=== PATIENT | female | born 1935 | race African-American/Black ===

== ENCOUNTER 2018-01-27 21:29 | Inpatient (IN) | payer MEDICARE ==
[2018-01-27 21:58] LABS: #Eosinphils 0.1 thou/uL (0.0-0.7); #Lymphocytes 1.8 thou/uL (1.20-3.40); #Monocytes 0.4 thou/uL (0.11-0.59); #Neutrophils 3.6 thou/uL (1.40-6.50); %Basophils 0.6 % (0.0-1.0); %Eosinophils 2.3 % (0.0-10.0); %Lymphocytes 29.8 % (21.0-51.0); %Monocytes 6.3 % (0.0-10.0); %Neutrophils 61.1 % (42.0-75.0); Hemoglobin 9.2 g/dL (12.0-16.0); Mean Corpuscular Hemoglobin 31.6 pg (27.0-31.0); Mean Corpuscular Volume 95.7 fl (81.0-99.0); Mean Platelet Volume 7.8 fL (7.4-10.4); Platelet Count 176 thou/uL (130-400); RBC Distribution Width 12.6 % (11.5-14.5); Red Blood Cell (RBC) Count 2.92 mill/uL (4.20-5.40); White Blood Cell (WBC) Count 5.9 thou/uL (4.8-10.8)
[2018-01-27 22:20] LABS: ALT (SGPT) 16 U/L (8-55); AST (SGOT) 14 U/L (5-34); Albumin 3.4 g/dL (3.4-4.8); Alkaline Phosphatase 82 U/L (40-150); Anion Gap 12 mmol/L (10-20); BUN (Urea Nitrogen) 65 mg/dL (9.8-20.1); Bilirubin, Total 0.2 mg/dL (0.2-1.2); Calc. Creatinine Clearance 0 mL/min (70-130); Calcium 8.8 mg/dL (7.8-10.44); Carbon Dioxide 24 mmol/L (23-31); Chloride 112 mmol/L (98-107); Estimated GFR-MDRD 40; Globulin 3.1 g/dL (2.4-3.5); Glucose 117 mg/dL (83-110); Protein, Total 6.5 g/dL (6.0-8.3); Sodium 143 mmol/L (136-145)
[2018-01-28 00:36] LABS: Bilirubin Negative (Negative); Blood, Urine Large (Negative); Clarity TURBID (Clear); Glucose, Urine (Dipstick) Negative (Negative); Leukocyte Large (Negative); Nitrite Negative (Negative); Protein, Urine (Dipstick) 100 mg/dL (Neg-Trace); Specific Gravity, Urine 1.013 (1.002-1.036); Urobilinogen 0.2 mg/dL (0.2-1.0)
[2018-01-28 00:39] LABS: Bacteria/HPF 4+ HPF (None Seen); RBC/HPF 21-50 HPF (0-3)
[2018-01-28 00:40] LABS: Pathc Cast-AUWi Flag 19.96 (0-2.49); Yeast-AUWi Flag 58.3 (0-25.0)
[2018-01-28 00:43] LABS: Manual Microscopic Reviewed? No Path Casts Seen
[2018-01-28 00:44] LABS: Hyaline Casts/LPF NONE SEEN LPF (0-3 Hyaline); Yeast-All Forms None Seen HPF (None Seen)
[2018-01-28] MEDS ORDERED: MEROPENEM 1 GM/50 ML 1 GM in Premix Bag 1 BAG IVPB SCH ×2 (01:15→10:00)
--- NOTE | 2018-01-28 01:45 | PDOC.FPRHP ---
- History of Present Illness Chief Complaint: AMS History of Present Illness: 82 yo AA female presents to ED due to altered mental status. Pt daughter was tired and leaving the room and did not stay. Was not able to obtain full history from daughter. Pt A&Ox0. Was very weak and tired. Per brief hx from daughter had not been eating well and was hallucinating all day long. Was not able to obtain baseline from daughter. Daughter takes care of her at home. ED Course: Was given Meropenem and Levaquin - Allergies/Adverse Reactions Allergies Allergy/AdvReac Type Severity Reaction Status Date / Time aspirin Allergy Intermediate Verified 01/28/18 03:24 NSAIDS (Non-Steroidal Allergy Intermediate Verified 01/28/18 03:24 Anti-Inflamma lactose AdvReac Diarrhea Verified 01/28/18 03:24 - Home Medications Medication Instructions Recorded Confirmed Type Carvedilol [Coreg] 25 mg PO BID 12/10/16 05/06/17 History Insulin Detemir 100 UNITS/ML 25 units SC DAILY 12/10/16 01/28/18 History [Levemir] Liothyronine Sodium [Cytomel] 5 mcg PO DAILY 12/10/16 01/28/18 History Amlodipine [Norvasc] 10 mg PO DAILY tab 12/15/16 05/06/17 Rx Atorvastatin Calcium [Lipitor] 40 mg PO HS tab 12/15/16 05/06/17 Rx Folic Acid [Folvite] 1 mg PO DAILY tab 12/15/16 05/06/17 Rx Hydroxychloroquine Sulfate 200 mg PO BID tab 12/15/16 05/06/17 Rx [Plaquenil] Ipratropium/Albuterol Sulfate 3 ml NEB Q4H PRN #0 neb 12/15/16 01/28/18 Rx [DuoNeb] Levothyroxine Sodium [Synthroid] 125 mcg PO 0600 tab 12/15/16 01/28/18 Rx cloNIDine [Catapres] 0.1 mg PO HS tab 12/15/16 01/28/18 Rx hydrALAZINE [Apresoline] 25 mg PO TID tab 12/15/16 05/06/17 Rx Furosemide [Lasix] 40 mg PO BID #60 tab 02/26/17 05/06/17 Rx Budesonide [Pulmicort Flexhaler] 2 puff INH BID PRN 03/28/17 05/06/17 History Ferrous Sulfate 325 mg PO DAILY 03/28/17 05/06/17 History Metolazone 5 mg PO DAILY 03/28/17 05/06/17 History Acetaminophen [Tylenol Regular 325 mg PO Q4H PRN 05/06/17 05/06/17 History Strength] Bisacodyl [Dulcolax] 10 mg PO DAILYPRN PRN #0 tab 05/20/17 Rx Bisacodyl [Dulcolax] 10 mg ID DAILYPRN PRN #0 supp 05/20/17 Rx Calcium Carbonate [Tums] 1,000 mg PO Q4H PRN #0 tab 05/20/17 Rx Ondansetron [Zofran ODT] 4 mg PO Q6H PRN #0 tab 05/20/17 01/28/18 Rx Pantoprazole [Protonix] 40 mg PO BID #60 tab 05/20/17 01/28/18 Rx Comments: Med Rec is from previous admission. Patient is not alert or oriented. Unable to perform accurate Med rec at this time. Daughter not present at bedside. - History PMHx: CKD3, DMII, RA, dCHF (EF 60-65% May 2017), HTN, paroxysmal A.fib, Hypothyroidism, Asthma PSHx: Cardiac Ablation, R. Masectomy, Bilat Rotator Cuff Surgery, Appendectomy, C-sectionx2, Hysterectomy, Thyroidectomy, Left carpal tunnel release PMH and PSHx obtained from previous HPI of last year. FHx: Non contributory Social: Unable to obtain. - Review of Systems ROS unobtainable: due to mental status - Vital signs BP: [203/78] HR: [64] RR: [12] Tmax: [99.8] Pox: [100]% on [ra] Wt: [] - Physical Exam -Constitutional: Weak, Ill appearing. A&Ox0 HEENT: normocephalic and atraumatic, grossly normal hearing -HEENT: mucous membranes dry. Neck: supple, no LAD, no JVD, no thyromegaly Chest: no-tender to palpation, no lesions Heart: RRR, normal S1/S2, pulses present, no edema Lungs: CTAB, no respiratory distress, good air movement, no rales/rhonchi, no wheezing Abdomen: non-tender, bowel sounds present, no masses/distention -Abdomen: Abdomen hard in suprapubic area to palpation Neurological: no focal deficit -Neurological: Hard to assess due to patient mental state Skin: no rash/lesions -Skin: cap refill 3 seconds Heme/Lymphatic: no unusual bruising or bleeding, no purpura, no petechia -Psychiatric: A&Ox0. Pt unable to answer questions FMR H&P: Results - Labs Result Diagrams: 01/28/18 03:14 01/28/18 03:14 Lab results: WBC 5.9 thou/uL (4.8-10.8) 01/27/18 21:51 Hgb 9.2 g/dL (12.0-16.0) L 01/27/18 21:51 Hct 27.9 % (36.0-47.0) L 01/27/18 21:51 MCV 95.7 fl (81.0-99.0) 01/27/18 21:51 Plt Count 176 thou/uL (130-400) 01/27/18 21:51 Neutrophils % 61.1 % (42.0-75.0) 01/27/18 21:51 Sodium 143 mmol/L (136-145) 01/27/18 21:51 Potassium 5.0 mmol/L (3.5-5.1) 01/27/18 21:51 Chloride 112 mmol/L (98-107) H 01/27/18 21:51 Carbon Dioxide 24 mmol/L (23-31) 01/27/18 21:51 BUN 65 mg/dL (9.8-20.1) H 01/27/18 21:51 Creatinine 1.52 mg/dL (0.6-1.1) H 01/27/18 21:51 Glucose 117 mg/dL (83-110) H 01/27/18 21:51 Calcium 8.8 mg/dL (7.8-10.44) 01/27/18 21:51 Total Bilirubin 0.2 mg/dL (0.2-1.2) 01/27/18 21:51 AST 14 U/L (5-34) 01/27/18 21:51 ALT 16 U/L (8-55) 01/27/18 21:51 Alkaline Phosphatase 82 U/L (40-150) 01/27/18 21:51 Serum Total Protein 6.5 g/dL (6.0-8.3) 01/27/18 21:51 Albumin 3.4 g/dL (3.4-4.8) 01/27/18 21:51 Urine Ketones Negative mg/dL (Negative) 01/28/18 00:10 Urine Blood Large (Negative) H 01/28/18 00:10 Urine Nitrite Negative (Negative) 01/28/18 00:10 Ur Leukocyte Esterase Large (Negative) H 01/28/18 00:10 Urine RBC 21-50 HPF (0-3) H 01/28/18 00:10 Urine WBC Greater Than 50-TNTC HPF (0-3) H 01/28/18 00:10 Ur Squamous Epith Cells 4-6 HPF (0-3) H 01/28/18 00:10 Urine Bacteria 4+ HPF (None Seen) H 01/28/18 00:10 - EKG Interpretation EKG: No EKG findings noted FMR H&P: A/P - Problem List (1) Toxic metabolic encephalopathy Current Visit: Yes Status: Acute Code(s): G92 - TOXIC ENCEPHALOPATHY (2) UTI (urinary tract infection) Current Visit: No Status: Acute Qualifiers: Urinary tract infection type: acute cystitis Hematuria presence: with hematuria Qualified Code(s): N30.01 - Acute cystitis with hematuria (3) CKD (chronic kidney disease) stage 3, GFR 30-59 ml/min Current Visit: No Status: Acute Priority: Medium (4) Generalized weakness Current Visit: No Status: Acute Priority: Medium Code(s): R53.1 - WEAKNESS (5) Paroxysmal atrial fibrillation Current Visit: No Status: Acute Priority: Low Code(s): I48.0 - PAROXYSMAL ATRIAL FIBRILLATION (6) Diabetes mellitus Current Visit: No Status: Chronic Code(s): E11.9 - TYPE 2 DIABETES MELLITUS WITHOUT COMPLICATIONS Qualifiers: Diabetes mellitus type: type 2 Proliferative retinopathy type: stable (7) Diastolic CHF Current Visit: No Status: Chronic Code(s): I50.30 - UNSPECIFIED DIASTOLIC ( CONGESTIVE) HEART FAILURE (8) Hypertension Current Visit: No Status: Chronic Code(s): I10 - ESSENTIAL (PRIMARY) HYPERTENSION Qualifiers: (9) Hypothyroidism Current Visit: No Status: Chronic Code(s): E03.9 - HYPOTHYROIDISM, UNSPECIFIED Qualifiers: Hypothyroidism type: acquired Qualified Code(s): E03.9 - Hypothyroidism, unspecified (10) Rheumatoid arteritis Current Visit: No Status: Chronic Code(s): I00 - RHEUMATIC FEVER WITHOUT HEART INVOLVEMENT (11) Delirium Current Visit: No Status: Resolved Code(s): R41.0 - DISORIENTATION, UNSPECIFIED (12) Hypertensive urgency Current Visit: Yes Status: Acute Code(s): I16.0 - HYPERTENSIVE URGENCY (13) Mild dehydration Current Visit: Yes Status: Acute Code(s): E86.0 - DEHYDRATION - Plan Toxic Metabolic Encephalopathy 2/2 UTI -Per ER and brief hx from daughter, was very delirous and hallicinating today. A &x0. Very weak -UA bact, LE, and WBC (+). Urine Cx pending. Blood Cx pending -Tx w/ levaquin at this time. Given one dose meropenem by ER -NS@125 mls/hr -Lactic acid for sepsis pending -Unknown baseline -Will get CT head HTN Urgency -Awaiting Med Rec. will restart home meds when possible -Labetolol PRN for SBP>180 Mild Dehydration -Mucous membranes dry, decreased cap refill. Decreased PO intake today -NS fluids as above CKD3 -Stable, Cr much improved from previous visits. Fluids as above -Monitor with BMP dCHF -Grade 1 on ECHO in May 2017 -Given fluids. Not fluid overloaded at this time continue to monitor Hypothyroidism -Await med rec, continue home med when completed DMII -Mod SSI, Accuchecks ACHS RA -Continue home meds Delirium -Related to problem one. See above Generalize Weakness -PT/OT consulted -Case management for d/c planning FMR H&P: Upper Level - Pertinent history 82 y/o F pmhx RA, dCHF, anemia, severe lower extremity ulcers with osteomyelitis , and hypothryoidism presents with altered mental status. Patient was previously labeled as a diabetic but last A1c in Oct 2017 was 4.6%. Unable to obtain full history as family member left as we were arriving in room but sounds like she has had extremely foul smelling urine, decreased oral intake, and increased confusion at home. Patient lives with daughter who is her sole home care manager rn. Unclear what mental status or functionality is like at baseline. Patient's PMD is Dr. Winston who has previously documented ongoing issues with hallucinations. However, no documented history of dementia on review of prior records. Patient is not oriented during interview and unable to respond to questioning. - Pertinent findings Gen: obese, awake but non-oriented, appears somewhat lethargic Eyes: constricted pupils but equally round and reactive to light Neck: no bruits CV: RRR, no m/g/r Lungs: CTAB Abd: non-tender, +BS Ext: trace edema Skin: no evidence of ulcers; chronic changes and thickening on LE's - Plan Date/Time: 01/28/18 0144 I, Alex Mosher MD have evaluated this patient and agree with findings/plan as outlined by financial analyst intern resident. Pertinent changes/additions are listed here. 82 yo AAF with: 1) Presumed toxic metabolic encephalopathy 2/2 UTI 2) Mild dehydration 3)HTN Urgency 4) Other chronic medical conditions: cont. home medications Admit to medical. Continue IV abx for UTI. Culture pending. Will continue treatment with Levaquin given prior history of urinary pathogen resistant to Rocephin. Gentle IVF for dehydration. Blood cultures and lactic acid pending but no evidence of sepsis at this time. Troponin and TSH pending. EKG NSR. CT head deferred for now as no focal signs of CVA. PT/OT ordered. Case management consult to assist with placement after d/c. PRN Labetolol for SBP>180 Attending Addendum - Attending Addendum Date/Time: 01/28/18 0901 I personally evaluated the patient and discussed the management with I agree with the History, Examination, Assessment and Plan documented above with any addition or exceptions noted below. 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 Patient followed by Dr Winston recent visual hallucinations and started on zoloft recently.Prior surgery laseeye surgery for diabetic retinopathy, thyroidectomy, mastoidectomy, appendectomy and hysterectomy with BSO([facility] no CA) Daughter to bring in Rx for reconciliation today discussed progress with son ( [facility] in [facility]) [phone]
[2018-01-28] MEDS ORDERED: Nitroglycerin 2% Ointment 1 INCH/1 GM Packet ONE (02:21)
[2018-01-28] MEDS ORDERED: Acetaminophen 650 MG Suppository PR PRN (02:55)
[2018-01-28] MEDS ORDERED: Ondansetron ODT 4 MG TAB PO PRN ×2 (02:55→07:00)
[2018-01-28] MEDS ORDERED: Dextrose 5% in Water 1,000 ML IV PRN (02:55)
[2018-01-28] MEDS ORDERED: Bisacodyl 10 MG SUPP PR PRN (02:55)
[2018-01-28] MEDS ORDERED: Dextrose 50% Abboject 50 ML SYRINGE SLOW IVP PRN (02:55)
[2018-01-28] MEDS ORDERED: Bisacodyl 5 MG TAB PO PRN (02:55)
[2018-01-28] MEDS ORDERED: Labetalol HCl 100 MG/20 ML VIAL SLOW IVP PRN (02:55)
[2018-01-28] MEDS ORDERED: Sodium Chloride 0.9% 1,000 ML IV SCH ×2 (02:55)
[2018-01-28] MEDS ORDERED: Ondansetron ODT 4 MG TAB SL PRN (02:55)
[2018-01-28] MEDS ORDERED: Ondansetron HCl/PF 4 MG/2 ML Vial IVP PRN ×2 (02:55)
[2018-01-28 03:27] VITALS: BMI 30.6
[2018-01-28 03:56] LABS: #Eosinphils 0.2 thou/uL (0.0-0.7); #Lymphocytes 2.2 thou/uL (1.20-3.40); #Monocytes 0.5 thou/uL (0.11-0.59); #Neutrophils 2.8 thou/uL (1.40-6.50); %Basophils 0.2 % (0.0-1.0); %Eosinophils 3.4 % (0.0-10.0); %Lymphocytes 38.8 % (21.0-51.0); %Neutrophils 48.6 % (42.0-75.0); Hemoglobin 9.6 g/dL (12.0-16.0); Mean Corpuscular HGB CONC 33.7 g/dL (32.0-36.0); Mean Corpuscular Hemoglobin 32.5 pg (27.0-31.0); Mean Corpuscular Volume 96.4 fl (81.0-99.0); Mean Platelet Volume 8.2 fL (7.4-10.4); Platelet Count 186 thou/uL (130-400); RBC Distribution Width 12.7 % (11.5-14.5); Red Blood Cell (RBC) Count 2.94 mill/uL (4.20-5.40); White Blood Cell (WBC) Count 5.7 thou/uL (4.8-10.8)
[2018-01-28 04:14] LABS: Anion Gap 12 mmol/L (10-20); BUN (Urea Nitrogen) 61 mg/dL (9.8-20.1); Calc. Creatinine Clearance 46 mL/min (70-130); Calcium 8.8 mg/dL (7.8-10.44); Carbon Dioxide 23 mmol/L (23-31); Chloride 113 mmol/L (98-107); Estimated GFR-MDRD 42; Glucose 85 mg/dL (83-110); Potassium 4.6 mmol/L (3.5-5.1); Sodium 143 mmol/L (136-145)
[2018-01-28 04:19] LABS: Troponin I 0.027 ng/mL (< 0.028)
[2018-01-28] MEDS ORDERED: hydrALAZINE 20 MG/ML VIAL SLOW IVP PRN (06:46)
[2018-01-28] MEDS ORDERED: Acetaminophen 325 MG TAB PO PRN (07:00)
[2018-01-28] MEDS ORDERED: Mometasone Furoate 120 PUFF 220 MCG INH PRN (07:15)
--- NOTE | 2018-01-28 08:37 | PDOC.FM ---
- Subjective Subjective: This morning the patient is A&Ox3. She states she has been feeling "slightly off " for the last 2-3 days. She says she has had decreased appetite and some pain with urination. She vomited x1 and has had some nausea. She denies pain at this time. She states she was on hospice for 6 months with home visits but that ended 9 days ago. She says her daughter takes good care of her and she would prefer not to go to a jail for long-term care but she would consider going for a short rehab stay. - Objective Vital Signs & Weight: Vital Signs (12 hours) Temp Pulse Resp BP BP Pulse Ox 01/28/18 06:00 191/73 H 01/28/18 05:05 68 199/68 H 01/28/18 04:33 97.8 F 68 12 95 01/28/18 03:25 98.5 F 67 20 98 01/28/18 02:56 98.3 F 74 20 98 Weight Admit Weight 94.12 kg Weight 94.12 kg Result Diagrams: 01/28/18 03:14 01/28/18 03:14 <Bernabe Flores - Last Filed: 01/28/18 08:39> - Objective Vital Signs & Weight: Vital Signs (12 hours) Temp Pulse Resp BP BP Pulse Ox 01/28/18 08:00 98.2 F 71 18 191/76 H 94 L 01/28/18 06:00 191/73 H 01/28/18 05:05 68 199/68 H 01/28/18 04:33 97.8 F 68 12 95 01/28/18 03:25 98.5 F 67 20 98 01/28/18 02:56 98.3 F 74 20 98 Weight Admit Weight 94.12 kg Weight 94.12 kg I&O: 01/27/18 01/28/18 01/29/18 06:59 06:59 06:59 Intake Total 240 Balance 240 Result Diagrams: 01/28/18 03:14 01/28/18 03:14 <Teja Pugh - Last Filed: 01/28/18 11:11> Phys Exam - Physical Examination Constitutional: NAD HEENT: PERRLA, moist MMs poor dentition Neck: no nodes, full ROM Respiratory: no wheezing, clear to auscultation bilateral Cardiovascular: RRR, no significant murmur, no rub Gastrointestinal: soft, non-tender, no distention, positive bowel sounds Musculoskeletal: no edema diminished pulses at the ankles, no wounds on the feet Neurological: non-focal, moves all 4 limbs Psychiatric: normal affect, A&O x 3 Skin: no rash, cap refill <2 seconds <Bernabe Flores - Last Filed: 01/28/18 08:39> Dx/Plan (1) Hypertensive urgency Code(s): I16.0 - HYPERTENSIVE URGENCY Status: Acute (2) Mild dehydration Code(s): E86.0 - DEHYDRATION Status: Acute (3) Toxic metabolic encephalopathy Code(s): G92 - TOXIC ENCEPHALOPATHY Status: Acute (4) CKD (chronic kidney disease) stage 3, GFR 30-59 ml/min Status: Acute (5) Generalized weakness Code(s): R53.1 - WEAKNESS Status: Acute (6) Nausea & vomiting Code(s): R11.2 - NAUSEA WITH VOMITING, UNSPECIFIED Status: Acute (7) Physical deconditioning Code(s): R53.81 - OTHER MALAISE Status: Acute (8) UTI (urinary tract infection) Status: Acute QualifierTitle: Urinary tract infection type: acute cystitis Hematuria presence: with hematuria Qualified Code(s): N30.01 - Acute cystitis with hematuria (9) Anemia Code(s): D64.9 - ANEMIA, UNSPECIFIED Status: Chronic QualifierTitle: Anemia type: other cause Other causes of anemia: chronic disease, other Qualified Code(s): D63.8 - Anemia in other chronic diseases classified elsewhere (10) Chronic kidney disease, stage IV (severe) Code(s): N18.4 - CHRONIC KIDNEY DISEASE, STAGE 4 (SEVERE) Status: Chronic (11) Rheumatoid arteritis Code(s): I00 - RHEUMATIC FEVER WITHOUT HEART INVOLVEMENT Status: Chronic (12) Type II diabetes mellitus Status: Chronic QualifierTitle: Diabetes mellitus ad terminal makeup operator insulin use: with ad terminal makeup operator use Diabetes mellitus complication status: with circulatory complication Diabetes mellitus complication detail: with peripheral angiopathy with gangrene Qualified Code(s): E11.52 - Type 2 diabetes mellitus with diabetic peripheral angiopathy with gangrene; Z79.4 - skilled nursing (current) use of insulin (13) Delirium Code(s): R41.0 - DISORIENTATION, UNSPECIFIED Status: Resolved - Plan Plan: Toxic Metabolic Encephalopathy 2/2 UTI -patient is A&Ox3, per daughter she was hallucinating before coming in -UA bact, LE, and WBC (+). Urine Cx pending. Blood Cx pending -Tx w/ levaquin at this time. Given one dose meropenem by ER -NS@125 mls/hr -Lactic acid 0.7 - CT head pending read HTN Urgency -Med rec as per external pharmacy results - polypharmacy, pharmacy to assist with med rec - restarted home carvedilol, clonidine patch, lasix -Labetolol PRN for SBP>180 Mild Dehydration - resolved -NS fluids as above CKD3 -Stable, Cr much improved from previous visits. Fluids as above dCHF -Grade 1 on ECHO in May 2017 -Given fluids. Not fluid overloaded at this time continue to monitor Hypothyroidism - home levothyroxine 125mcg DMII -Mod SSI, Accuchecks ACHS - will await med rec for most recent insulin regimen RA - will hold hydroxychloroquine for now Delirium -Related to problem one. See above Generalize Weakness -PT/OT consulted -Case management for d/c planning - just got off hospice 9 days ago - anticipate she will need SNF rehab placement vs home health Dispo:1-2 days <Bernabe Flores - Last Filed: 01/28/18 08:39> (1) Toxic metabolic encephalopathy Code(s): G92 - TOXIC ENCEPHALOPATHY Status: Acute (2) UTI (urinary tract infection) Status: Acute Qualifiers: Urinary tract infection type: acute cystitis Hematuria presence: with hematuria Qualified Code(s): N30.01 - Acute cystitis with hematuria (3) CKD (chronic kidney disease) stage 3, GFR 30-59 ml/min Status: Acute (4) Generalized weakness Code(s): R53.1 - WEAKNESS Status: Acute (5) Paroxysmal atrial fibrillation Code(s): I48.0 - PAROXYSMAL ATRIAL FIBRILLATION Status: Acute (6) Diabetes mellitus Code(s): E11.9 - TYPE 2 DIABETES MELLITUS WITHOUT COMPLICATIONS Status: Chronic Qualifiers: Diabetes mellitus type: type 2 Proliferative retinopathy type: stable (7) Diastolic CHF Code(s): I50.30 - UNSPECIFIED DIASTOLIC (CONGESTIVE) HEART FAILURE Status: Chronic (8) Hypertension Code(s): I10 - ESSENTIAL (PRIMARY) HYPERTENSION Status: Chronic Qualifiers: (9) Hypothyroidism Code(s): E03.9 - HYPOTHYROIDISM, UNSPECIFIED Status: Chronic Qualifiers: Hypothyroidism type: acquired Qualified Code(s): E03.9 - Hypothyroidism, unspecified (10) Rheumatoid arteritis Code(s): I00 - RHEUMATIC FEVER WITHOUT HEART INVOLVEMENT Status: Chronic (11) Delirium Code(s): R41.0 - DISORIENTATION, UNSPECIFIED Status: Resolved (12) Hypertensive urgency Code(s): I16.0 - HYPERTENSIVE URGENCY Status: Acute (13) Mild dehydration Code(s): E86.0 - DEHYDRATION Status: Acute <Teja Pugh - Last Filed: 01/28/18 11:11> Attending Addendum - Attending Addendum Date/Time: 01/28/18 1110 I personally evaluated the patient and discussed the management with Dr. Flores I agree with the History, Examination, Assessment and Plan documented above with any addition or exceptions noted below. Patient improved since admission urine C&S pending will advance activity and rec wound care consult. <Teja Pugh - Last Filed: 01/28/18 11:11>
--- NOTE | 2018-01-28 08:55 | CT ---
PRELIMINARY REPORT/[facility]/EMERGENTY AFTER-HOURS PROCEDURE CT Head Without Intravenous Contrast CLINICAL HISTORY: 82 years old, female; Signs and symptoms; Altered mental status/memory loss; Confusion or disorientat ion; Patient HX: Ams/confusion TECHNIQUE: Axial computed tomography images of the head/brain without intravenous contrast. COMPARISON: No relevant prior studies available. FINDINGS: Brain: Moderate volume loss No hemorrhage. Moderate white matter disease. No edema. Ventricles: Unremarkable. No ventriculomegaly. Bones/joints: No acute fracture. Soft tissues: Unremarkable. Sinuses: Unremarkable as visualized. No acute sinusitis. Mastoid air cells: Prior right mastoidectomy. Moderate left mastoid effusion IMPRESSION: Moderate left mastoid effusion. Correlate for otomastoiditis Thank you for allowing us to participate in the care of your patient. Dictated and Authenticated by: Kory Swann MD 01/28/2018 4:31 AM Central Time ([place] & [place]) FINAL REPORT EMERGENT AFTER HOURS CT OF BRAIN PERFORMED WITHOUT CONTRAST ENHANCEMENT: HISTORY: Altered mental status. COMPARISON: 12/01/16 study. FINDINGS: There is generalized ventricular and sulcal prominence. There is decreased attenuation of the perive ntricular white matter consistent with some chronic ischemic white matter change. There are no signs of intracerebral hemorrhage or extraaxial fluid collections. The left mastoid air cells are almost completely opacified inferiorly. There is right mastoidectomy change. Minimal mucosal change is see n in the ethmoid air cells. IMPRESSION: 1. No acute intracranial abnormalities. 2. Opacification of the left mastoid air cells and right mastoidectomy change. 3. This report is in agreement with the temporary report issued by [facility]. POS: [facility]
[2018-01-28] MEDS: Carvedilol 25 MG TAB PO SCH ×2 (10:24→20:12)
[2018-01-28] MEDS: Furosemide 40 MG TAB PO SCH ×2 (10:24→14:17)
[2018-01-28] MEDS: Enoxaparin Sodium 40 MG/0.4 ML SYRINGE SC SCH (10:25)
[2018-01-28] MEDS: Atorvastatin Calcium 40 MG TAB PO SCH (20:13)
[2018-01-28] MEDS: Hydroxychloroquine Sulfate 200 MG TAB PO SCH (20:13)
[2018-01-28] MEDS ORDERED: cloNIDine 0.1 MG TAB PO SCH (21:00)
[2018-01-28] MEDS: diphenhydrAMINE 25 MG CAP PO PRN (23:10)
[2018-01-29] MEDS: Acetaminophen 325 MG TAB PO PRN ×2 (01:49→20:13)
[2018-01-29] MEDS: Levothyroxine Sodium 125 MCG TAB PO SCH (05:21)
[2018-01-29] MEDS: Folic Acid 1 MG TAB PO SCH (08:17)
[2018-01-29] MEDS: Furosemide 40 MG TAB PO SCH ×2 (08:17→14:44)
[2018-01-29] MEDS: Carvedilol 25 MG TAB PO SCH ×2 (08:17→20:13)
[2018-01-29] MEDS: Enoxaparin Sodium 40 MG/0.4 ML SYRINGE SC SCH (08:19)
[2018-01-29] MEDS: Hydroxychloroquine Sulfate 200 MG TAB PO SCH ×2 (08:20→20:13)
--- NOTE | 2018-01-29 08:32 | PDOC.LDPN ---
Labor & Delivery Progress Note - Assessment (1) Hypertensive urgency Code(s): I16.0 - HYPERTENSIVE URGENCY Current Visit: Yes Status: Acute (2) Mild dehydration Code(s): E86.0 - DEHYDRATION Current Visit: Yes Status: Acute (3) Toxic metabolic encephalopathy Code(s): G92 - TOXIC ENCEPHALOPATHY Current Visit: Yes Status: Acute (4) CKD (chronic kidney disease) stage 3, GFR 30-59 ml/min Current Visit: No Status: Acute (5) Generalized weakness Code(s): R53.1 - WEAKNESS Current Visit: No Status: Acute (6) Nausea & vomiting Code(s): R11.2 - NAUSEA WITH VOMITING, UNSPECIFIED Current Visit: No Status : Acute (7) Physical deconditioning Code(s): R53.81 - OTHER MALAISE Current Visit: No Status: Acute (8) UTI (urinary tract infection) Current Visit: No Status: Acute Qualifiers: Urinary tract infection type: acute cystitis Hematuria presence: with hematuria Qualified Code(s): N30.01 - Acute cystitis with hematuria (9) Anemia Code(s): D64.9 - ANEMIA, UNSPECIFIED Current Visit: No Status: Chronic Qualifiers: Anemia type: other cause Other causes of anemia: chronic disease, other Qualified Code(s): D63.8 - Anemia in other chronic diseases classified elsewhere (10) Chronic kidney disease, stage IV (severe) Code(s): N18.4 - CHRONIC KIDNEY DISEASE, STAGE 4 (SEVERE) Current Visit: No Status: Chronic (11) Rheumatoid arteritis Code(s): I00 - RHEUMATIC FEVER WITHOUT HEART INVOLVEMENT Current Visit: No Status: Chronic (12) Type II diabetes mellitus Current Visit: No Status: Chronic Qualifiers: Diabetes mellitus group home insulin use: with post form remover use Diabetes mellitus complication status: with circulatory complication Diabetes mellitus complication detail: with peripheral angiopathy with gangrene Qualified Code(s ): E11.52 - Type 2 diabetes mellitus with diabetic peripheral angiopathy with gangrene; Z79.4 - global logistics analyst (current) use of insulin (13) Delirium Code(s): R41.0 - DISORIENTATION, UNSPECIFIED Current Visit: No Status: Resolved -: Toxic Metabolic Encephalopathy 2/2 UTI -patient is A&Ox3, per daughter she was hallucinating before coming in -UA bact, LE, and WBC (+). Urine Cx pending. Blood Cx pending -Tx w/ levaquin at this time. Given one dose meropenem by ER -NS@125 mls/hr -Lactic acid 0.7 - CT head pending read HTN Urgency -Med rec as per external pharmacy results - polypharmacy, pharmacy to assist with med rec - restarted home carvedilol, clonidine patch, lasix -Labetolol PRN for SBP>180 Mild Dehydration - resolved -NS fluids as above CKD3 -Stable, Cr much improved from previous visits. Fluids as above dCHF -Grade 1 on ECHO in May 2017 -Given fluids. Not fluid overloaded at this time continue to monitor Hypothyroidism - home levothyroxine 125mcg DMII -Mod SSI, Accuchecks ACHS - will await med rec for most recent insulin regimen RA - will hold hydroxychloroquine for now Delirium -Related to problem one. See above Generalize Weakness -PT/OT consulted -Case management for d/c planning - just got off hospice 9 days ago - anticipate she will need SNF rehab placement vs home health Dispo:1-2 days
--- NOTE | 2018-01-29 08:33 | PDOC.FM ---
Addendum entered and electronically signed by Bernabe Flores MD 01/29/18 09:47: Will start seroquel 25mg nightly to help with hallucinations Consider abortive therapy, reglan, for possible atypical migraine if hallucinations are persistent Original Note: - Subjective Subjective: This morning the patient is AxOx3 but is suffering from hallucinations. She states she sees the furniture moving around the room and feels like she is standing up and walking. She denies any auditory hallucinations. She knows these things are not actually happening. She is able to tell me about her situation and the names of her children. This is similiar to hallucinations she has been having at home for the last few months. - Objective Vital Signs & Weight: Vital Signs (12 hours) Temp Pulse Resp BP Pulse Ox 01/29/18 07:18 97.9 F 71 18 185/79 H 96 01/29/18 04:04 98.0 F 76 16 169/77 H 01/28/18 23:44 97.8 F 75 16 128/70 Weight Admit Weight 94.12 kg Weight 94.12 kg I&O: 01/28/18 01/29/18 01/30/18 06:59 06:59 06:59 Intake Total 2019 Result Diagrams: 01/28/18 03:14 01/28/18 03:14 <Bernabe Flores - Last Filed: 01/29/18 08:39> - Objective Vital Signs & Weight: Vital Signs (12 hours) Temp Pulse Resp BP Pulse Ox 01/29/18 08:00 97.9 F 71 18 96 01/29/18 07:18 97.9 F 71 18 185/79 H 96 01/29/18 04:04 98.0 F 76 16 169/77 H Weight Admit Weight 94.12 kg Weight 94.12 kg I&O: 01/28/18 01/29/18 01/30/18 06:59 06:59 06:59 Intake Total 2019 Result Diagrams: 01/28/18 03:14 01/28/18 03:14 <Teja Pugh - Last Filed: 01/29/18 11:52> Phys Exam - Physical Examination Constitutional: NAD HEENT: PERRLA, moist MMs Neck: no nodes, full ROM Respiratory: no wheezing, clear to auscultation bilateral Cardiovascular: RRR, no rub 1/6 systolic murmur Gastrointestinal: soft, non-tender, no distention, positive bowel sounds Musculoskeletal: no edema, pulses present Neurological: non-focal weakness in lower extremities likely 2/2 deconditioning Psychiatric: normal affect, A&O x 3 Skin: no rash, cap refill <2 seconds <Bernabe Flores - Last Filed: 01/29/18 08:39> Dx/Plan (1) Hypertensive urgency Code(s): I16.0 - HYPERTENSIVE URGENCY Status: Acute (2) Mild dehydration Code(s): E86.0 - DEHYDRATION Status: Acute (3) Toxic metabolic encephalopathy Code(s): G92 - TOXIC ENCEPHALOPATHY Status: Acute (4) CKD (chronic kidney disease) stage 3, GFR 30-59 ml/min Status: Acute (5) Generalized weakness Code(s): R53.1 - WEAKNESS Status: Acute (6) Nausea & vomiting Code(s): R11.2 - NAUSEA WITH VOMITING, UNSPECIFIED Status: Acute (7) Physical deconditioning Code(s): R53.81 - OTHER MALAISE Status: Acute (8) UTI (urinary tract infection) Status: Acute QualifierTitle: Urinary tract infection type: acute cystitis Hematuria presence: with hematuria Qualified Code(s): N30.01 - Acute cystitis with hematuria (9) Anemia Code(s): D64.9 - ANEMIA, UNSPECIFIED Status: Chronic QualifierTitle: Anemia type: other cause Other causes of anemia: chronic disease, other Qualified Code(s): D63.8 - Anemia in other chronic diseases classified elsewhere (10) Chronic kidney disease, stage IV (severe) Code(s): N18.4 - CHRONIC KIDNEY DISEASE, STAGE 4 (SEVERE) Status: Chronic (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0 - DISORIENTATION, UNSPECIFIED Status: Acute - Plan Plan: Toxic Metabolic Encephalopathy 2/2 UTI -patient is A&Ox3, per daughter she was hallucinating before coming in - A&Ox0 on admission -UA bact, LE, and WBC (+). Urine Cx pending. Blood Cx pending -Tx w/ levaquin at this time. Given one dose meropenem by ER -NS@75 mls/hr -Lactic acid 0.7 Hallucinations - has been going on for past few months - visual hallucinations - spoke to patient regarding starting antipsycotic, pt would like to speak to a psychiatrist - will revisit HTN Urgency -Med rec as per external pharmacy results - polypharmacy, pharmacy to assist with med rec - restarted home carvedilol, clonidine patch, lasix - added losartan 50mg daily -Labetolol PRN for SBP>180 Mild Dehydration - resolved -NS fluids as above CKD3 -Stable, Cr much improved from previous visits. Fluids as above dCHF -Grade 1 on ECHO in May 2017 -Given fluids. Not fluid overloaded at this time continue to monitor Hypothyroidism - home levothyroxine 125mcg DMII -Mod SSI, Accuchecks ACHS RA -home meds Delirium -Related to problem one. See above Generalize Weakness -PT/OT consulted -Case management for d/c planning - just got off hospice 9 days ago - anticipate she will need SNF rehab placement vs home health Placement - patient's daughter was staying home taking care of patient - may not be able to do this for senior care - patient will need SNF rehab stay after this, may need long-term placement - spoke to long-term PCP Dr. Winston, she has been in close communication with the family Dispo:1-2 days <Bernabe Flores - Last Filed: 01/29/18 08:39> (1) Toxic metabolic encephalopathy Code(s): G92 - TOXIC ENCEPHALOPATHY Status: Acute (2) UTI (urinary tract infection) Status: Acute Qualifiers: Urinary tract infection type: acute cystitis Hematuria presence: with hematuria Qualified Code(s): N30.01 - Acute cystitis with hematuria (3) CKD (chronic kidney disease) stage 3, GFR 30-59 ml/min Status: Acute (4) Generalized weakness Code(s): R53.1 - WEAKNESS Status: Acute (5) Paroxysmal atrial fibrillation Code(s): I48.0 - PAROXYSMAL ATRIAL FIBRILLATION Status: Acute (6) Diabetes mellitus Code(s): E11.9 - TYPE 2 DIABETES MELLITUS WITHOUT COMPLICATIONS Status: Chronic Qualifiers: Diabetes mellitus type: type 2 Proliferative retinopathy type: stable (7) Diastolic CHF Code(s): I50.30 - UNSPECIFIED DIASTOLIC (CONGESTIVE) HEART FAILURE Status: Chronic (8) Hypertension Code(s): I10 - ESSENTIAL (PRIMARY) HYPERTENSION Status: Chronic Qualifiers: (9) Hypothyroidism Code(s): E03.9 - HYPOTHYROIDISM, UNSPECIFIED Status: Chronic Qualifiers: Hypothyroidism type: acquired Qualified Code(s): E03.9 - Hypothyroidism, unspecified (10) Rheumatoid arteritis Code(s): I00 - RHEUMATIC FEVER WITHOUT HEART INVOLVEMENT Status: Chronic (11) Hypertensive urgency Code(s): I16.0 - HYPERTENSIVE URGENCY Status: Acute (12) Mild dehydration Code(s): E86.0 - DEHYDRATION Status: Acute <Teja Pugh - Last Filed: 01/29/18 11:52> Attending Addendum - Attending Addendum Date/Time: 01/29/18 1149 I personally evaluated the patient and discussed the management with Dr. Flores I agree with the History, Examination, Assessment and Plan documented above with any addition or exceptions noted below. Patient lucid, she is experiencing episodes of transient but prolonged appr 1 hr visual spatial distortion consider migraine variant. <Teja Pugh - Last Filed: 01/29/18 11:52>
[2018-01-29] MEDS: Losartan 25 MG TAB PO SCH (10:40)
[2018-01-29] MEDS: Sodium Chloride 0.9% 1,000 ML IV SCH (10:41)
--- NOTE | 2018-01-29 11:52 | PDOC.EVN ---
Event Note - Event Note Event Note: PHQ-9 is 7 - 3 for feeling down, 3 for trouble with sleep, 1 for feeling like she would be better off - patient is on sertraline 50mg outpatient Starting seroquel to help with hallucinations
--- NOTE | 2018-01-29 17:12 | PDOC.EVN ---
Event Note - Event Note Event Note: Stopped by to check on patient after starting seroquel - she states she still sees furniture on the floor, but she is improving - still feeling off balance but somewhat better - Patient is eating supper on her own and appears in NAD
--- NOTE | 2018-01-29 18:05 | PDOC.FM ---
- Subjective Subjective: Nurse stated that Ms. Munroe was more confused all night. She received her plaquenil last night as well as seroquel was started to assist with confusion and hallucinations. This am she is a&o x3 and is still actively having hallucinations. She sees a table in the room with a person underneath it. - Objective MAR Reviewed: Yes Vital Signs & Weight: Vital Signs (12 hours) Temp Pulse Resp BP Pulse Ox 01/29/18 16:24 97.9 F 65 18 157/82 H 94 L 01/29/18 11:55 98.1 F 70 18 170/77 H 97 01/29/18 08:00 97.9 F 71 18 96 01/29/18 07:18 97.9 F 71 18 185/79 H 96 Weight Admit Weight 94.12 kg Weight 94.12 kg I&O: 01/28/18 01/29/18 01/30/18 06:59 06:59 06:59 Intake Total 2019 Balance 2019 Result Diagrams: 01/28/18 03:14 01/28/18 03:14 Phys Exam - Physical Examination Constitutional: NAD HEENT: PERRLA, moist MMs Respiratory: no wheezing, no rales, clear to auscultation bilateral Cardiovascular: RRR, no significant murmur Gastrointestinal: soft, non-tender, no distention, positive bowel sounds Musculoskeletal: no edema, pulses present Neurological: non-focal Psychiatric: normal affect, A&O x 3 Skin: no rash, cap refill <2 seconds Dx/Plan (1) Hypertensive urgency Code(s): I16.0 - HYPERTENSIVE URGENCY Status: Acute (2) Mild dehydration Code(s): E86.0 - DEHYDRATION Status: Acute (3) Toxic metabolic encephalopathy Code(s): G92 - TOXIC ENCEPHALOPATHY Status: Acute (4) Nvjme-vh-yptwftr kidney injury Code(s): N17.9 - ACUTE KIDNEY FAILURE, UNSPECIFIED; N18.9 - CHRONIC KIDNEY DISEASE, UNSPECIFIED Status: Acute Qualifiers: Chronic kidney disease stage: unspecified stage (5) Atrial fibrillation Code(s): I48.91 - UNSPECIFIED ATRIAL FIBRILLATION Status: Acute Qualifiers: Atrial fibrillation type: chronic Qualified Code(s): I48.2 - Chronic atrial fibrillation (6) Paroxysmal atrial fibrillation Code(s): I48.0 - PAROXYSMAL ATRIAL FIBRILLATION Status: Acute (7) Psychosis Status: Acute (8) Diastolic CHF Code(s): I50.30 - UNSPECIFIED DIASTOLIC (CONGESTIVE) HEART FAILURE Status: Chronic (9) Rheumatoid arteritis Code(s): I00 - RHEUMATIC FEVER WITHOUT HEART INVOLVEMENT Status: Chronic (10) Type II diabetes mellitus Status: Chronic Qualifiers: Diabetes mellitus coater smoking pipe insulin use: with coater smoking pipe use Diabetes mellitus complication status: with circulatory complication Diabetes mellitus complication detail: with peripheral angiopathy with gangrene Qualified Code(s ): E11.52 - Type 2 diabetes mellitus with diabetic peripheral angiopathy with gangrene; Z79.4 - [facility] (current) use of insulin - Plan Plan: Plan: Toxic Metabolic Encephalopathy 2/2 UTI -patient is A&Ox3, per daughter she was hallucinating before coming in - A&Ox0 on admission -UA bact, LE, and WBC (+). Urine culture growing Klebsiella/enterobacter; sensitivites pending -Continue levaquin. Given one dose meropenem by ER -NS@75 mls/hr Hallucinations - has been going on for past few months - visual hallucinations -seroquel 25mg qhs started last night. We will increase to 50mg qhs. HTN Urgency -restarted home carvedilol, clonidine patch, lasix -added losartan 50mg daily -Labetolol PRN for SBP>180 Mild Dehydration -resolved -NS fluids as above CKD3 -Stable, Cr much improved from previous visits. Fluids as above dCHF -Grade 1 on ECHO in May 2017 -Given fluids. Not fluid overloaded at this time continue to monitor Hypothyroidism - home levothyroxine 125mcg DMII -Mod SSI, Accuchecks BID RA - hold plaquenil as she became more altered after taking it last night. Generalize Weakness -PT/OT consulted -Case management for d/c planning - just got off hospice 9 days ago - anticipate she will need SNF rehab placement vs home health Placement - patient's daughter was staying home taking care of patient - may not be able to do this for coater smoking pipe - patient will need SNF rehab stay after this, may need long-term placement - spoke to long-term PCP Dr. Winston, she has been in close communication with the family -Pending approval at [facility]. Dispo:1-2 days
[2018-01-29] MEDS: diphenhydrAMINE 25 MG CAP PO PRN (20:12)
[2018-01-29] MEDS: Atorvastatin Calcium 40 MG TAB PO SCH (20:13)
[2018-01-29] MEDS: HumaLOG 300 UNITS/3 ML VIAL SC PRN (20:14)
[2018-01-30] MEDS: Sodium Chloride 0.9% 1,000 ML IV SCH ×2 (00:10→11:12)
[2018-01-30] MEDS: Levothyroxine Sodium 125 MCG TAB PO SCH (05:11)
[2018-01-30] MEDS: predniSONE 5 MG TAB PO SCH (08:28)
[2018-01-30] MEDS: Enoxaparin Sodium 40 MG/0.4 ML SYRINGE SC SCH (08:29)
[2018-01-30] MEDS: Losartan 25 MG TAB PO SCH (08:29)
[2018-01-30] MEDS: Carvedilol 25 MG TAB PO SCH ×2 (08:29→20:18)
[2018-01-30] MEDS: Folic Acid 1 MG TAB PO SCH (08:29)
[2018-01-30] MEDS: Furosemide 40 MG TAB PO SCH ×2 (08:29→13:46)
--- NOTE | 2018-01-30 15:23 | PDOC.FM ---
- Subjective Subjective: Nurse stated that Ms. Munroe was more confused all night. She received her plaquenil last night as well as seroquel was started to assist with confusion and hallucinations. This am she is a&o x3 and is still actively having hallucinations. She sees a table in the room with a person underneath it. - Objective MAR Reviewed: Yes Vital Signs & Weight: Vital Signs (12 hours) Temp Pulse Resp BP BP Pulse Ox 01/30/18 08:00 97.9 F 69 20 97 01/30/18 07:25 97.9 F 69 20 147/64 H 97 01/30/18 07:13 97.6 F 74 18 131/83 97 Weight Admit Weight 94.12 kg Weight 94.12 kg I&O: 01/29/18 01/30/18 01/31/18 06:59 06:59 06:59 Intake Total 2019 1097 Balance 20198 Result Diagrams: 01/28/18 03:14 01/28/18 03:14 <Emilie Monroe - Last Filed: 01/30/18 15:23> - Objective Vital Signs & Weight: Vital Signs (12 hours) Temp Pulse Resp BP BP Pulse Ox 01/30/18 08:00 97.9 F 69 20 97 01/30/18 07:25 97.9 F 69 20 147/64 H 97 01/30/18 07:13 97.6 F 74 18 131/83 97 Weight Admit Weight 94.12 kg Weight 94.12 kg I&O: 01/29/18 01/30/18 01/31/18 06:59 06:59 06:59 Intake Total 20198 Result Diagrams: 01/28/18 03:14 01/28/18 03:14 <Teja Pugh - Last Filed: 01/30/18 17:14> Phys Exam - Physical Examination Constitutional: NAD HEENT: PERRLA, moist MMs Neck: no JVD Respiratory: no wheezing, no rales, clear to auscultation bilateral Cardiovascular: RRR, no significant murmur Gastrointestinal: soft, non-tender, no distention Musculoskeletal: no edema, pulses present Neurological: non-focal, normal sensation Psychiatric: normal affect, A&O x 3 Skin: no rash, normal turgor, cap refill <2 seconds <Emilie Monroe - Last Filed: 01/30/18 15:23> Dx/Plan (1) Hypertensive urgency Code(s): I16.0 - HYPERTENSIVE URGENCY Status: Acute (2) Mild dehydration Code(s): E86.0 - DEHYDRATION Status: Acute (3) Toxic metabolic encephalopathy Code(s): G92 - TOXIC ENCEPHALOPATHY Status: Acute (4) Oirik-hb-lrubfzg kidney injury Code(s): N17.9 - ACUTE KIDNEY FAILURE, UNSPECIFIED; N18.9 - CHRONIC KIDNEY DISEASE, UNSPECIFIED Status: Acute QualifierTitle: Chronic kidney disease stage: unspecified stage (5) Atrial fibrillation Code(s): I48.91 - UNSPECIFIED ATRIAL FIBRILLATION Status: Acute QualifierTitle: Atrial fibrillation type: chronic Qualified Code(s): I48.2 - Chronic atrial fibrillation (6) Paroxysmal atrial fibrillation Code(s): I48.0 - PAROXYSMAL ATRIAL FIBRILLATION Status: Acute (7) Psychosis Status: Acute (8) Diastolic CHF Code(s): I50.30 - UNSPECIFIED DIASTOLIC (CONGESTIVE) HEART FAILURE Status: Chronic (9) Rheumatoid arteritis Code(s): I00 - RHEUMATIC FEVER WITHOUT HEART INVOLVEMENT Status: Chronic (10) Type II diabetes mellitus Status: Chronic QualifierTitle: Diabetes mellitus buttermaker insulin use: with buttermaker use Diabetes mellitus complication status: with circulatory complication Diabetes mellitus complication detail: with peripheral angiopathy with gangrene Qualified Code(s): E11.52 - Type 2 diabetes mellitus with diabetic peripheral angiopathy with gangrene; Z79.4 - longterm (current) use of insulin - Plan Plan: Plan: Toxic Metabolic Encephalopathy 2/2 UTI -patient is A&Ox3, per daughter she was hallucinating before coming in - A&Ox0 on admission -UA bact, LE, and WBC (+). Urine culture growing Klebsiella/enterobacter; sensitivites pending -Continue levaquin. Given one dose meropenem by ER -NS@75 mls/hr Hallucinations - has been going on for past few months - visual hallucinations -seroquel 25mg qhs started last night. We will increase to 50mg qhs. HTN Urgency -restarted home carvedilol, clonidine patch, lasix -added losartan 50mg daily -Labetolol PRN for SBP>180 Mild Dehydration -resolved -NS fluids as above CKD3 -Stable, Cr much improved from previous visits. Fluids as above dCHF -Grade 1 on ECHO in May 2017 -Given fluids. Not fluid overloaded at this time continue to monitor Hypothyroidism - home levothyroxine 125mcg DMII -Mod SSI, Accuchecks BID RA - hold plaquenil as she became more altered after taking it last night. Generalize Weakness -PT/OT consulted -Case management for d/c planning - just got off hospice 9 days ago - anticipate she will need SNF rehab placement vs home health Placement - patient's daughter was staying home taking care of patient - may not be able to do this for shelter - patient will need SNF rehab stay after this, may need long-term placement - spoke to long-term PCP Dr. Winston, she has been in close communication with the family -Pending approval at [facility]. Dispo:1-2 days <Emilie Monroe - Last Filed: 01/30/18 15:23> (1) Toxic metabolic encephalopathy Code(s): G92 - TOXIC ENCEPHALOPATHY Status: Acute (2) UTI (urinary tract infection) Status: Acute Qualifiers: Urinary tract infection type: acute cystitis Hematuria presence: with hematuria Qualified Code(s): N30.01 - Acute cystitis with hematuria (3) CKD (chronic kidney disease) stage 3, GFR 30-59 ml/min Status: Acute (4) Generalized weakness Code(s): R53.1 - WEAKNESS Status: Acute (5) Paroxysmal atrial fibrillation Code(s): I48.0 - PAROXYSMAL ATRIAL FIBRILLATION Status: Acute (6) Diabetes mellitus Code(s): E11.9 - TYPE 2 DIABETES MELLITUS WITHOUT COMPLICATIONS Status: Chronic Qualifiers: Diabetes mellitus type: type 2 Proliferative retinopathy type: stable (7) Diastolic CHF Code(s): I50.30 - UNSPECIFIED DIASTOLIC (CONGESTIVE) HEART FAILURE Status: Chronic (8) Hypertension Code(s): I10 - ESSENTIAL (PRIMARY) HYPERTENSION Status: Chronic Qualifiers: (9) Hypothyroidism Code(s): E03.9 - HYPOTHYROIDISM, UNSPECIFIED Status: Chronic Qualifiers: Hypothyroidism type: acquired Qualified Code(s): E03.9 - Hypothyroidism, unspecified (10) Rheumatoid arteritis Code(s): I00 - RHEUMATIC FEVER WITHOUT HEART INVOLVEMENT Status: Chronic (11) Hypertensive urgency Code(s): I16.0 - HYPERTENSIVE URGENCY Status: Acute (12) Mild dehydration Code(s): E86.0 - DEHYDRATION Status: Acute <Teja Pugh - Last Filed: 01/30/18 17:14> Attending Addendum - Attending Addendum Date/Time: 01/30/18 7724 I personally evaluated the patient and discussed the management with Dr. Monroe I agree with the History, Examination, Assessment and Plan documented above with any addition or exceptions noted below. Continued Visual hallucinations concerning recommend Brain MRI evaluate for structural lesions. <Teja Pugh - Last Filed: 01/30/18 17:14>
[2018-01-30] MEDS: diphenhydrAMINE 25 MG CAP PO PRN (20:17)
[2018-01-30] MEDS: Acetaminophen 325 MG TAB PO PRN (20:18)
[2018-01-30] MEDS: Atorvastatin Calcium 40 MG TAB PO SCH (20:18)
[2018-01-30] MEDS: HumaLOG 300 UNITS/3 ML VIAL SC PRN (20:21)
[2018-01-31] MEDS: Sodium Chloride 0.9% 1,000 ML IV SCH ×2 (02:05→10:03)
[2018-01-31] MEDS: Levothyroxine Sodium 125 MCG TAB PO SCH (05:59)
--- NOTE | 2018-01-31 06:56 | PDOC.FM ---
- Subjective Subjective: She thinks she's in a basement this am. Otherwise pleasant, alert and oriented x3. MMSE reflects no overt signs of underlying dementia (recent, remote memory, recall intact). - Objective MAR Reviewed: Yes Vital Signs & Weight: Vital Signs (12 hours) Temp Pulse Resp BP Pulse Ox 01/30/18 20:15 98.7 F 67 18 95 01/30/18 19:55 98.7 F 67 18 154/53 H 95 Weight Admit Weight 94.12 kg Weight 94.12 kg I&O: 01/29/18 01/30/18 01/31/18 06:59 06:59 06:59 Intake Total 2020 1098 2800 Balance 2020 1098 2800 Result Diagrams: 01/31/18 07:08 01/31/18 07:08 <Emilie Monroe - Last Filed: 01/31/18 13:32> - Objective Vital Signs & Weight: Vital Signs (12 hours) Temp Pulse Resp BP Pulse Ox 01/31/18 08:00 97.7 F 68 18 152/74 H 96 Weight Admit Weight 94.12 kg Weight 94.12 kg I&O: 01/30/18 01/31/18 02/01/18 06:59 06:59 06:59 Intake Total 1098 2800 Balance 1098 2800 Result Diagrams: 01/31/18 07:08 01/31/18 07:08 <Teja Pugh - Last Filed: 01/31/18 14:58> Phys Exam - Physical Examination Constitutional: NAD HEENT: PERRLA, moist MMs Respiratory: no wheezing, no rales, clear to auscultation bilateral Cardiovascular: RRR, no significant murmur Gastrointestinal: soft, non-tender, no distention Musculoskeletal: no edema, pulses present Psychiatric: normal affect, A&O x 3 Deviation from normal: hallucinations-visual Skin: no rash <Emilie Monroe - Last Filed: 01/31/18 13:32> Dx/Plan (1) Hypertensive urgency Code(s): I16.0 - HYPERTENSIVE URGENCY Status: Acute (2) Mild dehydration Code(s): E86.0 - DEHYDRATION Status: Acute (3) Toxic metabolic encephalopathy Code(s): G92 - TOXIC ENCEPHALOPATHY Status: Acute (4) Uakwk-hi-swkerzv kidney injury Code(s): N17.9 - ACUTE KIDNEY FAILURE, UNSPECIFIED; N18.9 - CHRONIC KIDNEY DISEASE, UNSPECIFIED Status: Acute QualifierTitle: Chronic kidney disease stage: unspecified stage (5) Atrial fibrillation Code(s): I48.91 - UNSPECIFIED ATRIAL FIBRILLATION Status: Acute QualifierTitle: Atrial fibrillation type: chronic Qualified Code(s): I48.2 - Chronic atrial fibrillation (6) Paroxysmal atrial fibrillation Code(s): I48.0 - PAROXYSMAL ATRIAL FIBRILLATION Status: Acute (7) Psychosis Status: Acute (8) Diastolic CHF Code(s): I50.30 - UNSPECIFIED DIASTOLIC (CONGESTIVE) HEART FAILURE Status: Chronic (9) Rheumatoid arteritis Code(s): I00 - RHEUMATIC FEVER WITHOUT HEART INVOLVEMENT Status: Chronic (10) Type II diabetes mellitus Status: Chronic QualifierTitle: Diabetes mellitus usp insulin use: with remote computer terminal operator use Diabetes mellitus complication status: with circulatory complication Diabetes mellitus complication detail: with peripheral angiopathy with gangrene Qualified Code(s): E11.52 - Type 2 diabetes mellitus with diabetic peripheral angiopathy with gangrene; Z79.4 - intermediate project manager (current) use of insulin - Plan Plan: Plan: Toxic Metabolic Encephalopathy 2/2 UTI -patient is A&Ox3, per daughter she was hallucinating before coming in - A&Ox0 on admission -UA bact, LE, and WBC (+). Urine culture growing Klebsiella/enterobacter; sensitive to floroquinolones. -Continue levaquin. Given one dose meropenem by ER -NS@75 mls/hr -MRI to rule out mass Hallucinations - has been going on for past few months - visual hallucinations -seroquel-continue 50mg qhs. -MRI to rule outmass HTN Urgency -resolved -restarted home carvedilol, clonidine patch, lasix -added losartan 50mg daily -Labetolol PRN for SBP>180 Mild Dehydration -resolved -NS fluids as above CKD3 -Stable. Fluids as above dCHF -Grade 1 on ECHO in May 2017 -Given fluids. Not fluid overloaded at this time continue to monitor Hypothyroidism - home levothyroxine 125mcg DMII -Mod SSI, Accuchecks BID RA - hold plaquenil as she became more altered after taking it last night. Generalize Weakness -PT/OT consulted -Case management for d/c planning Placement - patient's daughter was staying home taking care of patient - may not be able to do this for usp - patient will need SNF rehab stay after this, may need long-term placement - spoke to long-term PCP Dr. Winston, she has been in close communication with the family -Pending approval at [facility]. Dispo:1-2 days <Emilie Monroe - Last Filed: 01/31/18 13:32> (1) Toxic metabolic encephalopathy Code(s): G92 - TOXIC ENCEPHALOPATHY Status: Acute (2) UTI (urinary tract infection) Status: Acute Qualifiers: Urinary tract infection type: acute cystitis Hematuria presence: with hematuria Qualified Code(s): N30.01 - Acute cystitis with hematuria (3) CKD (chronic kidney disease) stage 3, GFR 30-59 ml/min Status: Acute (4) Generalized weakness Code(s): R53.1 - WEAKNESS Status: Acute (5) Paroxysmal atrial fibrillation Code(s): I48.0 - PAROXYSMAL ATRIAL FIBRILLATION Status: Acute (6) Diabetes mellitus Code(s): E11.9 - TYPE 2 DIABETES MELLITUS WITHOUT COMPLICATIONS Status: Chronic Qualifiers: Diabetes mellitus type: type 2 Proliferative retinopathy type: stable (7) Diastolic CHF Code(s): I50.30 - UNSPECIFIED DIASTOLIC (CONGESTIVE) HEART FAILURE Status: Chronic (8) Hypertension Code(s): I10 - ESSENTIAL (PRIMARY) HYPERTENSION Status: Chronic Qualifiers: (9) Hypothyroidism Code(s): E03.9 - HYPOTHYROIDISM, UNSPECIFIED Status: Chronic Qualifiers: Hypothyroidism type: acquired Qualified Code(s): E03.9 - Hypothyroidism, unspecified (10) Rheumatoid arteritis Code(s): I00 - RHEUMATIC FEVER WITHOUT HEART INVOLVEMENT Status: Chronic (11) Hypertensive urgency Code(s): I16.0 - HYPERTENSIVE URGENCY Status: Acute (12) Mild dehydration Code(s): E86.0 - DEHYDRATION Status: Acute <Teja Pugh - Last Filed: 01/31/18 14:58> Attending Addendum - Attending Addendum Date/Time: 01/31/18 9495 I personally evaluated the patient and discussed the management with Dr. Monroe I agree with the History, Examination, Assessment and Plan documented above with any addition or exceptions noted below. Visual hallucination continue recommend MRI to rule out structural mass lesion although CT negative. non responsive to lower dose seroquel thus far. Patient will benefit from continued outpatient rehab. <Teja Pugh - Last Filed: 01/31/18 14:58>
[2018-01-31 07:44] LABS: ALT (SGPT) 13 U/L (8-55); AST (SGOT) 12 U/L (5-34); Albumin 2.9 g/dL (3.4-4.8); Alkaline Phosphatase 84 U/L (40-150); Anion Gap 12 mmol/L (10-20); BUN (Urea Nitrogen) 51 mg/dL (9.8-20.1); Bilirubin, Total 0.2 mg/dL (0.2-1.2); Calc. Creatinine Clearance 40 mL/min (70-130); Calcium 8.1 mg/dL (7.8-10.44); Carbon Dioxide 21 mmol/L (23-31); Chloride 111 mmol/L (98-107); Estimated GFR-MDRD 35; Globulin 2.5 g/dL (2.4-3.5); Glucose 158 mg/dL (83-110); Potassium 4.1 mmol/L (3.5-5.1); Protein, Total 5.4 g/dL (6.0-8.3); Sodium 140 mmol/L (136-145)
[2018-01-31 07:49] LABS: #Eosinphils 0.1 thou/uL (0.0-0.7); #Monocytes 0.6 thou/uL (0.11-0.59); #Neutrophils 2.3 thou/uL (1.40-6.50); %Basophils 0.4 % (0.0-1.0); %Eosinophils 2.8 % (0.0-10.0); %Lymphocytes 39.5 % (21.0-51.0); %Monocytes 11.5 % (0.0-10.0); %Neutrophils 45.7 % (42.0-75.0); Mean Corpuscular HGB CONC 33.6 g/dL (32.0-36.0); Mean Corpuscular Hemoglobin 32.2 pg (27.0-31.0); Mean Corpuscular Volume 95.7 fl (81.0-99.0); Mean Platelet Volume 8.4 fL (7.4-10.4); Platelet Count 155 thou/uL (130-400); RBC Distribution Width 12.3 % (11.5-14.5); Red Blood Cell (RBC) Count 2.48 mill/uL (4.20-5.40); White Blood Cell (WBC) Count 5.1 thou/uL (4.8-10.8)
[2018-01-31] MEDS: Carvedilol 25 MG TAB PO SCH ×2 (10:01→21:49)
[2018-01-31] MEDS: Folic Acid 1 MG TAB PO SCH (10:01)
[2018-01-31] MEDS: predniSONE 5 MG TAB PO SCH (10:01)
[2018-01-31] MEDS: Furosemide 40 MG TAB PO SCH ×2 (10:02→13:29)
[2018-01-31] MEDS: Losartan 25 MG TAB PO SCH (10:02)
[2018-01-31] MEDS: Enoxaparin Sodium 40 MG/0.4 ML SYRINGE SC SCH (10:02)
[2018-01-31] MEDS: HumaLOG 300 UNITS/3 ML VIAL SC PRN (10:03)
--- NOTE | 2018-01-31 13:09 | MRI ---
MRI BRAIN WITH AND WITHOUT CONTRAST: DATE: 01/31/18. HISTORY: An 82-year-old female with altered mental status, with confusion and hallucinations. TECHNIQUE: Multiple sequences obtained in axial, sagittal, and coronal planes; pre and post IV injection of gado linium-based contrast agent. FINDINGS: The ventricles are normal in size and configuration. There is no restricted diffusion, abnormal intr aaxial enhancement, mass, midline shift or any other mass effect, recent intraaxial hemorrhage, or ex traaxial fluid collection. There is a moderate degree of T2-hyperintensities in the cerebral white ma tter consistent with chronic ischemic white matter changes due to microvascular atherosclerosis. The re is a tiny, approximately 0.4 x 0.2 cm lesion in the left ambient cistern abutting the left posteri or periphery of the junction between the mid brain and upper hai, which is hyperintense on T1WI, hyp erintense on FLAIR, isointense relative to brain parenchyma on T2WI, and demonstrated to be of very l ow density on the CT of 01/28/18, consistent with fat. There is fluid signal throughout almost all of the left mastoid air cells. There is a fluid signal i nvolving some of the inferior right mastoid air cells. The CT demonstrates a right mastoidectomy def ect, but the osseous wall between the right external auditory canal and the right mastoid cavity, is intact. IMPRESSION: 1. No acute or aggressive intracranial findings. 2. Involutional changes and moderate chronic ischemic white matter changes of the brain. 3. Large left mastoid effusion and small right mastoid effusion. 4. Status post wall-up right mastoidectomy. 5. 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 tarsha[] POS: SAMM
[2018-01-31] MEDS: Atorvastatin Calcium 40 MG TAB PO SCH (21:49)
[2018-02-01] MEDS: Sodium Chloride 0.9% 1,000 ML IV SCH ×2 (00:06→16:59)
[2018-02-01] MEDS: Levothyroxine Sodium 125 MCG TAB PO SCH (06:22)
[2018-02-01 07:17] LABS: #Eosinphils 0.3 thou/uL (0.0-0.7); #Lymphocytes 2.6 thou/uL (1.20-3.40); #Monocytes 0.8 thou/uL (0.11-0.59); #Neutrophils 3.2 thou/uL (1.40-6.50); %Basophils 0.5 % (0.0-1.0); %Eosinophils 3.7 % (0.0-10.0); %Lymphocytes 37.6 % (21.0-51.0); %Monocytes 11.5 % (0.0-10.0); %Neutrophils 46.7 % (42.0-75.0); Hemoglobin 8.2 g/dL (12.0-16.0); Mean Corpuscular HGB CONC 32.8 g/dL (32.0-36.0); Mean Corpuscular Hemoglobin 31.6 pg (27.0-31.0); Mean Corpuscular Volume 96.4 fl (81.0-99.0); Mean Platelet Volume 8.8 fL (7.4-10.4); Platelet Count 145 thou/uL (130-400); RBC Distribution Width 12.1 % (11.5-14.5)
[2018-02-01 07:35] LABS: Anion Gap 12 mmol/L (10-20); Calcium 8.1 mg/dL (7.8-10.44); Carbon Dioxide 19 mmol/L (23-31); Chloride 112 mmol/L (98-107); Potassium 4.1 mmol/L (3.5-5.1); Sodium 139 mmol/L (136-145)
[2018-02-01 07:59] LABS: Glucose 132 mg/dL (83-110)
[2018-02-01 08:03] LABS: Calc. Creatinine Clearance 38 mL/min (70-130); Estimated GFR-MDRD 33
[2018-02-01 08:04] LABS: BUN (Urea Nitrogen) 50 mg/dL (9.8-20.1)
--- NOTE | 2018-02-01 09:16 | PDOC.FM ---
- Subjective Subjective: Complains of persistent hallucinations at night. She saw a table turned over and a clock on the front wall when she knows it's usually on the side wall. She saw trash all over the floor. She falls asleep then wakes up with these hallucinations. She was a&ox3 this am, but also saw a stairwell in the room. - Objective MAR Reviewed: Yes Vital Signs & Weight: Vital Signs (12 hours) Temp Pulse Resp BP Pulse Ox 02/01/18 08:00 98.0 F 66 18 170/78 H 97 Weight Admit Weight 94.12 kg Weight 94.12 kg I&O: 01/31/18 02/01/18 02/02/18 06:59 06:59 06:59 Intake Total 2800 3233 Balance 2800 3233 Result Diagrams: 02/01/18 07:06 02/01/18 07:06 <Emilie Monroe - Last Filed: 02/01/18 12:30> - Objective Vital Signs & Weight: Vital Signs (12 hours) Temp Pulse Resp BP Pulse Ox 02/01/18 08:00 98.0 F 66 18 170/78 H 95 Weight Admit Weight 94.12 kg Weight 94.12 kg I&O: 01/31/18 02/01/18 02/02/18 06:59 06:59 06:59 Intake Total 2800 3233 Balance 2800 3233 Result Diagrams: 02/01/18 07:06 02/01/18 07:06 <Aurora Max - Last Filed: 02/01/18 15:30> Phys Exam - Physical Examination Constitutional: NAD HEENT: PERRLA, moist MMs Respiratory: no wheezing, no rales, clear to auscultation bilateral Cardiovascular: RRR, no significant murmur Gastrointestinal: soft, non-tender Musculoskeletal: no edema cogwheel rigidity Neurological: non-focal Psychiatric: A&O x 3 Skin: no rash <Emilie Monroe - Last Filed: 02/01/18 12:30> Dx/Plan (1) Hypertensive urgency Code(s): I16.0 - HYPERTENSIVE URGENCY Status: Acute (2) Mild dehydration Code(s): E86.0 - DEHYDRATION Status: Acute (3) Toxic metabolic encephalopathy Code(s): G92 - TOXIC ENCEPHALOPATHY Status: Acute (4) Awcok-vf-sojpwvk kidney injury Code(s): N17.9 - ACUTE KIDNEY FAILURE, UNSPECIFIED; N18.9 - CHRONIC KIDNEY DISEASE, UNSPECIFIED Status: Acute QualifierTitle: Chronic kidney disease stage: unspecified stage (5) Atrial fibrillation Code(s): I48.91 - UNSPECIFIED ATRIAL FIBRILLATION Status: Acute QualifierTitle: Atrial fibrillation type: chronic Qualified Code(s): I48.2 - Chronic atrial fibrillation (6) Paroxysmal atrial fibrillation Code(s): I48.0 - PAROXYSMAL ATRIAL FIBRILLATION Status: Acute (7) Psychosis Status: Acute (8) Diastolic CHF Code(s): I50.30 - UNSPECIFIED DIASTOLIC (CONGESTIVE) HEART FAILURE Status: Chronic (9) Rheumatoid arteritis Code(s): I00 - RHEUMATIC FEVER WITHOUT HEART INVOLVEMENT Status: Chronic (10) Type II diabetes mellitus Status: Chronic QualifierTitle: Diabetes mellitus [facility] [facility] [place] use: with [facility] use Diabetes mellitus complication status: with circulatory complication Diabetes mellitus complication detail: with peripheral angiopathy with gangrene Qualified Code(s): E11.52 - Type 2 diabetes mellitus with diabetic peripheral angiopathy with gangrene; Z79.4 - custodial (current) use of insulin - Plan Plan: Plan: Toxic Metabolic Encephalopathy 2/2 UTI -patient is A&Ox3, per daughter she was hallucinating before coming in - A&Ox0 on admission -UA bact, LE, and WBC (+). Urine culture growing Klebsiella/enterobacter; sensitive to floroquinolones. -Continue levaquin. Given one dose meropenem by ER -NS@75 mls/hr -MRI to rule out mass Hallucinations -Suspect Lewy body dementia - has been going on for past few months -she may have lewy body dementia - visual hallucinations -start rivastigmine qhs -MRI to rule outmass Anemia, normocytic B12, folate, iron studies Chronic mastoiditis -Pt is on levaquin for her UTI HTN Urgency -resolved -restarted home carvedilol, clonidine patch, lasix -added losartan 50mg daily -Labetolol PRN for SBP>180 Mild Dehydration -resolved -NS fluids as above CKD3 -Stable. Fluids as above dCHF -Grade 1 on ECHO in May 2017 -Given fluids. Not fluid overloaded at this time continue to monitor Hypothyroidism - home levothyroxine 125mcg DMII -Mod SSI, Accuchecks BID RA - hold plaquenil as she became more altered after taking it last night. Generalize Weakness -PT/OT consulted -Case management for d/c planning Placement - patient's daughter was staying home taking care of patient - may not be able to do this [place] [facility] - patient will need SNF rehab stay after this, may need long-term placement - spoke to long-term PCP Dr. Winston, she has been in close communication with the family -Pt not approved at the [facility]. Pending other placement. Dispo:1-2 days <Emilie Monroe - Last Filed: 02/01/18 12:30> Attending Addendum - Attending Addendum Date/Time: 02/01/18 5291 I personally evaluated the patient and discussed the management with Dr. Monroe. I agree with the History, Examination, Assessment and Plan documented above with any addition or exceptions noted below. The patient is having visual hallucinations. Seroquel hasn't helped. Will try exelon as she may have a component of lewy body dementia. She does have some cogwheel rigidity. Pt is in agreement to try this. Continue antibiotics. <Aurora Max - Last Filed: 02/01/18 15:30>
[2018-02-01] MEDS: Enoxaparin Sodium 40 MG/0.4 ML SYRINGE SC SCH (09:28)
[2018-02-01] MEDS: Folic Acid 1 MG TAB PO SCH (09:29)
[2018-02-01] MEDS: Carvedilol 25 MG TAB PO SCH (09:29)
[2018-02-01] MEDS: Furosemide 40 MG TAB PO SCH ×2 (09:29→14:37)
[2018-02-01] MEDS: predniSONE 5 MG TAB PO SCH (09:29)
[2018-02-01] MEDS: Hydroxychloroquine Sulfate 200 MG TAB PO SCH (09:29)
[2018-02-01] MEDS: Losartan 25 MG TAB PO SCH (09:29)
[2018-02-01 10:03] LABS: Iron 66 ug/dL (50-170); Iron Binding Capacity, Total 144 mcg/dL (265-497)
[2018-02-01 11:04] LABS: Folate (Folic Acid) 15.5 ng/mL (7.0-31.4)
[2018-02-01] MEDS: Rivastigmine 1.5 MG CAP PO SCH (16:59)
[2018-02-02] MEDS: Carvedilol 25 MG TAB PO SCH ×2 (00:49→10:03)
[2018-02-02] MEDS: Atorvastatin Calcium 40 MG TAB PO SCH (00:49)
[2018-02-02] MEDS: Hydroxychloroquine Sulfate 200 MG TAB PO SCH ×2 (00:50→10:03)
[2018-02-02 05:21] LABS: #Eosinphils 0.2 thou/uL (0.0-0.7); #Lymphocytes 2.2 thou/uL (1.20-3.40); #Monocytes 0.6 thou/uL (0.11-0.59); #Neutrophils 2.5 thou/uL (1.40-6.50); %Basophils 0.3 % (0.0-1.0); %Lymphocytes 40.4 % (21.0-51.0); %Monocytes 10.6 % (0.0-10.0); %Neutrophils 45.7 % (42.0-75.0); Hemoglobin 7.9 g/dL (12.0-16.0); Mean Corpuscular HGB CONC 33.8 g/dL (32.0-36.0); Mean Corpuscular Hemoglobin 32.8 pg (27.0-31.0); Mean Platelet Volume 8.8 fL (7.4-10.4); Platelet Count 166 thou/uL (130-400); RBC Distribution Width 12.2 % (11.5-14.5); White Blood Cell (WBC) Count 5.4 thou/uL (4.8-10.8)
[2018-02-02 05:50] LABS: Anion Gap 10 mmol/L (10-20); BUN (Urea Nitrogen) 53 mg/dL (9.8-20.1); Calc. Creatinine Clearance 39 mL/min (70-130); Calcium 8.3 mg/dL (7.8-10.44); Carbon Dioxide 21 mmol/L (23-31); Chloride 113 mmol/L (98-107); Estimated GFR-MDRD 35; Glucose 151 mg/dL (83-110); Potassium 4.1 mmol/L (3.5-5.1); Sodium 140 mmol/L (136-145)
[2018-02-02] MEDS: Levothyroxine Sodium 125 MCG TAB PO SCH (05:53)
[2018-02-02] MEDS ORDERED: Sodium Chloride 0.9% 1,000 ML IV SCH (07:02)
[2018-02-02 07:35] VITALS: BP 164/66; TEMP 98.4
[2018-02-02] MEDS ORDERED: Sodium Chloride 0.9% 500 ML IV SCH (08:00)
[2018-02-02] MEDS: Furosemide 40 MG TAB PO SCH ×2 (10:01→15:00)
[2018-02-02] MEDS: Folic Acid 1 MG TAB PO SCH (10:01)
[2018-02-02] MEDS: predniSONE 5 MG TAB PO SCH (10:01)
[2018-02-02] MEDS: Rivastigmine 1.5 MG CAP PO SCH (10:04)
[2018-02-02] MEDS: Losartan 25 MG TAB PO SCH (10:04)
[2018-02-02] MEDS: Enoxaparin Sodium 40 MG/0.4 ML SYRINGE SC SCH (10:05)
--- NOTE | 2018-02-03 14:09 | DIS-2 ---
DATE OF ADMISSION: 01/28/2018 DATE OF DISCHARGE: 02/01/2018 RESIDENT: Dr. Emilie Monroe Lucille DISCHARGE ATTENDING: Dr. Teja Pugh CONSULTATIONS: None. IMAGIN. Brain CT:Impression: No acute intracranial abnormalities. Opacification of the left mastoid air cells and right mastoidectomy change. 2. Brain MRI. Impression: No acute or aggressive intracranial findings and involutional changes and moderate chronic ischemic white matter changes of the brain, large mastoid effusion and a small right mastoid effusion, status post right mastoidectomy, evidence for a tiny extraaxial lipoma or dermoid in the left ambient cistern abutting the pontomesencephalic junction. . PRIMARY DIAGNOSES: 1. Toxic metabolic encephalopathy secondary to urinary tract infection. 2. Visual hallucinations. SECONDARY DIAGNOSES: 1. Anemia, normocytic. 2. Chronic mastoiditis. 3. Hypertensive urgency. 4. Mild dehydration. 5. Chronic kidney disease stage 3. 6. Diastolic congestive heart failure. 7. Hypothyroidism. 8. Type 2 diabetes. 9. Rheumatoid arthritis. 10. Generalized weakness. DISCHARGE MEDICATIONS: 1. Atorvastatin 40 mg p.o. at bedtime. 2. Folic acid 1 mg p.o. daily. 3. Mometasone 2 puffs inhaled twice daily as needed. 4. Rivastigmine 1.5 mg orally twice daily with meals. 5. Detemir insulin 25 units subcutaneous daily. 6. Carvedilol 25 mg oral twice daily. 7. Levothyroxine 125 mcg daily. 8. Furosemide 40 mg oral twice daily. 9. Ferrous sulfate 325 mg oral daily. 10. Pantoprazole 40 mg oral twice daily. 11. Benadryl 25 mg oral at bedtime. 12. Sertraline 50 mg oral at bedtime. 13. Plaquenil 200 mg oral twice daily. 14. Prednisone 2.5 mg oral daily. 15. Clonidine 1 transdermal patch every week. DISCONTINUED MEDICATIONS: Temazepam 50 mg oral at bedtime. HISTORY OF PRESENT ILLNESS AND HOSPITAL COURSE: This is a pleasant 82-year-old female who presents to the ED with altered mentation. It was difficult to obtain a full history as the patient was initially alert and oriented x0, she was very weak and very tired. The daughter was there initially , but was tired and did not stay to obtain history. Per brief history from the daughter, she had not been eating well and was hallucinating visually all day long. We were not able to obtain a baseline of the patient initially from the daughter, but we did discover that the daughter does take care of the patient at home. In the emergency room, the patient was given meropenem and Levaquin. The patient has a long past medical history including chronic kidney disease, type 2 diabetes, rheumatoid arthritis, diastolic CHF, hypertension, paroxysmal atrial fibrillation, hypothyroidism, and asthma. On admission, her initial blood pressure was 203/78, her heart rate was 64, respiratory rate was 12. She was afebrile at 99.8, satting at 100% on room air. Her initial physical exam did reflect alert and oriented x0. She had a mild normocytic anemia on admission, H&H were 9.6 and 28.3. Her initial BMP showed a chloride of 113 and a BUN of 61 and creatinine 1.44, glucose was 85. Her EKG did not show any specific changes. Her urine showed 4+ bacteria, large leukocyte esterase, large blood and greater than 50 white blood cells. She was admitted for toxic metabolic encephalopathy secondary to a urinary tract infection. She was admitted to inpatient medical. Urine and blood cultures were drawn. The urine culture grew Klebsiella pneumonia and it was sensitive to levofloxacin, meropenem, nitrofurantoin, cefoxitin, gentamicin and amikacin. The blood culture did not have any growth at 5 days. As stated above, she was given meropenem and Levaquin in the ER initially and then she was placed on Levaquin for her UTI. She was also started on normal saline at 125 mL and hour , lactic acid for sepsis was ordered and was 0.7 (normal). A head CT was ordered to rule out hemorrhagic cause of her toxic encephalopathy and the head CT did not show any acute intracranial abnormality. It did show opacification of the left mastoid air cells and right mastoidectomy change. A med rec was initially unable to be done because the patient was not alert and oriented and they were not any family members in the room, but it was suspected that this could be a cause contributing to her encephalopathy. The next morning the patient was alert and oriented x3. She stated that she had been feeling slightly off the last 2-3 days. She did endorse decreased appetite and some pain with urination. She stated that she was initially on hospice for 6 months with home visits, but that ended 9 days ago. She lives with her daughter and she stated that she would [place] to go [place] [facility] care, but would consider going to a short rehab stay. The patient also since admission had been complaining of visual hallucinations which are present every day during her admission. On the second night of her hospital stay, she became more confused that night. She had been started back on Plaquenil that night as well as had been started on Seroquel to assist with her confusion and hallucinations. However, she was restless all night and had active visual hallucinations and was very confused. The following day, the Plaquenil was held. It was noted on physical exam that she appeared to have cogwheel rigidity. A brief mini mental exam was performed which seemed to be within normal limits; however, there was a suspicion for a developing Lewy body dementia that could be causing these persistent hallucinations that have been present for the past few months. We did initially try to increase the Seroquel from 25 mg at bedtime to 50 mg at bedtime, but that seemed to contribute to making her more restless and worsening her hallucinations at night, so the Seroquel was stopped and she was transitioned to rivastigmine. The Plaquenil was also held. We decided to order a brain MRI to rule out a mass effect of her hallucinations. The MRI showed no acute or aggressive intracranial findings , involutional changes and chronic ischemic white matter change of the brain, it did show a large left mastoid effusion and a small right mastoid effusion, it reflected that she is status post wall up right mastoidectomy as well as evidence of a tiny extraaxial lipoma or dermoid in the left ambient cistern abutting the pontomesencephalic junction. So, she was accepted placement at [place]. The patient was discharged to [facility]. At the time of discharge, she is alert and oriented x3. She was discharged with Levaquin to complete a treatment course for her UTI. She was still having the visual hallucinations. It was thought at time of discharge that this may be due to Lewy body dementia and it would be worthwhile to further consider this diagnosis in the outpatient setting and continue the rivastigmine at this time. 2. Hypertensive urgency. The patient initially was admitted with a blood pressure in the 200 range systolic. She was restarted on her home medications of carvedilol, clonidine patch and Lasix. Losartan was added 50 mg daily, and her blood pressure was controlled upon discharge in the 160s/60s range. She might need additional titrating in the outpatient setting. 3. Anemia. The patient was found to have normocytic anemia due to concern for a mixed anemia process. B12, folate and iron studies were ordered. Vitamin B12 was normal. Folate was also normal. Iron was low normal. Ferritin was high, TIBC was low. Did appear to have anemia of chronic disease pattern, likely reflective of her chronic kidney disease. 4. Chronic mastoiditis was found on imaging. If there is concern for an infectious process the patient is on Levaquin, but would recommend further workup with ENT in the outpatient setting. 5. Chronic kidney disease was stable. She initially was started on fluids and was weaned off. 6. Mild dehydration. She initially appeared mildly dehydrated and was started on normal saline. Her dehydration status, resolved. 7. Diastolic congestive heart failure, was found to grade I echo in 05/2017. She was given light fluids due to dehydration status and not fluid overloaded during this hospitalization. Home medications were restarted. 8. Hypothyroidism. Her home medication of levothyroxine 125 mcg was restarted. 9. Diabetes mellitus type 2. She is provided with a moderate sliding scale and Accu-Cheks b.i.d. and her glucoses were controlled during this hospitalization. 10. Rheumatoid arthritis. The Plaquenil was held. There is some concern that it was contributing to her altered mentation, but it was restarted upon discharge. 11. Generalized weakness. PT and OT were consulted. Case management was also consulted and she was found to be approved to [facility] for a short term placement. DISPOSITION: Stable. LOCATION: Discharged to [facility]. DIET: Diabetic diet and heart healthy diet. ACTIVITY: As tolerated. FOLLOWUP: It was recommended that she follow up with her primary care doctor in 1-2 weeks. ADLAID
[2018-02-09] MEDS ORDERED: cloNIDine 0.2mg/24 Hour PATCH TD SCH (09:00)
== END 2018-02-02 16:09 | disposition home or self-care (01) | DRG 689 ==
LOC: ERS 21:29 → T4-A 01-28 01:00
PROVIDERS: ADMIT Family Medicine; ATTEND Family Medicine
DX: N30.01 Acute cystitis with hematuria (principal); G92 Toxic encephalopathy; N17.9 Acute kidney failure, unspecified; I13.0 Hypertensive heart and chronic kidney disease with heart failure and stage 1 through stage 4 chronic kidney disease, or unspecified chronic kidney disease; I50.32 Chronic diastolic (congestive) heart failure; E11.22 Type 2 diabetes mellitus with diabetic chronic kidney disease; I48.0 Paroxysmal atrial fibrillation; E86.0 Dehydration; E03.9 Hypothyroidism, unspecified; I16.0 Hypertensive urgency; N18.3 Chronic kidney disease, stage 3 (moderate); M06.9 Rheumatoid arthritis, unspecified; J45.909 Unspecified asthma, uncomplicated; D64.9 Anemia, unspecified; H70.10 Chronic mastoiditis, unspecified ear; R53.1 Weakness; B96.1 Klebsiella pneumoniae [K. pneumoniae] as the cause of diseases classified elsewhere; B96.89 Other specified bacterial agents as the cause of diseases classified elsewhere; Z79.4 Long term (current) use of insulin; Z79.52 Long term (current) use of systemic steroids; Z79.899 Other long term (current) drug therapy; G31.83 Neurocognitive disorder with Lewy bodies; F02.80 Dementia in other diseases classified elsewhere, unspecified severity, without behavioral disturbance, psychotic disturbance, mood disturbance, and anxiety
CPT/HCPCS: 36415; 36416; 51701; 70450; 70553; 80048; 80053; 81003; 81015; 82607; 82728; 82746; 83540; 83550; 83605; 84443; 84484; 85025; 87040; 87077; 87086; 87186; 93005; 93010; 96361; 96365; 96375; A4353; G8981-GP-CM; G8982-GP-CK; G8987-GO-CM; G8988-GO-CK; J1650; J1956; J2185; Q0162

== ENCOUNTER 2018-02-18 23:21 | Emergency (ER) | payer MEDICARE ==
[2018-02-18] MEDS ORDERED: Promethazine HCl 25 MG/ML VIAL ONE (23:49)
[2018-02-19 00:09] LABS: #Eosinphils 0.2 thou/uL (0.0-0.7); #Lymphocytes 1.8 thou/uL (1.20-3.40); #Monocytes 0.7 thou/uL (0.11-0.59); #Neutrophils 5.1 thou/uL (1.40-6.50); %Basophils 0.2 % (0.0-1.0); %Eosinophils 2.6 % (0.0-10.0); %Lymphocytes 22.8 % (21.0-51.0); %Monocytes 9.1 % (0.0-10.0); %Neutrophils 65.5 % (42.0-75.0); Hemoglobin 8.5 g/dL (12.0-16.0); Mean Corpuscular HGB CONC 33.4 g/dL (32.0-36.0); Mean Corpuscular Hemoglobin 32.4 pg (27.0-31.0); Mean Platelet Volume 8.2 fL (7.4-10.4); Platelet Count 233 thou/uL (130-400); RBC Distribution Width 12.3 % (11.5-14.5); Red Blood Cell (RBC) Count 2.61 mill/uL (4.20-5.40); White Blood Cell (WBC) Count 7.8 thou/uL (4.8-10.8)
[2018-02-19 00:22] LABS: ALT (SGPT) 15 U/L (8-55); AST (SGOT) 13 U/L (5-34); Albumin 3.3 g/dL (3.4-4.8); Alkaline Phosphatase 115 U/L (40-150); Anion Gap 14 mmol/L (10-20); BUN (Urea Nitrogen) 59 mg/dL (9.8-20.1); Bilirubin, Total 0.4 mg/dL (0.2-1.2); Calc. Creatinine Clearance 0 mL/min (70-130); Calcium 8.6 mg/dL (7.8-10.44); Carbon Dioxide 28 mmol/L (23-31); Chloride 100 mmol/L (98-107); Estimated GFR-MDRD 24; Globulin 3.1 g/dL (2.4-3.5); Glucose 251 mg/dL (83-110); Lipase 23 U/L (8-78); Potassium 4.7 mmol/L (3.5-5.1); Protein, Total 6.4 g/dL (6.0-8.3); Sodium 137 mmol/L (136-145)
[2018-02-19 00:38] LABS: Bilirubin Negative (Negative); Blood, Urine Negative (Negative); Clarity CLEAR (Clear); Glucose, Urine (Dipstick) 100 mg/dL (Negative); Leukocyte Negative (Negative); Nitrite Negative (Negative); Protein, Urine (Dipstick) 100 mg/dL (Neg-Trace); Specific Gravity, Urine 1.014 (1.002-1.036); Urobilinogen 0.2 mg/dL (0.2-1.0); pH, Urine 5.5 (5.0-9.0)
[2018-02-19 00:41] LABS: Bacteria/HPF None Seen HPF (None Seen); Hyaline Casts/LPF 0-3 HYALINE CAST LPF (0-3 Hyaline); Pathc Cast-AUWi Flag 0.72 (0-2.49); RBC/HPF 0-3 HPF (0-3); Squamous Epithelial 0-3 HPF (0-3); WBC/HPF 0-3 HPF (0-3)
--- NOTE | 2018-02-19 08:17 | CT ---
PRELIMINARY REPORT/[facility]/EMERGENTY AFTER-HOURS PROCEDURE CT Abdomen and Pelvis Without Intravenous Contrast EXAM DATE/TIME: Exam ordered 02/19/2018 12:34 AM CLINICAL HISTORY: 83 years old, female; Signs and symptoms; Nausea and vomiting; Patient HX: Er 5; 82f C/O diarrhea x3 days, nausea x2 days, began vomiting this evening after dinner. Denies any pain, fever, chills. Surgi anne history of appendectomy, surgical history of section x 2, surgical history of hysterectomy TECHNIQUE: Axial computed tomography images of the abdomen and pelvis without intravenous contrast. Coronal refo rmatted images were created and reviewed. COMPARISON: No relevant prior studies available. FINDINGS: Lung bases: Unremarkable. No mass. No consolidation. ABDOMEN: Liver: Unremarkable. Gallbladder and bile ducts: Unremarkable. No calcified stones. No ductal dilation. Pancreas: Unremarkable. No ductal dilation. Spleen: Unremarkable. No splenomegaly. Adrenals: Unremarkable. No mass. Kidneys and ureters: Nonobstructive nephrolithiasis right kidney. Stomach and bowel: No bowel wall thickening or intestinal obstruction. PELVIS: Appendix: Appendix not visualized. No evidence of appendicitis. Bladder: Gas in the lumen of the urinary bladder. No stones. Reproductive: Prior hysterectomy. ABDOMEN and PELVIS: Intraperitoneal space: Unremarkable. No free air. No significant fluid collection. Bones/joints: No acute fracture. No dislocation. Soft tissues: Unremarkable. Vasculature: Unremarkable. No abdominal aortic aneurysm. Lymph nodes: Unremarkable. No enlarged lymph nodes. IMPRESSION: There is air in the anti-dependent lumen of the urinary bladder with no Eid catheter in place. This is a normal finding if the patient has had a Eid catheter recently removed, if there has been rece nt straight catheterization or a recent unsuccessful attempt at Eid catheter placement, or if there has been recent transurethral intervention. Otherwise, the presence of air in the bladder raises the possibility of the presence of a vesicoenteric/vesicocolic fistula or emphysematous cystitis; miguel r, there are no ancillary findings of either of these entities on this study. RECOMMEND clinical naveen elation. Thank you for allowing us to participate in the care of your patient. Dictated and Authenticated by: Uriah Martinez MD 02/19/2018 1:05 AM Central Time ([place] & [place]) FINAL REPORT EMERGENT AFTER HOURS NONCONTRAST CT ABDOMEN AND PELVIS: DATE: 02/19/18. HISTORY: Diarrhea for 3 days, nausea and vomiting. IMPRESSION: 1. There are mild patchy densities at each lung base, which is most likely attributable to volume lo ss. Clinical correlation for pneumonitis is suggested but less likely. 2. Vascular calcifications in the abdominal aorta and iliac arteries. 3. Nonobstructing approximately 2 mm calculus mid portion right kidney. No additional renal or uret eral calculi are visualized. There is no hydronephrosis. 4. Hysterectomy. 5. Focus of gas within the nondependent portion of the urinary bladder. This may be related to rece nt catheterization; however, correlation for recent catheterization is recommended. 6. Moderate amount of retained fecal material in the rectum with a small amount of retained fecal ma terial seen throughout the remainder of the colon suggesting constipation. Minimal presacral inflamm atory changes are identified. 7. Multilevel degenerative changes in the spine. 8. Findings are in agreement with the preliminary report by [facility]. POS: [facility]
--- NOTE | 2018-02-20 17:22 | EKG ---
Test Reason : Blood Pressure : / mmHG Vent. Rate : 067 BPM Atrial Rate : 067 BPM P-R Int : 164 ms QRS Dur : 086 ms QT Int : 428 ms P-R-T Axes : 096 029 052 degrees QTc Int : 452 ms Normal sinus rhythm with sinus arrhythmia Normal ECG Confirmed by TYLER BOWLES ([id number]), supervising film or videotape editor CARLYN HARDWICK ([id number]) on 02/20/2018 5:22:17 PM Referred By: Confirmed By:TYLER BOWLES
== END 2018-02-19 03:10 ==
LOC: ERS 23:21
DX: E86.0 Dehydration (principal); I48.91 Unspecified atrial fibrillation; M06.9 Rheumatoid arthritis, unspecified; E11.40 Type 2 diabetes mellitus with diabetic neuropathy, unspecified; I11.0 Hypertensive heart disease with heart failure; I50.9 Heart failure, unspecified; J45.909 Unspecified asthma, uncomplicated; Z87.01 Personal history of pneumonia (recurrent); Z87.891 Personal history of nicotine dependence
CPT/HCPCS: 36415; 51701; 74176; 80053; 81003; 81015; 83690; 85025; 93005; 94760; 96361; 96374; A4353; J2550

== ENCOUNTER 2018-04-21 15:27 | Inpatient (IN) | payer MEDICARE ==
[2018-04-21 16:20] LABS: #Eosinphils 0.2 thou/uL (0.0-0.7); #Lymphocytes 1.8 thou/uL (1.20-3.40); #Monocytes 0.6 thou/uL (0.11-0.59); #Neutrophils 3.2 thou/uL (1.40-6.50); %Basophils 0.8 % (0.0-1.0); %Eosinophils 2.7 % (0.0-10.0); %Lymphocytes 31.6 % (21.0-51.0); Hemoglobin 9.1 g/dL (12.0-16.0); Mean Corpuscular HGB CONC 33.7 g/dL (32.0-36.0); Mean Corpuscular Hemoglobin 32.6 pg (27.0-31.0); Mean Corpuscular Volume 96.7 fL (78.0-98.0); Mean Platelet Volume 8.7 fL (7.4-10.4); Platelet Count 218 thou/uL (130-400); RBC Distribution Width 13.8 % (11.5-14.5); White Blood Cell (WBC) Count 5.8 thou/uL (4.8-10.8)
[2018-04-21 16:44] LABS: Troponin I 0.011 ng/mL (< 0.028)
[2018-04-21 17:06] LABS: Bilirubin Negative (Negative); Blood, Urine Moderate (Negative); Clarity TURBID (Clear); Glucose, Urine (Dipstick) Negative (Negative); Leukocyte Large (Negative); Nitrite Positive (Negative); Protein, Urine (Dipstick) 100 mg/dL (Neg-Trace); Specific Gravity, Urine 1.012 (1.002-1.036); Urobilinogen 0.2 mg/dL (0.2-1.0); pH, Urine 5.5 (5.0-9.0)
[2018-04-21 17:07] LABS: Bacteria/HPF 1+ HPF (None Seen); Hyaline Casts/LPF 0-3 HYALINE CAST LPF (0-3 Hyaline); Pathc Cast-AUWi Flag 0.44 (0-2.49); Squamous Epithelial 0-3 HPF (0-3)
[2018-04-21] MEDS ORDERED: cefTRIAXone\\ROCEPHIN 1 GM VIAL ONE (17:58)
--- NOTE | 2018-04-21 18:00 | RAD ---
THREE VIEWS OF THE RIGHT FOOT: 04/21/18 COMPARISON: 05/06/17 HISTORY: Heel ulcer with nausea and dizziness. FINDINGS: Three views of the right foot shows diffuse osteopenia. There is soft tissue swelling of the heel. No underlying osseous erosions are seen. Degenerative changes are seen in the midfoot. There is mottlin g of the proximal phalanx of the great toe which likely is secondary to a remote healed fracture. The re is a fracture of the base of the fifth metatarsal which was not seen on the prior radiograph but a ppears chronic and healed. IMPRESSION: 1. No evidence of acute osseous abnormality. 2. Healed fracture of the great toe and of the fifth metatarsal base. POS: [facility]
--- NOTE | 2018-04-21 18:01 | RAD ---
SINGLE VIEW OF THE CHEST: 04/21/18 COMPARISON: 05/05/17 HISTORY: Feeling ill. Fever. FINDINGS: Single view of the chest shows a normal sized cardiomediastinal silhouette with atherosclerotic calci fications in the aorta. There is no evidence of consolidation, mass, or pleural effusion. Degenerativ e changes are seen in the spine. IMPRESSION: 1. No evidence of acute cardiopulmonary disease. 2. Atherosclerotic disease. POS: [facility]
[2018-04-21] MEDS ORDERED: Dextrose 5% in Water 1,000 ML IV PRN (22:10)
[2018-04-21] MEDS ORDERED: Dextrose 50% Abboject 50 ML SYRINGE IVP PRN (22:10)
[2018-04-21 22:16] VITALS: BMI 31.3
[2018-04-21] MEDS: Acetaminophen 325 MG TAB PO PRN (22:31)
[2018-04-22] MEDS ORDERED: traMADol HCl 50 MG TAB PO PRN (01:47)
[2018-04-22] MEDS ORDERED: Ondansetron ODT 4 MG TAB PO PRN (01:47)
[2018-04-22] MEDS ORDERED: Loperamide HCl 2 MG CAP PO PRN (01:47)
[2018-04-22] MEDS ORDERED: Promethazine 25 MG TAB PO PRN (01:47)
[2018-04-22] MEDS ORDERED: Vancomycin HCl 500 MG in Sodium Chloride 0.9% 100 ML IVPB SCH (04:30)
[2018-04-22] MEDS: Levothyroxine Sodium 125 MCG TAB PO SCH (05:15)
[2018-04-22 05:32] LABS: #Eosinphils 0.2 thou/uL (0.0-0.7); #Lymphocytes 2.6 thou/uL (1.20-3.40); #Monocytes 0.7 thou/uL (0.11-0.59); #Neutrophils 2.2 thou/uL (1.40-6.50); %Basophils 0.2 % (0.0-1.0); %Eosinophils 3.6 % (0.0-10.0); %Lymphocytes 44.9 % (21.0-51.0); %Monocytes 12.3 % (0.0-10.0); %Neutrophils 38.9 % (42.0-75.0); Hemoglobin 7.7 g/dL (12.0-16.0); Mean Corpuscular HGB CONC 33.1 g/dL (32.0-36.0); Mean Corpuscular Hemoglobin 32.1 pg (27.0-31.0); Mean Corpuscular Volume 96.8 fL (78.0-98.0); Mean Platelet Volume 8.5 fL (7.4-10.4); Platelet Count 179 thou/uL (130-400); RBC Distribution Width 13.6 % (11.5-14.5); Red Blood Cell (RBC) Count 2.39 mill/uL (4.20-5.40); White Blood Cell (WBC) Count 5.7 thou/uL (4.8-10.8)
[2018-04-22 05:53] LABS: Anion Gap 13 mmol/L (10-20); BUN (Urea Nitrogen) 70 mg/dL (9.8-20.1); Calc. Creatinine Clearance 34 mL/min (70-130); Calcium 8.4 mg/dL (7.8-10.44); Carbon Dioxide 25 mmol/L (23-31); Chloride 107 mmol/L (98-107); Estimated GFR-MDRD 29; Glucose 159 mg/dL (83-110); Potassium 3.8 mmol/L (3.5-5.1); Sodium 141 mmol/L (136-145)
[2018-04-22] MEDS: Insulin Regular 300 UNITS/3 ML VIAL SC PRN ×2 (06:15→21:55)
[2018-04-22] MEDS ORDERED: cloNIDine 0.2mg/24 Hour PATCH TD SCH (09:00)
[2018-04-22] MEDS ORDERED: Prevnar 13-Val Conj/PF 0.5 ML SYRINGE IM ONE (09:00)
[2018-04-22] MEDS: Folic Acid 1 MG TAB PO SCH (09:08)
[2018-04-22] MEDS: predniSONE 5 MG TAB PO SCH (09:09)
[2018-04-22] MEDS: Amlodipine 5 MG TAB PO SCH (09:10)
[2018-04-22] MEDS: Hydroxychloroquine Sulfate 200 MG TAB PO SCH ×2 (09:12→21:03)
[2018-04-22] MEDS: Ferrous Sulfate 325 MG TAB PO SCH (09:13)
[2018-04-22] MEDS: Furosemide 40 MG TAB PO SCH ×2 (09:13→21:03)
[2018-04-22] MEDS: Lisinopril 10 MG TAB PO SCH (09:14)
[2018-04-22] MEDS: Rivastigmine 1.5 MG CAP PO SCH ×2 (09:15→17:10)
[2018-04-22] MEDS: Apixaban 2.5 MG TAB PO SCH ×2 (09:16→21:53)
[2018-04-22] MEDS: Carvedilol 25 MG TAB PO SCH ×2 (09:17→21:02)
--- NOTE | 2018-04-22 12:02 | HP ---
CODE STATUS: DNR as per patient's statement. PRIMARY CARE PHYSICIAN: Dr. Concetta Winston. CHIEF COMPLAINT: Generalized weakness and low blood sugar. HISTORY OF PRESENT ILLNESS: This is an 83-year-old female patient, long term resident. Patient h as a history of diabetes, polyneuropathy, atrial fibrillation, RA, CHF, hypertension came to the hosp ital after having an episode of generalized weakness and she was found to have a blood sugar on the l ow side in the 50s. She reported that this has been happening for the past 3 days, and she had no cl ear triggers for the symptoms. The patient's symptoms were reported as moderate, no clear triggers, no alleviating factors. Patient also reported having some nausea, dizziness, and cough for the past couple of months. As of now, patient has had a nonhealing wound in the right heel that has been pres ent for the past few months, she has been receiving wound care in long term facility. REVIEW OF SYSTEMS: Constitutional: Generalized weakness, chills, no fever. Respiratory: No cough, sputum production, or shortness of breath. Cardiovascular: No chest pain, palpitation. No shortne ss of breath. Gastrointestinal: No nausea, vomiting, diarrhea, or abdominal pain. ASSURANCE ENGINEER: No dizzine ss, headache. Genitourinary: No burning on urination. Extremities: No leg swelling. Skin: The p atient has nonhealing wound in the right heel, and healing wound on the left heel, patient also has a decubitus ulcer. All other systems were reviewed and negative except for the findings mentioned abo ve. PAST MEDICAL HISTORY: History of diabetes, atrial fibrillation, rheumatoid arthritis, diabetes, abdulaziz estive heart failure, hypertension, asthma. PAST SURGICAL HISTORY: Bilateral rotator cuff surgery, thyroidectomy, left ankle surgery, tibia, katie endectomy, x2, hysterectomy, bilateral tumor removal. PSYCHIATRIC HISTORY: No previous psychiatric history. SOCIAL HISTORY: Patient came from a long term. Long-term smoker, quit smoking more than 30 years ago. FAMILY HISTORY: Includes pulmonary embolism. KNOWN ALLERGIES: ASPIRIN, LACTULOSE, NSAIDS. REPORTED MEDICATIONS: Furosemide, levothyroxine, folic acid, Levemir, and Zofran. PHYSICAL EXAMINATION: VITAL SIGNS: On presentation, blood pressure 135/41 with heart rate 62, respiratory rate was 19, tem perature 98.7, oxygen saturation 95 on room air. GENERAL: Patient is alert, oriented, no acute distress. HEENT: Eyes: Normal conjunctivae, moist oral mucosa, anicteric. NECK: No JVD. RESPIRATORY: Bilateral air entry. No rales, no wheezing. Symmetric expansion. CARDIOVASCULAR: Normal rate, regular rhythm. No murmur, no gallop. No edema. ABDOMEN: Soft, normal bowel sounds. MUSCULOSKELETAL: Baseline range of motion and strength. No tenderness, patient is unable to ambulat e as per report. SKIN: Warm and intact. No pallor or rash except for the right heel. The patient has a nonhealing w ound that is covered with a gauze right now. Also, has a healing wound on the left heel, that seems to be in better condition. Patient also have a sacral pressure ulcer about 2 x 2 cm, stage 2. NEUROLOGIC: Baseline sensory. No evidence of any new focal weakness or slurred speech. Cranial ner ves seem to be intact. PSYCHIATRIC: Good mood. No anxiety, optimal judgment. LABORATORY DATA: Reviewed. The patient had white count of 5.8, hemoglobin 9.1, platelet count 218. POC glucose is 164, repeat one 200. Troponin was negative. UA was positive with white counts showi ng greater than 50 too numerous to count. Chest x-ray was reviewed. No evidence of any acute cardio pulmonary disease, atherosclerotic disease. Foot x-ray was done. No evidence of acute ulcers or ___ __. Healed fracture of the great toe and the fifth metatarsal base. EKG was reviewed. Patient has normal sinus rhythm with a rate of 60, no evidence of any acute ischemic event borderline QT. ASSESSMENT AND PLAN: The patient will be placed in the hospital with following medical problems: 1. Possible open infection in the right heel. Surgery has been consulted. We will follow recommend ations. Patient has been started on broad-spectrum antibiotics. We will adjust treatment as per cul tures and sensitivities. 2. Uncontrolled diabetes. Patient presented with hypoglycemia. Blood sugar in the 50s, likely seco ndary to underlying infection. 3. History of atrial fibrillation, reconcile home medications. 4. History of congestive heart failure, this is chronic, seems to be stable. We will reconcile home medications. 5. Controlled high blood pressure, reconcile home medications. Adjust treatment as needed. 6. Deep venous thrombosis prophylaxis.
--- NOTE | 2018-04-22 15:24 | PDOC.PN ---
- Subjective Encounter Start Date: 04/22/18 Encounter Start Time: 15:22 Subjective: feels better. no new complaints - Objective Vital Signs & Weight: Vital Signs (12 hours) Temp Pulse Resp BP Pulse Ox 04/22/18 10:55 98.0 F 67 16 168/69 H 97 Weight Admit Weight 211 lb 14.4 oz Weight 211 lb 14.4 oz Result Diagrams: 04/22/18 04:45 04/22/18 04:45 Additional Labs: Accuchecks 04/22/18 10:55 POC Glucose 113 H Phys Exam - Physical Examination Constitutional: NAD HEENT: PERRLA, moist MMs, sclera anicteric, oral pharynx no lesions Neck: no nodes, no JVD, supple, full ROM Respiratory: no wheezing, no rales, no rhonchi, clear to auscultation bilateral Cardiovascular: RRR, no significant murmur, no rub Gastrointestinal: soft, non-tender, no distention, positive bowel sounds Musculoskeletal: no edema, pulses present both feet wrapped ,wound pictures reviewed Neurological: non-focal, normal sensation, moves all 4 limbs Psychiatric: normal affect, A&O x 3 Dx/Plan (1) UTI (urinary tract infection) Status: Acute Qualifiers: (2) Chronic heel ulcer Code(s): L97.409 - NON-PRS CHRONIC ULCER OF UNSP HEEL AND MIDFOOT W UNSP SEVERT Status: Chronic (3) Chronic anticoagulation Code(s): Z79.01 - [facility] (CURRENT) USE OF ANTICOAGULANTS Status: Chronic (4) Atrial fibrillation Code(s): I48.91 - UNSPECIFIED ATRIAL FIBRILLATION Status: Chronic Qualifiers: Atrial fibrillation type: paroxysmal Qualified Code(s): I48.0 - Paroxysmal atrial fibrillation (5) CKD (chronic kidney disease) stage 3, GFR 30-59 ml/min Status: Chronic (6) Hyperlipidemia Code(s): E78.5 - HYPERLIPIDEMIA, UNSPECIFIED Status: Chronic (7) Physical deconditioning Code(s): R53.81 - OTHER MALAISE Status: Chronic (8) Diabetes mellitus Code(s): E11.9 - TYPE 2 DIABETES MELLITUS WITHOUT COMPLICATIONS Status: Chronic (9) Diastolic CHF Code(s): I50.30 - UNSPECIFIED DIASTOLIC (CONGESTIVE) HEART FAILURE Status: Chronic Qualifiers: Heart failure chronicity: chronic Qualified Code(s): I50.32 - Chronic diastolic (congestive) heart failure (10) Hypertension Code(s): I10 - ESSENTIAL (PRIMARY) HYPERTENSION Status: Chronic Qualifiers: (11) Hypothyroidism Code(s): E03.9 - HYPOTHYROIDISM, UNSPECIFIED Status: Chronic Qualifiers: - Plan continue antibiotics, PT/OT, out of bed/ambulate, DVT proph w/SCDs cont empiric ABx -: wound acre. Appreciate GS input -: D stable.cont home meds as below. -: follow Cx results -: am labs.OT/PT.pt is from [facility] * . Review of Systems - Review of Systems Constitutional: weakness, malaise. negative: fever, chills, sweats, other Respiratory: negative: Cough, Dry, Shortness of Breath, Hemoptysis, SOB with Excertion, Pleuritic Pain, Sputum, Wheezing Cardiovascular: negative: chest pain, palpitations, orthopnea, paroxysmal nocturnal dyspnea, edema, light headedness, other Gastrointestinal: negative: Nausea, Vomiting, Abdominal Pain, Diarrhea, Constipation, Melena, Hematochezia, Other Genitourinary: negative: Dysuria, Frequency, Incontinence, Hematuria, Retention , Other Musculoskeletal: negative: Neck Pain, Shoulder Pain, Arm Pain, Back Pain, Hand Pain, Leg Pain, Foot Pain, Other Neurological: negative: Weakness, Numbness, Incoordination, Change in Speech, Confusion, Seizures, Other - Medications/Allergies Allergies/Adverse Reactions: Allergies Allergy/AdvReac Type Severity Reaction Status Date / Time aspirin Allergy Intermediate Verified 04/21/18 22:14 NSAIDS (Non-Steroidal Allergy Intermediate Verified 04/21/18 22:14 Anti-Inflamma lactose AdvReac Diarrhea Verified 01/28/18 03:24 Medications: Current Medications Acetaminophen (Tylenol) 650 mg PO Q4H PRN PRN Reason: Fever or Pain 1-3 Last Admin: 04/21/18 22:31 Dose: 650 mg Acetaminophen (Tylenol) 650 mg PO Q6H PRN PRN Reason: Pain 1-3 Amlodipine Besylate (Norvasc) 5 mg PO DAILY [facility] Last Admin: 04/22/18 09:10 Dose: 5 mg Apixaban (Eliquis) 2.5 mg PO BID [facility] Last Admin: 04/22/18 09:16 Dose: 2.5 mg Atorvastatin Calcium (Lipitor) 40 mg PO HS [facility] Carvedilol (Coreg) 25 mg PO BID [facility] Last Admin: 04/22/18 09:17 Dose: 25 mg Clonidine (Titkqnav-Rnf-8) 0.2 mg TD Q7DAYS [facility] Last Admin: 04/22/18 09:18 Dose: Not Given Dextrose/Water (Dextrose 50%) 25 gm IVP PRN PRN PRN Reason: HYPOGLYCEMIA PROTOCOL Ferrous Sulfate (Feosol) 325 mg PO QAM-WM [facility] Last Admin: 04/22/18 09:13 Dose: 325 mg Folic Acid (Folvite) 1 mg PO DAILY [facility] Last Admin: 04/22/18 09:08 Dose: 1 mg Furosemide (Lasix) 40 mg PO BID [facility] Last Admin: 04/22/18 09:13 Dose: 40 mg Glucagon (Glucagon) 1 mg IM PRN PRN PRN Reason: HYPOGLYCEMIA PROTOCOL Hydroxychloroquine Sulfate (Plaquenil) 200 mg PO BID [facility] Last Admin: 04/22/18 09:12 Dose: 200 mg Dextrose/Water (D5w) 1,000 mls @ 0 mls/hr IV INF PRN; As Directed PRN Reason: HYPOGLYCEMIA PROTOCOL Ceftriaxone Sodium 1 gm/ (Sodium Chloride) 100 mls @ 200 mls/hr IVPB Q24HR [facility] Vancomycin HCl 1.5 gm/ Sodium (Chloride) 300 mls @ 200 mls/hr IVPB 1800 [facility] Insulin Human Regular (Humulin R) 0 units SC .MILD SLIDING PRN; Protocol PRN Reason: MILD SLIDING SCALE Last Admin: 04/22/18 06:15 Dose: 2 unit Levothyroxine Sodium (Synthroid) 125 mcg PO 0600 [facility] Last Admin: 04/22/18 05:15 Dose: 125 mcg Lisinopril (Zestril) 10 mg PO DAILY [facility] Last Admin: 04/22/18 09:14 Dose: 10 mg Loperamide HCl (Imodium) 2 mg PO TID PRN PRN Reason: LOOSE STOOL Ondansetron HCl (Zofran Odt) 4 mg PO Q8H PRN PRN Reason: Nausea Pantoprazole Sodium (Protonix) 40 mg PO DAILY [facility] Last Admin: 04/22/18 09:10 Dose: 40 mg Prednisone (Prednisone) 2.5 mg PO DAILY [facility] Last Admin: 04/22/18 09:09 Dose: 2.5 mg Promethazine HCl (Phenergan) 12.5 mg PO Q6H PRN PRN Reason: Nausea Rivastigmine (Exelon) 1.5 mg PO BID[facility] Last Admin: 04/22/18 09:15 Dose: 1.5 mg Sertraline HCl (Zoloft) 50 mg PO HS [facility] Tramadol HCl (Ultram) 50 mg PO Q6H PRN PRN Reason: Pain 4-6
[2018-04-22] MEDS: cefTRIAXone\\ROCEPHIN 1 GM in Sodium Chloride 0.9% 100 ML IVPB SCH (17:09)
[2018-04-22] MEDS: Vancomycin HCl 1.5 GM in Sodium Chloride 0.9% 250 ML 300 ML IVPB SCH (17:18)
[2018-04-22] MEDS: Atorvastatin Calcium 40 MG TAB PO SCH (21:02)
[2018-04-22] MEDS: Acetaminophen 325 MG TAB PO PRN (21:53)
[2018-04-23] MEDS: Levothyroxine Sodium 125 MCG TAB PO SCH (06:00)
[2018-04-23] MEDS ORDERED: hydrALAZINE 20 MG/ML VIAL SLOW IVP PRN (08:21)
[2018-04-23] MEDS ORDERED: cloNIDine 0.1 MG TAB PO PRN (08:21)
[2018-04-23 10:15] LABS: Hemoglobin 8.2 g/dL (12.0-16.0)
[2018-04-23] MEDS: Lisinopril 10 MG TAB PO SCH (10:25)
[2018-04-23] MEDS: Rivastigmine 1.5 MG CAP PO SCH ×2 (10:25→17:47)
[2018-04-23] MEDS: Hydroxychloroquine Sulfate 200 MG TAB PO SCH ×2 (10:25→20:24)
[2018-04-23] MEDS: Apixaban 2.5 MG TAB PO SCH ×2 (10:25→20:23)
[2018-04-23] MEDS: Folic Acid 1 MG TAB PO SCH (10:25)
[2018-04-23] MEDS: Amlodipine 5 MG TAB PO SCH (10:25)
[2018-04-23] MEDS: Furosemide 40 MG TAB PO SCH ×2 (10:25→20:24)
[2018-04-23] MEDS: Carvedilol 25 MG TAB PO SCH ×2 (10:26→20:23)
[2018-04-23] MEDS: Ferrous Sulfate 325 MG TAB PO SCH (10:27)
[2018-04-23] MEDS: predniSONE 5 MG TAB PO SCH (10:27)
--- NOTE | 2018-04-23 13:15 | CON ---
DATE OF CONSULTATION: 04/22/2018 REASON FOR REFERRAL: Diabetic with foot wounds. HISTORY: Ms. Munroe is an 83-year-old woman known to me from previous admission with decubitus woun ds of both feet. I initially saw her last year in May at which point the wounds were severe and s he had MRI evidence of osteomyelitis. After a long discussion with the patient and her family, they decided on conservative wound management rather than amputation which would have been her only surgic al option since the calcaneus was involved. She is nonambulatory and does not use her legs to transf er, but wanted to avoid surgery. She was actually placed on hospice and moved to a different nursing facility and she states that at her new nursing facility the staff is very diligent about keeping he r feet off of bed, and taking care of her wounds. They have been treating her heel wounds with Arabella canchola and they have been slowly improving in appearance. She came into the hospital for this admissio n due to feeling weak and having a low blood sugar. She has also had some nausea and some coughing, but does not have any other focal findings. She denies abdominal pain or dysuria. PAST MEDICAL HISTORY: Diabetes, atrial fibrillation, rheumatoid arthritis, congestive heart failure, hypertension and asthma. PAST SURGICAL HISTORY: She has a past surgical history of appendectomy, , hysterectomy, thy roid surgery, ankle surgery and rotator cuff. In addition, when she was here in May I sharply magaly rided decubitus ulcers of both of her feet down to the muscle and periosteum. SOCIAL HISTORY: She is a former smoker, does not currently smoke, drink or use drugs and lives in a long-term. ALLERGIES: She has allergies to ASPIRIN, LACTULOSE and NSAIDs. MEDICATIONS: She takes Lasix, Synthroid, folate and Levemir in the long-term. FAMILY HISTORY: She has a family history of thromboembolic phenomena. REVIEW OF SYSTEMS: Ten-system review of systems is negative except per HPI. LABORATORY: White count is normal at 5.7, hematocrit is chronically low at 23. BUN and creatinine a re elevated at 70 and 1.99. Blood sugars have ranged in the 1-teens to 180s. RADIOLOGY: Foot x-ray does not show any acute process in the foot or any definite osseous abnormalit ies. PHYSICAL EXAMINATION: GENERAL: Reveals a cheerful, alert woman in no acute distress who remembers me from her last admissi on, she is not flushed or toxic in appearance. She is not jaundiced or icteric. VITAL SIGNS: She has been afebrile throughout her hospital stay. Heart rate in the 60s, respiratory rate 16, 96% saturated on room air. Blood pressure moderately elevated in the 140s to 160s systolic . HEENT: Unremarkable. NECK: Supple, without lymphadenopathy or thyroid nodules. HEART: Regular rate and rhythm without murmurs, rubs or gallops. LUNGS: Clear to auscultation with good air movement bilaterally. ABDOMEN: Soft, nontender, and nondistended with healed surgical incisions. EXTREMITIES: Warm and well perfused. I can palpate dorsalis pedis pulses bilaterally and the swelli ng in her feet has completely resolved. Her wounds also are much improved from May. The left burton l is completely healed. The right heel has some reepithelialization along the edges, although it sti ll has a central eschar and the lateral foot has basically healed as well. She still has a callus an d ulcer on the tip of her left great toe, but no erythema or discharge. She has intact sensation to light touch. ASSESSMENT: Chronic decubitus wounds of both feet, healing with conservative wound management withou t evidence of acute infection. We will continue wound care and elevation of the wounds as has been d one in her long-term. I will likely debride the eschar with the Wound Care Team and may trim back the callus on her great toe as well, but overall conservative management is working, so we will cont inue with this.
[2018-04-23] MEDS: Insulin Regular 300 UNITS/3 ML VIAL SC PRN ×3 (13:30→20:37)
--- NOTE | 2018-04-23 13:57 | PDOC.PN ---
- Subjective Encounter Start Date: 04/23/18 Encounter Start Time: 13:55 Subjective: feels better but tried and weak today - Objective MAR Reviewed: Yes Vital Signs & Weight: Vital Signs (12 hours) Temp Pulse Resp BP BP Pulse Ox 04/23/18 10:25 60 150/73 H 04/23/18 07:03 97.8 F 66 16 161/62 H 96 Weight Admit Weight 211 lb 14.4 oz Weight 211 lb 14.4 oz Result Diagrams: 04/23/18 10:01 04/22/18 04:45 Additional Labs: Accuchecks 04/23/18 04/23/18 04/22/18 09:19 04:31 20:45 POC Glucose 217 H 161 H 279 H 04/22/18 16:43 POC Glucose 184 H Microbiology 04/21/18 16:45 Urine Straight Catheter Urine Culture - Preliminary NO GROWTH AT 24 HOURS labs reviewed Phys Exam - Physical Examination Constitutional: NAD HEENT: PERRLA, moist MMs, sclera anicteric, oral pharynx no lesions Neck: no nodes, no JVD, supple, full ROM Respiratory: no wheezing, no rales, no rhonchi, clear to auscultation bilateral Cardiovascular: RRR, no significant murmur Gastrointestinal: soft, non-tender, no distention, positive bowel sounds Musculoskeletal: no edema, pulses present Neurological: non-focal, normal sensation, moves all 4 limbs Psychiatric: normal affect, A&O x 3 Skin: no rash Dx/Plan (1) UTI (urinary tract infection) Status: Acute Qualifiers: Comment: Urine Cx pending (2) Chronic heel ulcer Code(s): L97.409 - NON-PRS CHRONIC ULCER OF UNSP HEEL AND MIDFOOT W UNSP SEVERT Status: Chronic (3) Chronic anticoagulation Code(s): Z79.01 - RELEASE ENGINEER (CURRENT) USE OF ANTICOAGULANTS Status: Chronic (4) Atrial fibrillation Code(s): I48.91 - UNSPECIFIED ATRIAL FIBRILLATION Status: Chronic Qualifiers: Atrial fibrillation type: paroxysmal Qualified Code(s): I48.0 - Paroxysmal atrial fibrillation (5) CKD (chronic kidney disease) stage 3, GFR 30-59 ml/min Status: Chronic (6) Hyperlipidemia Code(s): E78.5 - HYPERLIPIDEMIA, UNSPECIFIED Status: Chronic (7) Physical deconditioning Code(s): R53.81 - OTHER MALAISE Status: Chronic (8) Diabetes mellitus Code(s): E11.9 - TYPE 2 DIABETES MELLITUS WITHOUT COMPLICATIONS Status: Chronic (9) Diastolic CHF Code(s): I50.30 - UNSPECIFIED DIASTOLIC (CONGESTIVE) HEART FAILURE Status: Chronic Qualifiers: Heart failure chronicity: chronic Qualified Code(s): I50.32 - Chronic diastolic (congestive) heart failure (10) Hypertension Code(s): I10 - ESSENTIAL (PRIMARY) HYPERTENSION Status: Chronic Qualifiers: (11) Hypothyroidism Code(s): E03.9 - HYPOTHYROIDISM, UNSPECIFIED Status: Chronic Qualifiers: - Plan continue antibiotics, PT/OT, respiratory therapy, incentive spirometry, DVT proph w/SCDs hemodynamically stable.awaiting urine Cx results for final ABx choice -: likley back to [facility] rehab tomorrow . -: wound care following. -: home meds as below. -: h/h stable. no melena./hematochezia * . Review of Systems - Review of Systems Constitutional: weakness, malaise. negative: fever, chills, sweats, other ENT: negative: Ear Pain, Ear Discharge, Nose Pain, Nose Discharge, Nose Congestion, Mouth Pain, Mouth Swelling, Throat Pain, Throat Swelling, Other Cardiovascular: negative: chest pain, palpitations, orthopnea, paroxysmal nocturnal dyspnea, edema, light headedness, other Gastrointestinal: negative: Nausea, Vomiting, Abdominal Pain, Diarrhea, Constipation, Melena, Hematochezia, Other Genitourinary: negative: Dysuria, Frequency, Incontinence, Hematuria, Retention , Other Musculoskeletal: negative: Neck Pain, Shoulder Pain, Arm Pain, Back Pain, Hand Pain, Leg Pain, Foot Pain, Other Neurological: negative: Weakness, Numbness, Incoordination, Change in Speech, Confusion, Seizures, Other - Medications/Allergies Allergies/Adverse Reactions: Allergies Allergy/AdvReac Type Severity Reaction Status Date / Time aspirin Allergy Intermediate Verified 04/21/18 22:14 NSAIDS (Non-Steroidal Allergy Intermediate Verified 04/21/18 22:14 Anti-Inflamma lactose AdvReac Diarrhea Verified 01/28/18 03:24 Medications: Current Medications Acetaminophen (Tylenol) 650 mg PO Q6H PRN PRN Reason: Pain 1-3 Amlodipine Besylate (Norvasc) 5 mg PO DAILY [facility] Last Admin: 04/23/18 10:25 Dose: 5 mg Apixaban (Eliquis) 2.5 mg PO BID [facility] Last Admin: 04/23/18 10:25 Dose: 2.5 mg Atorvastatin Calcium (Lipitor) 40 mg PO HS [facility] Last Admin: 04/22/18 21:02 Dose: 40 mg Carvedilol (Coreg) 25 mg PO BID [facility] Last Admin: 04/23/18 10:26 Dose: 25 mg Clonidine (Popkzndg-Tks-8) 0.2 mg TD Q7DAYS [facility] Last Admin: 04/22/18 09:18 Dose: Not Given Clonidine (Catapres) 0.1 mg PO Q4H PRN PRN Reason: SBP>160 Dextrose/Water (Dextrose 50%) 25 gm IVP PRN PRN PRN Reason: HYPOGLYCEMIA PROTOCOL Ferrous Sulfate (Feosol) 325 mg PO QAM-WM [facility] Last Admin: 04/23/18 10:27 Dose: 325 mg Folic Acid (Folvite) 1 mg PO DAILY [facility] Last Admin: 04/23/18 10:25 Dose: 1 mg Furosemide (Lasix) 40 mg PO BID [facility] Last Admin: 04/23/18 10:25 Dose: 40 mg Glucagon (Glucagon) 1 mg IM PRN PRN PRN Reason: HYPOGLYCEMIA PROTOCOL Hydralazine HCl (Apresoline) 10 mg SLOW IVP Q4H PRN PRN Reason: SBP>170 Hydroxychloroquine Sulfate (Plaquenil) 200 mg PO BID [facility] Last Admin: 04/23/18 10:25 Dose: 200 mg Dextrose/Water (D5w) 1,000 mls @ 0 mls/hr IV INF PRN; As Directed PRN Reason: HYPOGLYCEMIA PROTOCOL Ceftriaxone Sodium 1 gm/ (Sodium Chloride) 100 mls @ 200 mls/hr IVPB Q24HR [facility] Last Admin: 04/22/18 17:09 Dose: 100 mls Vancomycin HCl 1.5 gm/ Sodium (Chloride) 300 mls @ 200 mls/hr IVPB 1800 [facility] Last Admin: 04/22/18 17:18 Dose: 300 mls Insulin Human Regular (Humulin R) 0 units SC .MILD SLIDING PRN; Protocol PRN Reason: MILD SLIDING SCALE Last Admin: 04/23/18 13:30 Dose: 2 unit Levothyroxine Sodium (Synthroid) 125 mcg PO 0600 [facility] Last Admin: 04/23/18 06:00 Dose: 125 mcg Lisinopril (Zestril) 10 mg PO DAILY [facility] Last Admin: 04/23/18 10:25 Dose: 10 mg Loperamide HCl (Imodium) 2 mg PO TID PRN PRN Reason: LOOSE STOOL Ondansetron HCl (Zofran Odt) 4 mg PO Q8H PRN PRN Reason: Nausea Last Admin: 04/23/18 05:07 Dose: 4 mg Pantoprazole Sodium (Protonix) 40 mg PO DAILY [facility] Last Admin: 04/23/18 10:27 Dose: 40 mg Prednisone (Prednisone) 2.5 mg PO DAILY [facility] Last Admin: 04/23/18 10:27 Dose: 2.5 mg Promethazine HCl (Phenergan) 12.5 mg PO Q6H PRN PRN Reason: Nausea Rivastigmine (Exelon) 1.5 mg PO BID[facility] Last Admin: 04/23/18 10:25 Dose: 1.5 mg Sertraline HCl (Zoloft) 50 mg PO HS [facility] Last Admin: 04/22/18 21:03 Dose: 50 mg Sodium Chloride (Flush - Normal Saline) 10 ml IVF Q12HR [facility] Last Admin: 04/23/18 10:24 Dose: 10 ml Sodium Chloride (Flush - Normal Saline) 10 ml IVF PRN PRN PRN Reason: Saline Flush Tramadol HCl (Ultram) 50 mg PO Q6H PRN PRN Reason: Pain 4-6
[2018-04-23] MEDS: cefTRIAXone\\ROCEPHIN 1 GM in Sodium Chloride 0.9% 100 ML IVPB SCH (17:47)
[2018-04-23 18:12] LABS: Vancomycin, Trough 20.6 ug/mL
--- NOTE | 2018-04-23 18:56 | PDOC.OP ---
Operative Note - Operative Note Operative Note: Debridement of the right heel and left great toe were recommended to the patient was agreeable to proceed. The callus on the tip of the left great toe was shaved down to soft skin using a scalpel. There was a small central ulcer which did not appear to probe to deeper structures. This was dressed by the wound care team. The right heel was then sharply debrided using a scalpel and scissors, excising a full-thickness eschar down to the subcutaneous tissues. This wound was then dressed by the wound care team as well. There were no specimens sent and no complications. The patient tolerated the procedure well and we will continue with daily wound care with Singh.
[2018-04-23] MEDS: Vancomycin HCl 1.5 GM in Sodium Chloride 0.9% 250 ML 300 ML IVPB SCH (19:36)
[2018-04-23] MEDS ORDERED: Vancomycin HCl 1.25 GM in Sodium Chloride 0.9% 250 ML 250 ML IVPB SCH (20:00)
[2018-04-23] MEDS: Atorvastatin Calcium 40 MG TAB PO SCH (20:23)
[2018-04-23] MEDS: Acetaminophen 325 MG TAB PO PRN (20:28)
[2018-04-24] MEDS: Levothyroxine Sodium 125 MCG TAB PO SCH (05:07)
[2018-04-24] MEDS: Insulin Regular 300 UNITS/3 ML VIAL SC PRN ×4 (05:08→20:45)
[2018-04-24 05:11] LABS: #Eosinphils 0.2 thou/uL (0.0-0.7); #Lymphocytes 2.3 thou/uL (1.20-3.40); #Monocytes 0.6 thou/uL (0.11-0.59); #Neutrophils 2.3 thou/uL (1.40-6.50); %Basophils 0.5 % (0.0-1.0); %Eosinophils 3.2 % (0.0-10.0); %Lymphocytes 42.6 % (21.0-51.0); %Monocytes 11.8 % (0.0-10.0); %Neutrophils 41.9 % (42.0-75.0); Hemoglobin 7.6 g/dL (12.0-16.0); Mean Corpuscular HGB CONC 31.5 g/dL (32.0-36.0); Mean Corpuscular Volume 98.5 fL (78.0-98.0); Mean Platelet Volume 9.1 fL (7.4-10.4); Platelet Count 176 thou/uL (130-400); RBC Distribution Width 13.6 % (11.5-14.5); Red Blood Cell (RBC) Count 2.45 mill/uL (4.20-5.40); White Blood Cell (WBC) Count 5.4 thou/uL (4.8-10.8)
[2018-04-24 05:30] LABS: Anion Gap 10 mmol/L (10-20); BUN (Urea Nitrogen) 61 mg/dL (9.8-20.1); Calc. Creatinine Clearance 36 mL/min (70-130); Calcium 8.4 mg/dL (7.8-10.44); Carbon Dioxide 27 mmol/L (23-31); Chloride 109 mmol/L (98-107); Estimated GFR-MDRD 31; Glucose 174 mg/dL (83-110); Potassium 4.1 mmol/L (3.5-5.1); Sodium 142 mmol/L (136-145)
[2018-04-24] MEDS: predniSONE 5 MG TAB PO SCH (08:28)
[2018-04-24] MEDS: Rivastigmine 1.5 MG CAP PO SCH ×2 (08:29→17:27)
[2018-04-24] MEDS: Furosemide 40 MG TAB PO SCH ×2 (08:29→20:44)
[2018-04-24] MEDS: Lisinopril 10 MG TAB PO SCH (08:29)
[2018-04-24] MEDS: Hydroxychloroquine Sulfate 200 MG TAB PO SCH ×2 (08:29→20:44)
[2018-04-24] MEDS: Apixaban 2.5 MG TAB PO SCH ×2 (08:30→20:43)
[2018-04-24] MEDS: Ferrous Sulfate 325 MG TAB PO SCH (08:30)
[2018-04-24] MEDS: Amlodipine 5 MG TAB PO SCH (08:30)
[2018-04-24] MEDS: Carvedilol 25 MG TAB PO SCH ×2 (08:31→20:43)
[2018-04-24] MEDS: Folic Acid 1 MG TAB PO SCH (08:31)
--- NOTE | 2018-04-24 16:08 | PDOC.PN ---
- Subjective Encounter Start Date: 04/24/18 Encounter Start Time: 09:00 Pt seen for followup re: UTI. Feels well, denies chest pain, shortness of breath, fevers or chills. - Objective Vital Signs & Weight: Vital Signs (12 hours) Temp Pulse Resp BP BP Pulse Ox 04/24/18 08:30 60 145/60 H 04/24/18 08:29 145/60 H 04/24/18 08:00 98.0 F 60 20 93 L 04/24/18 07:34 98.0 F 60 20 145/60 H 93 L Weight Admit Weight 211 lb 14.4 oz Weight 211 lb 14.4 oz I&O: 04/23/18 04/24/18 04/25/18 06:59 06:59 06:59 Intake Total 600 Balance 600 Result Diagrams: 04/24/18 03:59 04/24/18 03:59 Additional Labs: Accuchecks 04/24/18 04/24/18 04/23/18 11:43 04:16 20:37 POC Glucose 246 H 187 H 287 H 04/23/18 04/23/18 16:23 11:53 POC Glucose 228 H 185 H Phys Exam - Physical Examination Obese HEENT: moist MMs Neck: supple Respiratory: clear to auscultation bilateral Cardiovascular: RRR Gastrointestinal: soft Neurological: moves all 4 limbs Psychiatric: normal affect Deviation from normal: R heel wound, L great toe wound Dx/Plan (1) UTI (urinary tract infection) Status: Acute Comment: start omnicef, await sensitivities for alpha hemolytic streptococcus (2) Chronic renal failure, stage 3 (moderate) Code(s): N18.3 - CHRONIC KIDNEY DISEASE, STAGE 3 (MODERATE) Status: Chronic Comment: stable (3) Diastolic CHF Code(s): I50.30 - UNSPECIFIED DIASTOLIC (CONGESTIVE) HEART FAILURE Status: Chronic Qualifiers: Heart failure chronicity: chronic Qualified Code(s): I50.32 - Chronic diastolic (congestive) heart failure Comment: stable (4) Hypertension Code(s): I10 - ESSENTIAL (PRIMARY) HYPERTENSION Status: Chronic Qualifiers: Comment: Monitor vital signs, titrate antihypertensives as needed (5) Hypothyroidism Code(s): E03.9 - HYPOTHYROIDISM, UNSPECIFIED Status: Chronic Qualifiers: Comment: continue synthroid (6) Type II diabetes mellitus Status: Chronic Qualifiers: Diabetes mellitus halfway insulin use: with watcher automat long goods use Diabetes mellitus complication status: with circulatory complication Diabetes mellitus complication detail: with peripheral angiopathy with gangrene Qualified Code(s ): E11.52 - Type 2 diabetes mellitus with diabetic peripheral angiopathy with gangrene; Z79.4 - retirement (current) use of insulin Comment: continue accuchecks, insulin sliding scale (7) Chronic wound of extremity Code(s): [id number] - Status: Chronic Comment: s/p debridement - Plan * . Review of Systems - Review of Systems Constitutional: negative: fever, chills, sweats, weakness, malaise Respiratory: negative: Cough, Shortness of Breath, SOB with Excertion, Sputum, Wheezing Cardiovascular: negative: chest pain, palpitations, orthopnea, paroxysmal nocturnal dyspnea, edema, light headedness - Medications/Allergies Allergies/Adverse Reactions: Allergies Allergy/AdvReac Type Severity Reaction Status Date / Time aspirin Allergy Intermediate Verified 04/21/18 22:14 NSAIDS (Non-Steroidal Allergy Intermediate Verified 04/21/18 22:14 Anti-Inflamma lactose AdvReac Diarrhea Verified 01/28/18 03:24 Medications: Current Medications Acetaminophen (Tylenol) 650 mg PO Q6H PRN PRN Reason: Pain 1-3 Last Admin: 04/23/18 20:28 Dose: 325 mg Amlodipine Besylate (Norvasc) 5 mg PO DAILY [facility] Last Admin: 04/24/18 08:30 Dose: 5 mg Apixaban (Eliquis) 2.5 mg PO BID [facility] Last Admin: 04/24/18 08:30 Dose: 2.5 mg Atorvastatin Calcium (Lipitor) 40 mg PO HS [facility] Last Admin: 04/23/18 20:23 Dose: 40 mg Carvedilol (Coreg) 25 mg PO BID [facility] Last Admin: 04/24/18 08:31 Dose: 25 mg Clonidine (Kinlawkq-Mot-6) 0.2 mg TD Q7DAYS [facility] Last Admin: 04/22/18 09:18 Dose: Not Given Clonidine (Catapres) 0.1 mg PO Q4H PRN PRN Reason: SBP>160 Dextrose/Water (Dextrose 50%) 25 gm IVP PRN PRN PRN Reason: HYPOGLYCEMIA PROTOCOL Ferrous Sulfate (Feosol) 325 mg PO QAM-[facility] Last Admin: 04/24/18 08:30 Dose: 325 mg Folic Acid (Folvite) 1 mg PO DAILY [facility] Last Admin: 04/24/18 08:31 Dose: 1 mg Furosemide (Lasix) 40 mg PO BID [facility] Last Admin: 04/24/18 08:29 Dose: 40 mg Glucagon (Glucagon) 1 mg IM PRN PRN PRN Reason: HYPOGLYCEMIA PROTOCOL Hydralazine HCl (Apresoline) 10 mg SLOW IVP Q4H PRN PRN Reason: SBP>170 Hydroxychloroquine Sulfate (Plaquenil) 200 mg PO BID [facility] Last Admin: 04/24/18 08:29 Dose: 200 mg Dextrose/Water (D5w) 1,000 mls @ 0 mls/hr IV INF PRN; As Directed PRN Reason: HYPOGLYCEMIA PROTOCOL Ceftriaxone Sodium 1 gm/ (Sodium Chloride) 100 mls @ 200 mls/hr IVPB Q24HR [facility] Last Admin: 04/23/18 17:47 Dose: 100 mls Vancomycin HCl 1.25 gm/ Sodium (Chloride) 250 mls @ 166.667 mls/hr IVPB 2000 [facility] Last Admin: 04/23/18 20:23 Dose: 250 mls Insulin Human Regular (Humulin R) 0 units SC .MILD SLIDING PRN; Protocol PRN Reason: MILD SLIDING SCALE Last Admin: 04/24/18 13:46 Dose: 3 unit Levothyroxine Sodium (Synthroid) 125 mcg PO 0600 [facility] Last Admin: 04/24/18 05:07 Dose: 125 mcg Lisinopril (Zestril) 10 mg PO DAILY [facility] Last Admin: 04/24/18 08:29 Dose: 10 mg Loperamide HCl (Imodium) 2 mg PO TID PRN PRN Reason: LOOSE STOOL Ondansetron HCl (Zofran Odt) 4 mg PO Q8H PRN PRN Reason: Nausea Last Admin: 04/23/18 05:07 Dose: 4 mg Pantoprazole Sodium (Protonix) 40 mg PO DAILY [facility] Last Admin: 04/24/18 08:31 Dose: 40 mg Prednisone (Prednisone) 2.5 mg PO DAILY [facility] Last Admin: 04/24/18 08:28 Dose: 2.5 mg Promethazine HCl (Phenergan) 12.5 mg PO Q6H PRN PRN Reason: Nausea Rivastigmine (Exelon) 1.5 mg PO BID-WM [facility] Last Admin: 04/24/18 08:29 Dose: 1.5 mg Sertraline HCl (Zoloft) 50 mg PO HS [facility] Last Admin: 04/23/18 20:24 Dose: 50 mg Sodium Chloride (Flush - Normal Saline) 10 ml IVF Q12HR [facility] Last Admin: 04/24/18 08:32 Dose: 10 ml Sodium Chloride (Flush - Normal Saline) 10 ml IVF PRN PRN PRN Reason: Saline Flush Tramadol HCl (Ultram) 50 mg PO Q6H PRN PRN Reason: Pain 4-6
[2018-04-24] MEDS: Atorvastatin Calcium 40 MG TAB PO SCH (20:43)
[2018-04-24] MEDS: Cefdinir 300 MG CAP PO SCH (20:44)
[2018-04-24] MEDS: Acetaminophen 325 MG TAB PO PRN (20:46)
[2018-04-25] MEDS: Levothyroxine Sodium 125 MCG TAB PO SCH (05:35)
[2018-04-25] MEDS: Insulin Regular 300 UNITS/3 ML VIAL SC PRN ×2 (05:37→11:26)
[2018-04-25] MEDS ORDERED: Sodium Chloride 0.9% 0 ML ONE (07:37)
[2018-04-25] MEDS: Hydroxychloroquine Sulfate 200 MG TAB PO SCH (07:49)
[2018-04-25] MEDS: Rivastigmine 1.5 MG CAP PO SCH (07:49)
[2018-04-25] MEDS: Cefdinir 300 MG CAP PO SCH (07:50)
[2018-04-25] MEDS: predniSONE 5 MG TAB PO SCH (07:50)
[2018-04-25] MEDS: Folic Acid 1 MG TAB PO SCH (07:51)
[2018-04-25] MEDS: Apixaban 2.5 MG TAB PO SCH (07:51)
[2018-04-25] MEDS: Furosemide 40 MG TAB PO SCH (07:51)
[2018-04-25] MEDS: Ferrous Sulfate 325 MG TAB PO SCH (07:51)
[2018-04-25] MEDS: Carvedilol 25 MG TAB PO SCH (07:51)
[2018-04-25] MEDS: Amlodipine 5 MG TAB PO SCH (07:51)
[2018-04-25] MEDS: Lisinopril 10 MG TAB PO SCH (07:52)
[2018-04-25 08:08] VITALS: BP 152/74
[2018-04-25 09:12] VITALS: TEMP 98.5
--- NOTE | 2018-04-25 11:27 | DIS ---
DATE OF ADMISSION: 04/12/2018 DATE OF DISCHARGE: 04/25/2018 PRIMARY CARE PROVIDER: Concetta Winston M.D. DISCHARGE DIAGNOSES: 1. Urinary tract infection with Streptococcus gordonii. 2. Hypoglycemia. 3. Right heel and left great toe wounds. CONDITION OF PATIENT ON THE DAY OF DISCHARGE: Stable. I assessed Ms. Munroe on the day of discharg e. She denies any chest pain or shortness of breath. Vital signs are stable. S1 and S2 are heard, regular. Lungs are clear to auscultation bilaterally. CONSULTATIONS DURING THIS HOSPITALIZATION: General surgery, Dr. Casas. DISCHARGE MEDICATIONS: Amlodipine 5 mg daily, apixaban 5 mg 2 times daily, Lipitor 40 mg at bedtime, Coreg 25 mg 2 times a day, cefdinir 300 mg 2 times a day for 7 more days, clonidine 0.2 mg patch sánchez ry week, ferrous sulfate 325 mg daily, folic acid 1 mg daily, Lasix 40 mg 2 times a day, Plaquenil 20 0 mg 2 times a day, Levemir 20 units at bedtime, dose decreased, Synthroid 125 mcg daily, lisinopril 10 mg daily, Protonix 40 mg daily, prednisone 2.5 mg daily, Exelon 1.5 mg 2 times a day, sertraline 5 0 mg at bedtime, Tylenol 650 mg every 6 hours as needed, loperamide 2 mg 3 times a day as needed, Asm anex Twisthaler 2 puffs 2 times a day as needed, Zofran 4 mg every 8 hours as needed, Phenergan 12.5 mg every 6 hours as needed, tramadol 50 mg every 6 hours as needed. HOSPITAL COURSE: Ms. Munroe is a pleasant 83-year-old lady who was admitted to [facility] for generalized weakness and hypoglycemia. Her insulin was stopped and she was started on insulin sliding scale. Hypoglycemia, resolved, and insulin dose has been decreased to 20 units L evemir daily. She has also had a urinary tract infection. Final urine cultures grew Streptococcus gordonii. She h as been stepped down to Omnicef for 1 more week. She was seen by General Surgery Service for chronic right heel and left great toe wounds. She underw ent debridement. At the time of the discharge, final blood cultures are pending. She is advised to follow up with her primary care provider for final blood cultures. On 04/24/2018, she had sodium 142, potassium 4.1, blood urea nitrogen 61, creatinine 1.88, white coun t 5,400, hemoglobin 7.6, and platelet count 276,000. Many thanks for allowing me to participate in your patient's care. Please feel free to contact me wi th any questions or concerns. DISCHARGE DESTINATION: [facility] to the hospital. TOTAL AMOUNT OF TIME SPENT COORDINATING THIS DISCHARGE: 32 minutes.
== END 2018-04-25 15:18 | DRG 674 ==
LOC: ERS 15:27 → T4-B 18:20 → OBSVTOIN 04-22 09:19
PROVIDERS: ADMIT Internal Medicine; ATTEND Internal Medicine
PROC: 0JBQ0ZZ Excision of Right Foot Subcutaneous Tissue and Fascia, Open Approach (ICD-10-PCS; principal; 2018-04-23)
PROC: 0HBNXZZ Excision of Left Foot Skin, External Approach (ICD-10-PCS; 2018-04-23)
DX: N39.0 Urinary tract infection, site not specified (principal); L97.419 Non-pressure chronic ulcer of right heel and midfoot with unspecified severity; I50.32 Chronic diastolic (congestive) heart failure; I13.0 Hypertensive heart and chronic kidney disease with heart failure and stage 1 through stage 4 chronic kidney disease, or unspecified chronic kidney disease; E11.621 Type 2 diabetes mellitus with foot ulcer; B95.4 Other streptococcus as the cause of diseases classified elsewhere; E11.649 Type 2 diabetes mellitus with hypoglycemia without coma; L97.529 Non-pressure chronic ulcer of other part of left foot with unspecified severity; E11.42 Type 2 diabetes mellitus with diabetic polyneuropathy; I11.0 Hypertensive heart disease with heart failure; I48.0 Paroxysmal atrial fibrillation; Z66 Do not resuscitate; E11.22 Type 2 diabetes mellitus with diabetic chronic kidney disease; N18.3 Chronic kidney disease, stage 3 (moderate); M06.9 Rheumatoid arthritis, unspecified; J45.909 Unspecified asthma, uncomplicated; E03.9 Hypothyroidism, unspecified; Z87.891 Personal history of nicotine dependence; Z79.01 Long term (current) use of anticoagulants; Z79.4 Long term (current) use of insulin; Z88.8 Allergy status to other drugs, medicaments and biological substances
CPT/HCPCS: 36415; 36416; 51701; 71045; 80048; 80202; 81003; 81015; 82550; 82553; 84484; 85014; 85018; 85025; 87040; 87077; 87086; 90471; 90670; 93005; 96365; 96368; A4216; A4353; G0009; G8981-GP-CM; G8982-GP-CK; G8987-GO-CM; G8988-GO-CL; J0696; J1815; J3370; J7050; Q0162

== ENCOUNTER 2018-05-16 15:55 | Emergency (ER) | payer MEDICARE ==
[2018-05-16 16:42] LABS: Bilirubin Negative (Negative); Blood, Urine Negative (Negative); Clarity CLOUDY (Clear); Glucose, Urine (Dipstick) Negative (Negative); Leukocyte Negative (Negative); Nitrite Negative (Negative); Protein, Urine (Dipstick) 100 mg/dL (Neg-Trace); Specific Gravity, Urine 1.011 (1.002-1.036); Urobilinogen 0.2 mg/dL (0.2-1.0)
[2018-05-16 16:44] LABS: Bacteria/HPF None Seen HPF (None Seen); Hyaline Casts/LPF 0-3 HYALINE CAST LPF (0-3 Hyaline); Pathc Cast-AUWi Flag 0.72 (0-2.49); RBC/HPF 0-3 HPF (0-3); WBC/HPF 0-3 HPF (0-3)
[2018-05-16] MEDS ORDERED: Promethazine HCl 25 MG/ML VIAL ONE (16:59)
[2018-05-16 17:14] LABS: #Eosinphils 0.2 thou/uL (0.0-0.7); #Lymphocytes 1.8 thou/uL (1.20-3.40); #Monocytes 0.5 thou/uL (0.11-0.59); #Neutrophils 5.9 thou/uL (1.40-6.50); %Basophils 0.2 % (0.0-1.0); %Eosinophils 2.6 % (0.0-10.0); %Lymphocytes 21.6 % (21.0-51.0); %Monocytes 5.6 % (0.0-10.0); %Neutrophils 70.1 % (42.0-75.0); Hemoglobin 9.2 g/dL (12.0-16.0); Mean Corpuscular HGB CONC 33.8 g/dL (32.0-36.0); Mean Corpuscular Hemoglobin 32.3 pg (27.0-31.0); Mean Corpuscular Volume 95.5 fL (78.0-98.0); Platelet Count 261 thou/uL (130-400); RBC Distribution Width 13.2 % (11.5-14.5); Red Blood Cell (RBC) Count 2.84 mill/uL (4.20-5.40); White Blood Cell (WBC) Count 8.5 thou/uL (4.8-10.8)
[2018-05-16 17:19] LABS: INR-International Normal Ratio 1.5; Prothrombin Time 18.1 SEC (12.0-14.7)
[2018-05-16 17:20] LABS: PTT 35.3 SEC (22.9-36.1)
[2018-05-16 17:36] LABS: ALT (SGPT) 13 U/L (8-55); AST (SGOT) 15 U/L (5-34); Albumin 3.5 g/dL (3.4-4.8); Alkaline Phosphatase 89 U/L (40-150); Anion Gap 15 mmol/L (10-20); BUN (Urea Nitrogen) 55 mg/dL (9.8-20.1); Bilirubin, Total 0.3 mg/dL (0.2-1.2); Calc. Creatinine Clearance 0 mL/min (70-130); Carbon Dioxide 24 mmol/L (23-31); Chloride 105 mmol/L (98-107); Estimated GFR-MDRD 30; Globulin 3.6 g/dL (2.4-3.5); Glucose 152 mg/dL (83-110); Lipase 29 U/L (8-78); Protein, Total 7.1 g/dL (6.0-8.3); Sodium 140 mmol/L (136-145)
[2018-05-16 17:40] LABS: CKMB 1.2 ng/mL (0-6.6); Troponin I Less than 0.010 ng/mL (< 0.028)
--- NOTE | 2018-05-16 17:45 | CT ---
HEAD CT WITHOUT CONTRAST: Date: 05-16-18 Comparison: 01-28-18 History: Nausea, weakness, vomiting. Technique: Serial axial CT imaging at 5 mm intervals from vertex through skull base without contrast. FINDINGS: There is partial opacification of the mastoid air cells on the left, especially inferiorly, unchanged . There is evidence of prior right sided mastoidectomy, stable as well. There is atherosclerotic calc ification of the cavernous carotid arteries. There is periventricular and deep white matter hypodensity suggesting stable small vessel disease. Th ere is no intracranial hemorrhage, midline shift, mass effect or ventricular enlargement. IMPRESSION: Stable head CT as detailed above. No acute findings. POS: [facility]
--- NOTE | 2018-05-16 17:47 | RAD ---
PORTABLE CHEST: Date: 05-16-18 Comparison: 04-21-18 History: Weakness, vomiting. FINDINGS: Bilateral shoulder post-operative changes are noted. No pneumothorax, pleural fluid, lobar consolidat ion or alveolar edema. Heart and mediastinal contours are stable. There is stable atherosclerotic anne cification in the aortic arch. IMPRESSION: No acute findings - stable appearance of the chest. POS: [facility]
== END 2018-05-16 21:50 ==
LOC: ERS 15:55
DX: R11.2 Nausea with vomiting, unspecified (principal); D50.0 Iron deficiency anemia secondary to blood loss (chronic); I13.0 Hypertensive heart and chronic kidney disease with heart failure and stage 1 through stage 4 chronic kidney disease, or unspecified chronic kidney disease; N18.9 Chronic kidney disease, unspecified; I50.9 Heart failure, unspecified; I48.91 Unspecified atrial fibrillation; E11.40 Type 2 diabetes mellitus with diabetic neuropathy, unspecified; J45.909 Unspecified asthma, uncomplicated; E03.9 Hypothyroidism, unspecified; Z87.891 Personal history of nicotine dependence; Z79.899 Other long term (current) drug therapy; Z79.4 Long term (current) use of insulin
CPT/HCPCS: 36415; 51701; 70450; 71045; 80053; 81003; 81015; 82140; 82553; 83605; 83690; 84443; 84484; 85025; 85610; 85730; 86850; 86900; 86901; 87040; 87086; 93005; 94760; 96374; A4353; J2550

== ENCOUNTER 2018-05-28 14:14 | Inpatient (IN) | payer MEDICARE, MEDICAID ==
[~2018-05-28 14:14] MED LIST: ISOVUE-370 76%-LOCM 1 ML ONE; Iopamidol 370 76% 50 ML VIAL FS ONE
[2018-05-28 15:09] LABS: Bilirubin Negative (Negative); Blood, Urine Moderate (Negative); Clarity TURBID (Clear); Glucose, Urine (Dipstick) Negative (Negative); Leukocyte Large (Negative); Nitrite Negative (Negative); Protein, Urine (Dipstick) 300 mg/dL (Neg-Trace); Urobilinogen 0.2 mg/dL (0.2-1.0)
[2018-05-28 15:25] LABS: Bacteria/HPF 3+ HPF (None Seen); Hyaline Casts/LPF NONE SEEN LPF (0-3 Hyaline); Renal Epithelial 0-3 HPF (0-3); Squamous Epithelial None Seen HPF (0-3); Transitional Epithelial NONE SEEN HPF (0-3)
[2018-05-28] MEDS ORDERED: Ondansetron HCl/PF 4 MG/2 ML Vial ONE (15:28)
--- NOTE | 2018-05-28 15:45 | RAD ---
CHEST ONE VIEW: 05/28/18 HISTORY: Nausea, vomiting, diarrhea. COMPARISON: 05/16/18 FINDINGS: Atherosclerosis of the aorta. Normal cardiac silhouette. The pulmonary vessels and hilum are normal. Costophrenic angles are clear. No mass. No consolidation. No pneumothorax or osseous abnormalities. IMPRESSION: 1. Atherosclerosis. 2. No acute cardiopulmonary process. POS: [facility]
[2018-05-28 15:56] LABS: Hemoglobin 9.9 g/dL (12.0-16.0); Mean Corpuscular HGB CONC 34.3 g/dL (32.0-36.0); Mean Corpuscular Hemoglobin 32.2 pg (27.0-31.0); Mean Platelet Volume 8.9 fL (7.4-10.4); Platelet Count 218 thou/uL (130-400); RBC Distribution Width 13.2 % (11.5-14.5); Red Blood Cell (RBC) Count 3.07 mill/uL (4.20-5.40)
[2018-05-28 16:12] LABS: ALT (SGPT) 16 U/L (8-55); AST (SGOT) 22 U/L (5-34); Alkaline Phosphatase 70 U/L (40-150); Anion Gap 10 mmol/L (10-20); BUN (Urea Nitrogen) 33 mg/dL (9.8-20.1); Bilirubin, Total 0.4 mg/dL (0.2-1.2); Calc. Creatinine Clearance 0 mL/min (70-130); Calcium 8.2 mg/dL (7.8-10.44); Carbon Dioxide 25 mmol/L (23-31); Chloride 107 mmol/L (98-107); Estimated GFR-MDRD 32; Potassium 3.2 mmol/L (3.5-5.1); Sodium 139 mmol/L (136-145)
[2018-05-28 16:17] LABS: CKMB 1.4 ng/mL (0-6.6)
[2018-05-28 16:18] LABS: #Eosinphils 0.2 thou/uL (0.0-0.7); #Lymphocytes 2.3 thou/uL (1.20-3.40); #Monocytes 0.7 thou/uL (0.11-0.59); #Neutrophils 3.8 thou/uL (1.40-6.50); %Basophils 0.1 % (0.0-1.0); %Lymphocytes 33.1 % (21.0-51.0); %Monocytes 9.7 % (0.0-10.0); %Neutrophils 54.2 % (42.0-75.0); MDiff Complete? YES; PLT Morphology Comment Appears Adequate; Polychromasia SLIGHT = 2-3 cells (100X) (0-2/hpf); Schistocytes SLIGHT = 2-5 cells (100X) (0-1/hpf)
[2018-05-28 16:21] LABS: Glucose 29 mg/dL (83-110)
[2018-05-28] MEDS ORDERED: Dextrose 50% Abboject 50 ML SYRINGE ONE (16:22)
[2018-05-28] MEDS ORDERED: cefTRIAXone\\ROCEPHIN 2 GM VIAL ONE (16:27)
[2018-05-28] MEDS ORDERED: Sodium Chloride 0.9% 100 ML ONE (16:27)
[2018-05-28] MEDS ORDERED: Potassium Chloride 20 MEQ TAB ONE (16:27)
[2018-05-28] MEDS ORDERED: Promethazine HCl 25 MG/ML VIAL ONE (16:43)
--- NOTE | 2018-05-28 19:05 | CT ---
CT ABDOMEN AND PELVIS WITH IV CONTRAST: 05/28/18 HISTORY: Nausea, vomiting and diarrhea that has persisted for the past three weeks. COMPARISON: None available. FINDINGS: Linear bibasilar densities are present, which were present on CT thorax on 05/07/17, likely related to mild scarring. There is calcification of the mitral valve annulus. Vascular calcifications are seen in the abdominal aorta and involving the iliac arteries. Subcentimeter too small to characterize hypodense lesions are seen in the superior pole left kidney. There is a lobulated appearance of each kidney which may be related to mild scarring and/or associate d lobulation. The liver, spleen, pancreas, bilateral adrenal glands, urinary bladder, and opacified bowel demonstra te a normal CT appearance. No dilated loops of small bowel are seen to suggest a small bowel obstruct ion. No bowel wall thickening is seen. The appendix is not visualized, but there are no secondary signs to suggest appendicitis. There is questionable trace amount of pericholecystic fluid. Degenerative changes are noted in the spine. There is no free fluid, fluid collection, or lymphadenopathy seen in the abdomen or pelvis. IMPRESSION: 1. Questionable trace amount of pericholecystic fluid. If there is concern for gallbladder patho logy, a right upper quadrant ultrasound may be helpful for further evaluation. Common duct is normal in caliber. 2. Subcentimeter too small to characterize left renal lesions with scarring and probable associa hailee lobulation involving the bilateral kidneys. 3. Bibasilar areas of scarring. 4. No evidence of a bowel obstruction. 5. Hysterectomy. POS: [facility]
[2018-05-28] MEDS ORDERED: traMADol HCl 50 MG TAB PO PRN (20:10)
[2018-05-28] MEDS ORDERED: Dextrose 50% Abboject 50 ML SYRINGE SLOW IVP PRN (20:10)
[2018-05-28] MEDS ORDERED: Mometasone Furoate 120 PUFF 220 MCG INH PRN (20:10)
[2018-05-28] MEDS ORDERED: Dextrose 5% in Water 1,000 ML IV PRN (20:10)
[2018-05-28] MEDS ORDERED: HYDROcodone/Acetaminophen 5/325 mg Tablet PO PRN (20:10)
[2018-05-28] MEDS ORDERED: Guaifenesin DM 100-10/5 ML UDCUP PO PRN (20:10)
[2018-05-28] MEDS ORDERED: Acetaminophen 325 MG TAB PO PRN (20:10)
[2018-05-28] MEDS ORDERED: Promethazine 25 MG TAB PO PRN (20:10)
[2018-05-28] MEDS ORDERED: Furosemide 40 MG TAB PO SCH (21:00)
[2018-05-28] MEDS: Ondansetron HCl/PF 4 MG/2 ML Vial IVP PRN (21:15)
[2018-05-28] MEDS: Dextrose 5 % And 0.9 % NaCl 1,000 ML IV SCH (21:36)
[2018-05-28] MEDS: Carvedilol 25 MG TAB PO SCH (21:44)
[2018-05-28] MEDS: Famotidine 20 MG TAB PO SCH (21:44)
[2018-05-28] MEDS: Hydroxychloroquine Sulfate 200 MG TAB PO SCH (21:44)
[2018-05-28] MEDS: Atorvastatin Calcium 40 MG TAB PO SCH (21:44)
--- NOTE | 2018-05-29 01:59 | HP ---
PRIMARY CARE PHYSICIAN: Dr. Gutierrez. PRIMARY FINANCIAL ANALYSIS MANAGER: Dr. Chaves. REASON FOR ADMISSION: Intractable nausea and vomiting with diarrhea, hypoglycemia, hypokalemia, urinary tract infection. HISTORY OF PRESENTING ILLNESS: The patient gives history of having severe nausea and vomiting from last 3 weeks or so. She has had nausea, vomiting, usually for a day or two spells which would go away, but she has never had this bad for the last 3 weeks now. She has not been able to keep anything down. She also is feeling very weak and lethargic. She describes that she goes into cold sweats, feeling bad. She has had 1 or 2 episodes of loose watery stools on a daily basis now. She also describes her stools are black at times, but she takes iron pills. Patient has in fact come 3 times to the emergency room with above complaints. She went to see Dr. Chaves's PA yesterday and the plans are to do esophageal testing to see for motility, I believe. There is no complaints of chest pain, palpitations, or PND at present. The patient is essentially bed bound and does not ambulate. She is currently a resident at [facility]. 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 CURRENT MEDICATIONS: Norvasc 5 mg daily, Eliquis 5 mg twice daily, Coreg 25 mg twice daily, clonidine transdermal patch once weekly, ferrous sulfate 325 mg daily, Plaquenil 200 mg twice daily, Zestril 10 mg daily, Protonix 40 mg p.o. daily, prednisone 2.5 mg daily, Phenergan 12.5 mg p.o. q.6 hourly p.r.n., Zoloft 50 mg p.o. at bedtime, Ultram p.r.n. for pain, Lipitor 40 mg p.o. at bedtime, folic acid 1 mg p.o. daily, Lasix 40 mg p.o. twice daily, Levemir 20 units subcutaneous at bedtime, Synthroid 125 mcg p.o. daily, Exelon patch 1.5 mg p.o. twice daily. ALLERGIES: ASPIRIN, NSAIDS, AND LACTOSE. PERSONAL HISTORY: Does not abuse alcohol or drugs. No history of smoking. FAMILY HISTORY: History of pulmonary embolism. There is also history of diabetes and coronary artery disease in the family. Father had history of coronary artery disease as well. CODE STATUS: Code status is FULL. Power of attorney recruiter is her daughter, Ms. Hollis. REVIEW OF SYSTEMS: The following complete review of systems was negative, unless otherwise mentioned in the HPI or below: Constitutional: Weight loss or gain, ability to conduct usual activities. Skin: Rash, itching. Eyes: Double vision, pain. ENT/Mouth: Nose bleeding, neck stiffness, pain, tenderness. Cardiovascular: Palpitations, dyspnea on exertion, orthopnea. Respiratory: Shortness of breath, wheezing, cough, hemoptysis, fever, or night sweats. Gastrointestinal: Poor appetite, abdominal pain, heartburn, nausea, vomiting, constipation, or diarrhea. Genitourinary: Urgency, frequency, dysuria, nocturia. Musculoskeletal: Pain, swelling. Neurologic/Psychiatric: Anxiety, depression. Allergy/Immunologic: Skin rash, bleeding tendency. PHYSICAL EXAMINATION: GENERAL: Patient is an 83-year-old female who is currently not in any acute distress. VITAL SIGNS: Blood pressure 116/46, pulse 54 per minute, respiratory rate 16 per minute, temperature 97.6 degrees Fahrenheit, saturating 95% on room air. NECK: Supple, no elevated JVD. HEENT: Extraocular muscles intact. Pupils reacting to light. Oral cavity mucous membranes are dry. No exudates or congestion. CARDIOVASCULAR SYSTEM: S1, S2 heard. Regular rhythm. RESPIRATORY SYSTEM: Air entry 1+ bilateral. No rhonchi or rales. ABDOMEN: Soft, bowel sounds heard. No tenderness, rigidity, or guarding. EXTREMITIES: There is peripheral edema. No calf tenderness. Patient has chronic ulcers, which have dressings on them and both heel and the foot area. Peripheral pulses in the upper extremities are 1+ bilateral. There is no ulcers on the upper extremities. PSYCHIATRIC SYSTEM: Patient's mood is euthymic. No hallucinations or delusions. CENTRAL NERVOUS SYSTEM: No gross focal deficits noted. Patient has severe right rotator cuff issue and cannot lift her right upper extremity. LABORATORY AND X-RAY FINDINGS: White count of 7, H&H 10 and 28, platelet count 218 with 54% neutrophils, MCV is 94. Sodium 139, potassium 3.2, serum bicarbonate 25, BUN 33, creatinine 1.82. Serum glucose was 29 on arrival with subsequent fingersticks going up to 126. Liver enzymes within normal limits. Albumin 3.0. Troponin I 0.04. BNP is 89. UA shows large leukoesterase with greater than 50 wbc's and 3+ bacteria. Stool for C. diff done in the ER was negative. CT of the abdomen and pelvis done shows trace pericholecystic fluid. Common duct was normal in caliber. Bibasilar areas of scarring, no evidence of bowel obstruction. Chest x-ray done showed no acute infiltrate. She has atherosclerosis seen. EKG: Normal sinus rhythm with nonspecific ST-T wave changes at the rate of 57 beats per minute. CLINICAL IMPRESSION AND PLAN: Patient will be admitted to telemetry for intractable nausea, vomiting, and diarrhea from last 3 weeks with electrolyte abnormalities and hypoglycemia. She also has indeterminate troponin with likely demand ischemia. Patient has chronic kidney disease stage 3 and is currently dehydrated as well. We will place her on D5 normal saline at 60 mL per hour until tomorrow morning. We will continue her Lipitor, Coreg, Norvasc, clonidine patch, folic acid, also order ultrasound of right upper quadrant to rule out cholecystitis. Her antidiabetic medications will be held for now until her fingerstick glucose is consistently above 200. Patient has multiple medical issues. I have discussed code status with her. She would like to be a FULL CODE for now and her daughter is her power of attorney recruiter, Ms. Lewis. Hughes cultures have been obtained in the ER. We will not place her on any antibiotics for now. [facility]
[2018-05-29] MEDS: Levothyroxine Sodium 125 MCG TAB PO SCH (05:46)
[2018-05-29 06:08] LABS: Anion Gap 9 mmol/L (10-20); BUN (Urea Nitrogen) 30 mg/dL (9.8-20.1); Calc. Creatinine Clearance 33 mL/min (70-130); Calcium 7.5 mg/dL (7.8-10.44); Carbon Dioxide 23 mmol/L (23-31); Chloride 108 mmol/L (98-107); Estimated GFR-MDRD 31; Glucose 83 mg/dL (83-110); Potassium 3.5 mmol/L (3.5-5.1); Sodium 136 mmol/L (136-145)
[2018-05-29 06:16] LABS: #Eosinphils 0.2 thou/uL (0.0-0.7); #Lymphocytes 2.9 thou/uL (1.20-3.40); #Monocytes 0.8 thou/uL (0.11-0.59); %Basophils 0.5 % (0.0-1.0); %Eosinophils 3.8 % (0.0-10.0); %Lymphocytes 48.7 % (21.0-51.0); %Monocytes 13.2 % (0.0-10.0); %Neutrophils 33.9 % (42.0-75.0); Hemoglobin 8.1 g/dL (12.0-16.0); Mean Corpuscular HGB CONC 34.4 g/dL (32.0-36.0); Mean Corpuscular Hemoglobin 32.6 pg (27.0-31.0); Mean Corpuscular Volume 94.8 fL (78.0-98.0); Mean Platelet Volume 9.2 fL (7.4-10.4); Platelet Count 167 thou/uL (130-400); RBC Distribution Width 13.2 % (11.5-14.5)
[2018-05-29] MEDS: Ondansetron HCl/PF 4 MG/2 ML Vial IVP PRN (06:54)
--- NOTE | 2018-05-29 08:05 | ULT ---
GALLBLADDER ULTRASOUND: INDICATION: Abdominal pain. Followup to CT scan of 05/28/18 which questioned pericholecystic edema. FINDINGS: Echogenic sludge is seen within the gallbladder. No definite stones. There is mild wall thickening and pericholecystic edema along the anterior wall of the gallbladder. The technologist does describe a negative Dorantes's sign. Common bile duct within normal range at 4 mm. Pancreas is obscured. The visualized liver and right kidney appear unremarkable. No hydronephrosis. There is a questionable echogenic focus in the colle cting structures of the right kidney which could potentially represent a small calculus. IMPRESSION: 1. Gallbladder shows echogenic sludge and mild gallbladder wall thickening and pericholecystic edema . Negative Dorantes's sign. 2. Question calculus right kidney. POS: [facility]
[2018-05-29] MEDS: Carvedilol 25 MG TAB PO SCH ×2 (08:19→21:19)
[2018-05-29] MEDS: predniSONE 5 MG TAB PO SCH (08:19)
[2018-05-29] MEDS: Hydroxychloroquine Sulfate 200 MG TAB PO SCH ×2 (08:20→21:19)
[2018-05-29] MEDS: Amlodipine 5 MG TAB PO SCH (08:20)
[2018-05-29] MEDS: Folic Acid 1 MG TAB PO SCH (08:21)
[2018-05-29] MEDS ORDERED: cloNIDine 0.2mg/24 Hour PATCH TD SCH (09:00)
[2018-05-29] MEDS: Dextrose 5 % And 0.9 % NaCl 1,000 ML IV SCH ×2 (09:50→17:53)
--- NOTE | 2018-05-29 12:40 | PDOC.PN ---
- Subjective Encounter Start Date: 05/29/18 Encounter Start Time: 08:10 Subjective: has nausea, no vomiting this am, does not feel like eating breakfast -: no diarrhea this am -: no sob, is oriented well - Objective Resuscitation Status: Resuscitation Status FULL:Full Resuscitation MAR Reviewed: Yes Vital Signs & Weight: Vital Signs (12 hours) Temp Pulse Resp BP BP Pulse Ox 05/29/18 11:52 98.3 F 64 18 117/59 L 05/29/18 08:20 64 129/61 05/29/18 07:29 96.9 F L 64 16 129/61 98 05/29/18 03:26 97.9 F 65 15 138/65 97 Weight Weight 196 lb Result Diagrams: 05/29/18 05:28 05/29/18 05:28 Additional Labs: Accuchecks 05/29/18 05/29/18 05/29/18 10:48 05:18 01:15 POC Glucose 134 H 88 93 05/28/18 05/28/18 05/28/18 20:03 18:05 16:52 POC Glucose 106 97 126 H Phys Exam - Physical Examination HEENT: PERRLA, moist MMs Neck: no JVD, supple Respiratory: no wheezing, no rales Cardiovascular: RRR, no significant murmur Gastrointestinal: soft, no distention, positive bowel sounds Musculoskeletal: no edema, pulses present chronic non healing ulcer over right heel and gr toe ?>1 yr Neurological: non-focal, moves all 4 limbs Psychiatric: A&O x 3 Dx/Plan (1) [id number] kidney injury Code(s): N17.9 - ACUTE KIDNEY FAILURE, UNSPECIFIED; N18.9 - CHRONIC KIDNEY DISEASE, UNSPECIFIED Status: Acute Qualifiers: Chronic kidney disease stage: stage 3 (moderate) (2) Asthma Code(s): J45.909 - UNSPECIFIED ASTHMA, UNCOMPLICATED Status: Chronic Qualifiers: Asthma severity: mild Asthma persistence: intermittent Asthma complication type: uncomplicated Qualified Code(s): J45.20 - Mild intermittent asthma, uncomplicated (3) Generalized weakness Code(s): R53.1 - WEAKNESS Status: Chronic (4) Nausea & vomiting Code(s): R11.2 - NAUSEA WITH VOMITING, UNSPECIFIED Status: Acute Qualifiers: Vomiting type: unspecified Vomiting Intractability: intractable Qualified Code(s): R11.2 - Nausea with vomiting, unspecified (5) Paroxysmal atrial fibrillation Code(s): I48.0 - PAROXYSMAL ATRIAL FIBRILLATION Status: Chronic (6) Anemia Code(s): D64.9 - ANEMIA, UNSPECIFIED Status: Chronic Qualifiers: Anemia type: due to chronic kidney disease Chronic kidney disease stage: stage 3 (moderate) Qualified Code(s): N18.3 - Chronic kidney disease, stage 3 (moderate); D63.1 - Anemia in chronic kidney disease (7) CKD (chronic kidney disease) stage 3, GFR 30-59 ml/min Status: Chronic (8) Chronic heel ulcer Code(s): L97.409 - NON-PRS CHRONIC ULCER OF UNSP HEEL AND MIDFOOT W UNSP SEVERT Status: Chronic Qualifiers: Laterality: right (9) Diabetes mellitus Code(s): E11.9 - TYPE 2 DIABETES MELLITUS WITHOUT COMPLICATIONS Status: Chronic Qualifiers: Diabetes mellitus type: type 2 Diabetes mellitus jail insulin use: with intermediate card tender use Diabetes mellitus complication status: with kidney complications Diabetes mellitus complication detail: with chronic kidney disease Chronic kidney disease stage: stage 3 (moderate) Qualified Code(s): E11.22 - Type 2 diabetes mellitus with diabetic chronic kidney disease; N18.3 - Chronic kidney disease, stage 3 (moderate); Z79.4 - [employer] (current) use of insulin (10) Diastolic CHF Code(s): I50.30 - UNSPECIFIED DIASTOLIC (CONGESTIVE) HEART FAILURE Status: Chronic Qualifiers: Heart failure chronicity: chronic Qualified Code(s): I50.32 - Chronic diastolic (congestive) heart failure Comment: stable (11) Hyperlipidemia Code(s): E78.5 - HYPERLIPIDEMIA, UNSPECIFIED Status: Chronic Qualifiers: Hyperlipidemia type: unspecified Qualified Code(s): E78.5 - Hyperlipidemia , unspecified (12) Hypertension Code(s): I10 - ESSENTIAL (PRIMARY) HYPERTENSION Status: Chronic Qualifiers: Hypertension type: essential hypertension (13) Hypothyroidism Code(s): E03.9 - HYPOTHYROIDISM, UNSPECIFIED Status: Chronic Qualifiers: Hypothyroidism type: unspecified Comment: continue synthroid (14) Rheumatoid arthritis Code(s): M06.9 - RHEUMATOID ARTHRITIS, UNSPECIFIED Status: Chronic Qualifiers: Rheumatoid arthritis location: multiple sites Rheumatoid factor presence: unspecified presence Qualified Code(s): M06.9 - Rheumatoid arthritis, unspecified Comment: on prednisone and plaquenil (15) Hypoglycemia Code(s): E16.2 - HYPOGLYCEMIA, UNSPECIFIED Status: Resolved - Plan CT abd and usg ruq results noted, has vague abd colic with N/V x 4 weeks -: will get surgical opinion -: xray foot to r/o osteo with chronic non healing ulcers -: poor functional status with pt bed bound at [facility] -: is on D5NS with fingerstick holding up * . Not on any antibiotics so far, await cultures/xray results. Review of Systems - Medications/Allergies Allergies/Adverse Reactions: Allergies Allergy/AdvReac Type Severity Reaction Status Date / Time aspirin Allergy Intermediate Verified 04/21/18 22:14 NSAIDS (Non-Steroidal Allergy Intermediate Verified 04/21/18 22:14 Anti-Inflamma lactose AdvReac Diarrhea Verified 01/28/18 03:24 Medications: Current Medications Acetaminophen (Tylenol) 650 mg PO Q4H PRN PRN Reason: Headache/Fever or Pain Hydrocodone Bitart/Acetaminophen ([place] 5/325) 1 tab PO Q4H PRN PRN Reason: Moderate Pain (4-6) Amlodipine Besylate (Norvasc) 5 mg PO DAILY [facility] Last Admin: 05/29/18 08:20 Dose: 5 mg Atorvastatin Calcium (Lipitor) 40 mg PO HS [facility] Last Admin: 05/28/18 21:44 Dose: Not Given Carvedilol (Coreg) 25 mg PO BID [facility] Last Admin: 05/29/18 08:19 Dose: 25 mg Clonidine (Tsaaxirh-Ngh-7) 0.2 mg TD Q7DAYS [facility] Last Admin: 05/29/18 08:22 Dose: Not Given Dextrose/Water (Dextrose 50%) 25 gm SLOW IVP PRN PRN PRN Reason: Hypoglycemia Famotidine (Pepcid) 20 mg PO QPM [facility] Last Admin: 05/28/18 21:44 Dose: Not Given Folic Acid (Folvite) 1 mg PO DAILY [facility] Last Admin: 05/29/18 08:21 Dose: 1 mg Glucagon (Glucagon) 1 mg IM PRN PRN PRN Reason: Hypoglycemia Guaifenesin/Dextromethorphan (Robitussin Dm) 15 ml PO Q4H PRN PRN Reason: Cough Hydroxychloroquine Sulfate (Plaquenil) 200 mg PO BID [facility] Last Admin: 05/29/18 08:20 Dose: 200 mg Dextrose/Water (D5w) 1,000 mls @ 0 mls/hr IV .Q0M PRN PRN Reason: Hypoglycemia Dextrose/Sodium Chloride (D5 0.9% Ns) 1,000 mls @ 75 mls/hr IV .[id number] [facility] Last Admin: 05/28/18 21:36 Dose: 1,000 mls Insulin Human Lispro (Humalog) 0 units SC .MILD SLIDING SCALE PRN PRN Reason: Mild Correctional Scale Levothyroxine Sodium (Synthroid) 125 mcg PO 0600 [facility] Last Admin: 05/29/18 05:46 Dose: 125 mcg Mometasone Furoate (Asmanex Twisthaler) 2 puff INH BIDPRN PRN PRN Reason: SOB &/or Wheezing Ondansetron HCl (Zofran) 4 mg IVP Q6H PRN PRN Reason: Nausea/Vomiting Last Admin: 05/29/18 06:54 Dose: 4 mg Prednisone (Prednisone) 2.5 mg PO DAILY [facility] Last Admin: 05/29/18 08:19 Dose: 2.5 mg Promethazine HCl (Phenergan) 12.5 mg PO Q6H PRN PRN Reason: Nausea Sertraline HCl (Zoloft) 50 mg PO HS [facility] Last Admin: 05/28/18 21:44 Dose: Not Given Sodium Chloride (Flush - Normal Saline) 10 ml IVF Q12HR [facility] Last Admin: 05/29/18 08:21 Dose: Not Given Sodium Chloride (Flush - Normal Saline) 10 ml IVF PRN PRN PRN Reason: Saline Flush Tramadol HCl (Ultram) 50 mg PO Q6H PRN PRN Reason: Moderate Pain (4-6)
--- NOTE | 2018-05-29 14:04 | RAD ---
RIGHT FOOT 3 VIEWS: INDICATION: Chronic toe and heel ulcer. Assess for osteomyelitis. COMPARISON: 04/21/18 films. FINDINGS: Osteopenia. Enthesophytes from the plantar and posterior calcaneus appear stable. Degenerative campos ges in the tarsometatarsal joints and at the MTP joints appear stable. No evidence of new lytic or d estructive process when compared to the prior study. However, there is evidence of an increasing mottled appearance to the metatarsals, especially the 1st and 2nd metatarsals when compared to the prior study. This could represent a more diffuse infiltrat ing process or edema. Consider evaluation with MRI if possible. IMPRESSION: Osteopenia and degenerative changes appear stable. No evidence of new lytic or destructive process; however, the bones show an increasing mottled appearance when compared to the prior study as describe d above. POS: [facility]
[2018-05-29] MEDS ORDERED: Sodium Chloride 0.9% 1,000 ML IV SCH (14:45)
[2018-05-29] MEDS: Famotidine 20 MG TAB PO SCH (21:18)
[2018-05-29] MEDS: Atorvastatin Calcium 40 MG TAB PO SCH (21:18)
[2018-05-30 06:08] LABS: #Basophils 0.1 thou/uL (0.0-0.2); #Eosinphils 0.2 thou/uL (0.0-0.7); #Lymphocytes 2.6 thou/uL (1.20-3.40); #Monocytes 0.9 thou/uL (0.11-0.59); #Neutrophils 2.3 thou/uL (1.40-6.50); %Basophils 1.3 % (0.0-1.0); %Lymphocytes 42.5 % (21.0-51.0); %Monocytes 14.5 % (0.0-10.0); %Neutrophils 37.8 % (42.0-75.0); Hemoglobin 7.8 g/dL (12.0-16.0); Mean Corpuscular HGB CONC 33.5 g/dL (32.0-36.0); Mean Corpuscular Hemoglobin 32.1 pg (27.0-31.0); Mean Corpuscular Volume 95.9 fL (78.0-98.0); Platelet Count 177 thou/uL (130-400); RBC Distribution Width 13.2 % (11.5-14.5); Red Blood Cell (RBC) Count 2.43 mill/uL (4.20-5.40); White Blood Cell (WBC) Count 6.1 thou/uL (4.8-10.8)
[2018-05-30] MEDS: Levothyroxine Sodium 125 MCG TAB PO SCH (06:12)
[2018-05-30 06:28] LABS: Anion Gap 13 mmol/L (10-20); BUN (Urea Nitrogen) 33 mg/dL (9.8-20.1); Calc. Creatinine Clearance 26 mL/min (70-130); Calcium 7.1 mg/dL (7.8-10.44); Carbon Dioxide 20 mmol/L (23-31); Chloride 108 mmol/L (98-107); Estimated GFR-MDRD 24; Glucose 217 mg/dL (83-110); Potassium 3.8 mmol/L (3.5-5.1); Sodium 137 mmol/L (136-145)
[2018-05-30] MEDS: Dextrose 5 % And 0.9 % NaCl 1,000 ML IV SCH (06:52)
[2018-05-30] MEDS: Ondansetron HCl/PF 4 MG/2 ML Vial IVP PRN (07:37)
[2018-05-30] MEDS: Amlodipine 5 MG TAB PO SCH (09:18)
[2018-05-30] MEDS: Carvedilol 25 MG TAB PO SCH ×2 (09:18→22:18)
[2018-05-30] MEDS: Folic Acid 1 MG TAB PO SCH (09:18)
[2018-05-30] MEDS: Hydroxychloroquine Sulfate 200 MG TAB PO SCH ×2 (09:18→22:18)
[2018-05-30] MEDS: predniSONE 5 MG TAB PO SCH (09:18)
[2018-05-30] MEDS: Lactated Ringer's 1,000 ML IV SCH (11:47)
--- NOTE | 2018-05-30 13:19 | PDOC.PN ---
- Subjective Encounter Start Date: 05/30/18 Encounter Start Time: 10:45 Subjective: still has some nauseating feeling after eating, mild epigastric dyscomfort -: after eating. No diarrhea now per patient - Objective Resuscitation Status: Resuscitation Status FULL:Full Resuscitation MAR Reviewed: Yes Vital Signs & Weight: Vital Signs (12 hours) Temp Pulse Resp BP BP Pulse Ox 05/30/18 11:25 98.6 F 71 18 137/65 05/30/18 09:18 69 153/70 H 05/30/18 07:28 97 F L 69 18 153/70 H 96 05/30/18 04:00 98.4 F 71 16 103/54 L 96 Weight Admit Weight 196 lb Weight 207 lb 14.4 oz I&O: 05/29/18 05/30/18 05/31/18 06:59 06:59 06:59 Intake Total 1350 2193 Balance 1350 2193 Result Diagrams: 05/30/18 05:20 05/30/18 05:20 Additional Labs: Accuchecks 05/30/18 05/30/18 05/29/18 10:52 05:48 20:35 POC Glucose 267 H 209 H 244 H 05/29/18 05/28/18 16:46 21:45 POC Glucose 209 H 98 Phys Exam - Physical Examination HEENT: PERRLA, sclera anicteric Neck: no JVD, supple Respiratory: no wheezing, no rales Cardiovascular: RRR, no significant murmur Gastrointestinal: soft, no distention, positive bowel sounds Musculoskeletal: no edema, pulses present Neurological: non-focal, moves all 4 limbs Psychiatric: A&O x 3 Dx/Plan (1) Nausea & vomiting Code(s): R11.2 - NAUSEA WITH VOMITING, UNSPECIFIED Status: Acute Qualifiers: Vomiting type: unspecified Vomiting Intractability: intractable Qualified Code(s): R11.2 - Nausea with vomiting, unspecified (2) [id number] kidney injury Code(s): N17.9 - ACUTE KIDNEY FAILURE, UNSPECIFIED; N18.9 - CHRONIC KIDNEY DISEASE, UNSPECIFIED Status: Acute Qualifiers: Chronic kidney disease stage: stage 3 (moderate) (3) Asthma Code(s): J45.909 - UNSPECIFIED ASTHMA, UNCOMPLICATED Status: Chronic Qualifiers: Asthma severity: mild Asthma persistence: intermittent Asthma complication type: uncomplicated Qualified Code(s): J45.20 - Mild intermittent asthma, uncomplicated (4) Generalized weakness Code(s): R53.1 - WEAKNESS Status: Chronic (5) Paroxysmal atrial fibrillation Code(s): I48.0 - PAROXYSMAL ATRIAL FIBRILLATION Status: Chronic (6) Anemia Code(s): D64.9 - ANEMIA, UNSPECIFIED Status: Chronic Qualifiers: Anemia type: due to chronic kidney disease Chronic kidney disease stage: stage 3 (moderate) Qualified Code(s): N18.3 - Chronic kidney disease, stage 3 (moderate); D63.1 - Anemia in chronic kidney disease (7) CKD (chronic kidney disease) stage 3, GFR 30-59 ml/min Status: Chronic (8) Chronic heel ulcer Code(s): L97.409 - NON-PRS CHRONIC ULCER OF UNSP HEEL AND MIDFOOT W UNSP SEVERT Status: Chronic Qualifiers: Laterality: right (9) Diabetes mellitus Code(s): E11.9 - TYPE 2 DIABETES MELLITUS WITHOUT COMPLICATIONS Status: Chronic Qualifiers: Diabetes mellitus type: type 2 Diabetes mellitus senior living insulin use: with roasterman use Diabetes mellitus complication status: with kidney complications Diabetes mellitus complication detail: with chronic kidney disease Chronic kidney disease stage: stage 3 (moderate) Qualified Code(s): E11.22 - Type 2 diabetes mellitus with diabetic chronic kidney disease; N18.3 - Chronic kidney disease, stage 3 (moderate); Z79.4 - [facility] (current) use of insulin (10) Diastolic CHF Code(s): I50.30 - UNSPECIFIED DIASTOLIC (CONGESTIVE) HEART FAILURE Status: Chronic Qualifiers: Heart failure chronicity: chronic Qualified Code(s): I50.32 - Chronic diastolic (congestive) heart failure Comment: stable (11) Hyperlipidemia Code(s): E78.5 - HYPERLIPIDEMIA, UNSPECIFIED Status: Chronic Qualifiers: Hyperlipidemia type: unspecified Qualified Code(s): E78.5 - Hyperlipidemia , unspecified (12) Hypertension Code(s): I10 - ESSENTIAL (PRIMARY) HYPERTENSION Status: Chronic Qualifiers: Hypertension type: essential hypertension (13) Hypothyroidism Code(s): E03.9 - HYPOTHYROIDISM, UNSPECIFIED Status: Chronic Qualifiers: Hypothyroidism type: unspecified Comment: continue synthroid (14) Rheumatoid arthritis Code(s): M06.9 - RHEUMATOID ARTHRITIS, UNSPECIFIED Status: Chronic Qualifiers: Rheumatoid arthritis location: multiple sites Rheumatoid factor presence: unspecified presence Qualified Code(s): M06.9 - Rheumatoid arthritis, unspecified Comment: on prednisone and plaquenil (15) Hypoglycemia Code(s): E16.2 - HYPOGLYCEMIA, UNSPECIFIED Status: Resolved - Plan add reglan q8h to see if it helps -: GI consult in am if she continues to have dyscomfort with eating -: is on lactated ringers, creatinine 2.3 -: Hb is 7.8g, might need EGD -: Has multiple medical problems, poor functional status as well * . Electrolytes and glucose levels have stabilized so far. stool c.diff is -ve, uti start levaquin. Foot ulcer appears to be clean. Review of Systems - Medications/Allergies Allergies/Adverse Reactions: Allergies Allergy/AdvReac Type Severity Reaction Status Date / Time aspirin Allergy Intermediate Verified 04/21/18 22:14 NSAIDS (Non-Steroidal Allergy Intermediate Verified 04/21/18 22:14 Anti-Inflamma lactose AdvReac Diarrhea Verified 01/28/18 03:24 Medications: Current Medications Acetaminophen (Tylenol) 650 mg PO Q4H PRN PRN Reason: Headache/Fever or Pain Hydrocodone Bitart/Acetaminophen ([place] 5/325) 1 tab PO Q4H PRN PRN Reason: Moderate Pain (4-6) Amlodipine Besylate (Norvasc) 5 mg PO DAILY [facility] Last Admin: 05/30/18 09:18 Dose: 5 mg Atorvastatin Calcium (Lipitor) 40 mg PO HS [facility] Last Admin: 05/29/18 21:18 Dose: 40 mg Carvedilol (Coreg) 25 mg PO BID [facility] Last Admin: 05/30/18 09:18 Dose: 25 mg Clonidine (Phskksve-Bnp-8) 0.2 mg TD Q7DAYS [facility] Dextrose/Water (Dextrose 50%) 25 gm SLOW IVP PRN PRN PRN Reason: Hypoglycemia Famotidine (Pepcid) 20 mg PO QPM [facility] Last Admin: 05/29/18 21:18 Dose: 20 mg Folic Acid (Folvite) 1 mg PO DAILY [facility] Last Admin: 05/30/18 09:18 Dose: 1 mg Glucagon (Glucagon) 1 mg IM PRN PRN PRN Reason: Hypoglycemia Guaifenesin/Dextromethorphan (Robitussin Dm) 15 ml PO Q4H PRN PRN Reason: Cough Hydroxychloroquine Sulfate (Plaquenil) 200 mg PO BID [facility] Last Admin: 05/30/18 09:18 Dose: 200 mg Dextrose/Water (D5w) 1,000 mls @ 0 mls/hr IV .Q0M PRN PRN Reason: Hypoglycemia Lactated Ringer's (Lactated Ringer's) 1,000 mls @ 70 mls/hr IV .[id number] [facility] Last Admin: 05/30/18 11:47 Dose: 1,000 mls Insulin Human Lispro (Humalog) 0 units SC .MILD SLIDING SCALE PRN PRN Reason: Mild Correctional Scale Levofloxacin (Levaquin) 250 mg PO 0600 [facility] Levothyroxine Sodium (Synthroid) 125 mcg PO 0600 [facility] Last Admin: 05/30/18 06:12 Dose: 125 mcg Metoclopramide HCl (Reglan) 10 mg IVP Q8HR [facility] Mometasone Furoate (Asmanex Twisthaler) 2 puff INH BIDPRN PRN PRN Reason: SOB &/or Wheezing Ondansetron HCl (Zofran) 4 mg IVP Q6H PRN PRN Reason: Nausea/Vomiting Last Admin: 05/30/18 07:37 Dose: 4 mg Prednisone (Prednisone) 2.5 mg PO DAILY [facility] Last Admin: 05/30/18 09:18 Dose: 2.5 mg Promethazine HCl (Phenergan) 12.5 mg PO Q6H PRN PRN Reason: Nausea Sertraline HCl (Zoloft) 50 mg PO HS [facility] Last Admin: 05/29/18 21:19 Dose: 50 mg Sodium Chloride (Flush - Normal Saline) 10 ml IVF Q12HR [facility] Last Admin: 05/30/18 09:19 Dose: Not Given Sodium Chloride (Flush - Normal Saline) 10 ml IVF PRN PRN PRN Reason: Saline Flush Tramadol HCl (Ultram) 50 mg PO Q6H PRN PRN Reason: Moderate Pain (4-6)
[2018-05-30] MEDS: Metoclopramide HCl 10 MG/2 ML VIAL IVP SCH ×2 (13:45→22:19)
[2018-05-30] MEDS: HumaLOG 300 UNITS/3 ML VIAL SC PRN (18:03)
[2018-05-30] MEDS: Famotidine 20 MG TAB PO SCH (22:19)
[2018-05-30] MEDS: Atorvastatin Calcium 40 MG TAB PO SCH (22:19)
[2018-05-31] MEDS: Lactated Ringer's 1,000 ML IV SCH (02:44)
[2018-05-31 05:09] LABS: #Eosinphils 0.3 thou/uL (0.0-0.7); #Lymphocytes 2.6 thou/uL (1.20-3.40); #Monocytes 0.8 thou/uL (0.11-0.59); #Neutrophils 2.4 thou/uL (1.40-6.50); %Basophils 0.6 % (0.0-1.0); %Eosinophils 5.2 % (0.0-10.0); %Lymphocytes 42.1 % (21.0-51.0); %Monocytes 13.1 % (0.0-10.0); %Neutrophils 39.1 % (42.0-75.0); Mean Corpuscular HGB CONC 33.2 g/dL (32.0-36.0); Mean Corpuscular Hemoglobin 31.8 pg (27.0-31.0); Mean Platelet Volume 8.8 fL (7.4-10.4); Platelet Count 176 thou/uL (130-400); Red Blood Cell (RBC) Count 2.19 mill/uL (4.20-5.40); White Blood Cell (WBC) Count 6.1 thou/uL (4.8-10.8)
[2018-05-31 05:17] LABS: Calcium 7.2 mg/dL (7.8-10.44); Chloride 108 mmol/L (98-107); Potassium 5.6 mmol/L (3.5-5.1); Sodium 133 mmol/L (136-145)
[2018-05-31 05:26] LABS: Anion Gap 14 mmol/L (10-20); BUN (Urea Nitrogen) 45 mg/dL (9.8-20.1); Calc. Creatinine Clearance 25 mL/min (70-130); Carbon Dioxide 16 mmol/L (23-31); Estimated GFR-MDRD 21; Glucose 232 mg/dL (83-110)
[2018-05-31] MEDS: Levothyroxine Sodium 125 MCG TAB PO SCH (06:08)
[2018-05-31] MEDS: Metoclopramide HCl 10 MG/2 ML VIAL IVP SCH ×3 (06:09→21:29)
[2018-05-31] MEDS: Folic Acid 1 MG TAB PO SCH (09:49)
[2018-05-31] MEDS: predniSONE 5 MG TAB PO SCH (09:49)
[2018-05-31] MEDS: Hydroxychloroquine Sulfate 200 MG TAB PO SCH ×2 (09:50→21:29)
[2018-05-31] MEDS: Carvedilol 25 MG TAB PO SCH ×2 (09:50→21:29)
[2018-05-31 10:02] LABS: Anion Gap 14 mmol/L (10-20); BUN (Urea Nitrogen) 45 mg/dL (9.8-20.1); Calc. Creatinine Clearance 25 mL/min (70-130); Calcium 7.4 mg/dL (7.8-10.44); Carbon Dioxide 18 mmol/L (23-31); Chloride 107 mmol/L (98-107); Estimated GFR-MDRD 21; Glucose 231 mg/dL (83-110); Potassium 4.3 mmol/L (3.5-5.1); Sodium 135 mmol/L (136-145)
--- NOTE | 2018-05-31 12:58 | PDOC.PN ---
- Subjective Encounter Start Date: 05/31/18 Encounter Start Time: 09:00 Subjective: is tolerating oral diet with no nausea now -: no abd pain -: has mild sob - Objective Resuscitation Status: Resuscitation Status FULL:Full Resuscitation MAR Reviewed: Yes Vital Signs & Weight: Vital Signs (12 hours) Temp Pulse Pulse Resp BP BP Pulse Ox 05/31/18 12:15 98.6 F 72 18 148/66 H 05/31/18 10:05 97.9 F 71 18 117/63 05/31/18 09:33 98.2 F 68 18 120/61 05/31/18 08:00 98.6 F 67 18 96 05/31/18 07:24 98.4 F 67 18 128/66 96 Weight Admit Weight 196 lb Weight 205 lb 4.006 oz I&O: 05/30/18 05/31/18 06/01/18 06:59 06:59 06:59 Intake Total 2193 1154 350 Balance 2193 1154 350 Result Diagrams: 05/31/18 04:09 05/31/18 09:24 Additional Labs: Accuchecks 05/31/18 05/31/18 05/30/18 11:30 04:17 19:34 POC Glucose 255 H 256 H 251 H 05/30/18 16:36 POC Glucose 272 H Phys Exam - Physical Examination HEENT: PERRLA, moist MMs Neck: no JVD, supple Respiratory: no wheezing, no rales Cardiovascular: RRR, no significant murmur Gastrointestinal: soft, non-tender, positive bowel sounds Musculoskeletal: pulses present, edema present Neurological: non-focal, moves all 4 limbs Psychiatric: A&O x 3 Dx/Plan (1) Nausea & vomiting Code(s): R11.2 - NAUSEA WITH VOMITING, UNSPECIFIED Status: Resolved Qualifiers: Vomiting type: unspecified Vomiting Intractability: intractable Qualified Code(s): R11.2 - Nausea with vomiting, unspecified Comment: sec to gastroparesis, responding to reglan (2) Lfkke-wk-snbfswn kidney injury Code(s): N17.9 - ACUTE KIDNEY FAILURE, UNSPECIFIED; N18.9 - CHRONIC KIDNEY DISEASE, UNSPECIFIED Status: Acute Qualifiers: Chronic kidney disease stage: stage 3 (moderate) (3) Asthma Code(s): J45.909 - UNSPECIFIED ASTHMA, UNCOMPLICATED Status: Chronic Qualifiers: Asthma severity: mild Asthma persistence: intermittent Asthma complication type: uncomplicated Qualified Code(s): J45.20 - Mild intermittent asthma, uncomplicated (4) Generalized weakness Code(s): R53.1 - WEAKNESS Status: Chronic (5) Paroxysmal atrial fibrillation Code(s): I48.0 - PAROXYSMAL ATRIAL FIBRILLATION Status: Chronic (6) Anemia Code(s): D64.9 - ANEMIA, UNSPECIFIED Status: Chronic Qualifiers: Anemia type: due to chronic kidney disease Chronic kidney disease stage: stage 3 (moderate) Qualified Code(s): N18.3 - Chronic kidney disease, stage 3 (moderate); D63.1 - Anemia in chronic kidney disease (7) CKD (chronic kidney disease) stage 3, GFR 30-59 ml/min Status: Chronic (8) Chronic heel ulcer Code(s): L97.409 - NON-PRS CHRONIC ULCER OF UNSP HEEL AND MIDFOOT W UNSP SEVERT Status: Chronic Qualifiers: Laterality: right (9) Diabetes mellitus Code(s): E11.9 - TYPE 2 DIABETES MELLITUS WITHOUT COMPLICATIONS Status: Chronic Qualifiers: Diabetes mellitus type: type 2 Diabetes mellitus manager intermediate insulin use: with manager intermediate use Diabetes mellitus complication status: with kidney complications Diabetes mellitus complication detail: with chronic kidney disease Chronic kidney disease stage: stage 3 (moderate) Qualified Code(s): E11.22 - Type 2 diabetes mellitus with diabetic chronic kidney disease; N18.3 - Chronic kidney disease, stage 3 (moderate); Z79.4 - snf (current) use of insulin (10) Diastolic CHF Code(s): I50.30 - UNSPECIFIED DIASTOLIC (CONGESTIVE) HEART FAILURE Status: Chronic Qualifiers: Heart failure chronicity: chronic Qualified Code(s): I50.32 - Chronic diastolic (congestive) heart failure Comment: stable (11) Hyperlipidemia Code(s): E78.5 - HYPERLIPIDEMIA, UNSPECIFIED Status: Chronic Qualifiers: Hyperlipidemia type: unspecified Qualified Code(s): E78.5 - Hyperlipidemia , unspecified (12) Hypertension Code(s): I10 - ESSENTIAL (PRIMARY) HYPERTENSION Status: Chronic Qualifiers: Hypertension type: essential hypertension (13) Hypothyroidism Code(s): E03.9 - HYPOTHYROIDISM, UNSPECIFIED Status: Chronic Qualifiers: Hypothyroidism type: unspecified Comment: continue synthroid (14) Rheumatoid arthritis Code(s): M06.9 - RHEUMATOID ARTHRITIS, UNSPECIFIED Status: Chronic Qualifiers: Rheumatoid arthritis location: multiple sites Rheumatoid factor presence: unspecified presence Qualified Code(s): M06.9 - Rheumatoid arthritis, unspecified Comment: on prednisone and plaquenil (15) Hypoglycemia Code(s): E16.2 - HYPOGLYCEMIA, UNSPECIFIED Status: Resolved - Plan 1 u prbc now, Hb of 7g -: gi consult, likely has d.gastroparesis, responding to reglan -: is on lactated ringers, william is worse, nephr consult -: dc norvasc -: htn is stable * . Review of Systems - Medications/Allergies Allergies/Adverse Reactions: Allergies Allergy/AdvReac Type Severity Reaction Status Date / Time aspirin Allergy Intermediate Verified 04/21/18 22:14 NSAIDS (Non-Steroidal Allergy Intermediate Verified 04/21/18 22:14 Anti-Inflamma lactose AdvReac Diarrhea Verified 01/28/18 03:24 Medications: Current Medications Acetaminophen (Tylenol) 650 mg PO Q4H PRN PRN Reason: Headache/Fever or Pain Hydrocodone Bitart/Acetaminophen ([place] 5/325) 1 tab PO Q4H PRN PRN Reason: Moderate Pain (4-6) Atorvastatin Calcium (Lipitor) 40 mg PO HS [facility] Last Admin: 05/30/18 22:19 Dose: 40 mg Carvedilol (Coreg) 25 mg PO BID [facility] Last Admin: 05/31/18 09:50 Dose: 25 mg Clonidine (Vgguabff-Lvc-1) 0.2 mg TD Q7DAYS [facility] Dextrose/Water (Dextrose 50%) 25 gm SLOW IVP PRN PRN PRN Reason: Hypoglycemia Famotidine (Pepcid) 20 mg PO QPM [facility] Last Admin: 05/30/18 22:19 Dose: Not Given Folic Acid (Folvite) 1 mg PO DAILY [facility] Last Admin: 05/31/18 09:49 Dose: 1 mg Glucagon (Glucagon) 1 mg IM PRN PRN PRN Reason: Hypoglycemia Guaifenesin/Dextromethorphan (Robitussin Dm) 15 ml PO Q4H PRN PRN Reason: Cough Hydroxychloroquine Sulfate (Plaquenil) 200 mg PO BID [facility] Last Admin: 05/31/18 09:50 Dose: 200 mg Dextrose/Water (D5w) 1,000 mls @ 0 mls/hr IV .Q0M PRN PRN Reason: Hypoglycemia Sodium Bicarbonate 150 meq/ (Dextrose/Water) 1,150 mls @ 75 mls/hr IV .[id number] [facility] Insulin Human Lispro (Humalog) 0 units SC .MILD SLIDING SCALE PRN PRN Reason: Mild Correctional Scale Last Admin: 05/30/18 18:03 Dose: 4 unit Levofloxacin (Levaquin) 250 mg PO 0600 [facility] Last Admin: 05/31/18 06:08 Dose: 250 mg Levothyroxine Sodium (Synthroid) 125 mcg PO 0600 [facility] Last Admin: 05/31/18 06:08 Dose: 125 mcg Metoclopramide HCl (Reglan) 10 mg IVP Q8HR [facility] Last Admin: 05/31/18 06:09 Dose: 10 mg Mometasone Furoate (Asmanex Twisthaler) 2 puff INH BIDPRN PRN PRN Reason: SOB &/or Wheezing Ondansetron HCl (Zofran) 4 mg IVP Q6H PRN PRN Reason: Nausea/Vomiting Last Admin: 05/30/18 07:37 Dose: 4 mg Prednisone (Prednisone) 2.5 mg PO DAILY [facility] Last Admin: 05/31/18 09:49 Dose: 2.5 mg Promethazine HCl (Phenergan) 12.5 mg PO Q6H PRN PRN Reason: Nausea Sertraline HCl (Zoloft) 50 mg PO HS [facility] Last Admin: 05/30/18 22:18 Dose: 50 mg Sodium Chloride (Flush - Normal Saline) 10 ml IVF Q12HR [facility] Last Admin: 05/31/18 09:50 Dose: 10 ml Sodium Chloride (Flush - Normal Saline) 10 ml IVF PRN PRN PRN Reason: Saline Flush Sodium Chloride (Flush - Normal Saline) 10 ml IVF PRN PRN PRN Reason: Saline Flush Tramadol HCl (Ultram) 50 mg PO Q6H PRN PRN Reason: Moderate Pain (4-6)
[2018-05-31] MEDS: Sodium Bicarbonate 150 MEQ in Dextrose 5% in Water 1,000 ML IV SCH (13:29)
[2018-05-31] MEDS: HumaLOG 300 UNITS/3 ML VIAL SC PRN ×2 (13:38→18:11)
--- NOTE | 2018-05-31 20:31 | CON ---
DATE OF CONSULTATION: 05/31/2018 HISTORY OF PRESENT ILLNESS: The patient is an 83-year-old -[place] female, who saw Dr. Chaves recently in the hospital on 05/27/2018. At that time, she was complaining of intermittent nausea an d vomiting that seemed to be worsened by movement typically of undigested food. She denies any abdom inal pain or chest pain. She denies any diarrhea OR constipation. She does seem to have some vertig o. She was hospitalized on 05/28/2018 with intractable nausea, vomiting, and diarrhea with electroly te abnormalities and hypoglycemia. PAST MEDICAL HISTORY: Includes a DVT, gastroesophageal reflux disease, atrial fibrillation, anemia, diabetes mellitus. PAST SURGICAL HISTORY: Hysterectomy, thyroidectomy, colonoscopy, cataract surgery. ALLERGIES: Include NSAIDs and ASPIRIN and LACTOSE. HOME MEDICATIONS: Includes tramadol 50 mg p.o. q.6 hours p.r.n., clonidine patch apply to skin every 7 days, Norvasc 5 mg p.o. q. day, Zoloft 50 mg p.o. at bedtime, rivastigmine 6 mg p.o. b.i.d., ranit idine 150 mg p.o. b.i.d., Protonix 40 mg p.o. q. day, levothyroxine 125 mcg p.o. q.a.m., insulin 20 u nits subcu q.a.m., Plaquenil 200 mg p.o. b.i.d., Lasix 40 mg p.o. b.i.d., folic acid 1 mg p.o. q. day , ferrous sulfate 325 mg p.o. q. day, Coreg 25 mg p.o. b.i.d., and Eliquis 5 mg p.o. b.i.d. SOCIAL HISTORY: She does not smoke or drink. She lives in a [place]. FAMILY HISTORY: Negative for GI or liver disease. REVIEW OF SYSTEMS: CONSTITUTIONAL: No fever or chills, no weight loss. EYES: No blurred vision or double vision. ENT: No sore throat or earaches. CARDIOVASCULAR: Positive for some shortness of breath. GI: See above. : No hematuria or dysuria. MUSCULOSKELETAL: Positive for lower extremity lesions on the feet. NEUROLOGIC: No numbness or seizure activity. SKIN: No rashes. PHYSICAL EXAMINATION: VITAL SIGNS: Temperature 98.6, pulse 67, respiratory rate 18, and blood pressure 148/66. HEENT: Unremarkable. NECK: Supple. CHEST: Clear. CARDIOVASCULAR: Regular rate and rhythm. ABDOMEN: Soft, nontender, without organomegaly or masses. Bowel sounds are present and normoactive. RECTAL: Deferred. EXTREMITIES: Show bandaged feet bilaterally. LABORATORY DATA: Shows a white blood cell count 6.1, hemoglobin 7.0, hematocrit 21.0 with MCV of 96. Chemistries show normal LFTs, BUN 33, creatinine 1.82. Patient underwent abdominal and pelvic CT, which showed questionable trace area pericholecystic fluid, bibasilar areas of scarring and a hystere ctomy. The CT showed some questionable area of a trace pericholecystic fluid. Abdominal ultrasound was performed and showed a gallbladder showing some echogenic sludge, some mild gallbladder wall thic kening and pericholecystic edema and maybe a calculus in the right kidney. ASSESSMENT: 1. Intermittent nausea and vomiting. 2. Progressive anemia. 3. Diabetes mellitus. 4. Gallbladder sludge with some mild pericholecystic fluid, without tenderness or pain. RECOMMENDATIONS: EGD in a.m.
[2018-05-31] MEDS: Atorvastatin Calcium 40 MG TAB PO SCH (21:28)
[2018-05-31] MEDS: Famotidine 20 MG TAB PO SCH ×2 (21:29→22:40)
--- NOTE | 2018-05-31 22:49 | CON ---
DATE OF CONSULTATION: 05/31/2018 REASON FOR CONSULTATION: UTI. HISTORY OF PRESENT ILLNESS: An 83-year-old patient with longstanding rheumatoid arthritis, previousl y on immunosuppressive medication, still on chronic low-dose corticosteroids as well as type 2 diabet es mellitus and stage 3 renal insufficiency with cardiomyopathy and atrial fibrillation, I had seen i n the past for chronic ulcers in the feet. At that time, we felt that this was associated with macro and/or microvascular disease in the lower extremities. She did have some limited debridement and wa s treated with protracted antimicrobial therapy after that. On 04/22/2018, she was admitted with wea kness and hypoglycemia. On admission at that time, she had normal temperature. She was not tachycar dic and blood pressure was normal. She had those chronic wounds in the lower extremities. Initial w amira cell count was 5.8. Repeat blood sugar was 164 and platelets 218,000. Urinalysis was abnormal. Chest x-ray with no infiltrates. The patient had plain films of the right foot, which showed no ev idence of acute osseous abnormality. Urinalysis demonstrated greater than 50 to too numerous to coun t wbc's. Urine culture at that time revealed Streptococcus Gordonii greater than 100,000 CFUs per mL . The patient had a chest x-ray, which showed no evidence of acute cardiopulmonary disease. A previ ous CT of abdomen done in February the same year demonstrated urinary bladder without any catheter in plac e. She had mild patchy densities in each lung base, there was a 2-mm calculus in the mid portion of the right kidney. She had a limited debridement of the right heel and left great toe, full thickness eschar debrided. Finally, patient was discharged with a diagnosis of UTI secondary to Streptococcus species and lower extremity wounds. She was discharged on her previous medications plus oral Omnice f for 1 more week. She developed a recurrence of nausea and vomiting, which she had presented during the last admission at [facility] as well as diarrhea. This was noticed in the nursing ho me for the past few weeks before admission. She had associated hypoglycemia again this time. Initia l vital signs with BP 117/46, pulse 54, respirations 16, temperature 97.6. LABORATORY DATA: White cell count was 7.0, hemoglobin 9.9, platelets 218,000 with a normal different ial. The initial chemistry with a sodium of 139, potassium 3.2, and creatinine 1.82 with a baseline creatinine sotero of 1.44 in 01/2018. Liver profile was normal. Albumin 3.0. Globulin was 3.0 as we ll. Urinalysis was abnormal with greater than 50 wbc's. This time, urine culture showed two differe nt gram negatives, one was Citrobacter and second was Klebsiella pneumonia greater than 100,000 CFUs per mL. Two sets of blood cultures, no growth at 48 hours. She also had C. difficile antigen and to odalys assay, which was negative and stool provided. IMAGING: Initial lab findings included abdomen and pelvis CT, which showed questionable trace amount of pericholecystic fluid, subcentimeter to the left renal lesions and abdomen ultrasound demonstrate d echogenic sludge and mild gallbladder wall thickening and pericholecystic edema. Negative Dorantes s ign. REVIEW OF SYSTEMS: Currently, the patient is awake, pleasant. She is oriented. She denies any head aches, no shortness of breath. A little bit of cough. No abdominal pain. She denies any urinary sy mptoms. She has chronic mobility impairment in lower extremities associated with her rheumatoid arth ritis and joint deformities, ankylosis, and no neurological changes. PAST MEDICAL HISTORY: Type 2 diabetes; rheumatoid arthritis; episodes of hypoglycemia; recurrent epi sodes of nausea and vomiting, not well explained; atrial fibrillation; CHF; DVT in lower extremity, m anaged with apixaban; COPD/asthma; hypothyroidism; chronic ulcers in lower extremity with limited magaly ridement; peripheral vascular disease. PAST SURGICAL HISTORY: Includes mastectomy, cardiac ablation, breast cancer, hysterectomy. ALLERGIES: None. CURRENT MEDICATIONS: Tylenol, [place], Lipitor, Coreg, Catapres, Pepcid, Folvite, glucagon, Robitussin , insulin, Levaquin, Synthroid, Asmanex, Zofran, prednisone, Zoloft, tramadol. 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 She lives in a jail at this time. FAMILY HISTORY: Noncontributory. PHYSICAL EXAMINATION: GENERAL: A pleasant, elderly female, in no acute distress, oriented noted. She has been afebrile th rough the hospital stay. VITAL SIGNS: Blood 117/63, pulse 67, respiratory rate 18, O2 sat 96%. SKIN: Shows the wounds on the right heel with a nice and fresh granulation surface, the tip of the l eft first toe with necrotic eschar at the tip of the toe and patient has peripheral IV access. Does not have a Eid catheter. HEENT: Ocular movements conjugate. Oral cavity with no [place] teeth. Oral mucosa normal. NECK: Supple. LUNGS: Symmetric air entry with faint basilar crackles. HEART: S1, S2, irregular rate with a soft aortic murmur. ABDOMEN: Soft, mildly distended, not tender. No bladder distention noted. EXTREMITIES: Chronic deformities in multiple joints associated with ankylosis secondary to rheumatoi d arthritis. PSYCHIATRIC: Cognitive function is perfect at this time. The latest labs with white cell count at 6.1, hemoglobin 7.0 with MCV 96, platelets 176,000 with 39% neutrophils and 42% lymphocytes. Creatinine is at 2.62 with sodium of 135, glucose 231. Liver profi le has been discussed above and the imaging studies also have been discussed. She had a repeat foot x-ray, which showed osteopenia and degenerative changes. No new lytic or destructive process, but th ere are increasing mottled appearance and the metatarsals, particularly first and second metatarsals. ASSESSMENT: Type 2 diabetes, peripheral vascular disease, ischemic cardiomyopathy with atrial fibril lation, recurrent episodes of nausea and vomiting associated with hypoglycemia, which have precipitat ed admission, concerns regarding abnormal urinalysis and positive urine culture. DISCUSSION: The differential diagnosis includes nausea, vomiting associated with gastroparesis, may be a gallbladder disease leading to the changes, changes in ultrasound are quite mild and this probab ly less likely. It is unlikely that the urinary tract findings are responsible for the patient's adm ission. The two admissions have had very similar symptoms, she even had nausea and vomiting during t he hospital stay, which led the admitting physician to order a CT scan of the abdomen, which did not show any obvious findings. So, I believe we will need to find a different etiology for recurrent [place] and vomiting, which have been associated with episodes of hypoglycemia. The possibilities would include gastroparesis, some endocrinological disorders, may be adrenal insufficiency needs to be cons idered. I would not recommend treating the urinary findings at this point in time. She had no leuko cytosis or left shift on arrival and had been having nausea and vomiting for 3 weeks before admission .
[2018-06-01] MEDS: Sodium Bicarbonate 150 MEQ in Dextrose 5% in Water 1,000 ML IV SCH ×2 (05:00→22:57)
[2018-06-01] MEDS: Levothyroxine Sodium 125 MCG TAB PO SCH (05:01)
[2018-06-01] MEDS: Metoclopramide HCl 10 MG/2 ML VIAL IVP SCH (05:02)
[2018-06-01 05:09] LABS: Hemoglobin 8.5 g/dL (12.0-16.0)
[2018-06-01] MEDS: Carvedilol 25 MG TAB PO SCH ×2 (05:15→20:50)
[2018-06-01 05:23] LABS: Anion Gap 11 mmol/L (10-20); BUN (Urea Nitrogen) 45 mg/dL (9.8-20.1); Calc. Creatinine Clearance 26 mL/min (70-130); Calcium 7.3 mg/dL (7.8-10.44); Carbon Dioxide 26 mmol/L (23-31); Chloride 105 mmol/L (98-107); Estimated GFR-MDRD 23; Glucose 167 mg/dL (83-110); Potassium 4.2 mmol/L (3.5-5.1); Sodium 138 mmol/L (136-145)
[2018-06-01] MEDS: Hydroxychloroquine Sulfate 200 MG TAB PO SCH ×2 (09:34→20:50)
[2018-06-01] MEDS: predniSONE 5 MG TAB PO SCH (09:34)
[2018-06-01] MEDS: Folic Acid 1 MG TAB PO SCH (09:34)
--- NOTE | 2018-06-01 11:05 | PDOC.PN ---
- Subjective Encounter Start Date: 06/01/18 Encounter Start Time: 08:45 Subjective: no abd pain or nausea - Objective Resuscitation Status: Resuscitation Status FULL:Full Resuscitation MAR Reviewed: Yes Vital Signs & Weight: Vital Signs (12 hours) Temp Pulse Resp BP Pulse Ox 06/01/18 08:00 98.5 F 74 18 156/70 H 94 L 06/01/18 04:00 98.8 F 71 18 147/66 H 94 L Weight Admit Weight 196 lb Weight 206 lb 9.17 oz I&O: 05/31/18 06/01/18 06/02/18 06:59 06:59 06:59 Intake Total 1154 350 Balance 1154 350 Result Diagrams: 06/01/18 04:28 06/01/18 04:28 Additional Labs: Accuchecks 06/01/18 05/31/18 05/31/18 04:30 19:37 16:26 POC Glucose 171 H 249 H 288 H 05/31/18 11:30 POC Glucose 255 H Phys Exam - Physical Examination HEENT: PERRLA, moist MMs Neck: no JVD, supple Respiratory: no wheezing, no rales Cardiovascular: RRR, no significant murmur Gastrointestinal: soft, non-tender, no distention, positive bowel sounds Musculoskeletal: pulses present, edema present Neurological: non-focal, normal sensation, moves all 4 limbs Psychiatric: normal affect, A&O x 3 Dx/Plan (1) Nausea & vomiting Code(s): R11.2 - NAUSEA WITH VOMITING, UNSPECIFIED Status: Resolved Qualifiers: Vomiting type: unspecified Vomiting Intractability: intractable Qualified Code(s): R11.2 - Nausea with vomiting, unspecified Comment: sec to gastroparesis, responding to reglan (2) Nudho-vg-fdfjieg kidney injury Code(s): N17.9 - ACUTE KIDNEY FAILURE, UNSPECIFIED; N18.9 - CHRONIC KIDNEY DISEASE, UNSPECIFIED Status: Acute Qualifiers: Chronic kidney disease stage: stage 3 (moderate) (3) Asthma Code(s): J45.909 - UNSPECIFIED ASTHMA, UNCOMPLICATED Status: Chronic Qualifiers: Asthma severity: mild Asthma persistence: intermittent Asthma complication type: uncomplicated Qualified Code(s): J45.20 - Mild intermittent asthma, uncomplicated (4) Generalized weakness Code(s): R53.1 - WEAKNESS Status: Chronic (5) Paroxysmal atrial fibrillation Code(s): I48.0 - PAROXYSMAL ATRIAL FIBRILLATION Status: Chronic (6) Anemia Code(s): D64.9 - ANEMIA, UNSPECIFIED Status: Chronic Qualifiers: Anemia type: due to chronic kidney disease Chronic kidney disease stage: stage 3 (moderate) Qualified Code(s): N18.3 - Chronic kidney disease, stage 3 (moderate); D63.1 - Anemia in chronic kidney disease (7) CKD (chronic kidney disease) stage 3, GFR 30-59 ml/min Status: Chronic (8) Chronic heel ulcer Code(s): L97.409 - NON-PRS CHRONIC ULCER OF UNSP HEEL AND MIDFOOT W UNSP SEVERT Status: Chronic Qualifiers: Laterality: right (9) Diabetes mellitus Code(s): E11.9 - TYPE 2 DIABETES MELLITUS WITHOUT COMPLICATIONS Status: Chronic Qualifiers: Diabetes mellitus type: type 2 Diabetes mellitus [facility] insulin use: with intermediate teacher use Diabetes mellitus complication status: with kidney complications Diabetes mellitus complication detail: with chronic kidney disease Chronic kidney disease stage: stage 3 (moderate) Qualified Code(s): E11.22 - Type 2 diabetes mellitus with diabetic chronic kidney disease; N18.3 - Chronic kidney disease, stage 3 (moderate); Z79.4 - exterminator (current) use of insulin (10) Diastolic CHF Code(s): I50.30 - UNSPECIFIED DIASTOLIC (CONGESTIVE) HEART FAILURE Status: Chronic Qualifiers: Heart failure chronicity: chronic Qualified Code(s): I50.32 - Chronic diastolic (congestive) heart failure Comment: stable (11) Hyperlipidemia Code(s): E78.5 - HYPERLIPIDEMIA, UNSPECIFIED Status: Chronic Qualifiers: Hyperlipidemia type: unspecified Qualified Code(s): E78.5 - Hyperlipidemia , unspecified (12) Hypertension Code(s): I10 - ESSENTIAL (PRIMARY) HYPERTENSION Status: Chronic Qualifiers: Hypertension type: essential hypertension (13) Hypothyroidism Code(s): E03.9 - HYPOTHYROIDISM, UNSPECIFIED Status: Chronic Qualifiers: Hypothyroidism type: unspecified Comment: continue synthroid (14) Rheumatoid arthritis Code(s): M06.9 - RHEUMATOID ARTHRITIS, UNSPECIFIED Status: Chronic Qualifiers: Rheumatoid arthritis location: multiple sites Rheumatoid factor presence: unspecified presence Qualified Code(s): M06.9 - Rheumatoid arthritis, unspecified Comment: on prednisone and plaquenil (15) Hypoglycemia Code(s): E16.2 - HYPOGLYCEMIA, UNSPECIFIED Status: Resolved - Plan may dc levaquin -: for egd today -: add protonix and change reglan to po -: on D5w with bicarb drip for william -: continue coreg, clonidine tts, prednisone and lipitor * . Has poor functional status and multiple medical conditions. Likely dc plan in am. Reviewed consult. Review of Systems - Medications/Allergies Allergies/Adverse Reactions: Allergies Allergy/AdvReac Type Severity Reaction Status Date / Time aspirin Allergy Intermediate Verified 04/21/18 22:14 NSAIDS (Non-Steroidal Allergy Intermediate Verified 04/21/18 22:14 Anti-Inflamma lactose AdvReac Diarrhea Verified 01/28/18 03:24 Medications: Current Medications Acetaminophen (Tylenol) 650 mg PO Q4H PRN PRN Reason: Headache/Fever or Pain Hydrocodone Bitart/Acetaminophen ([place] 5/325) 1 tab PO Q4H PRN PRN Reason: Moderate Pain (4-6) Atorvastatin Calcium (Lipitor) 40 mg PO HS [facility] Last Admin: 05/31/18 21:28 Dose: 40 mg Carvedilol (Coreg) 25 mg PO BID [facility] Last Admin: 06/01/18 05:15 Dose: 25 mg Clonidine (Xglmxqiv-Chb-6) 0.2 mg TD Q7DAYS [facility] Dextrose/Water (Dextrose 50%) 25 gm SLOW IVP PRN PRN PRN Reason: Hypoglycemia Folic Acid (Folvite) 1 mg PO DAILY [facility] Last Admin: 06/01/18 09:34 Dose: Not Given Glucagon (Glucagon) 1 mg IM PRN PRN PRN Reason: Hypoglycemia Guaifenesin/Dextromethorphan (Robitussin Dm) 15 ml PO Q4H PRN PRN Reason: Cough Hydroxychloroquine Sulfate (Plaquenil) 200 mg PO BID [facility] Last Admin: 06/01/18 09:34 Dose: Not Given Dextrose/Water (D5w) 1,000 mls @ 0 mls/hr IV .Q0M PRN PRN Reason: Hypoglycemia Sodium Bicarbonate 150 meq/ (Dextrose/Water) 1,150 mls @ 75 mls/hr IV .[id number] [facility] Last Admin: 06/01/18 05:00 Dose: 1,150 mls Insulin Human Lispro (Humalog) 0 units SC .MILD SLIDING SCALE PRN PRN Reason: Mild Correctional Scale Last Admin: 05/31/18 18:11 Dose: 4 unit Levofloxacin (Levaquin) 250 mg PO 0600 [facility] Last Admin: 06/01/18 05:01 Dose: 250 mg Levothyroxine Sodium (Synthroid) 125 mcg PO 0600 [facility] Last Admin: 06/01/18 05:01 Dose: 125 mcg Metoclopramide HCl (Reglan) 10 mg PO ACHS [facility] Mometasone Furoate (Asmanex Twisthaler) 2 puff INH BIDPRN PRN PRN Reason: SOB &/or Wheezing Pantoprazole Sodium (Protonix) 40 mg PO BID [facility] Prednisone (Prednisone) 2.5 mg PO DAILY [facility] Last Admin: 06/01/18 09:34 Dose: Not Given Sertraline HCl (Zoloft) 50 mg PO HS [facility] Last Admin: 05/31/18 21:29 Dose: 50 mg Sodium Chloride (Flush - Normal Saline) 10 ml IVF Q12HR [facility] Last Admin: 06/01/18 09:34 Dose: Not Given Sodium Chloride (Flush - Normal Saline) 10 ml IVF PRN PRN PRN Reason: Saline Flush Sodium Chloride (Flush - Normal Saline) 10 ml IVF PRN PRN PRN Reason: Saline Flush Tramadol HCl (Ultram) 50 mg PO Q6H PRN PRN Reason: Moderate Pain (4-6)
[2018-06-01] MEDS ORDERED: PROPOFOL 200 MG/20 ML VIAL ONE (11:13)
[2018-06-01] MEDS: cloNIDine 0.2mg/24 Hour PATCH TD SCH (11:41)
[2018-06-01] MEDS: Metoclopramide HCl 10 MG TAB PO SCH ×3 (13:04→20:50)
--- NOTE | 2018-06-01 18:08 | OP ---
DATE OF PROCEDURE: 06/01/2018 GI ENDOSCOPY NOTE SURGEON: Keyur Jade M.D. OUTSIDE PRODUCTION INSPECTOR SURGEON: None. PROCEDURE: Esophagogastroduodenoscopy with biopsies. INDICATIONS: 1. Nausea and vomiting. 2. Anemia. MEDICATIONS: See anesthesia record. FINDINGS: After discussion of the risks, benefits and alternatives of the procedure, informed consen t was obtained and witnessed. Pre-endoscopic cardiopulmonary examination was satisfactory. Timeout was performed before sedation was achieved. Sedation was achieved with anesthesia assistance in the endoscopy unit. Note that the patient specifically requested that no photodocumentation be obtained of the procedure, and so therefore we are not obtaining or saving any pictures. DESCRIPTION OF PROCEDURE: A Pentax adult upper endoscope was placed into the oropharynx and passed t hrough the cricopharyngeus under direct visualization. The esophageal mucosa appeared normal through out with a normal-appearing Z-line. The endoscope was advanced into the stomach. Forward and retrof lexed views of the entire gastric mucosa were obtained. The gastric mucosa appeared normal. There w as no evidence of any erosions or ulcerations or other mucosal abnormalities, no evidence of any vari jony on forward or retroflexed views in the stomach. The endoscope was passed through a normal appear ing pylorus and into the first, second, and third portions of the duodenum to the extent able with up per endoscope. A normal ampulla was visualized. In the third portion of the duodenum, there is a ma ss lesion. This measures 2.5-3 cm in diameter, is multilobulated, and nonobstructing, though it does take up a significant amount of the small intestinal lumen. This may just represent an advanced solis noma. I obtained multiple biopsies of this duodenal mass for pathology. At this point, the upper en doscope was completely withdrawn and the patient allowed to recover. The patient tolerated the proce dure well. There were no immediate post-procedure complications. IMPRESSION: 1. 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 2. Otherwise, normal esophagogastroduodenoscopy. RECOMMENDATIONS: 1. Follow up pathology on the duodenal mass biopsies. 2. Symptomatic treatment. Note that the duodenal mass is nonobstructing, though it is taking up albert e room within the small intestinal lumen. It is unclear whether this is contributing to her nausea s ymptoms, but it could certainly be contributing to her anemia.
[2018-06-01] MEDS: Atorvastatin Calcium 40 MG TAB PO SCH (20:50)
[2018-06-02 05:57] LABS: Anion Gap 9 mmol/L (10-20); BUN (Urea Nitrogen) 38 mg/dL (9.8-20.1); Calc. Creatinine Clearance 29 mL/min (70-130); Calcium 7.7 mg/dL (7.8-10.44); Carbon Dioxide 29 mmol/L (23-31); Chloride 104 mmol/L (98-107); Estimated GFR-MDRD 26; Glucose 163 mg/dL (83-110); Potassium 3.9 mmol/L (3.5-5.1); Sodium 138 mmol/L (136-145)
[2018-06-02] MEDS: Levothyroxine Sodium 125 MCG TAB PO SCH (06:35)
[2018-06-02] MEDS: Metoclopramide HCl 10 MG TAB PO SCH ×4 (08:51→22:20)
[2018-06-02] MEDS: Hydroxychloroquine Sulfate 200 MG TAB PO SCH ×2 (08:52→22:21)
[2018-06-02] MEDS: Carvedilol 25 MG TAB PO SCH ×2 (08:52→22:20)
[2018-06-02] MEDS: predniSONE 5 MG TAB PO SCH (08:52)
[2018-06-02] MEDS: Folic Acid 1 MG TAB PO SCH (08:52)
[2018-06-02] MEDS: Sodium Bicarbonate 150 MEQ in Dextrose 5% in Water 1,000 ML IV SCH (10:36)
[2018-06-02] MEDS: Sodium Chloride 0.9% 1,000 ML IV SCH (10:42)
[2018-06-02] MEDS: HumaLOG 300 UNITS/3 ML VIAL SC PRN ×2 (12:37→17:27)
--- NOTE | 2018-06-02 14:28 | PDOC.PN ---
- Subjective Encounter Start Date: 06/02/18 Encounter Start Time: 11:00 Subjective: had her breakfast, feels her epigastric area to be uneasy -: no obvious vomiting - Objective Resuscitation Status: Resuscitation Status FULL:Full Resuscitation MAR Reviewed: Yes Vital Signs & Weight: Vital Signs (12 hours) Temp Pulse Resp BP Pulse Ox 06/02/18 08:00 98.9 F 75 16 96 06/02/18 07:37 98.9 F 75 16 152/72 H 96 Weight Admit Weight 196 lb Weight 201 lb 13.204 oz I&O: 06/01/18 06/02/18 06/03/18 06:59 06:59 06:59 Intake Total 350 Balance 350 Result Diagrams: 06/01/18 04:28 06/02/18 04:16 Additional Labs: Accuchecks 06/02/18 06/02/18 06/01/18 10:50 04:31 21:07 POC Glucose 252 H 163 H 230 H 06/01/18 16:30 POC Glucose 129 H Phys Exam - Physical Examination HEENT: PERRLA, moist MMs Neck: no JVD, supple Respiratory: no wheezing, no rales Cardiovascular: RRR, no significant murmur Gastrointestinal: soft, non-tender, positive bowel sounds Musculoskeletal: no edema, pulses present Neurological: non-focal, moves all 4 limbs Psychiatric: A&O x 3 Dx/Plan (1) Duodenal mass Code(s): K31.89 - OTHER DISEASES OF STOMACH AND DUODENUM Status: Acute (2) Nausea & vomiting Code(s): R11.2 - NAUSEA WITH VOMITING, UNSPECIFIED Status: Resolved Qualifiers: Vomiting type: unspecified Vomiting Intractability: intractable Qualified Code(s): R11.2 - Nausea with vomiting, unspecified (3) Lxaea-qq-hlsznvp kidney injury Code(s): N17.9 - ACUTE KIDNEY FAILURE, UNSPECIFIED; N18.9 - CHRONIC KIDNEY DISEASE, UNSPECIFIED Status: Acute Qualifiers: Chronic kidney disease stage: stage 3 (moderate) (4) Asthma Code(s): J45.909 - UNSPECIFIED ASTHMA, UNCOMPLICATED Status: Chronic Qualifiers: Asthma severity: mild Asthma persistence: intermittent Asthma complication type: uncomplicated Qualified Code(s): J45.20 - Mild intermittent asthma, uncomplicated (5) Generalized weakness Code(s): R53.1 - WEAKNESS Status: Chronic (6) Paroxysmal atrial fibrillation Code(s): I48.0 - PAROXYSMAL ATRIAL FIBRILLATION Status: Chronic (7) Anemia Code(s): D64.9 - ANEMIA, UNSPECIFIED Status: Chronic Qualifiers: Anemia type: due to chronic kidney disease Chronic kidney disease stage: stage 3 (moderate) Qualified Code(s): N18.3 - Chronic kidney disease, stage 3 (moderate); D63.1 - Anemia in chronic kidney disease (8) CKD (chronic kidney disease) stage 3, GFR 30-59 ml/min Status: Chronic (9) Chronic heel ulcer Code(s): L97.409 - NON-PRS CHRONIC ULCER OF UNSP HEEL AND MIDFOOT W UNSP SEVERT Status: Chronic Qualifiers: Laterality: right (10) Diabetes mellitus Code(s): E11.9 - TYPE 2 DIABETES MELLITUS WITHOUT COMPLICATIONS Status: Chronic Qualifiers: Diabetes mellitus type: type 2 Diabetes mellitus [facility] insulin use: with long term care administrator use Diabetes mellitus complication status: with kidney complications Diabetes mellitus complication detail: with chronic kidney disease Chronic kidney disease stage: stage 3 (moderate) Qualified Code(s): E11.22 - Type 2 diabetes mellitus with diabetic chronic kidney disease; N18.3 - Chronic kidney disease, stage 3 (moderate); 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9 - HYPOTHYROIDISM, UNSPECIFIED Status: Chronic Qualifiers: Hypothyroidism type: unspecified Comment: continue synthroid (15) Rheumatoid arthritis Code(s): M06.9 - RHEUMATOID ARTHRITIS, UNSPECIFIED Status: Chronic Qualifiers: Rheumatoid arthritis location: multiple sites Rheumatoid factor presence: unspecified presence Qualified Code(s): M06.9 - Rheumatoid arthritis, unspecified Comment: on prednisone and plaquenil (16) Hypoglycemia Code(s): E16.2 - HYPOGLYCEMIA, UNSPECIFIED Status: Resolved - Plan biopsies have been obtained from 3 cm mass at 3rd portion duodenum yesterda -: will get surgical opinion from , pt wants everything done. -: Is essentially bed bound with multiple med conditions, pt is aware of pote -: -ntial complications including poor wound healing, perioperative risks and -: prolonged resp failure if she goes to OR, is ready to take/accept all risks * . Not sure if she can get laparoscopic option if the biopsy turns out malignancy. Review of Systems - Medications/Allergies Allergies/Adverse Reactions: Allergies Allergy/AdvReac Type Severity Reaction Status Date / Time aspirin Allergy Intermediate Verified 04/21/18 22:14 NSAIDS (Non-Steroidal Allergy Intermediate Verified 04/21/18 22:14 Anti-Inflamma lactose AdvReac Diarrhea Verified 01/28/18 03:24 Medications: Current Medications Acetaminophen (Tylenol) 650 mg PO Q4H PRN PRN Reason: Headache/Fever or Pain Last Admin: 06/01/18 22:55 Dose: 650 mg Hydrocodone Bitart/Acetaminophen ([place] 5/325) 1 tab PO Q4H PRN PRN Reason: Moderate Pain (4-6) Atorvastatin Calcium (Lipitor) 40 mg PO HS [facility] Last Admin: 06/01/18 20:50 Dose: 40 mg Carvedilol (Coreg) 25 mg PO BID [facility] Last Admin: 06/02/18 08:52 Dose: 25 mg Clonidine (Bkjncofl-Wvj-6) 0.2 mg TD Q7DAYS [facility] Last Admin: 06/01/18 11:41 Dose: 0.2 mg Dextrose/Water (Dextrose 50%) 25 gm SLOW IVP PRN PRN PRN Reason: Hypoglycemia Folic Acid (Folvite) 1 mg PO DAILY [facility] Last Admin: 06/02/18 08:52 Dose: 1 mg Glucagon (Glucagon) 1 mg IM PRN PRN PRN Reason: Hypoglycemia Guaifenesin/Dextromethorphan (Robitussin Dm) 15 ml PO Q4H PRN PRN Reason: Cough Hydroxychloroquine Sulfate (Plaquenil) 200 mg PO BID [facility] Last Admin: 06/02/18 08:52 Dose: 200 mg Dextrose/Water (D5w) 1,000 mls @ 0 mls/hr IV .Q0M PRN PRN Reason: Hypoglycemia Sodium Chloride (Normal Saline 0.9%) 1,000 mls @ 50 mls/hr IV .Q20H [facility] Last Admin: 06/02/18 10:42 Dose: 1,000 mls Insulin Human Lispro (Humalog) 0 units SC .MILD SLIDING SCALE PRN PRN Reason: Mild Correctional Scale Last Admin: 06/02/18 12:37 Dose: 4 unit Levothyroxine Sodium (Synthroid) 125 mcg PO 0600 [facility] Last Admin: 06/02/18 06:35 Dose: 125 mcg Metoclopramide HCl (Reglan) 10 mg PO ACHS [facility] Last Admin: 06/02/18 12:36 Dose: 10 mg Mometasone Furoate (Asmanex Twisthaler) 2 puff INH BIDPRN PRN PRN Reason: SOB &/or Wheezing Pantoprazole Sodium (Protonix) 40 mg PO BID [facility] Last Admin: 06/02/18 08:51 Dose: 40 mg Prednisone (Prednisone) 2.5 mg PO DAILY [facility] Last Admin: 06/02/18 08:52 Dose: 2.5 mg Sertraline HCl (Zoloft) 50 mg PO HS [facility] Last Admin: 06/01/18 20:50 Dose: 50 mg Sodium Chloride (Flush - Normal Saline) 10 ml IVF Q12HR [facility] Last Admin: 06/02/18 10:37 Dose: Not Given Sodium Chloride (Flush - Normal Saline) 10 ml IVF PRN PRN PRN Reason: Saline Flush Sodium Chloride (Flush - Normal Saline) 10 ml IVF PRN PRN PRN Reason: Saline Flush Tramadol HCl (Ultram) 50 mg PO Q6H PRN PRN Reason: Moderate Pain (4-6)
--- NOTE | 2018-06-02 15:17 | EKG ---
Test Reason : WEAKNESS Blood Pressure : / mmHG Vent. Rate : 057 BPM Atrial Rate : 059 BPM P-R Int : 000 ms QRS Dur : 068 ms QT Int : 490 ms P-R-T Axes : 000 022 016 degrees QTc Int : 476 ms Sinus rhythm Nonspecific ST and T wave abnormality Prolonged QT Abnormal ECG Baseline Artifact Present Confirmed by JESIKA NIELSEN DO ([id number]), staff editor TYRON GARZA ([id number]) on 06/02/2018 3:16:49 PM Referred By: Confirmed By:JESIKA NIELSEN DO
--- NOTE | 2018-06-02 17:44 | PRG ---
DATE OF SERVICE: 06/02/2018 SUBJECTIVE: The patient is feeling well. She has had no nausea, vomiting. She just finished her di nner and is doing well. Pathology is still pending. I discussed the situation with Dr. Casas. OBJECTIVE: VITAL SIGNS: Temperature is 98.9, pulse 75, respiratory rate 16, blood pressure 152/72. CHEST: Clear. CARDIOVASCULAR: Regular rate and rhythm. ABDOMEN: Soft, nontender, without organomegaly or masses. Bowel sounds are present and normoactive. RECTAL: Deferred. EXTREMITIES: Unchanged. LABORATORY DATA: Shows hemoglobin of 8.5, hematocrit 24.9. Chemistries show a creatinine 2.17, BUN 38, glucose 163. ASSESSMENT: Mass in the third portion of the duodenum. RECOMMENDATIONS: Await histopathology if benign possible attempt at removal of an endoscopy; if mague gnant, then for surgical treatment.
[2018-06-02] MEDS: Atorvastatin Calcium 40 MG TAB PO SCH (22:20)
[2018-06-03 05:16] LABS: Anion Gap 9 mmol/L (10-20); BUN (Urea Nitrogen) 41 mg/dL (9.8-20.1); Calc. Creatinine Clearance 30 mL/min (70-130); Calcium 7.7 mg/dL (7.8-10.44); Carbon Dioxide 31 mmol/L (23-31); Chloride 103 mmol/L (98-107); Estimated GFR-MDRD 26; Glucose 187 mg/dL (83-110); Potassium 3.8 mmol/L (3.5-5.1); Sodium 139 mmol/L (136-145)
[2018-06-03] MEDS: Levothyroxine Sodium 125 MCG TAB PO SCH (06:40)
[2018-06-03] MEDS: Sodium Chloride 0.9% 1,000 ML IV SCH (06:41)
--- NOTE | 2018-06-03 08:23 | CON ---
DATE OF CONSULTATION: 06/02/2018 REASON FOR CONSULT: Duodenal mass. HISTORY OF PRESENT ILLNESS: Ms. Munroe is an 83-year-old bedbound long-term patient, who is well known to me from previous admissions for decubitus ulcers. She came into the hospital this time because of several-day history of nausea and vomiting. She has had issues for a long time with feeling queasy, but is usually able to keep things down. Her nausea has gotten much worse over the past 3 weeks and recently she had not been able to keep anything down. She was feeling very weak and lethargic and had a report of cold sweats as well. She was found on admission to be quite dehydrated with electrolyte abnormalities , hypoglycemia, and indeterminate troponin. She was admitted and managed medically with improvement in her overall status. She is still feeling slightly queasy, but her nausea is not as bad as it was since they have started her on Reglan. She underwent an EGD by Dr. Jade, which found a 3-cm mass in the third part of the duodenum. This was nonobstructing and did not appear malignant. Multiple biopsies were taken, but the pathology has not yet returned. PAST MEDICAL HISTORY: Diabetes; rheumatoid arthritis, on chronic steroids; chronic kidney disease, stage 3; chronic atrial fibrillation, on anticoagulation ; hypothyroidism; hypertension; history of DVT; history of cardiac ablation; history of breast cancer; diastolic congestive heart failure; history of asthma ; and multiple decubitus ulcers. PAST SURGICAL HISTORY: Appendectomy, rotator cuff surgery, mastectomy, C- section, hysterectomy, thyroid surgery, carpal tunnel, and debridement of multiple decubitus ulcers. OUTPATIENT MEDICATIONS: Include Eliquis, Norvasc, Coreg, clonidine, iron, Plaquenil, Zestril, Protonix 2.5 mg daily, Phenergan, Zoloft, Ultram, Lipitor, folate, Lasix, Levemir, Synthroid, and Exelon patch. ALLERGIES: She reports allergies or adverse drug reactions to ASPIRIN, NSAIDs and is LACTOSE intolerant. SOCIAL HISTORY: She does not smoke, drink, or use illicit drugs. Her son and daughter are involved in her care and supportive. FAMILY HISTORY: Diabetes, heart disease, and pulmonary embolism. REVIEW OF SYSTEMS: Ten-system review of systems is negative except per HPI. PHYSICAL EXAMINATION: VITAL SIGNS: The patient is afebrile, T-max during this admission is 99.7, heart rate 75, respirations 16, 96% saturated on room air, blood pressure 154/ 72. GENERAL: Reveals a pleasant female in no acute distress. She is not flushed or toxic in appearance. She is not jaundiced. HEENT: Unremarkable. NECK: Supple without lymphadenopathy or thyroid nodules. HEART: Regular in its rate and rhythm with a systolic murmur. LUNGS: Clear to auscultation bilaterally. ABDOMEN: Soft and nondistended. She has mild tenderness to palpation in the epigastric area. Bowel sounds are present and normal. No palpable masses or hernias. EXTREMITIES: Warm and well perfused. She has an area of discoloration on her great toe on the left. Right toe is dressed and she is due for a wound change tomorrow so I did not take the dressing down, but when I last saw it, her heel wounds were much improved in appearance from her previous admission. I have been asked to be paged for the next dressing change. NEUROLOGIC: Diffuse weakness of the lower extremities. PSYCHIATRIC: Alert, oriented, and appropriate. LABORATORY DATA: White count is normal at 6.1, hemoglobin 8.5, hematocrit 24.9 , platelets 176. BUN and creatinine are 38 and 2.17. Blood sugars today ranged from 163 to 256. LFTs were normal on admission. BNP was normal as well. Her ultrasound showed some sludge and mild gallbladder wall thickening and pericholecystic edema, but a negative Dorantes sign. Foot x-ray did not show any evidence of a lytic or destructive process. ASSESSMENT/PLAN: Large duodenal mass which may or may not be contributing to the patient's nausea. She is an extremely poor surgical candidate. Only curative option would be a Whipple procedure if this is malignant. Palliative options include gastrojejunostomy, although it is not entirely clear that this is causing her symptoms. She has improved on Reglan so it is possible that diabetic gastroparesis is the main cause of her issues. It is also possible that her gallbladder is contributing. She may be a reasonable candidate for a laparoscopic cholecystectomy if the gallbladder is contributing significantly to her symptoms. We're still awaiting pathology on the duodenal mass. If this is benign, then an endoscopic resection can be considered, although this might be technically quite difficult. I will defer to Gastroenterology to see if this can be done here or needs to be deferred to another facility. If she does decide she wants surgical treatment for her duodenal mass, then I would recommend referral to a surgical oncologist. I will order a HIDA scan for her to further evaluate her gallbladder, but she is not tender over her gallbladder and she had a negative sonographic Dorantes sign and her LFTs were all normal. ADALID
[2018-06-03] MEDS: predniSONE 5 MG TAB PO SCH (08:41)
[2018-06-03] MEDS: Folic Acid 1 MG TAB PO SCH (08:41)
[2018-06-03] MEDS: Carvedilol 25 MG TAB PO SCH ×2 (08:42→21:26)
[2018-06-03] MEDS: Hydroxychloroquine Sulfate 200 MG TAB PO SCH ×2 (08:42→21:26)
[2018-06-03] MEDS: Metoclopramide HCl 10 MG TAB PO SCH ×4 (08:43→21:26)
--- NOTE | 2018-06-03 11:12 | PDOC.PN ---
- Subjective Encounter Start Date: 06/03/18 Encounter Start Time: 08:50 Subjective: no nausea or abd pain now -: had her breakfast this am - Objective Resuscitation Status: Resuscitation Status FULL:Full Resuscitation MAR Reviewed: Yes Vital Signs & Weight: Vital Signs (12 hours) Temp Pulse Resp BP Pulse Ox 06/03/18 08:00 98.2 F 69 22 H 94 L 06/03/18 07:59 98.2 F 69 22 H 150/74 H 94 L Weight Admit Weight 196 lb Weight 201 lb 11.567 oz I&O: 06/02/18 06/03/18 06/04/18 06:59 06:59 06:59 Intake Total 240 Balance 240 Result Diagrams: 06/01/18 04:28 06/03/18 04:00 Additional Labs: Accuchecks 06/03/18 06/02/18 06/02/18 03:40 19:45 17:04 POC Glucose 195 H 224 H 256 H 06/02/18 10:50 POC Glucose 252 H Phys Exam - Physical Examination HEENT: PERRLA, moist MMs Neck: no JVD, supple Respiratory: no wheezing, no rales Cardiovascular: RRR, no significant murmur Gastrointestinal: soft, non-tender, positive bowel sounds Musculoskeletal: no edema, pulses present Neurological: non-focal, moves all 4 limbs Psychiatric: normal affect, A&O x 3 Dx/Plan (1) Duodenal mass Code(s): K31.89 - OTHER DISEASES OF STOMACH AND DUODENUM Status: Acute (2) Nausea & vomiting Code(s): R11.2 - NAUSEA WITH VOMITING, UNSPECIFIED Status: Resolved Qualifiers: Vomiting type: unspecified Vomiting Intractability: intractable Qualified Code(s): R11.2 - Nausea with vomiting, unspecified (3) Ecprg-xr-knttmyw kidney injury Code(s): N17.9 - ACUTE KIDNEY FAILURE, UNSPECIFIED; N18.9 - CHRONIC KIDNEY DISEASE, UNSPECIFIED Status: Acute Qualifiers: Chronic kidney disease stage: stage 3 (moderate) (4) Asthma Code(s): J45.909 - UNSPECIFIED ASTHMA, UNCOMPLICATED Status: Chronic Qualifiers: Asthma severity: mild Asthma persistence: intermittent Asthma complication type: uncomplicated Qualified Code(s): J45.20 - Mild intermittent asthma, uncomplicated (5) Generalized weakness Code(s): R53.1 - WEAKNESS Status: Chronic (6) Paroxysmal atrial fibrillation Code(s): I48.0 - PAROXYSMAL ATRIAL FIBRILLATION Status: Chronic (7) Anemia Code(s): D64.9 - ANEMIA, UNSPECIFIED Status: Chronic Qualifiers: Anemia type: due to chronic kidney disease Chronic kidney disease stage: stage 3 (moderate) Qualified Code(s): N18.3 - Chronic kidney disease, stage 3 (moderate); D63.1 - Anemia in chronic kidney disease (8) CKD (chronic kidney disease) stage 3, GFR 30-59 ml/min Status: Chronic (9) Chronic heel ulcer Code(s): L97.409 - NON-PRS CHRONIC ULCER OF UNSP HEEL AND MIDFOOT W UNSP SEVERT Status: Chronic Qualifiers: Laterality: right (10) Diabetes mellitus Code(s): E11.9 - TYPE 2 DIABETES MELLITUS WITHOUT COMPLICATIONS Status: Chronic Qualifiers: Diabetes mellitus type: type 2 Diabetes mellitus sql manager insulin use: with sql manager use Diabetes mellitus complication status: with kidney complications Diabetes mellitus complication detail: with chronic kidney disease Chronic kidney disease stage: stage 3 (moderate) Qualified Code(s): E11.22 - Type 2 diabetes mellitus with diabetic chronic kidney disease; N18.3 - Chronic kidney disease, stage 3 (moderate); Z79.4 - senior care (current) use of insulin (11) Diastolic CHF Code(s): I50.30 - UNSPECIFIED DIASTOLIC (CONGESTIVE) HEART FAILURE Status: Chronic Qualifiers: Heart failure chronicity: chronic Qualified Code(s): I50.32 - Chronic diastolic (congestive) heart failure Comment: stable (12) Hyperlipidemia Code(s): E78.5 - HYPERLIPIDEMIA, UNSPECIFIED Status: Chronic Qualifiers: Hyperlipidemia type: unspecified Qualified Code(s): E78.5 - Hyperlipidemia , unspecified (13) Hypertension Code(s): I10 - ESSENTIAL (PRIMARY) HYPERTENSION Status: Chronic Qualifiers: Hypertension type: essential hypertension (14) Hypothyroidism Code(s): E03.9 - HYPOTHYROIDISM, UNSPECIFIED Status: Chronic Qualifiers: Hypothyroidism type: unspecified Comment: continue synthroid (15) Rheumatoid arthritis Code(s): M06.9 - RHEUMATOID ARTHRITIS, UNSPECIFIED Status: Chronic Qualifiers: Rheumatoid arthritis location: multiple sites Rheumatoid factor presence: unspecified presence Qualified Code(s): M06.9 - Rheumatoid arthritis, unspecified Comment: on prednisone and plaquenil (16) Hypoglycemia Code(s): E16.2 - HYPOGLYCEMIA, UNSPECIFIED Status: Resolved - Plan await histopath on duodenal mass -: d/w last evening -: hida scan to r/o cholecystitis -: is on coreg, lipitor, plaquenil and prednisone -: renal function is getting better * . Review of Systems - Medications/Allergies Allergies/Adverse Reactions: Allergies Allergy/AdvReac Type Severity Reaction Status Date / Time aspirin Allergy Intermediate Verified 04/21/18 22:14 NSAIDS (Non-Steroidal Allergy Intermediate Verified 04/21/18 22:14 Anti-Inflamma lactose AdvReac Diarrhea Verified 01/28/18 03:24 Medications: Current Medications Acetaminophen (Tylenol) 650 mg PO Q4H PRN PRN Reason: Headache/Fever or Pain Last Admin: 06/01/18 22:55 Dose: 650 mg Hydrocodone Bitart/Acetaminophen ([place] 5/325) 1 tab PO Q4H PRN PRN Reason: Moderate Pain (4-6) Atorvastatin Calcium (Lipitor) 40 mg PO HS [facility] Last Admin: 06/02/18 22:20 Dose: 40 mg Carvedilol (Coreg) 25 mg PO BID [facility] Last Admin: 06/03/18 08:42 Dose: 25 mg Clonidine (Crcqmlmk-Scn-2) 0.2 mg TD Q7DAYS [facility] Last Admin: 06/01/18 11:41 Dose: 0.2 mg Dextrose/Water (Dextrose 50%) 25 gm SLOW IVP PRN PRN PRN Reason: Hypoglycemia Folic Acid (Folvite) 1 mg PO DAILY [facility] Last Admin: 06/03/18 08:41 Dose: 1 mg Glucagon (Glucagon) 1 mg IM PRN PRN PRN Reason: Hypoglycemia Guaifenesin/Dextromethorphan (Robitussin Dm) 15 ml PO Q4H PRN PRN Reason: Cough Hydroxychloroquine Sulfate (Plaquenil) 200 mg PO BID [facility] Last Admin: 06/03/18 08:42 Dose: 200 mg Dextrose/Water (D5w) 1,000 mls @ 0 mls/hr IV .Q0M PRN PRN Reason: Hypoglycemia Insulin Human Lispro (Humalog) 0 units SC .MILD SLIDING SCALE PRN PRN Reason: Mild Correctional Scale Last Admin: 06/02/18 17:27 Dose: 4 unit Levothyroxine Sodium (Synthroid) 125 mcg PO 0600 [facility] Last Admin: 06/03/18 06:40 Dose: 125 mcg Metoclopramide HCl (Reglan) 10 mg PO ACHS [facility] Last Admin: 06/03/18 08:43 Dose: 10 mg Mometasone Furoate (Asmanex Twisthaler) 2 puff INH BIDPRN PRN PRN Reason: SOB &/or Wheezing Pantoprazole Sodium (Protonix) 40 mg PO BID [facility] Last Admin: 06/03/18 08:42 Dose: 40 mg Prednisone (Prednisone) 2.5 mg PO DAILY [facility] Last Admin: 06/03/18 08:41 Dose: 2.5 mg Sertraline HCl (Zoloft) 50 mg PO HS [facility] Last Admin: 06/02/18 22:20 Dose: 50 mg Sodium Chloride (Flush - Normal Saline) 10 ml IVF Q12HR [facility] Last Admin: 06/03/18 08:43 Dose: Not Given Sodium Chloride (Flush - Normal Saline) 10 ml IVF PRN PRN PRN Reason: Saline Flush Sodium Chloride (Flush - Normal Saline) 10 ml IVF PRN PRN PRN Reason: Saline Flush Tramadol HCl (Ultram) 50 mg PO Q6H PRN PRN Reason: Moderate Pain (4-6)
--- NOTE | 2018-06-03 16:32 | NM ---
HIDA SCAN: 06/03/18 INDICATION: Nausea and vomiting. RADIOPHARMACEUTICAL: 4.7 millicuries technetium 99m Mebrofenin IV. PHARMACEUTICAL: 8 micrograms of IV CCK over a 30 minute infusion. FINDINGS: The gallbladder is demonstrated by the 14 minute time chel. Bowel activity is demonstrated by the 18 minute time chel. The gallbladder ejection fraction is 79%. IMPRESSION: Normal HIDA scan. POS: [facility]
[2018-06-03] MEDS: HumaLOG 300 UNITS/3 ML VIAL SC PRN (16:43)
--- NOTE | 2018-06-03 17:20 | PRG ---
DATE OF SERVICE: 06/03/2018 SUBJECTIVE: The patient is feeling good. She complains of being hungry after a long HIDA scan. She has had good bowel movements. No nausea or vomiting, not much abdominal pain. OBJECTIVE: VITAL SIGNS: Temperature is 98.7, pulse 69, respiratory rate 16, blood pressure 163/61. CHEST: Clear. CARDIOVASCULAR: Regular rate and rhythm. ABDOMEN: Soft, nontender, without organomegaly or masses. LABORATORY DATA: Shows a glucose of 195, creatinine of 2.16, BUN 41, hemoglobin was not checked toda y. HIDA scan showed a normal HIDA scan. 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 ASSESSMENT: 1. Duodenal adenoma. 2. Renal insufficiency. 3. Anemia. 4. Nausea and vomiting. RECOMMENDATIONS: Upper endoscopy to assess adenoma as far as endoscopic resectability and location.
[2018-06-03] MEDS: Atorvastatin Calcium 40 MG TAB PO SCH (21:26)
[2018-06-04] MEDS: Levothyroxine Sodium 125 MCG TAB PO SCH (05:15)
[2018-06-04] MEDS: Carvedilol 25 MG TAB PO SCH ×2 (05:15→20:56)
[2018-06-04 05:36] LABS: Anion Gap 9 mmol/L (10-20); BUN (Urea Nitrogen) 36 mg/dL (9.8-20.1); Calc. Creatinine Clearance 31 mL/min (70-130); Calcium 7.7 mg/dL (7.8-10.44); Carbon Dioxide 29 mmol/L (23-31); Chloride 103 mmol/L (98-107); Estimated GFR-MDRD 28; Glucose 204 mg/dL (83-110); Potassium 3.6 mmol/L (3.5-5.1); Sodium 137 mmol/L (136-145)
[2018-06-04] MEDS: predniSONE 5 MG TAB PO SCH (08:09)
[2018-06-04] MEDS: Hydroxychloroquine Sulfate 200 MG TAB PO SCH ×2 (08:10→20:57)
[2018-06-04] MEDS: Folic Acid 1 MG TAB PO SCH (08:10)
[2018-06-04] MEDS: Metoclopramide HCl 10 MG TAB PO SCH ×4 (08:10→20:57)
--- NOTE | 2018-06-04 10:58 | PDOC.PN ---
- Subjective Encounter Start Date: 06/04/18 Encounter Start Time: 08:00 Subjective: awake, no abd pain or nausea -: is npo for egd today - Objective Resuscitation Status: Resuscitation Status FULL:Full Resuscitation MAR Reviewed: Yes Vital Signs & Weight: Vital Signs (12 hours) Temp Pulse Resp BP Pulse Ox 06/04/18 07:45 98.1 F 66 16 166/79 H 94 L Weight Admit Weight 196 lb Weight 200 lb 13.458 oz I&O: 06/03/18 06/04/18 06/05/18 06:59 06:59 06:59 Intake Total 240 Balance 240 Result Diagrams: 06/01/18 04:28 06/04/18 03:37 Additional Labs: Accuchecks 06/04/18 06/04/18 06/03/18 06:03 01:51 20:08 POC Glucose 177 H 234 H 201 H 06/03/18 06/03/18 16:41 11:37 POC Glucose 187 H 195 H Phys Exam - Physical Examination HEENT: PERRLA, moist MMs Neck: no JVD, supple Respiratory: no wheezing, no rales Cardiovascular: RRR, no significant murmur Gastrointestinal: soft, non-tender, positive bowel sounds Musculoskeletal: no edema, pulses present Neurological: non-focal, moves all 4 limbs Psychiatric: normal affect, A&O x 3 Dx/Plan (1) Duodenal mass Code(s): K31.89 - OTHER DISEASES OF STOMACH AND DUODENUM Status: Acute (2) Nausea & vomiting Code(s): R11.2 - NAUSEA WITH VOMITING, UNSPECIFIED Status: Resolved Qualifiers: Vomiting type: unspecified Vomiting Intractability: intractable Qualified Code(s): R11.2 - Nausea with vomiting, unspecified (3) Sywrp-iy-jbqvhgv kidney injury Code(s): N17.9 - ACUTE KIDNEY FAILURE, UNSPECIFIED; N18.9 - CHRONIC KIDNEY DISEASE, UNSPECIFIED Status: Resolved Qualifiers: Chronic kidney disease stage: stage 3 (moderate) (4) Asthma Code(s): J45.909 - UNSPECIFIED ASTHMA, UNCOMPLICATED Status: Chronic Qualifiers: Asthma severity: mild Asthma persistence: intermittent Asthma complication type: uncomplicated Qualified Code(s): J45.20 - Mild intermittent asthma, uncomplicated (5) Generalized weakness Code(s): R53.1 - WEAKNESS Status: Chronic (6) Paroxysmal atrial fibrillation Code(s): I48.0 - PAROXYSMAL ATRIAL FIBRILLATION Status: Chronic (7) Anemia Code(s): D64.9 - ANEMIA, UNSPECIFIED Status: Chronic Qualifiers: Anemia type: due to chronic kidney disease Chronic kidney disease stage: stage 3 (moderate) Qualified Code(s): N18.3 - Chronic kidney disease, stage 3 (moderate); D63.1 - Anemia in chronic kidney disease (8) CKD (chronic kidney disease) stage 3, GFR 30-59 ml/min Status: Chronic (9) Chronic heel ulcer Code(s): L97.409 - NON-PRS CHRONIC ULCER OF UNSP HEEL AND MIDFOOT W UNSP SEVERT Status: Chronic Qualifiers: Laterality: right (10) Diabetes mellitus Code(s): E11.9 - TYPE 2 DIABETES MELLITUS WITHOUT COMPLICATIONS Status: Chronic Qualifiers: Diabetes mellitus type: type 2 Diabetes mellitus long-term insulin use: with long term care phlebotomist use Diabetes mellitus complication status: with kidney complications Diabetes mellitus complication detail: with chronic kidney disease Chronic kidney disease stage: stage 3 (moderate) Qualified Code(s): E11.22 - Type 2 diabetes mellitus with diabetic chronic kidney disease; N18.3 - Chronic kidney disease, stage 3 (moderate); Z79.4 - oysterman (current) use of insulin (11) Diastolic CHF Code(s): I50.30 - UNSPECIFIED DIASTOLIC (CONGESTIVE) HEART FAILURE Status: Chronic Qualifiers: Heart failure chronicity: chronic Qualified Code(s): I50.32 - Chronic diastolic (congestive) heart failure Comment: stable (12) Hyperlipidemia Code(s): E78.5 - HYPERLIPIDEMIA, UNSPECIFIED Status: Chronic Qualifiers: Hyperlipidemia type: unspecified Qualified Code(s): E78.5 - Hyperlipidemia , unspecified (13) Hypertension Code(s): I10 - ESSENTIAL (PRIMARY) HYPERTENSION Status: Chronic Qualifiers: Hypertension type: essential hypertension (14) Hypothyroidism Code(s): E03.9 - HYPOTHYROIDISM, UNSPECIFIED Status: Chronic Qualifiers: Hypothyroidism type: unspecified Comment: continue synthroid (15) Rheumatoid arthritis Code(s): M06.9 - RHEUMATOID ARTHRITIS, UNSPECIFIED Status: Chronic Qualifiers: Rheumatoid arthritis location: multiple sites Rheumatoid factor presence: unspecified presence Qualified Code(s): M06.9 - Rheumatoid arthritis, unspecified Comment: on prednisone and plaquenil (16) Hypoglycemia Code(s): E16.2 - HYPOGLYCEMIA, UNSPECIFIED Status: Resolved - Plan for repeat egd today to see if her duodenal adenomatous polyp can be snared -: HIDA scan was normal -: dc plan per GI advice -: is on reglan, coreg, clonidine, plaquenil and prednisone -: hemostable * . Review of Systems - Medications/Allergies Allergies/Adverse Reactions: Allergies Allergy/AdvReac Type Severity Reaction Status Date / Time aspirin Allergy Intermediate Verified 04/21/18 22:14 NSAIDS (Non-Steroidal Allergy Intermediate Verified 04/21/18 22:14 Anti-Inflamma lactose AdvReac Diarrhea Verified 01/28/18 03:24 Medications: Current Medications Acetaminophen (Tylenol) 650 mg PO Q4H PRN PRN Reason: Headache/Fever or Pain Last Admin: 06/01/18 22:55 Dose: 650 mg Hydrocodone Bitart/Acetaminophen ([place] 5/325) 1 tab PO Q4H PRN PRN Reason: Moderate Pain (4-6) Atorvastatin Calcium (Lipitor) 40 mg PO HS [facility] Last Admin: 06/03/18 21:26 Dose: 40 mg Carvedilol (Coreg) 25 mg PO BID [facility] Last Admin: 06/04/18 05:15 Dose: 25 mg Clonidine (Gxjniujm-Jyf-4) 0.2 mg TD Q7DAYS [facility] Last Admin: 06/01/18 11:41 Dose: 0.2 mg Dextrose/Water (Dextrose 50%) 25 gm SLOW IVP PRN PRN PRN Reason: Hypoglycemia Folic Acid (Folvite) 1 mg PO DAILY [facility] Last Admin: 06/04/18 08:10 Dose: 1 mg Glucagon (Glucagon) 1 mg IM PRN PRN PRN Reason: Hypoglycemia Guaifenesin/Dextromethorphan (Robitussin Dm) 15 ml PO Q4H PRN PRN Reason: Cough Hydroxychloroquine Sulfate (Plaquenil) 200 mg PO BID [facility] Last Admin: 06/04/18 08:10 Dose: 200 mg Dextrose/Water (D5w) 1,000 mls @ 0 mls/hr IV .Q0M PRN PRN Reason: Hypoglycemia Insulin Human Lispro (Humalog) 0 units SC .MILD SLIDING SCALE PRN PRN Reason: Mild Correctional Scale Last Admin: 06/03/18 16:43 Dose: 2 unit Levothyroxine Sodium (Synthroid) 125 mcg PO 0600 [facility] Last Admin: 06/04/18 05:15 Dose: 125 mcg Metoclopramide HCl (Reglan) 10 mg PO ACHS [facility] Last Admin: 06/04/18 08:10 Dose: 10 mg Mometasone Furoate (Asmanex Twisthaler) 2 puff INH BIDPRN PRN PRN Reason: SOB &/or Wheezing Pantoprazole Sodium (Protonix) 40 mg PO BID [facility] Last Admin: 06/04/18 08:10 Dose: 40 mg Prednisone (Prednisone) 2.5 mg PO DAILY [facility] Last Admin: 06/04/18 08:09 Dose: 2.5 mg Sertraline HCl (Zoloft) 50 mg PO HS [facility] Last Admin: 06/03/18 21:25 Dose: 50 mg Sodium Chloride (Flush - Normal Saline) 10 ml IVF Q12HR [facility] Last Admin: 06/04/18 08:10 Dose: 10 ml Sodium Chloride (Flush - Normal Saline) 10 ml IVF PRN PRN PRN Reason: Saline Flush Sodium Chloride (Flush - Normal Saline) 10 ml IVF PRN PRN PRN Reason: Saline Flush Tramadol HCl (Ultram) 50 mg PO Q6H PRN PRN Reason: Moderate Pain (4-6)
[2018-06-04] MEDS ORDERED: Lidocaine 1% PF 5 ML VIAL ONE (11:59)
[2018-06-04] MEDS ORDERED: PROPOFOL 200 MG/20 ML VIAL ONE (11:59)
[2018-06-04] MEDS ORDERED: Promethazine HCl 25 MG/ML VIAL SLOW IVP PRN (15:57)
[2018-06-04] MEDS ORDERED: Morphine Sulfate 2 MG/ML SYRINGE SLOW IVP PRN (15:57)
[2018-06-04] MEDS ORDERED: Ondansetron HCl/PF 4 MG/2 ML Vial IVP PRN (15:57)
[2018-06-04] MEDS ORDERED: Meperidine HCl/PF 25 MG/ML VIAL SLOW IVP PRN (15:57)
[2018-06-04] MEDS ORDERED: Promethazine HCl 25 MG/ML VIAL IM PRN (15:57)
--- NOTE | 2018-06-04 19:18 | OP ---
PREOPERATIVE DIAGNOSIS: Large duodenal adenoma. DESCRIPTION OF PROCEDURE: After informed consent was obtained, the patient was placed in left latera l decubitus position. Anesthesia was administered per the Anesthesia Department. Forward-viewing en doscope was inserted into the esophagus under direct visualization with ease and passed to the third portion of the duodenum, where a large semi-pedunculated polyp was noted. This polyp was very large. Reaching it with a gastroscope was not easy and therefore, the gastroscope was changed out to colon oscope, and this could be reached much easier. The polyp was injected with saline of approximately 1 5 mL underneath the base. The polyp was removed in piecemeal fashion. Many of the larger pieces wer e not snared or retrieved. They had gone further down the small bowel. Some small pieces were retri eved. There was some post-polypectomy bleeding and this was treated with 1:10,000 epinephrine inject ion. Also, two clips were placed with good hemostasis. ASSESSMENT: 1. 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 2. Post-polypectomy hemorrhage - treated with 1:10,000 epinephrine injection and a clip placement. RECOMMENDATIONS: 1. Await histopathology. 2. Observe for 48 hours further for recurrent bleeding.
[2018-06-04] MEDS: Atorvastatin Calcium 40 MG TAB PO SCH (20:56)
[2018-06-05 04:19] LABS: #Basophils 0.1 thou/uL (0.0-0.2); #Eosinphils 0.2 thou/uL (0.0-0.7); #Lymphocytes 2.2 thou/uL (1.20-3.40); #Monocytes 0.7 thou/uL (0.11-0.59); #Neutrophils 3.3 thou/uL (1.40-6.50); %Basophils 0.8 % (0.0-1.0); %Eosinophils 3.4 % (0.0-10.0); %Lymphocytes 33.5 % (21.0-51.0); %Monocytes 11.4 % (0.0-10.0); %Neutrophils 50.9 % (42.0-75.0); Hemoglobin 8.1 g/dL (12.0-16.0); Mean Corpuscular HGB CONC 34.4 g/dL (32.0-36.0); Mean Corpuscular Hemoglobin 31.8 pg (27.0-31.0); Mean Corpuscular Volume 92.7 fL (78.0-98.0); Mean Platelet Volume 7.8 fL (7.4-10.4); Platelet Count 185 thou/uL (130-400); RBC Distribution Width 14.2 % (11.5-14.5); Red Blood Cell (RBC) Count 2.53 mill/uL (4.20-5.40); White Blood Cell (WBC) Count 6.5 thou/uL (4.8-10.8)
[2018-06-05 04:39] LABS: Anion Gap 13 mmol/L (10-20); BUN (Urea Nitrogen) 32 mg/dL (9.8-20.1); Calc. Creatinine Clearance 36 mL/min (70-130); Calcium 8.2 mg/dL (7.8-10.44); Carbon Dioxide 25 mmol/L (23-31); Chloride 105 mmol/L (98-107); Estimated GFR-MDRD 34; Glucose 171 mg/dL (83-110); Potassium 3.6 mmol/L (3.5-5.1); Sodium 139 mmol/L (136-145)
[2018-06-05] MEDS: Levothyroxine Sodium 125 MCG TAB PO SCH (05:56)
[2018-06-05] MEDS: Carvedilol 25 MG TAB PO SCH ×2 (08:59→21:32)
[2018-06-05] MEDS: Folic Acid 1 MG TAB PO SCH (08:59)
[2018-06-05] MEDS: Metoclopramide HCl 10 MG TAB PO SCH ×4 (08:59→21:32)
[2018-06-05] MEDS: Hydroxychloroquine Sulfate 200 MG TAB PO SCH ×2 (08:59→21:32)
[2018-06-05] MEDS: predniSONE 5 MG TAB PO SCH (08:59)
--- NOTE | 2018-06-05 09:11 | PRG ---
DATE OF SERVICE: 06/05/2018 SUBJECTIVE: The patient is feeling well. She is not having any abdominal pain. No nausea or vomiti ng. She is ready to eat solid food. OBJECTIVE: VITAL SIGNS: Temperature is 98.3, pulse 69, respiratory rate 18, blood pressure 135/67. CHEST: Clear. CARDIOVASCULAR: Regular rate and rhythm. ABDOMEN: Soft, nontender, without organomegaly or masses. LABORATORY DATA: Shows hemoglobin 8.1 and hematocrit 23.5. ASSESSMENT: 1. Nausea, vomiting, and epigastric pain - it may be a while before this clears up, if it was caused by the duodenal polyp. 2. Large duodenal polyp in the third portion of the duodenum - endoscopically removed yesterday. 3. Diabetes mellitus. 4. Atrial fibrillation. 5. Congestive heart failure. RECOMMENDATIONS: 1. Continue to observe the patient today. 2. Advance diet. 3. Home tomorrow morning if doing well and having no complications from the polypectomy.
--- NOTE | 2018-06-05 10:53 | PDOC.PN ---
- Subjective Encounter Start Date: 06/05/18 Encounter Start Time: 10:49 Subjective: nsg notes rev, fadia ovn, pt no new c/o states her n/v/abd pain are all gone -: and she was able to sleep overnight. - Objective Resuscitation Status: Resuscitation Status FULL:Full Resuscitation Vital Signs & Weight: Vital Signs (12 hours) Temp Pulse Resp BP Pulse Ox 06/05/18 08:00 98.3 F 69 18 135/67 95 06/05/18 04:00 98.3 F 67 18 151/70 H 93 L 06/05/18 00:00 98.3 F 66 18 167/75 H 97 Weight Admit Weight 196 lb Weight 247 lb 2.211 oz Result Diagrams: 06/05/18 03:49 06/05/18 03:49 Additional Labs: Accuchecks 06/05/18 06/04/18 06/04/18 05:51 20:02 17:55 POC Glucose 163 H 215 H 209 H 06/04/18 11:17 POC Glucose 189 H Phys Exam - Physical Examination Constitutional: NAD lying in hospital bed HEENT: PERRLA slightly dry mm Neck: no nodes, no JVD Respiratory: no wheezing, no rales, no rhonchi, clear to auscultation bilateral no conversational dyspnea, limited anterior exam Cardiovascular: RRR, no rub GUERO murmur 3/5 LSB Gastrointestinal: soft, no distention, positive bowel sounds Psychiatric: normal affect Dx/Plan - Plan (1) Duodenal mass s/p polypectomy, pending histology (2) Nausea & vomiting sig improved continue on reglan, d/c phenergan from home list (3) Rbszd-yl-[id number] kidney injury resolved continue to monitor renal fxn (4) Asthma chronic, w/o acute exacerbation (5) Generalized weakness continue with PT/ OT as tolerated (6) Paroxysmal atrial fibrillation stable (7) Anemia chronic anemia likely 2/2 chronic renal disease stable h/h hemodynamically stable (8) CKD (chronic kidney disease) stage 3, GFR 30-59 ml/min stable (9) Chronic heel ulcer continue o/p wound care will be needed (10) Diabetes mellitus variable PO intake so currently on SSI while home levemir is held will likely resume home levemir at D/C (11) Diastolic CHF w/o exacerbation during this hospitalization, continue to monitor (12) Hyperlipidemia stable (13) Hypertension stable (14) Hypothyroidism stable, continue home synthroid (15) Rheumatoid arthritis stable, on prednisone and plaquenil (16) Hypoglycemia Code(s): E16.2 - HYPOGLYCEMIA, UNSPECIFIED Status: Resolved - Plan monitor today, if continued stability, possible d/c in AM d/w patient at bedside who is able to complete teachback greater than 30 min spent coordinating care today. Review of Systems - Medications/Allergies Allergies/Adverse Reactions: Allergies Allergy/AdvReac Type Severity Reaction Status Date / Time aspirin Allergy Intermediate Verified 04/21/18 22:14 NSAIDS (Non-Steroidal Allergy Intermediate Verified 04/21/18 22:14 Anti-Inflamma lactose AdvReac Diarrhea Verified 01/28/18 03:24 Medications: Current Medications Acetaminophen (Tylenol) 650 mg PO Q4H PRN PRN Reason: Headache/Fever or Pain Last Admin: 06/01/18 22:55 Dose: 650 mg Hydrocodone Bitart/Acetaminophen ([place] 5/325) 1 tab PO Q4H PRN PRN Reason: Moderate Pain (4-6) Atorvastatin Calcium (Lipitor) 40 mg PO HS [facility] Last Admin: 06/04/18 20:56 Dose: 40 mg Carvedilol (Coreg) 25 mg PO BID [facility] Last Admin: 06/05/18 08:59 Dose: 25 mg Clonidine (Hekqnttu-Bin-0) 0.2 mg TD Q7DAYS [facility] Last Admin: 06/01/18 11:41 Dose: 0.2 mg Dextrose/Water (Dextrose 50%) 25 gm SLOW IVP PRN PRN PRN Reason: Hypoglycemia Folic Acid (Folvite) 1 mg PO DAILY [facility] Last Admin: 06/05/18 08:59 Dose: 1 mg Glucagon (Glucagon) 1 mg IM PRN PRN PRN Reason: Hypoglycemia Guaifenesin/Dextromethorphan (Robitussin Dm) 15 ml PO Q4H PRN PRN Reason: Cough Hydroxychloroquine Sulfate (Plaquenil) 200 mg PO BID [facility] Last Admin: 06/05/18 08:59 Dose: 200 mg Dextrose/Water (D5w) 1,000 mls @ 0 mls/hr IV .Q0M PRN PRN Reason: Hypoglycemia Insulin Human Lispro (Humalog) 0 units SC .MILD SLIDING SCALE PRN PRN Reason: Mild Correctional Scale Last Admin: 06/03/18 16:43 Dose: 2 unit Levothyroxine Sodium (Synthroid) 125 mcg PO 0600 [facility] Last Admin: 06/05/18 05:56 Dose: 125 mcg Metoclopramide HCl (Reglan) 10 mg PO ACHS [facility] Last Admin: 06/05/18 08:59 Dose: 10 mg Mometasone Furoate (Asmanex Twisthaler) 2 puff INH BIDPRN PRN PRN Reason: SOB &/or Wheezing Non-Formulary Medication (Ranitidine Hcl [Ranitidine Hcl]) 150 mg PO BID [facility] Non-Formulary Medication (Rivastigmine Tartrate [Rivastigmine]) 6 mg PO BID [facility] Non-Formulary Medication (Saw/Vit E/Sod Katie/Lyc/Beta/Pyg [Prostate Health Caplet ]) 1 tablet PO BID [facility] Ondansetron HCl (Zofran Odt) 4 mg PO Q8H PRN PRN Reason: Nausea Pantoprazole Sodium (Protonix) 40 mg PO BID [facility] Last Admin: 06/05/18 08:59 Dose: 40 mg Pantoprazole Sodium (Protonix) 40 mg PO DAILY [facility] Prednisone (Prednisone) 2.5 mg PO DAILY [facility] Last Admin: 06/05/18 08:59 Dose: 2.5 mg Sertraline HCl (Zoloft) 50 mg PO HS [facility] Last Admin: 06/04/18 20:58 Dose: 50 mg Sodium Chloride (Flush - Normal Saline) 10 ml IVF Q12HR [facility] Last Admin: 06/05/18 09:03 Dose: 10 ml Sodium Chloride (Flush - Normal Saline) 10 ml IVF PRN PRN PRN Reason: Saline Flush Sodium Chloride (Flush - Normal Saline) 10 ml IVF PRN PRN PRN Reason: Saline Flush Tramadol HCl (Ultram) 50 mg PO Q6H PRN PRN Reason: Moderate Pain (4-6)
--- NOTE | 2018-06-05 14:05 | PDOC.GSPN ---
Surgery Progress Note: Subj - Subjective Narrative: Patient is feeling good since excision of her duodenal adenoma yesterday. She is on clear liquid diet and tolerating this without any nausea. Her HIDA scan was normal and did not duplicate her symptoms. There is no indication for acute surgical intervention so I will sign off. Surgery Progress Note: Obj - Vital signs Vital signs: Vital Signs - Most Recent Temp Pulse Resp BP Pulse Ox 98.7 F 68 18 169/73 H 94 L 06/05/18 11:00 06/05/18 11:00 06/05/18 11:00 06/05/18 11:00 06/05/18 11:00 Surgery Progress Note: Results - Labs Result Diagrams: 06/05/18 03:49 06/05/18 03:49 Lab results: Laboratory Results - last 24 hr 06/05/18 06/05/18 06/05/18 03:49 03:49 05:51 WBC 6.5 RBC 2.53 L Hgb 8.1 L Hct 23.5 L MCV 92.7 MCH 31.8 H MCHC 34.4 RDW 14.2 Plt Count 185 MPV 7.8 Neutrophils % 50.9 Lymphocytes % 33.5 Monocytes % 11.4 H Eosinophils % 3.4 Basophils % 0.8 Neutrophils # 3.3 Lymphocytes # 2.2 Monocytes # 0.7 H Eosinophils # 0.2 Basophils # 0.1 Sodium 139 Potassium 3.6 Chloride 105 Carbon Dioxide 25 Anion Gap 13 BUN 32 H Creatinine 1.75 H Estimated GFR (MDRD) 34 Glucose 171 H POC Glucose 163 H Calcium 8.2 06/05/18 11:05 WBC RBC Hgb Hct MCV MCH MCHC RDW Plt Count MPV Neutrophils % Lymphocytes % Monocytes % Eosinophils % Basophils % Neutrophils # Lymphocytes # Monocytes # Eosinophils # Basophils # Sodium Potassium Chloride Carbon Dioxide Anion Gap BUN Creatinine Estimated GFR (MDRD) Glucose POC Glucose 220 H Calcium
[2018-06-05] MEDS: HumaLOG 300 UNITS/3 ML VIAL SC PRN (17:36)
[2018-06-05] MEDS: Atorvastatin Calcium 40 MG TAB PO SCH (21:32)
[2018-06-05] MEDS: Rivastigmine 1.5 MG CAP PO SCH (21:32)
[2018-06-05] MEDS: Famotidine 20 MG TAB PO SCH (21:32)
[2018-06-06 05:33] LABS: Anion Gap 10 mmol/L (10-20); BUN (Urea Nitrogen) 29 mg/dL (9.8-20.1); Calc. Creatinine Clearance 44 mL/min (70-130); Calcium 8.1 mg/dL (7.8-10.44); Carbon Dioxide 29 mmol/L (23-31); Chloride 102 mmol/L (98-107); Estimated GFR-MDRD 33; Glucose 244 mg/dL (83-110); Potassium 3.7 mmol/L (3.5-5.1); Sodium 137 mmol/L (136-145)
[2018-06-06] MEDS: Levothyroxine Sodium 125 MCG TAB PO SCH (05:53)
[2018-06-06] MEDS: Ondansetron ODT 4 MG TAB PO PRN ×2 (05:54→15:45)
[2018-06-06] MEDS: HumaLOG 300 UNITS/3 ML VIAL SC PRN ×2 (05:54→16:34)
[2018-06-06] MEDS: Carvedilol 25 MG TAB PO SCH ×2 (08:49→20:33)
[2018-06-06] MEDS: Metoclopramide HCl 10 MG TAB PO SCH (08:50)
[2018-06-06] MEDS: Folic Acid 1 MG TAB PO SCH (08:50)
[2018-06-06] MEDS: Hydroxychloroquine Sulfate 200 MG TAB PO SCH ×2 (08:50→20:33)
[2018-06-06] MEDS: Rivastigmine 1.5 MG CAP PO SCH ×2 (08:51→20:32)
[2018-06-06] MEDS: predniSONE 5 MG TAB PO SCH (08:51)
--- NOTE | 2018-06-06 09:51 | PRG ---
DATE OF SERVICE: 06/06/2018 SUBJECTIVE: The patient reports she is vomiting this morning. She is not able to hold anything down . She denies any abdominal pain. She had 1 bowel movement last night. OBJECTIVE: VITAL SIGNS: Temperature is 97.8, pulse 66, respiratory rate 18, blood pressure 198/70. CHEST: Clear. CARDIOVASCULAR: Regular rate and rhythm. ABDOMEN: Soft, nontender, without organomegaly or masses. LABORATORY DATA: Shows a creatinine of 1.77, glucose 244. CBC shows a hemoglobin 8.1 and hematocrit 23.5. ASSESSMENT: 1. Vomiting - workup thus far has not shown any reason for her to have vomiting. She did have a lar ge duodenal polyp, but it has subsequently been removed and she is still having vomiting. This could be a complication of the removal of the duodenal polyp. However, she is having no pain or bleeding. I doubt it is related to that. 2. Diabetes mellitus. 3. Atrial fibrillation. 4. Congestive heart failure. RECOMMENDATIONS: 1. Gastric emptying scan. 2. Continue Zofran. 3. Continue proton-pump inhibitor.
--- NOTE | 2018-06-06 10:44 | PDOC.PN ---
- Subjective Encounter Start Date: 06/06/18 Encounter Start Time: 10:41 Subjective: nsg notes rev, fadia ovn, no new c/o but still has persistent vomiting with -: solid food intake - no nausea beforehand, no abd pain - Objective Resuscitation Status: Resuscitation Status FULL:Full Resuscitation Vital Signs & Weight: Vital Signs (12 hours) Temp Pulse Resp BP Pulse Ox 06/06/18 08:00 97.8 F 66 18 06/06/18 07:40 97.8 F 66 18 198/70 H 99 Weight Admit Weight 196 lb Weight 247 lb 2.211 oz I&O: 06/05/18 06/06/18 06/07/18 06:59 06:59 06:59 Intake Total 970 Output Total 400 Balance 570 Result Diagrams: 06/05/18 03:49 06/06/18 03:36 Additional Labs: Accuchecks 06/06/18 06/05/18 06/05/18 04:37 19:41 16:55 POC Glucose 253 H 258 H 259 H 06/05/18 11:05 POC Glucose 220 H Phys Exam - Physical Examination Constitutional: NAD lying in hospital bed HEENT: PERRLA, moist MMs Respiratory: no wheezing, no rales, no rhonchi, clear to auscultation bilateral limited anterior exam Cardiovascular: RRR, no significant murmur, no rub Gastrointestinal: soft, non-tender, no distention, positive bowel sounds Musculoskeletal: pulses present Psychiatric: normal affect, A&O x 3 Dx/Plan - Plan (1) Duodenal mass s/p polypectomy, pending histology apprec GI c/s (2) Nausea & vomiting somewhat improved - no nausea, just vomiting with solid food intake continue on reglan, d/c phenergan from home list plan for gastric emptying scan today (3) Rcktt-[id number] kidney injury resolved continue to monitor renal fxn (4) Asthma chronic, w/o acute exacerbation (5) Generalized weakness continue with PT/ OT as tolerated (6) Paroxysmal atrial fibrillation stable (7) Anemia chronic anemia likely 2/2 chronic renal disease stable h/h hemodynamically stable (8) CKD (chronic kidney disease) stage 3, GFR 30-59 ml/min stable (9) Chronic heel ulcer continue o/p wound care will be needed (10) Diabetes mellitus variable PO intake so currently on SSI while home levemir is held will likely resume home levemir at D/C (11) Diastolic CHF w/o exacerbation during this hospitalization, continue to monitor (12) Hyperlipidemia stable (13) Hypertension poorly controlled - suspect patient had relative hypotension 2/2 volume depletion on admission which led to home amlodipine, lasix being held resume amlodipine continue to hold furosemide 2/2 VAUGHN as noted above hydralazine prn (14) Hypothyroidism stable, continue home synthroid (15) Rheumatoid arthritis stable, on prednisone and plaquenil (16) Hypoglycemia Code(s): E16.2 - HYPOGLYCEMIA, UNSPECIFIED Status: Resolved diet: as per above activity: as sandeep dvt ppx Review of Systems - Medications/Allergies Allergies/Adverse Reactions: Allergies Allergy/AdvReac Type Severity Reaction Status Date / Time aspirin Allergy Intermediate Verified 04/21/18 22:14 NSAIDS (Non-Steroidal Allergy Intermediate Verified 04/21/18 22:14 Anti-Inflamma lactose AdvReac Diarrhea Verified 01/28/18 03:24 Medications: Current Medications Acetaminophen (Tylenol) 650 mg PO Q4H PRN PRN Reason: Headache/Fever or Pain Last Admin: 06/01/18 22:55 Dose: 650 mg Amlodipine Besylate (Norvasc) 5 mg PO DAILY [facility] Amlodipine Besylate (Norvasc) 5 mg PO NOW [facility] Stop: 06/06/18 12:45 Atorvastatin Calcium (Lipitor) 40 mg PO HS [facility] Last Admin: 06/05/18 21:32 Dose: 40 mg Carvedilol (Coreg) 25 mg PO BID [facility] Last Admin: 06/06/18 08:49 Dose: 25 mg Clonidine (Uuhtmube-Lyj-5) 0.2 mg TD Q7DAYS [facility] Last Admin: 06/01/18 11:41 Dose: 0.2 mg Dextrose/Water (Dextrose 50%) 25 gm SLOW IVP PRN PRN PRN Reason: Hypoglycemia Famotidine (Pepcid) 20 mg PO HS [facility] Last Admin: 06/05/18 21:32 Dose: 20 mg Folic Acid (Folvite) 1 mg PO DAILY [facility] Last Admin: 06/06/18 08:50 Dose: Not Given Glucagon (Glucagon) 1 mg IM PRN PRN PRN Reason: Hypoglycemia Guaifenesin/Dextromethorphan (Robitussin Dm) 15 ml PO Q4H PRN PRN Reason: Cough Hydralazine HCl (Apresoline) 10 mg SLOW IVP Q4H PRN PRN Reason: Hypertension Hydroxychloroquine Sulfate (Plaquenil) 200 mg PO BID [facility] Last Admin: 06/06/18 08:50 Dose: Not Given Dextrose/Water (D5w) 1,000 mls @ 0 mls/hr IV .Q0M PRN PRN Reason: Hypoglycemia Insulin Human Lispro (Humalog) 0 units SC .MILD SLIDING SCALE PRN PRN Reason: Mild Correctional Scale Last Admin: 06/06/18 05:54 Dose: 4 unit Levothyroxine Sodium (Synthroid) 125 mcg PO 0600 [facility] Last Admin: 06/06/18 05:53 Dose: 125 mcg Mometasone Furoate (Asmanex Twisthaler) 2 puff INH BIDPRN PRN PRN Reason: SOB &/or Wheezing Ondansetron HCl (Zofran Odt) 4 mg PO Q8H PRN PRN Reason: Nausea Last Admin: 06/06/18 05:54 Dose: 4 mg Pantoprazole Sodium (Protonix) 40 mg PO DAILY [facility] Last Admin: 06/06/18 08:50 Dose: Not Given (Saw/Vit E/Sod Katie/Lyc/Beta/Pyg [ Prostate Health Caplet] 1 Tabl Hm Med 0 each PO BID [facility] Prednisone (Prednisone) 2.5 mg PO DAILY [facility] Last Admin: 06/06/18 08:51 Dose: Not Given Rivastigmine (Exelon) 6 mg PO BID [facility] Last Admin: 06/06/18 08:51 Dose: Not Given Sertraline HCl (Zoloft) 50 mg PO HS [facility] Last Admin: 06/05/18 21:32 Dose: 50 mg Sodium Chloride (Flush - Normal Saline) 10 ml IVF Q12HR [facility] Last Admin: 06/06/18 08:49 Dose: 10 ml Sodium Chloride (Flush - Normal Saline) 10 ml IVF PRN PRN PRN Reason: Saline Flush Tramadol HCl (Ultram) 50 mg PO Q6H PRN PRN Reason: Moderate Pain (4-6)
[2018-06-06] MEDS ORDERED: Amlodipine 5 MG TAB PO SCH (10:45)
[2018-06-06] MEDS: hydrALAZINE 20 MG/ML VIAL SLOW IVP PRN (16:33)
[2018-06-06] MEDS: Famotidine 20 MG TAB PO SCH (20:33)
[2018-06-06] MEDS: Atorvastatin Calcium 40 MG TAB PO SCH (20:33)
[2018-06-07] MEDS: Ondansetron ODT 4 MG TAB PO PRN ×2 (01:02→09:56)
[2018-06-07 05:23] LABS: Anion Gap 12 mmol/L (10-20); BUN (Urea Nitrogen) 23 mg/dL (9.8-20.1); Calc. Creatinine Clearance 49 mL/min (70-130); Calcium 8.3 mg/dL (7.8-10.44); Carbon Dioxide 27 mmol/L (23-31); Chloride 105 mmol/L (98-107); Estimated GFR-MDRD 38; Glucose 249 mg/dL (83-110); Potassium 3.6 mmol/L (3.5-5.1); Sodium 140 mmol/L (136-145)
[2018-06-07] MEDS: Levothyroxine Sodium 125 MCG TAB PO SCH (05:32)
[2018-06-07] MEDS: HumaLOG 300 UNITS/3 ML VIAL SC PRN ×2 (05:45→12:30)
[2018-06-07] MEDS ORDERED: Metoclopramide HCl 10 MG/2 ML VIAL IVP SCH (12:00)
--- NOTE | 2018-06-07 12:14 | PRG ---
DATE OF SERVICE: 06/07/2018 SUBJECTIVE: The patient is continuing to have nausea and vomiting. She denies any abdominal pain. She is having bowel movements. OBJECTIVE: VITAL SIGNS: Temperature 97.8, pulse 67, respiratory rate 16, blood pressure 155/63. HEENT: Unremarkable. NECK: Supple. CHEST: Clear. CARDIOVASCULAR: Regular rate and rhythm. ABDOMEN: Soft, nontender, without organomegaly or masses. EXTREMITIES: Normal. NEUROLOGIC: Nonfocal. LABORATORY DATA: Shows a white blood cell count on 8.1, hematocrit 23.5. Chemistry showed BUN 23, c reatinine 1.59, glucose 249. ASSESSMENT: 1. Persistent nausea and vomiting - for a gastric emptying scan in the morning. 2. Large duodenal polyp. 3. Diabetes mellitus. RECOMMENDATIONS: 1. Gastric emptying scan. 2. Hold metoclopramide until after tomorrow and then resume. 3. Change PPI to IV. 4. Continue Zofran.
[2018-06-07] MEDS: predniSONE 5 MG TAB PO SCH (12:26)
[2018-06-07] MEDS: Carvedilol 25 MG TAB PO SCH ×2 (12:26→20:22)
[2018-06-07] MEDS: Hydroxychloroquine Sulfate 200 MG TAB PO SCH ×2 (12:27→20:23)
[2018-06-07] MEDS: Folic Acid 1 MG TAB PO SCH (12:27)
[2018-06-07] MEDS: Amlodipine 5 MG TAB PO SCH (12:28)
[2018-06-07] MEDS: Rivastigmine 1.5 MG CAP PO SCH ×2 (14:24→20:22)
[2018-06-07] MEDS: Promethazine HCl 25 MG/ML VIAL SLOW IVP SCH (15:51)
--- NOTE | 2018-06-07 15:52 | PDOC.PN ---
- Subjective Encounter Start Date: 06/07/18 Encounter Start Time: 13:20 -: old records requested/rev PT seen and examined, chart reviewed inits entirety, this si my frist visit with this patient N/V better, no acute events overnight, no F/C, no D/C, no CP or sOB GI planning gastric emptying study today or tomorrow All systems reviewed and neg x as above - Objective Resuscitation Status: Resuscitation Status FULL:Full Resuscitation MAR Reviewed: Yes Vital Signs & Weight: Vital Signs (12 hours) Temp Pulse Resp BP BP Pulse Ox 06/07/18 12:28 67 155/63 H 06/07/18 08:00 97.8 F 67 16 96 06/07/18 07:27 97.8 F 67 16 155/63 H 96 Weight Admit Weight 196 lb Weight 247 lb 2.211 oz I&O: 06/06/18 06/07/18 06/08/18 06:59 06:59 06:59 Intake Total 970 550 Output Total 400 Balance 570 550 Result Diagrams: 06/05/18 03:49 06/07/18 04:35 Additional Labs: Accuchecks 06/07/18 06/07/18 06/06/18 11:18 04:18 19:26 POC Glucose 245 H 244 H 197 H 06/06/18 16:04 POC Glucose 206 H Radiology Reviewed by me: Yes EKG Reviewed by me: Yes Phys Exam - Physical Examination Constitutional: NAD HEENT: PERRLA, moist MMs, sclera anicteric, oral pharynx no lesions Neck: no nodes, no JVD, supple, full ROM Respiratory: no wheezing, no rales, no rhonchi, clear to auscultation bilateral Cardiovascular: RRR, no significant murmur, no rub Gastrointestinal: soft, non-tender, no distention, positive bowel sounds Musculoskeletal: edema present Neurological: non-focal, normal sensation, moves all 4 limbs Lymphatic: no nodes Skin: no rash, normal turgor, cap refill <2 seconds Dx/Plan (1) Duodenal mass Code(s): K31.89 - OTHER DISEASES OF STOMACH AND DUODENUM Status: Acute (2) Atrial fibrillation Code(s): I48.91 - UNSPECIFIED ATRIAL FIBRILLATION Status: Chronic Qualifiers: Atrial fibrillation type: paroxysmal Qualified Code(s): I48.0 - Paroxysmal atrial fibrillation (3) CKD (chronic kidney disease) stage 3, GFR 30-59 ml/min Status: Chronic (4) Hypertension Code(s): I10 - ESSENTIAL (PRIMARY) HYPERTENSION Status: Chronic Qualifiers: Hypertension type: essential hypertension (5) Hypothyroidism Code(s): E03.9 - HYPOTHYROIDISM, UNSPECIFIED Status: Chronic Qualifiers: Hypothyroidism type: unspecified Comment: continue synthroid (6) Rheumatoid arthritis Code(s): M06.9 - RHEUMATOID ARTHRITIS, UNSPECIFIED Status: Chronic Qualifiers: Rheumatoid arthritis location: multiple sites Rheumatoid factor presence: unspecified presence Qualified Code(s): M06.9 - Rheumatoid arthritis, unspecified Comment: on prednisone and plaquenil (7) Type II diabetes mellitus Status: Chronic Qualifiers: Diabetes mellitus remote computer terminal operator insulin use: with remote computer terminal operator use Diabetes mellitus complication status: with circulatory complication Diabetes mellitus complication detail: with peripheral angiopathy with gangrene Qualified Code(s ): E11.52 - Type 2 diabetes mellitus with diabetic peripheral angiopathy with gangrene; Z79.4 - manager terminal (current) use of insulin Comment: continue accuchecks, insulin sliding scale (8) Nausea & vomiting Code(s): R11.2 - NAUSEA WITH VOMITING, UNSPECIFIED Status: Acute Qualifiers: Vomiting type: unspecified Vomiting Intractability: intractable Qualified Code(s): R11.2 - Nausea with vomiting, unspecified Comment: better. polyp removed, gastric emptying study pending - Plan cont current plan of care * .
[2018-06-07] MEDS: LYC PO SCH (17:24)
[2018-06-07] MEDS: VIT E PO SCH (17:24)
[2018-06-07] MEDS: BETA PO SCH (17:24)
[2018-06-07] MEDS: PYG PO SCH (17:24)
[2018-06-07] MEDS: SOD SEL PO SCH (17:24)
[2018-06-07] MEDS: SAW PO SCH (17:24)
[2018-06-07] MEDS: Famotidine 20 MG TAB PO SCH (20:22)
[2018-06-07] MEDS: Atorvastatin Calcium 40 MG TAB PO SCH (20:22)
[2018-06-08] MEDS: SOD SEL PO SCH (01:33)
[2018-06-08] MEDS: VIT E PO SCH (01:33)
[2018-06-08] MEDS: PYG PO SCH (01:33)
[2018-06-08] MEDS: SAW PO SCH (01:33)
[2018-06-08] MEDS: LYC PO SCH (01:33)
[2018-06-08] MEDS: BETA PO SCH (01:33)
[2018-06-08] MEDS: Levothyroxine Sodium 125 MCG TAB PO SCH (05:30)
[2018-06-08 05:32] LABS: Anion Gap 11 mmol/L (10-20); BUN (Urea Nitrogen) 22 mg/dL (9.8-20.1); Calc. Creatinine Clearance 50 mL/min (70-130); Calcium 8.4 mg/dL (7.8-10.44); Carbon Dioxide 27 mmol/L (23-31); Chloride 105 mmol/L (98-107); Estimated GFR-MDRD 39; Glucose 164 mg/dL (83-110); Potassium 3.5 mmol/L (3.5-5.1); Sodium 139 mmol/L (136-145)
[2018-06-08 11:28] VITALS: BMI 36.5
--- NOTE | 2018-06-08 12:06 | PRG ---
DATE OF SERVICE: 06/08/2018 SUBJECTIVE: The patient is doing well. She denies any nausea or vomiting. She is presently undergo ing a gastric emptying scan. OBJECTIVE: VITAL SIGNS: Temperature is 97.9, pulse 69, respiratory rate 20, blood pressure 165/79. CHEST: Clear. CARDIOVASCULAR: Regular rate and rhythm. ABDOMEN: Soft, nontender, without organomegaly or masses. LABORATORY DATA: Shows a BUN 22, creatinine 1.55, glucose 164. ASSESSMENT: 1. Persistent nausea and vomiting - patient is undergoing a gastric emptying scan. 2. Large duodenal polyp - status post endoscopic resection. 3. Diabetes mellitus. 4. Anemia. RECOMMENDATIONS: 1. Gastric emptying scan. 2. Resume metoclopramide once the gastric emptying scan is finished. 3. Continue Zofran. 4. Recheck H and H.
[2018-06-08] MEDS: predniSONE 5 MG TAB PO SCH (12:56)
[2018-06-08] MEDS: Folic Acid 1 MG TAB PO SCH (12:58)
[2018-06-08] MEDS: Amlodipine 5 MG TAB PO SCH (12:58)
[2018-06-08] MEDS: Carvedilol 25 MG TAB PO SCH ×2 (12:59→20:56)
[2018-06-08] MEDS: Promethazine HCl 25 MG/ML VIAL SLOW IVP SCH ×3 (13:00→19:08)
[2018-06-08] MEDS: Rivastigmine 1.5 MG CAP PO SCH ×2 (13:00→20:56)
[2018-06-08] MEDS: cloNIDine 0.2mg/24 Hour PATCH TD SCH (13:05)
--- NOTE | 2018-06-08 15:03 | NM ---
GASTRIC EMPTYING EXAM: COMPARISON: None. HISTORY: Persistent vomiting. TECHNIQUE: A nuclear medicine gastric emptying exam was performed after the administration of 2.1 mCi of [employer] ium 99m sulfur colloid mixed with eggs. FINDINGS: There is 16% emptying at 33 minutes. There is 31% emptying at 57 minutes. There is 58% emptying at 190 minutes. There is 62% emptying at 238 minutes. T-1/2 of gastric emptying is 110 minutes. IMPRESSION: Delayed gastric emptying. POS: SAMM
[2018-06-08] MEDS: Metoclopramide HCl 10 MG/2 ML VIAL IVP SCH ×2 (16:10→21:00)
[2018-06-08] MEDS: HumaLOG 300 UNITS/3 ML VIAL SC PRN ×2 (18:00→21:06)
[2018-06-08] MEDS: Famotidine 20 MG TAB PO SCH (20:55)
[2018-06-08] MEDS: Atorvastatin Calcium 40 MG TAB PO SCH (20:56)
[2018-06-09] MEDS: Ondansetron ODT 4 MG TAB PO PRN ×2 (01:53→20:50)
[2018-06-09] MEDS: Metoclopramide HCl 10 MG/2 ML VIAL IVP SCH ×2 (03:53→11:44)
[2018-06-09 05:01] LABS: #Eosinphils 0.2 thou/uL (0.0-0.7); #Lymphocytes 1.5 thou/uL (1.20-3.40); #Monocytes 0.7 thou/uL (0.11-0.59); #Neutrophils 4.2 thou/uL (1.40-6.50); %Basophils 0.5 % (0.0-1.0); %Eosinophils 2.8 % (0.0-10.0); %Lymphocytes 22.8 % (21.0-51.0); %Monocytes 10.1 % (0.0-10.0); %Neutrophils 63.8 % (42.0-75.0); Hemoglobin 8.8 g/dL (12.0-16.0); Mean Corpuscular HGB CONC 33.4 g/dL (32.0-36.0); Mean Corpuscular Hemoglobin 31.5 pg (27.0-31.0); Mean Corpuscular Volume 94.5 fL (78.0-98.0); Mean Platelet Volume 8.6 fL (7.4-10.4); Platelet Count 213 thou/uL (130-400); RBC Distribution Width 14.1 % (11.5-14.5); Red Blood Cell (RBC) Count 2.78 mill/uL (4.20-5.40); White Blood Cell (WBC) Count 6.6 thou/uL (4.8-10.8)
[2018-06-09 05:09] LABS: Anion Gap 11 mmol/L (10-20); BUN (Urea Nitrogen) 21 mg/dL (9.8-20.1); Calc. Creatinine Clearance 49 mL/min (70-130); Calcium 8.4 mg/dL (7.8-10.44); Carbon Dioxide 28 mmol/L (23-31); Chloride 104 mmol/L (98-107); Estimated GFR-MDRD 38; Glucose 166 mg/dL (83-110); Potassium 3.4 mmol/L (3.5-5.1); Sodium 140 mmol/L (136-145)
[2018-06-09] MEDS: Levothyroxine Sodium 125 MCG TAB PO SCH (05:20)
[2018-06-09] MEDS: Promethazine HCl 25 MG/ML VIAL SLOW IVP SCH (07:38)
--- NOTE | 2018-06-09 11:21 | PRG ---
DATE OF SERVICE: 06/09/2018 SUBJECTIVE: The patient was able to eat her meal today without any vomiting. She is having bowel mo vements. She is having no blood. OBJECTIVE: VITAL SIGNS: Temperature is 97.5, pulse 58, respiratory rate 16, blood pressure 159/71. HEENT: Unremarkable. CHEST: Clear. CARDIOVASCULAR: Regular rate and rhythm. ABDOMEN: Soft, nontender, without organomegaly or masses. Bowel sounds are present and normoactive. LABORATORY DATA: Shows hemoglobin 8.8, hematocrit 26.3. Chemistry shows potassium 3.4, BUN 21, crea tinine 1.59, glucose 166. Gastric emptying scan showed delayed gastric emptying. Pathology on the polyp is still pending. ASSESSMENT: 1. Gastroparesis. 2. Large duodenal polyp. 3. Diabetes mellitus. RECOMMENDATIONS: 1. Metoclopramide elixir. 2. Continue proton-pump inhibitor. 3. Stable for discharge tomorrow if the patient continues to eat well.
[2018-06-09] MEDS: predniSONE 5 MG TAB PO SCH (11:38)
[2018-06-09] MEDS: Rivastigmine 1.5 MG CAP PO SCH ×2 (11:38→20:30)
[2018-06-09] MEDS: Carvedilol 25 MG TAB PO SCH ×2 (11:39→20:29)
[2018-06-09] MEDS: Amlodipine 5 MG TAB PO SCH (11:39)
[2018-06-09] MEDS: Folic Acid 1 MG TAB PO SCH (11:39)
[2018-06-09] MEDS: Metoclopramide HCl 10 MG TAB PO SCH ×3 (11:41→20:29)
--- NOTE | 2018-06-09 15:31 | PDOC.PN ---
- Subjective Encounter Start Date: 06/08/18 Encounter Start Time: 15:00 pt feeling better, sandeep liquids, on reglan, gastric empyting study resulted and shows delayed gastric emptying No f/C, no nV/D/C, no CP or sOB. all systems reviewed and neg x as above - Objective Resuscitation Status: Resuscitation Status FULL:Full Resuscitation MAR Reviewed: Yes Vital Signs & Weight: Vital Signs (12 hours) Temp Pulse Resp BP BP Pulse Ox 06/09/18 11:39 58 L 159/71 H 06/09/18 08:00 97.5 F L 58 L 16 159/71 H 100 Weight Admit Weight 196 lb Weight 247 lb 2.211 oz I&O: 06/08/18 06/09/18 06/10/18 06:59 06:59 06:59 Intake Total 250 1050 Balance 250 1050 Result Diagrams: 06/09/18 04:17 06/09/18 04:17 Additional Labs: Accuchecks 06/09/18 06/09/18 06/08/18 11:51 04:30 19:23 POC Glucose 178 H 180 H 216 H 06/08/18 16:45 POC Glucose 223 H Radiology Reviewed by me: Yes EKG Reviewed by me: Yes Phys Exam - Physical Examination Constitutional: NAD HEENT: PERRLA, moist MMs, sclera anicteric, oral pharynx no lesions Neck: no nodes, no JVD, supple, full ROM Respiratory: no wheezing, no rales, no rhonchi, clear to auscultation bilateral Cardiovascular: RRR, no significant murmur, no rub Gastrointestinal: soft, positive bowel sounds Musculoskeletal: edema present Neurological: non-focal, normal sensation, moves all 4 limbs Lymphatic: no nodes Psychiatric: normal affect, A&O x 3 Skin: no rash, normal turgor, cap refill <2 seconds Dx/Plan (1) Duodenal mass Code(s): K31.89 - OTHER DISEASES OF STOMACH AND DUODENUM Status: Acute (2) Atrial fibrillation Code(s): I48.91 - UNSPECIFIED ATRIAL FIBRILLATION Status: Chronic Qualifiers: Atrial fibrillation type: paroxysmal Qualified Code(s): I48.0 - Paroxysmal atrial fibrillation (3) CKD (chronic kidney disease) stage 3, GFR 30-59 ml/min Status: Chronic (4) Hypertension Code(s): I10 - ESSENTIAL (PRIMARY) HYPERTENSION Status: Chronic Qualifiers: Hypertension type: essential hypertension (5) Hypothyroidism Code(s): E03.9 - HYPOTHYROIDISM, UNSPECIFIED Status: Chronic Qualifiers: Hypothyroidism type: unspecified Comment: continue synthroid (6) Rheumatoid arthritis Code(s): M06.9 - RHEUMATOID ARTHRITIS, UNSPECIFIED Status: Chronic Qualifiers: Rheumatoid arthritis location: multiple sites Rheumatoid factor presence: unspecified presence Qualified Code(s): M06.9 - Rheumatoid arthritis, unspecified Comment: on prednisone and plaquenil (7) Type II diabetes mellitus Status: Chronic Qualifiers: Diabetes mellitus line director insulin use: with line director use Diabetes mellitus complication status: with circulatory complication Diabetes mellitus complication detail: with peripheral angiopathy with gangrene Qualified Code(s ): E11.52 - Type 2 diabetes mellitus with diabetic peripheral angiopathy with gangrene; Z79.4 - [facility] (current) use of insulin Comment: continue accuchecks, insulin sliding scale (8) Nausea & vomiting Code(s): R11.2 - NAUSEA WITH VOMITING, UNSPECIFIED Status: Acute Qualifiers: Vomiting type: unspecified Vomiting Intractability: intractable Qualified Code(s): R11.2 - Nausea with vomiting, unspecified Comment: better. polyp removed, gastric emptying study confirmed delayed emptying, felt to be diabetic gastroparesis, continue reglan. follow up on GI rcommendaitons - Plan cont current plan of care * .
--- NOTE | 2018-06-09 15:34 | PDOC.PN ---
- Subjective Encounter Start Date: 06/09/18 Encounter Start Time: 11:15 not eating much, still full from yesterday No f/C, no n/V/d/C, no complaints, awaiting GI followup All systems reviewed and neg x as above - Objective Resuscitation Status: Resuscitation Status FULL:Full Resuscitation MAR Reviewed: Yes Vital Signs & Weight: Vital Signs (12 hours) Temp Pulse Resp BP BP Pulse Ox 06/09/18 11:39 58 L 159/71 H 06/09/18 08:00 97.5 F L 58 L 16 159/71 H 100 Weight Admit Weight 196 lb Weight 247 lb 2.211 oz I&O: 06/08/18 06/09/18 06/10/18 06:59 06:59 06:59 Intake Total 250 1050 Balance 250 1050 Result Diagrams: 06/09/18 04:17 06/09/18 04:17 Additional Labs: Accuchecks 06/09/18 06/09/18 06/08/18 11:51 04:30 19:23 POC Glucose 178 H 180 H 216 H 06/08/18 16:45 POC Glucose 223 H Phys Exam - Physical Examination Constitutional: NAD HEENT: PERRLA, moist MMs, sclera anicteric, oral pharynx no lesions Neck: no nodes, no JVD, supple, full ROM Respiratory: no wheezing, no rales, no rhonchi, clear to auscultation bilateral Cardiovascular: RRR, no significant murmur Gastrointestinal: soft, non-tender, no distention, positive bowel sounds Musculoskeletal: edema present Neurological: non-focal, normal sensation, moves all 4 limbs Lymphatic: no nodes Psychiatric: normal affect, A&O x 3 Skin: no rash, normal turgor, cap refill <2 seconds Dx/Plan (1) Duodenal mass Code(s): K31.89 - OTHER DISEASES OF STOMACH AND DUODENUM Status: Acute (2) Atrial fibrillation Code(s): I48.91 - UNSPECIFIED ATRIAL FIBRILLATION Status: Chronic Qualifiers: Atrial fibrillation type: paroxysmal Qualified Code(s): I48.0 - Paroxysmal atrial fibrillation (3) CKD (chronic kidney disease) stage 3, GFR 30-59 ml/min Status: Chronic (4) Hypertension Code(s): I10 - ESSENTIAL (PRIMARY) HYPERTENSION Status: Chronic Qualifiers: Hypertension type: essential hypertension (5) Hypothyroidism Code(s): E03.9 - HYPOTHYROIDISM, UNSPECIFIED Status: Chronic Qualifiers: Hypothyroidism type: unspecified Comment: continue synthroid (6) Rheumatoid arthritis Code(s): M06.9 - RHEUMATOID ARTHRITIS, UNSPECIFIED Status: Chronic Qualifiers: Rheumatoid arthritis location: multiple sites Rheumatoid factor presence: unspecified presence Qualified Code(s): M06.9 - Rheumatoid arthritis, unspecified Comment: on prednisone and plaquenil (7) Type II diabetes mellitus Status: Chronic Qualifiers: Diabetes mellitus marine oil terminal superintendent insulin use: with marine oil terminal superintendent use Diabetes mellitus complication status: with circulatory complication Diabetes mellitus complication detail: with peripheral angiopathy with gangrene Qualified Code(s ): E11.52 - Type 2 diabetes mellitus with diabetic peripheral angiopathy with gangrene; Z79.4 - alf (current) use of insulin Comment: continue accuchecks, insulin sliding scale (8) Nausea & vomiting Code(s): R11.2 - NAUSEA WITH VOMITING, UNSPECIFIED Status: Acute Qualifiers: Vomiting type: unspecified Vomiting Intractability: intractable Qualified Code(s): R11.2 - Nausea with vomiting, unspecified Comment: better. polyp removed, gastric emptying study confirmed delayed emptying, felt to be diabetic gastroparesis, continue reglan. fhome tomorrow if doing well with diet - Plan cont current plan of care * .
[2018-06-09] MEDS: HumaLOG 300 UNITS/3 ML VIAL SC PRN (18:00)
[2018-06-09] MEDS: Famotidine 20 MG TAB PO SCH (20:28)
[2018-06-09] MEDS: Atorvastatin Calcium 40 MG TAB PO SCH (20:28)
[2018-06-10] MEDS: hydrALAZINE 20 MG/ML VIAL SLOW IVP PRN (01:45)
[2018-06-10 04:41] LABS: Anion Gap 13 mmol/L (10-20); BUN (Urea Nitrogen) 19 mg/dL (9.8-20.1); Calc. Creatinine Clearance 48 mL/min (70-130); Calcium 8.4 mg/dL (7.8-10.44); Carbon Dioxide 26 mmol/L (23-31); Chloride 104 mmol/L (98-107); Estimated GFR-MDRD 37; Glucose 230 mg/dL (83-110); Potassium 3.8 mmol/L (3.5-5.1); Sodium 139 mmol/L (136-145)
[2018-06-10] MEDS: Levothyroxine Sodium 125 MCG TAB PO SCH ×2 (05:43→05:58)
[2018-06-10] MEDS: HumaLOG 300 UNITS/3 ML VIAL SC PRN (05:52)
[2018-06-10] MEDS: Folic Acid 1 MG TAB PO SCH (07:40)
[2018-06-10] MEDS: Rivastigmine 1.5 MG CAP PO SCH ×2 (07:40→20:00)
[2018-06-10] MEDS: predniSONE 5 MG TAB PO SCH (07:41)
[2018-06-10] MEDS: Amlodipine 5 MG TAB PO SCH (07:41)
[2018-06-10] MEDS: Metoclopramide HCl 10 MG TAB PO SCH ×2 (07:41→11:42)
[2018-06-10] MEDS: Carvedilol 25 MG TAB PO SCH ×2 (07:41→20:00)
[2018-06-10] MEDS ORDERED: Metoclopramide HCl 10 MG/2 ML VIAL IVP PRN (11:50)
--- NOTE | 2018-06-10 12:09 | PRG ---
DATE OF SERVICE: 06/10/2018 SUBJECTIVE: The patient reports she has been nauseated. She also had an asthma attack yesterday and wants to see Dr. Smalls. She is unsure if she is getting her Reglan. OBJECTIVE: VITAL SIGNS: Temperature is 98.1, pulse 70, respiratory rate 16, blood pressure 197/66. CHEST: Clear. CARDIOVASCULAR: Regular rate and rhythm. ABDOMEN: Soft, nontender, without organomegaly or masses. LABORATORY DATA: Shows a creatinine of 1.61, glucose 230. Pathology shows the polyp in the duodenum was a tubulovillous adenoma. ASSESSMENT: 1. Gastroparesis. 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 3. Diabetes mellitus. RECOMMENDATIONS: 1. Go back to metoclopramide IV. 2. Continue PPI.
[2018-06-10] MEDS: Metoclopramide HCl 10 MG/2 ML VIAL IVP SCH ×2 (14:40→20:01)
[2018-06-10] MEDS: Famotidine 20 MG TAB PO SCH (20:00)
[2018-06-10] MEDS: Atorvastatin Calcium 40 MG TAB PO SCH (20:00)
[2018-06-11] MEDS: Metoclopramide HCl 10 MG/2 ML VIAL IVP SCH ×3 (03:00→14:19)
[2018-06-11 04:36] LABS: Anion Gap 12 mmol/L (10-20); BUN (Urea Nitrogen) 19 mg/dL (9.8-20.1); Calc. Creatinine Clearance 49 mL/min (70-130); Calcium 8.4 mg/dL (7.8-10.44); Carbon Dioxide 26 mmol/L (23-31); Chloride 104 mmol/L (98-107); Estimated GFR-MDRD 38; Glucose 161 mg/dL (83-110); Potassium 3.8 mmol/L (3.5-5.1); Sodium 138 mmol/L (136-145)
[2018-06-11] MEDS: Levothyroxine Sodium 125 MCG TAB PO SCH (05:29)
[2018-06-11] MEDS: hydrALAZINE 20 MG/ML VIAL SLOW IVP PRN (05:56)
[2018-06-11] MEDS: Carvedilol 25 MG TAB PO SCH ×2 (07:37→22:10)
[2018-06-11] MEDS: Amlodipine 5 MG TAB PO SCH (07:37)
[2018-06-11] MEDS: Rivastigmine 1.5 MG CAP PO SCH ×2 (07:38→22:10)
[2018-06-11] MEDS: Folic Acid 1 MG TAB PO SCH (07:38)
[2018-06-11] MEDS: predniSONE 5 MG TAB PO SCH (07:38)
[2018-06-11] MEDS ORDERED: Ipratropium Bromide 0.03% Nasal Inhaler 30 ml Bottle EA NARE SCH (13:00)
--- NOTE | 2018-06-11 14:17 | PDOC.PN ---
- Subjective Encounter Start Date: 06/10/18 Encounter Start Time: 12:30 Pt had a badnight, nausated, vomited. No F/C,no N/V/d/C. Seen byGI, changed back to IV Reglan. All systems reviewed and neg x as above - Objective Resuscitation Status: Resuscitation Status FULL:Full Resuscitation MAR Reviewed: Yes Vital Signs & Weight: Vital Signs (12 hours) Temp Pulse Resp BP BP Pulse Ox 06/11/18 10:16 65 98 06/11/18 08:00 97.3 F L 65 18 94 L 06/11/18 07:37 65 06/11/18 07:25 98.5 F 65 18 184/68 H 98 06/11/18 06:46 159/72 H 06/11/18 06:23 70 16 99 06/11/18 05:56 70 06/11/18 05:55 179/73 H 06/11/18 04:00 70 18 194/71 H 98 06/11/18 02:35 69 16 99 Weight Admit Weight 196 lb Weight 247 lb 2.211 oz I&O: 06/10/18 06/11/18 06/12/18 06:59 06:59 06:59 Intake Total 200 480 600 Balance 200 480 600 Result Diagrams: 06/09/18 04:17 06/11/18 04:08 Additional Labs: Accuchecks 06/11/18 06/11/18 06/10/18 11:09 04:32 19:15 POC Glucose 217 H 176 H 260 H 06/10/18 16:26 POC Glucose 191 H Phys Exam - Physical Examination Constitutional: NAD HEENT: PERRLA, moist MMs, sclera anicteric, oral pharynx no lesions Neck: no nodes, no JVD, supple, full ROM Respiratory: no wheezing, no rales, no rhonchi, clear to auscultation bilateral Cardiovascular: RRR, no significant murmur, no rub Gastrointestinal: soft, non-tender, no distention, positive bowel sounds Musculoskeletal: edema present Neurological: non-focal, normal sensation, moves all 4 limbs Lymphatic: no nodes Psychiatric: normal affect, A&O x 3 Skin: no rash, normal turgor, cap refill <2 seconds Dx/Plan (1) Duodenal mass Code(s): K31.89 - OTHER DISEASES OF STOMACH AND DUODENUM Status: Acute (2) Atrial fibrillation Code(s): I48.91 - UNSPECIFIED ATRIAL FIBRILLATION Status: Chronic Qualifiers: Atrial fibrillation type: paroxysmal Qualified Code(s): I48.0 - Paroxysmal atrial fibrillation (3) CKD (chronic kidney disease) stage 3, GFR 30-59 ml/min Status: Chronic (4) Hypertension Code(s): I10 - ESSENTIAL (PRIMARY) HYPERTENSION Status: Chronic Qualifiers: Hypertension type: essential hypertension Qualified Code(s): I10 - Essential (primary) hypertension (5) Hypothyroidism Code(s): E03.9 - HYPOTHYROIDISM, UNSPECIFIED Status: Chronic Qualifiers: Hypothyroidism type: unspecified Qualified Code(s): E03.9 - Hypothyroidism , unspecified Comment: continue synthroid (6) Rheumatoid arthritis Code(s): M06.9 - RHEUMATOID ARTHRITIS, UNSPECIFIED Status: Chronic Qualifiers: Rheumatoid arthritis location: multiple sites Rheumatoid factor presence: unspecified presence Qualified Code(s): M06.9 - Rheumatoid arthritis, unspecified Comment: on prednisone and plaquenil (7) Type II diabetes mellitus Status: Chronic Qualifiers: Diabetes mellitus manager intermediate insulin use: with manager intermediate use Diabetes mellitus complication status: with circulatory complication Diabetes mellitus complication detail: with peripheral angiopathy with gangrene Qualified Code(s ): E11.52 - Type 2 diabetes mellitus with diabetic peripheral angiopathy with gangrene; Z79.4 - prison (current) use of insulin Comment: continue accuchecks, insulin sliding scale (8) Nausea & vomiting Code(s): R11.2 - NAUSEA WITH VOMITING, UNSPECIFIED Status: Acute Qualifiers: Vomiting type: unspecified Vomiting Intractability: intractable Qualified Code(s): R11.2 - Nausea with vomiting, unspecified Comment: better. polyp removed, gastric emptying study confirmed delayed emptying, felt to be diabetic gastroparesis, continue reglan but change back to IV - Plan cont current plan of care, PT/OT, drug abuse social worker * .
--- NOTE | 2018-06-11 14:20 | PDOC.PN ---
- Subjective Encounter Start Date: 06/11/18 Encounter Start Time: 09:30 pt feeling better, sandeep full liquids fine,no N/V, no d/C, bno CP or sOB. All systems reviewed and neg x as above - Objective Resuscitation Status: Resuscitation Status FULL:Full Resuscitation MAR Reviewed: Yes Vital Signs & Weight: Vital Signs (12 hours) Temp Pulse Resp BP BP Pulse Ox 06/11/18 10:16 65 98 06/11/18 08:00 97.3 F L 65 18 94 L 06/11/18 07:37 65 06/11/18 07:25 98.5 F 65 18 184/68 H 98 06/11/18 06:46 159/72 H 06/11/18 06:23 70 16 99 06/11/18 05:56 70 06/11/18 05:55 179/73 H 06/11/18 04:00 70 18 194/71 H 98 06/11/18 02:35 69 16 99 Weight Admit Weight 196 lb Weight 247 lb 2.211 oz I&O: 06/10/18 06/11/18 06/12/18 06:59 06:59 06:59 Intake Total 200 480 600 Balance 200 480 600 Result Diagrams: 06/09/18 04:17 06/11/18 04:08 Additional Labs: Accuchecks 06/11/18 06/11/18 06/10/18 11:09 04:32 19:15 POC Glucose 217 H 176 H 260 H 06/10/18 16:26 POC Glucose 191 H Phys Exam - Physical Examination Constitutional: NAD HEENT: PERRLA, moist MMs, sclera anicteric, oral pharynx no lesions Neck: no nodes, no JVD, supple, full ROM Respiratory: no wheezing, no rales, no rhonchi, clear to auscultation bilateral Cardiovascular: RRR, no significant murmur, no rub Gastrointestinal: soft, positive bowel sounds Musculoskeletal: edema present Neurological: non-focal, normal sensation, moves all 4 limbs Lymphatic: no nodes Psychiatric: normal affect, A&O x 3 Skin: no rash, normal turgor, cap refill <2 seconds Dx/Plan (1) Duodenal mass Code(s): K31.89 - OTHER DISEASES OF STOMACH AND DUODENUM Status: Acute (2) Atrial fibrillation Code(s): I48.91 - UNSPECIFIED ATRIAL FIBRILLATION Status: Chronic Qualifiers: Atrial fibrillation type: paroxysmal Qualified Code(s): I48.0 - Paroxysmal atrial fibrillation (3) CKD (chronic kidney disease) stage 3, GFR 30-59 ml/min Status: Chronic (4) Hypertension Code(s): I10 - ESSENTIAL (PRIMARY) HYPERTENSION Status: Chronic Qualifiers: Hypertension type: essential hypertension Qualified Code(s): I10 - Essential (primary) hypertension (5) Hypothyroidism Code(s): E03.9 - HYPOTHYROIDISM, UNSPECIFIED Status: Chronic Qualifiers: Hypothyroidism type: unspecified Qualified Code(s): E03.9 - Hypothyroidism , unspecified Comment: continue synthroid (6) Rheumatoid arthritis Code(s): M06.9 - RHEUMATOID ARTHRITIS, UNSPECIFIED Status: Chronic Qualifiers: Rheumatoid arthritis location: multiple sites Rheumatoid factor presence: unspecified presence Qualified Code(s): M06.9 - Rheumatoid arthritis, unspecified Comment: on prednisone and plaquenil (7) Type II diabetes mellitus Status: Chronic Qualifiers: Diabetes mellitus terminal operations manager insulin use: with terminal operations manager use Diabetes mellitus complication status: with circulatory complication Diabetes mellitus complication detail: with peripheral angiopathy with gangrene Qualified Code(s ): E11.52 - Type 2 diabetes mellitus with diabetic peripheral angiopathy with gangrene; Z79.4 - intermediate (current) use of insulin Comment: continue accuchecks, insulin sliding scale (8) Nausea & vomiting Code(s): R11.2 - NAUSEA WITH VOMITING, UNSPECIFIED Status: Acute Qualifiers: Vomiting type: unspecified Vomiting Intractability: intractable Qualified Code(s): R11.2 - Nausea with vomiting, unspecified Comment: better. polyp removed, gastric emptying study confirmed delayed emptying, felt to be diabetic gastroparesis, continue reglan but change back to po scheduled and watch overnight - Plan cont current plan of care, PT/OT * .
--- NOTE | 2018-06-11 14:39 | PRG ---
DATE OF SERVICE: 06/11/2018 SUBJECTIVE: The patient is tolerating full liquid diet at this time. She has had no nausea, vomitin g. OBJECTIVE: VITAL SIGNS: Temperature 97.3, pulse 65, respiratory rate 18, and blood pressure 184/68. CHEST: Clear. CARDIOVASCULAR: Regular rate and rhythm. ABDOMEN: Soft, nontender, without organomegaly or masses. EXTREMITIES: Normal. LABORATORY DATA: Shows a glucose of 270. ASSESSMENT: 1. Gastroparesis. 2. Duodenal polyp. 3. Persistent nausea and vomiting. RECOMMENDATIONS: 1. Continue to advance diet to a very soft or even pureed diet. 2. Continue metoclopramide. Hopefully, can make the transition to oral Elixir. 3. Dr. Vasquez is covering.
[2018-06-11] MEDS: Metoclopramide HCl 10 MG TAB PO SCH ×2 (17:04→22:10)
--- NOTE | 2018-06-11 17:35 | CON ---
DATE OF CONSULTATION: 06/11/2018 HISTORY OF PRESENT ILLNESS: Ms. Munroe is a wonderful pleasant 83-year-old female, who has been diagnosed this admission with diabetic gastroparesis. Three days ago, she said she started wheezing, she was started on nebulized treatments, felt she is better. She was asked to see me. PAST MEDICAL HISTORY: Remarkable for; 1. Resection of a duodenal tubulovillous adenoma, removed endoscopically this admission. 2. Diabetes. 3. Deconditioning. I believe she has been living in a retirement. 4. Rheumatoid arthritis. 5. History of asthma which since I have been caring for has been reasonably well controlled. 6. History of atrial fibrillation. 7. History of DVT. 8. History of hypothyroidism. 9. Stasis ulcers on her legs. 10. History of mastectomy. 11. History of atrial fibrillation ablation. 12. History of breast cancer. 13. Status post hysterectomy. FAMILY HISTORY: Negative for lung disease in early age. ALLERGIES: She reports no drug allergies. SOCIAL HISTORY: Nonsmoker, nondrinker. She is a retired nurse. She worked up in [facility], moved here to [place]. She is currently living in a fulltime care environment. REVIEW OF SYSTEMS: Ten point systems review completed, otherwise negative except for nasal congestion and postnasal drip. PHYSICAL EXAMINATION: GENERAL: Ms. Munroe is a wonderful pleasant 83-year-old female, who has been diagnosed this admission with diabetic gastroparesis. VITAL SIGNS: She is afebrile, heart rate is 65, respiratory rate is 18, oximetry is 94 on 2 liters, up to 98 later this morning on 2 liters. HEENT: Pupils are equal. Sclerae is anicteric. She has several missing teeth. NECK: Supple. LUNGS: Clear today. HEART: Regular rhythm. ABDOMEN: Soft and nontender. EXTREMITIES: Without asymmetry. LABORATORY DATA: White count 6.6, hemoglobin 8.8, platelets 213. Sodium 138, potassium 3.8, chloride 104, bicarbonate 26, BUN 19, creatinine 1.58. IMPRESSION AND PLAN: Asthma, clinically improved with nebulizer treatments. It would not be unreasonable to switch her to Brovana, budesonide, could be administered at the retirement twice a day with minimal inconvenience for her. This may also decrease frequency of asthma flares. She will get nasal Atrovent for her sinus drainage. This is a 50-minute consult, with greater than 50% of the time was spent in the unit coordinating care. ADALID
[2018-06-11] MEDS: Budesonide 0.5 MG/2 ML NEB INH SCH (18:39)
[2018-06-11] MEDS: Arformoterol 15 MCG/2 ML NEB NEB SCH (18:43)
[2018-06-11] MEDS: Atorvastatin Calcium 40 MG TAB PO SCH (22:09)
[2018-06-11] MEDS: Famotidine 20 MG TAB PO SCH (22:10)
[2018-06-11] MEDS: Ipratropium Bromide 0.03% Nasal Inhaler 30 ml Bottle EA NARE SCH (22:12)
[2018-06-12 04:25] LABS: #Eosinphils 0.3 thou/uL (0.0-0.7); #Lymphocytes 2.3 thou/uL (1.20-3.40); #Monocytes 0.9 thou/uL (0.11-0.59); #Neutrophils 4.9 thou/uL (1.40-6.50); %Basophils 0.4 % (0.0-1.0); %Eosinophils 4.1 % (0.0-10.0); %Lymphocytes 26.9 % (21.0-51.0); %Monocytes 10.1 % (0.0-10.0); %Neutrophils 58.5 % (42.0-75.0); Hemoglobin 8.5 g/dL (12.0-16.0); Mean Corpuscular HGB CONC 33.5 g/dL (32.0-36.0); Mean Corpuscular Hemoglobin 31.3 pg (27.0-31.0); Mean Corpuscular Volume 93.2 fL (78.0-98.0); Mean Platelet Volume 8.7 fL (7.4-10.4); Platelet Count 234 thou/uL (130-400); RBC Distribution Width 14.2 % (11.5-14.5); Red Blood Cell (RBC) Count 2.71 mill/uL (4.20-5.40); White Blood Cell (WBC) Count 8.4 thou/uL (4.8-10.8)
[2018-06-12 04:36] LABS: Anion Gap 11 mmol/L (10-20); BUN (Urea Nitrogen) 21 mg/dL (9.8-20.1); Calc. Creatinine Clearance 49 mL/min (70-130); Calcium 8.3 mg/dL (7.8-10.44); Carbon Dioxide 28 mmol/L (23-31); Chloride 103 mmol/L (98-107); Estimated GFR-MDRD 37; Glucose 187 mg/dL (83-110); Magnesium 1.4 mg/dL (1.6-2.6); Potassium 3.6 mmol/L (3.5-5.1); Sodium 138 mmol/L (136-145)
[2018-06-12] MEDS: Levothyroxine Sodium 125 MCG TAB PO SCH (05:48)
[2018-06-12] MEDS: Budesonide 0.5 MG/2 ML NEB INH SCH ×2 (06:52→18:38)
[2018-06-12] MEDS: Arformoterol 15 MCG/2 ML NEB NEB SCH ×2 (06:56→18:40)
[2018-06-12] MEDS: Rivastigmine 1.5 MG CAP PO SCH ×2 (10:08→21:19)
[2018-06-12] MEDS: Metoclopramide HCl 10 MG TAB PO SCH ×4 (10:09→21:19)
[2018-06-12] MEDS: Amlodipine 5 MG TAB PO SCH (10:09)
[2018-06-12] MEDS: Carvedilol 25 MG TAB PO SCH ×2 (10:10→21:18)
[2018-06-12] MEDS: predniSONE 5 MG TAB PO SCH (10:10)
[2018-06-12] MEDS: Folic Acid 1 MG TAB PO SCH (10:10)
[2018-06-12] MEDS: Ipratropium Bromide 0.03% Nasal Inhaler 30 ml Bottle EA NARE SCH ×2 (10:11→21:21)
--- NOTE | 2018-06-12 11:34 | PRG ---
DATE OF SERVICE: 06/12/2018 SUBJECTIVE: The patient is doing well except for spells of shortness of breath while she is asleep. PHYSICAL EXAMINATION: VITAL SIGNS: Temperature is 98.5, pulse 66, respirations 16, O2 sat 93% on room air. HEENT: Unremarkable. NECK: No JVD. LUNGS: Fairly clear without wheezing or rhonchi. CARDIAC: S1 and S2 regular. ABDOMEN: Soft. EXTREMITIES: No edema. LABORATORY DATA: White blood cell count 8.4, hematocrit 25.2, platelet count 234. Sodium 130, potas sium 3.6, BUN 21, creatinine 1.6, glucose 187. ASSESSMENT: 1. Asthma, which seems clinically stable. 2. Multitude of other medical problems. RECOMMENDATIONS: 1. Continue the Brovana and DuoNeb. 2. She is on low dose prednisone. 3. She is also on Pulmicort nebs.
[2018-06-12] MEDS ORDERED: Magnesium Sulfate 3 GM, Admixture Fee 1 EACH in Sodium Chloride 0.9% 100 ML IVPB SCH (12:45)
[2018-06-12] MEDS ORDERED: Magnesium 2 GM/NS 0.9% 100 ML 3 GM in Premix Bag 1 BAG IVPB SCH (12:45)
[2018-06-12 15:08] LABS: Actual Bicarbonate (HCO3a) 25.6 mEq/L (22-28); Base Excess (BEa) 0.8 mEq/L (-2.0 to +3.0); CO2 Tension 41.7 mmHg (35.0-45.0); O2 Tension (PaO2) 48.5 mmHg (> 60.0); pH, Arterial 7.41 (7.35-7.45)
[2018-06-12 15:10] LABS: Calcium, Ionized 1.14 mmol/L (1.12-1.30); Carboxyhemoglobin (COHb) 1.3 gm% (0.0-3.0); Hemoglobin (Hb) 9.8 g/dL (12.0-16.0); Potassium - ABG Lab 3.3 mmol/L (3.70-5.30)
[2018-06-12 15:11] LABS: Puncture Site LR
[2018-06-12] MEDS ORDERED: Labetalol HCl 100 MG/20 ML VIAL SLOW IVP PRN (16:24)
[2018-06-12] MEDS: hydrALAZINE 25 MG TAB PO SCH ×2 (16:33→21:18)
[2018-06-12] MEDS: Atorvastatin Calcium 40 MG TAB PO SCH (21:18)
[2018-06-12] MEDS: Famotidine 20 MG TAB PO SCH (21:18)
--- NOTE | 2018-06-13 01:09 | PRG ---
DATE OF SERVICE: 06/12/2018 REASON FOR CONSULTATION: Nausea and vomiting. SUBJECTIVE: Today, the patient states that she had no further episodes of nausea and vomiting. She had been on the regimen of Reglan 3 times daily with meals and was doing well on this regimen. How er, throughout the day, she was noted to be drowsy per nursing staff as well as speech pathologist. She also exhibited increased difficulty swallowing with a sensation of liquids getting stuck in the b ack of her throat, but only with liquids, not with solid foods (she is not currently on any solid cory ds). Currently denies any nausea, vomiting, fevers, chills, abdominal pain, odynophagia, diarrhea or constipation. OBJECTIVE: VITAL SIGNS: Temperature 98.4, pulse 69, blood pressure 157/57, respiratory rate 12, satting 99% on 2 liters nasal cannula. GENERAL: The patient was lying in bed, in no acute distress. Alert and oriented x4. Drowsy with so me difficulty with verbal stimuli. CARDIOVASCULAR: Regular rate and rhythm. PULMONARY: Clear to auscultation bilaterally. ABDOMEN: Normoactive bowel sounds, soft, nontender, nondistended. EXTREMITIES: No cyanosis, clubbing or edema. LABORATORY DATA: CBC with a white blood cell count of 8.4, hemoglobin 8.5, hematocrit 25.2, platelet s 234. Chemistry with a sodium of 138, potassium 3.6, chloride 103, CO2 of 28, BUN 21, creatinine 1. 6, glucose 187. IMAGING DATA: Speech pathology evaluation earlier today showed the patient was significantly drowsy during the evaluation, but did exhibit signs and symptoms of possible aspiration with recommendations for n.p.o. status for now. ASSESSMENT AND PLAN: The patient is an 83-year-old -[place] Citizen female with past medical history of diabetes; rheumatoid arthritis, on chronic steroids; chronic kidney disease, stage 3; atrial fibr illation, on anticoagulation; hypothyroidism; hypertension; history of deep venous thromboses; histor y of breast cancer; diastolic congestive heart failure; asthma and multiple decubitus ulcers; present ing with chronic nausea and vomiting. Chronic nausea and vomiting: The patient is presenting with a history of intractable nausea and vomi ting, having multiple episodes of discrete vomitus per day prior to this admission. She has undergon e an extensive workup for this particular condition including negative studies for EGD, colonoscopy, and HIDA scan. However, she underwent a gastric emptying study on 06/07/2018, which showed significa ntly reduced emptying at 4 hours consistent with gastroparesis. She was subsequently placed on Tracy n 3 times daily with meals and has had significant improvement in her nausea and vomiting with no fur ther episodes of nausea and vomiting today. However, the patient was extremely somnolent during exam ination today, which is one of the primary side effects of the use of metoclopramide, which raises co ncern that the medication maybe affecting the patient adversely and further contributing to altered m ental status. However, this could also be due to increased length of hospitalization and significant other medical comorbidities contributing to fatigue. RECOMMENDATIONS: 1. We continue metoclopramide 10 mg t.i.d. with meals for gastroparesis. However, if she does lucian nue to display significant fatigue and somnolence, we would consider transferring the patient back to scheduled Zofran with metoclopramide as needed. 2. We would hold the patient n.p.o. at least for now given dysphagia symptoms. When the patient is placed back on a diet, we would strongly consider smaller more frequent meals throughout the day with a low residue diet. 3. We would avoid constipation as it could further exacerbate gastroparesis. 4. We would also recommend tighter glucose control as hyperglycemia can worsen gastroparesis. Dysphagia: The patient is presenting today with increased somnolence and fatigue along with symptoms of dysphagia characterized as the sensation that food is getting stuck in the back of her mouth at t he level of the cricoid cartilage that occurs primarily only with liquids, not with solids. However, the patient had only been consuming solids today due to being only on a clear liquid diet. Speech p athology evaluation earlier today showed that the patient was increasingly somnolent during the exami nation, making it difficult for her to follow instructions and exhibited signs and symptoms consisten t with aspiration. Per their evaluation, it is recommended that she remain n.p.o. at this time. RECOMMENDATIONS: 1. We would repeat a speech pathology evaluation tomorrow for further evaluation of possible aspirat ion. 2. We would attempt to reorient the patient with normal day and night cycles that could further cont ributed to increased fatigue and tiredness. 3. We would reevaluate the patient's medications, administered while here in the hospital for side e ffects of increased somnolence and/or altered mental status including metoclopramide. We will continue to follow.
[2018-06-13] MEDS: Levothyroxine Sodium 125 MCG TAB PO SCH (05:15)
[2018-06-13 05:41] LABS: Anion Gap 12 mmol/L (10-20); BUN (Urea Nitrogen) 19 mg/dL (9.8-20.1); Calc. Creatinine Clearance 54 mL/min (70-130); Calcium 8.1 mg/dL (7.8-10.44); Carbon Dioxide 26 mmol/L (23-31); Chloride 105 mmol/L (98-107); Estimated GFR-MDRD 42; Glucose 155 mg/dL (83-110); Potassium 3.7 mmol/L (3.5-5.1); Sodium 139 mmol/L (136-145)
[2018-06-13] MEDS: Arformoterol 15 MCG/2 ML NEB NEB SCH ×2 (06:50→18:53)
[2018-06-13] MEDS: Budesonide 0.5 MG/2 ML NEB INH SCH ×2 (06:52→18:50)
[2018-06-13] MEDS: Amlodipine 5 MG TAB PO SCH (08:12)
[2018-06-13] MEDS: Metoclopramide HCl 10 MG TAB PO SCH ×4 (08:12→20:27)
[2018-06-13] MEDS: Carvedilol 25 MG TAB PO SCH ×2 (08:12→20:25)
[2018-06-13] MEDS: Folic Acid 1 MG TAB PO SCH (08:13)
[2018-06-13] MEDS: hydrALAZINE 25 MG TAB PO SCH ×3 (08:13→20:25)
[2018-06-13] MEDS: Rivastigmine 1.5 MG CAP PO SCH ×2 (08:14→20:26)
[2018-06-13] MEDS: predniSONE 5 MG TAB PO SCH (08:14)
[2018-06-13] MEDS: Ipratropium Bromide 0.03% Nasal Inhaler 30 ml Bottle EA NARE SCH ×2 (09:59→20:27)
--- NOTE | 2018-06-13 11:52 | PRG ---
DATE OF SERVICE: 06/13/2018 SUBJECTIVE: The patient is doing well and has no complaints. OBJECTIVE: VITAL SIGNS: Temperature 99, pulse 65, respiration 16, O2 sat 100% on 2 liters, blood pressure 169/7 1. HEENT: Unremarkable. NECK: No JVD. CHEST: Clear. CARDIAC: S1 and S2 regular. ABDOMEN: Soft. EXTREMITIES: Generalized edema throughout. LABORATORY DATA: Sodium 139, potassium 3.7, chloride 105, CO2 26, BUN 19, creatinine 1.4, glucose 15 5. ASSESSMENT: 1. Stable pulmonary status. 2. Asthma. PLAN: Continue Brovana, DuoNeb and low dose prednisone.
[2018-06-13] MEDS: Atorvastatin Calcium 40 MG TAB PO SCH (20:25)
[2018-06-13] MEDS: Famotidine 20 MG TAB PO SCH (20:25)
--- NOTE | 2018-06-13 22:25 | PRG ---
DATE OF SERVICE: 06/13/2018 REASON FOR CONSULTATION: Nausea and vomiting. SUBJECTIVE: The patient was more alert today and more conversational when compared to the fatigue an d drowsiness upon yesterday's examination. She was evaluated by Speech Pathology earlier today and w as noted to have a very intact swallow with recommendations toward pureed/thin liquid diet. Currentl y, denies any nausea, vomiting, fevers, chills, abdominal pain, odynophagia, dysphagia, diarrhea, or constipation. OBJECTIVE: VITAL SIGNS: Temperature 98.3, pulse 66, blood pressure 140/72, respiratory rate 16, satting 98% on 1.5 liters nasal cannula. GENERAL: The patient was actually sitting up in bed in no acute distress. Alert and oriented x4. CARDIOVASCULAR: Regular rate and rhythm. PULMONARY: Clear to auscultation bilaterally. ABDOMEN: Normoactive bowel sounds, soft, nontender, nondistended. EXTREMITIES: Mild to moderate edema to mid wright bilaterally. LABORATORY DATA: Chemistry with a sodium of 139, potassium 3.7, chloride 105, CO2 of 26, BUN 19, cre atinine 1.44, glucose 155. IMAGING DATA: Speech pathology evaluation earlier today showed that the patient was capable of consu vonda a thin liquid/pureed diet with no evidence of signs or symptoms consistent with aspiration. ASSESSMENT AND PLAN: The patient is an 83-year-old -[place] female with past medical history of diabetes, rheumatoid arthritis on chronic steroids, chronic kidney disease stage 3, atrial fibril lation on anticoagulation, hypothyroidism, hypertension, history of deep vein thromboses, history of breast cancer, diastolic congestive heart failure, asthma and multiple decubitus ulcers, presenting w ith chronic nausea and vomiting. Nausea and vomiting. The patient is presenting with a history of intractable nausea and vomiting, duran ving multiple episodes of discrete emesis the day prior to this admission. During this hospitalizati on, she underwent extensive workup for this particular condition including negative studies for EGD, colonoscopy, HIDA scan, and right upper quadrant ultrasound; however, she did undergo a gastric empty ing study on 06/07/2018, which showed significantly reduced emptying at 4 hours consistent with gastr oparesis. Since being placed on Reglan t.i.d. with meals, she has had significant improvement of her nausea and vomiting with no further episodes of nausea and vomiting over the last 48 hours. Current ly, she is more alert and able to adequately tolerate a diet with no further episodes of this nausea and vomiting that she experienced on admission. RECOMMENDATIONS: 1. Would continue metoclopramide 10 mg t.i.d. with meals for gastroparesis. 2. Would continue thin liquid/pureed diet per speech pathology recommendations in light of the dysph agia experience yesterday. 3. Would avoid constipation in this patient as it could further exacerbate gastroparesis. Would rec ommend regular bowel regimen. 4. Would recommend tight glucose control as hyperglycemia could potentially worsen gastroparesis. We will continue to follow. Please call with any additional questions.
[2018-06-14] MEDS: Levothyroxine Sodium 125 MCG TAB PO SCH (05:08)
[2018-06-14 05:31] LABS: Anion Gap 11 mmol/L (10-20); BUN (Urea Nitrogen) 19 mg/dL (9.8-20.1); Calc. Creatinine Clearance 51 mL/min (70-130); Carbon Dioxide 24 mmol/L (23-31); Chloride 107 mmol/L (98-107); Estimated GFR-MDRD 39; Potassium 3.8 mmol/L (3.5-5.1); Sodium 138 mmol/L (136-145)
[2018-06-14 05:32] LABS: Calcium 7.8 mg/dL (7.8-10.44); Glucose 173 mg/dL (83-110)
[2018-06-14] MEDS: Budesonide 0.5 MG/2 ML NEB INH SCH ×2 (06:14→19:14)
[2018-06-14] MEDS: Arformoterol 15 MCG/2 ML NEB NEB SCH ×2 (06:16→19:14)
[2018-06-14] MEDS: hydrALAZINE 25 MG TAB PO SCH ×3 (09:09→21:14)
[2018-06-14] MEDS: Amlodipine 5 MG TAB PO SCH (09:10)
[2018-06-14] MEDS: predniSONE 5 MG TAB PO SCH (09:10)
[2018-06-14] MEDS: Metoclopramide HCl 10 MG TAB PO SCH ×4 (09:11→21:12)
[2018-06-14] MEDS: Folic Acid 1 MG TAB PO SCH (09:11)
[2018-06-14] MEDS: Carvedilol 25 MG TAB PO SCH ×2 (09:11→21:14)
[2018-06-14] MEDS: Ipratropium Bromide 0.03% Nasal Inhaler 30 ml Bottle EA NARE SCH ×2 (09:12→21:19)
[2018-06-14] MEDS: Rivastigmine 1.5 MG CAP PO SCH ×2 (09:12→21:16)
--- NOTE | 2018-06-14 12:12 | PRG ---
DATE OF SERVICE: 06/14/2018 REASON FOR CONSULTATION: Nausea and vomiting. SUBJECTIVE: The patient states that she is feeling much better today with no repeated episodes of na usea or vomiting within the last 24-48 hours. She has been able to tolerate the thin liquid/pureed d iet and was in very good spirits at the time of this interview. Currently, she denies any nausea, vo miting, fevers, chills, abdominal pain, odynophagia, dysphagia, diarrhea or constipation. OBJECTIVE: VITAL SIGNS: Temperature 98.5, pulse 59, blood pressure 145/72, respiratory rate 16, satting 99% on room air. GENERAL: The patient was sitting up in bed, in no acute distress. He is alert and oriented x4. CARDIOVASCULAR: Regular rate and rhythm. PULMONARY: Clear to auscultation bilaterally. ABDOMEN: Normoactive bowel sounds, soft, nontender, nondistended. EXTREMITIES: Mild to moderate edema to mid wright bilaterally. LABORATORY DATA: Chemistry with a sodium of 138, potassium 3.8, chloride 107, carbon dioxide 24, BUN 19, creatinine 1.53, glucose 173. IMAGING DATA: No current GI imaging is available for review. ASSESSMENT AND PLAN: The patient is an 83-year-old female with past medical history of diabetes; rheumatoid arthritis, on chronic steroids; chronic kidney disease stage 3; atrial fibri llation, on anticoagulation; hypothyroidism; hypertension; history of DVT; history of breast cancer; diastolic congestive heart failure; asthma and multiple decubitus ulcers, presenting with chronic [place] and vomiting. Nausea and vomiting: The patient is presenting with a history of intractable nausea and vomiting, duran ving multiple episodes of discrete emesis the day prior to admission. However, upon conferring with her today, she states this has been happening for the last few years. During this hospitalization, s he underwent extensive workup for this particular conditions including negative studies for EGD and c olonoscopy, HIDA scan and right upper quadrant ultrasound. However, she did undergo an old gastric e mptying study on 06/07/2018, which showed significantly reduced emptying at 4 hours consistent with g astroparesis. Since being placed on metoclopramide t.i.d. with meals, she has had significant improv ement in her nausea and vomiting and is now currently tolerating a thin liquid/pureed diet. RECOMMENDATIONS: 1. We would continue metoclopramide 10 mg t.i.d. with meals for gastroparesis. 2. Continue thin liquid/pureed diet per speech pathology recommendations. 3. We would avoid constipation in this patient as it could further exacerbate gastroparesis. 4. We would recommend tight glucose control as hyperglycemia could potentially worsen gastroparesis. We will sign off at this time given resolution of her presenting symptoms, the patient can be dischar ged to the [facility] from a GI standpoint, please call with any additional questions.
[2018-06-14] MEDS: HumaLOG 300 UNITS/3 ML VIAL SC PRN ×3 (12:25→21:17)
--- NOTE | 2018-06-14 17:38 | PRG ---
DATE OF SERVICE: 06/14/2018 SUBJECTIVE: Sara Munroe says she is feeling better. She says she is 100% from a respiratory hortencia dpoint. OBJECTIVE: Her lungs are completely clear. Vital signs have been stable. IMPRESSION: 1. Mild asthma that resolved quickly with reinstitution of her nebulizer treatments. 2. Rheumatoid arthritis. 3. Deconditioning. 4. Diabetic gastroparesis. PLAN: Continue with her Reglan, her nebulized budesonide and Brovana twice a day. She is stable to go out of the hospital in my opinion back to a care environment.
--- NOTE | 2018-06-14 18:32 | PDOC.PN ---
- Subjective Encounter Start Date: 06/14/18 Encounter Start Time: 18:30 Subjective: f/u for gastroparesis on current Reglan and improved overall. Receiving -: ADA with Suplena and Aramis supplementation. - Objective Resuscitation Status: Resuscitation Status FULL:Full Resuscitation MAR Reviewed: Yes Vital Signs & Weight: Vital Signs (12 hours) Temp Pulse Resp BP BP Pulse Ox 06/14/18 16:11 65 135/77 06/14/18 16:10 97.7 F 65 20 135/77 97 06/14/18 11:45 98.5 F 59 L 16 145/72 H 99 06/14/18 09:10 60 141/74 H 06/14/18 09:09 60 141/74 H 06/14/18 09:07 97.9 F 60 16 98 06/14/18 07:28 97.9 F 60 16 141/74 H 98 Weight Admit Weight 196 lb Weight 247 lb 2.211 oz I&O: 06/13/18 06/14/18 06/15/18 06:59 06:59 06:59 Intake Total 400 Balance 400 Result Diagrams: 06/12/18 03:52 06/14/18 04:21 Additional Labs: Accuchecks 06/14/18 06/14/18 06/13/18 11:45 04:53 19:46 POC Glucose 201 H 181 H 178 H Phys Exam - Physical Examination Constitutional: NAD HEENT: PERRLA, sclera anicteric, oral pharynx no lesions Neck: no nodes, no JVD, supple, full ROM Respiratory: no wheezing, no rales, no rhonchi, clear to auscultation bilateral S1, S2 Cardiovascular: RRR, no significant murmur, no rub, gallop Gastrointestinal: soft, non-tender, no distention, positive bowel sounds mild generalized edema Musculoskeletal: pulses present Neurological: normal sensation Skin: no rash, normal turgor, cap refill <2 seconds Dx/Plan (1) Nausea & vomiting Code(s): R11.2 - NAUSEA WITH VOMITING, UNSPECIFIED Status: Acute Qualifiers: Vomiting type: unspecified Vomiting Intractability: intractable Qualified Code(s): R11.2 - Nausea with vomiting, unspecified Comment: better. polyp removed, gastric emptying study confirmed delayed emptying, felt to be diabetic gastroparesis, continue Reglan 10mg QID (2) Gastroparesis Code(s): K31.84 - GASTROPARESIS Status: Chronic Comment: Reglan 10mg QID (3) CKD (chronic kidney disease) stage 3, GFR 30-59 ml/min Status: Chronic Comment: Avoid nephrotoxic meds and limit contrast exposure (4) Chronic anticoagulation Code(s): Z79.01 - LEGAL MEDIATOR (CURRENT) USE OF ANTICOAGULANTS Status: Chronic (5) Chronic wound of extremity Code(s): [id number] - Status: Chronic Comment: s/p debridement (6) Generalized weakness Code(s): R53.1 - WEAKNESS Status: Chronic Comment: chronic, continue supportive mgmt, PT for mobilization and ROM exercises (7) Hypertension Code(s): I10 - ESSENTIAL (PRIMARY) HYPERTENSION Status: Chronic Qualifiers: Hypertension type: essential hypertension Qualified Code(s): I10 - Essential (primary) hypertension Comment: Continue current BP regimen, serial monitoring - Plan PT/OT, social services technician, speech therapy, DVT proph w/SCDs Stable overall -: Continue Pulmicort/Brovana -: Continue Reglan 10mg QID -: PT for mobilization -: Likely back to SNF in 24h * .
[2018-06-14] MEDS: Famotidine 20 MG TAB PO SCH (21:14)
[2018-06-14] MEDS: Atorvastatin Calcium 40 MG TAB PO SCH (21:14)
[2018-06-15] MEDS: Levothyroxine Sodium 125 MCG TAB PO SCH (06:06)
[2018-06-15] MEDS: Metoclopramide HCl 10 MG TAB PO SCH ×2 (08:40→13:12)
[2018-06-15] MEDS: Carvedilol 25 MG TAB PO SCH (10:01)
[2018-06-15] MEDS: Ipratropium Bromide 0.03% Nasal Inhaler 30 ml Bottle EA NARE SCH (10:01)
[2018-06-15] MEDS: Folic Acid 1 MG TAB PO SCH (10:01)
[2018-06-15] MEDS: Rivastigmine 1.5 MG CAP PO SCH (10:01)
[2018-06-15] MEDS: Amlodipine 5 MG TAB PO SCH (10:01)
[2018-06-15] MEDS: hydrALAZINE 25 MG TAB PO SCH (10:01)
[2018-06-15] MEDS: predniSONE 5 MG TAB PO SCH (10:01)
[2018-06-15] MEDS: Arformoterol 15 MCG/2 ML NEB NEB SCH (10:34)
[2018-06-15] MEDS: Budesonide 0.5 MG/2 ML NEB INH SCH (10:35)
[2018-06-15] MEDS: HumaLOG 300 UNITS/3 ML VIAL SC PRN (13:56)
[2018-06-15 14:08] VITALS: BP 99/47; TEMP 97.9
[2018-06-15] MEDS: cloNIDine 0.2mg/24 Hour PATCH TD SCH (14:12)
--- NOTE | 2018-06-15 21:54 | DIS ---
DATE OF ADMISSION: 05/28/2018 DATE OF DISCHARGE: 06/15/2018 DISCHARGE DIAGNOSES: 1. Nausea and vomiting, secondary to gastroparesis, improved. 2. Diabetic gastroparesis. 3. Chronic kidney disease, stage 3. 4. Chronic anticoagulation. 5. Chronic stage 3 right heel ulcer. 6. Generalized weakness. 7. Hypertension, stable. 8. Status post resection of duodenal tubulovillous adenoma. 9. Chronic asthma. 10. Status post urinary tract infection with Citrobacter and Klebsiella species. 11. Acute on chronic normocytic anemia, status post 1 unit of packed red blood cells. CONSULTATIONS: Dr. Jade with GI service. Dr. Casas with General Surgery Service. Dr. Pearce with Infectious Disease service. Dr. Smalls and Dr. Cage with Pulmonology Service. [facility] PERTINENT LABORATORY AND X-RAY FINDINGS: Lactic acid level 1.1, magnesium level 1.4. BNP 89. CBC s howed a hemoglobin ranging between 7.0-9.9, MCV 93. C. difficile antigen and toxin 05/28/2018 negati ve. Urine culture dated 05/28/2018, positive for Citrobacter and Klebsiella species. Blood cultures x2 dated 05/28/2018 showed no growth at 5 days. Stool Hemoccult dated 06/09/2018 negative. Stool c ulture dated 06/09/2018 showed moderate normal enteric rohini. Campylobacter and Shigella toxin negat rommel 06/09/2018. Portable chest x-ray dated 05/28/2018 showed no acute cardiopulmonary process. CT o f the abdomen and pelvis dated 05/28/2018 showed bibasilar scarring. No evidence of bowel obstructio n. No acute process identified. Abdominal ultrasound dated 05/29/2018 showed gallbladder sludge and mild gallbladder wall thickening. Three views of the right foot dated 05/29/2018 showed osteopenia and degenerative changes. No evidence of lytic or destructive process. EGD dated 06/01/2018 showed nonobstructive duodenal mass in the third portion of the duodenum. Duodenal biopsy dated 06/01/2018 showed duodenal adenoma without high-grade dysplasia or malignancy. HIDA scan dated 06/03/2018 showe d normal findings. Gastric emptying evaluation dated 06/07/2018 showed delayed gastric emptying. Po lypectomy pathology dated 06/08/2018 showed a tubulovillous adenoma. HOSPITAL COURSE: The patient was initially admitted after presenting with intractable nausea, vomiti ng, and diarrhea. The patient underwent extensive evaluation with protracted hospital course of 18 d ays with multiple consultants and evaluations regarding intra-abdominal process. The patient was flora brandi on IV fluids as well as given antiemetics and proton pump inhibitors. The patient was slow to cl inically improve and was evaluated by the GI service, undergoing EGD evaluation as stated previously. The patient was noted with a duodenal mass on routine EGD evaluation, prompting biopsies, which rosario wed no evidence of malignancy or dysplasia. The patient was slow to clinically improve and was given a trial of clear liquids, advancing to soft mechanical diet. Patient also underwent evaluation with metabolic screening showing evidence of urinary tract infection, at which point patient received IV antibiotic therapy. The patient also underwent evaluation for the duodenal mass by General Surgery Franko paul; however, no specific surgical intervention was recommended and the patient proceeded with end oscopy exam with polypectomy showing a tubulovillous adenoma. The patient also underwent evaluation for delayed gastric emptying and initiated on scheduled Reglan. The patient was successful in tolera ting oral intake with the additional scheduled Reglan in addition to proton pump inhibitors. The pat ient overall was able to successfully to tolerate a pureed diet with thin liquids. The patient recei [facility] for a right heel ulcer during the hospital course and overall remained clinic ally stable. On exam, the patient, at the time of discharge, discussed followup instructions. The p atient understands and verbalized understanding and agreement and ready for discharge on 06/15/2018. DISCHARGE MEDICATIONS: 1. Tylenol 650 mg p.o. q.6 hours p.r.n. 2. Norvasc 5 mg p.o. daily. 3. Coreg 25 mg p.o. b.i.d. 4. Clonidine patch 0.2 mg transdermally every 7 days. 5. Orajel 15 grams p.o. p.r.n. 6. Ferrous sulfate 325 mg p.o. daily. 7. Humalog 4 units subcutaneously t.i.d. with meals. 8. Plaquenil 200 mg p.o. b.i.d. 9. Levemir FlexPen 20 units subcutaneously q.a.m. 10. Zofran ODT 4 mg p.o. q.8 hours p.r.n. 11. Protonix 40 mg p.o. daily. 12. Ranitidine 150 mg p.o. b.i.d. 13. Rivastigmine 6 mg p.o. b.i.d. 14. Zoloft 50 mg p.o. at bedtime. 15. Brovana 15 mcg nebulized b.i.d. 16. Pulmicort 0.5 mg inhaled b.i.d. 17. Folic acid 1 mg p.o. daily. 18. DuoNeb 3 mL nebulized q.4 hours p.r.n. 19. Levothyroxine 125 mcg p.o. daily. 20. Asmanex 2 puffs inhaled b.i.d. FOLLOWUP: The patient will follow up with Dr. Concetta Winston after discharge. CONDITION ON DISCHARGE: Fair. ACTIVITY: Ad shahzad. Wheelchair for mobilization. Fall risk precautions. DIET: ADA with pureed texture and thin liquids. Aramis supplements b.i.d. with meals. SPECIAL INSTRUCTIONS: Recommend PT evaluation and general fall risk precautions. Recommend wound ca re services for right heel stage 3 ulcer. CODE STATUS: FULL. DISPOSITION: Discharged [facility], 06/15/2018. Total time in preparing and coordinating discharge is 37 minutes.
== END 2018-06-15 14:48 | DRG 73 ==
LOC: ERS 14:14 → 2NO 20:38 → T4-B 05-30 14:28
PROVIDERS: ADMIT Internal Medicine; ATTEND Internal Medicine
PROC: 30233N1 Transfusion of Nonautologous Red Blood Cells into Peripheral Vein, Percutaneous Approach (ICD-10-PCS; principal; 2018-05-31)
PROC: 0DB98ZX Excision of Duodenum, Via Natural or Artificial Opening Endoscopic, Diagnostic (ICD-10-PCS; 2018-06-01)
PROC: 0DB98ZZ Excision of Duodenum, Via Natural or Artificial Opening Endoscopic (ICD-10-PCS; 2018-06-04)
DX: E11.43 Type 2 diabetes mellitus with diabetic autonomic (poly)neuropathy (principal); L89.613 Pressure ulcer of right heel, stage 3; N17.9 Acute kidney failure, unspecified; N39.0 Urinary tract infection, site not specified; I13.0 Hypertensive heart and chronic kidney disease with heart failure and stage 1 through stage 4 chronic kidney disease, or unspecified chronic kidney disease; I24.8 Other forms of acute ischemic heart disease; I50.32 Chronic diastolic (congestive) heart failure; D13.2 Benign neoplasm of duodenum; K31.84 Gastroparesis; E86.0 Dehydration; E87.6 Hypokalemia; I48.2 Chronic atrial fibrillation; N18.3 Chronic kidney disease, stage 3 (moderate); E11.51 Type 2 diabetes mellitus with diabetic peripheral angiopathy without gangrene; E11.649 Type 2 diabetes mellitus with hypoglycemia without coma; D63.1 Anemia in chronic kidney disease; J44.9 Chronic obstructive pulmonary disease, unspecified; E11.22 Type 2 diabetes mellitus with diabetic chronic kidney disease; I25.5 Ischemic cardiomyopathy; M06.9 Rheumatoid arthritis, unspecified; E11.621 Type 2 diabetes mellitus with foot ulcer; L97.519 Non-pressure chronic ulcer of other part of right foot with unspecified severity; K82.8 Other specified diseases of gallbladder; K21.9 Gastro-esophageal reflux disease without esophagitis; J45.20 Mild intermittent asthma, uncomplicated; B96.1 Klebsiella pneumoniae [K. pneumoniae] as the cause of diseases classified elsewhere; B96.89 Other specified bacterial agents as the cause of diseases classified elsewhere; E03.9 Hypothyroidism, unspecified; E78.5 Hyperlipidemia, unspecified; Z86.718 Personal history of other venous thrombosis and embolism; Z85.3 Personal history of malignant neoplasm of breast; Z79.52 Long term (current) use of systemic steroids; Z79.01 Long term (current) use of anticoagulants; Z79.4 Long term (current) use of insulin; Z88.8 Allergy status to other drugs, medicaments and biological substances
CPT/HCPCS: 36415; 36416; 36430; 51701; 71045; 74177; 76705; 78227; 78264; 80048; 80053; 81003; 81015; 82274; 82553; 82805; 83605; 83735; 83880; 84484; 85014; 85018; 85025; 86850; 86900; 86901; 87040; 87045; 87046; 87077; 87086; 87186; 87324; 87449; 87899; 88305; 93005; 94640; 94760; 96361; 96365; 96375; A4216; A4353; A9537; A9541; G8996-GN-CN; G8997-GN-CL; J0360; J0696; J1610; J2001; J2405; J2550; J2704; J2765; J3475; J7042; J7050; J7070; J7620; J7626; P9016; Q0162

== ENCOUNTER 2018-06-15 23:10 | Inpatient (IN) | payer MEDICARE, MEDICAID ==
[~2018-06-15 23:10] MED LIST changes: -Iopamidol 370 76% 50 ML VIAL FS ONE
[2018-06-15] MEDS ORDERED: Succinylcholine Chloride 20 MG/ML 10 ml SYRINGE FS ONE (23:26)
[2018-06-15 23:43] LABS: #Eosinphils 0.1 thou/uL (0.0-0.7); #Lymphocytes 1.8 thou/uL (1.20-3.40); #Monocytes 0.7 thou/uL (0.11-0.59); %Basophils 0.4 % (0.0-1.0); %Eosinophils 0.9 % (0.0-10.0); %Lymphocytes 20.9 % (21.0-51.0); %Monocytes 7.9 % (0.0-10.0); %Neutrophils 69.9 % (42.0-75.0); Hemoglobin 8.8 g/dL (12.0-16.0); Mean Corpuscular HGB CONC 32.9 g/dL (32.0-36.0); Mean Corpuscular Hemoglobin 31.1 pg (27.0-31.0); Mean Corpuscular Volume 94.5 fL (78.0-98.0); Mean Platelet Volume 8.9 fL (7.4-10.4); Platelet Count 275 thou/uL (130-400); RBC Distribution Width 14.2 % (11.5-14.5); Red Blood Cell (RBC) Count 2.82 mill/uL (4.20-5.40); White Blood Cell (WBC) Count 8.6 thou/uL (4.8-10.8)
--- NOTE | 2018-06-15 23:46 | RAD ---
SINGLE VIEW OF THE CHEST: 06/15/18 COMPARISON: 05/28/18 HISTORY: Respiratory distress. FINDINGS: Single view of the chest shows an enlarged cardiomediastinal silhouette. An endotracheal tube is seen at the lower border of the clavicles. An NG tube is seen in the stomach. Diffuse increased interstit ial lung markings are present. There are possibly superimposed air space opacities scattered througho ut the lungs. IMPRESSION: Appropriate position of endotracheal tube and NG tube. POS: [facility]
[2018-06-15] MEDS ORDERED: fentaNYL Citrate/PF 2,000 MCG in Sodium Chloride 0.9% 60 ML IV SCH (23:54)
[2018-06-16 00:08] LABS: ALT (SGPT) 7 U/L (8-55); AST (SGOT) 17 U/L (5-34); Albumin 2.8 g/dL (3.4-4.8); Alkaline Phosphatase 89 U/L (40-150); Anion Gap 15 mmol/L (10-20); BUN (Urea Nitrogen) 21 mg/dL (9.8-20.1); Bilirubin, Total 0.4 mg/dL (0.2-1.2); Calc. Creatinine Clearance 0 mL/min (70-130); Calcium 8.3 mg/dL (7.8-10.44); Carbon Dioxide 24 mmol/L (23-31); Chloride 104 mmol/L (98-107); Estimated GFR-MDRD 38; Globulin 3.4 g/dL (2.4-3.5); Glucose 224 mg/dL (83-110); Potassium 3.8 mmol/L (3.5-5.1); Protein, Total 6.2 g/dL (6.0-8.3); Sodium 139 mmol/L (136-145)
[2018-06-16 00:08] LABS: Bilirubin Negative (Negative); Blood, Urine Large (Negative); Clarity TURBID (Clear); Glucose, Urine (Dipstick) Negative (Negative); Leukocyte Large (Negative); Nitrite Negative (Negative); Protein, Urine (Dipstick) 300 mg/dL (Neg-Trace); Specific Gravity, Urine 1.015 (1.002-1.036); Urobilinogen 0.2 mg/dL (0.2-1.0); pH, Urine 6.5 (5.0-9.0)
[2018-06-16 00:09] LABS: CKMB 1.1 ng/mL (0-6.6); Troponin I 0.024 ng/mL (< 0.028)
[2018-06-16 00:11] LABS: Bacteria/HPF 4+ HPF (None Seen)
[2018-06-16 00:18] LABS: Pathc Cast-AUWi Flag 1047.32 (0-2.49); Yeast-AUWi Flag 460.3 (0-25.0)
[2018-06-16] MEDS ORDERED: methylPREDNISolone Sod Succ/PF 125 MG/2 ML VIAL ONE (00:19)
[2018-06-16 00:47] LABS: Hyaline Casts/LPF 0-3 HYALINE CAST LPF (0-3 Hyaline); Other Casts/LPF None Seen LPF (0-3 Hyaline); Oval Fat Bodies/HPF None Seen HPF (None Seen); Sperm/HPF None Seen HPF (None Seen); Transitional Epithelial NONE SEEN HPF (0-3); Trichomonas/HPF None Seen HPF (None Seen); Yeast-All Forms None Seen HPF (None Seen)
[2018-06-16 01:18] LABS: pH, Arterial 7.41 (7.35-7.45)
[2018-06-16 01:19] LABS: Actual Bicarbonate (HCO3a) 25.2 mEq/L (22-28); Analyzer IN Cardio ER; Base Excess (BEa) 0.5 mEq/L (-2.0 to +3.0); Calcium, Ionized 1.13 mmol/L (1.12-1.30); Carboxyhemoglobin (COHb) 0.1 gm% (0.0-3.0); Hemoglobin (Hb) 9.5 g/dL (12.0-16.0); Potassium - ABG Lab 3.34 mmol/L (3.70-5.30); Puncture Site RRA
[2018-06-16] MEDS ORDERED: Piperacillin/Tazobactam 4.5 GM VIAL ONE (01:23)
[2018-06-16] MEDS ORDERED: Sodium Chloride 0.9% 100 ML ONE (01:23)
[2018-06-16] MEDS ORDERED: Propofol 1,000 MG/100 ML VIAL IV ONE (01:49)
[2018-06-16] MEDS ORDERED: Acetaminophen 325 MG TAB PO PRN (01:55)
[2018-06-16] MEDS ORDERED: Dextrose 5% in Water 1,000 ML IV PRN (01:59)
[2018-06-16] MEDS ORDERED: Dextrose 50% Abboject 50 ML SYRINGE SLOW IVP PRN (01:59)
[2018-06-16] MEDS ORDERED: Ventilator Sedation Protocol 1 EACH FS ONE (02:39)
[2018-06-16] MEDS ORDERED: Lorazepam 2 MG/ML VIAL SLOW IVP PRN (02:45)
[2018-06-16] MEDS ORDERED: Propofol 1,000 MG/100 ML VIAL IV PRN (02:45)
[2018-06-16] MEDS ORDERED: Fentanyl BOLUS 250 ML IVPB PRN (02:45)
[2018-06-16] MEDS ORDERED: DISCONTINUE PREVIOUS NARCOTIC PAIN MEDICATIONS AND BENZODIAZEPINES FS SCH (02:45)
[2018-06-16] MEDS ORDERED: Propofol BOLUS 1,000 MG/100 ML VIAL IV PRN (02:45)
[2018-06-16 03:06] VITALS: BMI 31.9
[2018-06-16] MEDS: Vancomycin HCl 1.25 GM in Sodium Chloride 0.9% 250 ML 250 ML IVPB SCH (04:28)
[2018-06-16] MEDS: Levothyroxine Sodium 125 MCG TAB PO SCH (04:50)
[2018-06-16] MEDS: HumaLOG 300 UNITS/3 ML VIAL SC PRN ×3 (04:59→17:57)
[2018-06-16 05:31] LABS: #Lymphocytes 1.1 thou/uL (1.20-3.40); #Monocytes 0.3 thou/uL (0.11-0.59); #Neutrophils 10.4 thou/uL (1.40-6.50); %Basophils 0.4 % (0.0-1.0); %Eosinophils 0.1 % (0.0-10.0); %Monocytes 2.5 % (0.0-10.0); %Neutrophils 87.9 % (42.0-75.0); Hemoglobin 9.3 g/dL (12.0-16.0); Mean Corpuscular HGB CONC 32.5 g/dL (32.0-36.0); Mean Corpuscular Hemoglobin 30.6 pg (27.0-31.0); Mean Corpuscular Volume 94.1 fL (78.0-98.0); Mean Platelet Volume 8.7 fL (7.4-10.4); Platelet Count 274 thou/uL (130-400); RBC Distribution Width 14.1 % (11.5-14.5); Red Blood Cell (RBC) Count 3.03 mill/uL (4.20-5.40); White Blood Cell (WBC) Count 11.9 thou/uL (4.8-10.8)
[2018-06-16 05:46] LABS: Anion Gap 13 mmol/L (10-20); BUN (Urea Nitrogen) 22 mg/dL (9.8-20.1); Calc. Creatinine Clearance 44 mL/min (70-130); Calcium 8.4 mg/dL (7.8-10.44); Carbon Dioxide 26 mmol/L (23-31); Chloride 103 mmol/L (98-107); Estimated GFR-MDRD 38; Glucose 224 mg/dL (83-110); Potassium 3.5 mmol/L (3.5-5.1); Sodium 138 mmol/L (136-145)
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
--- NOTE | 2018-06-16 08:11 | HP ---
TIME OF EVALUATION: 01:50 a.m. PRIMARY CARE PHYSICIAN: Dr. Concetta Winston. CODE STATUS: FULL CODE. CHIEF COMPLAINT: Shortness of breath. HISTORY OF PRESENT ILLNESS: This is an 83-year-old female patient with a past medical history of arrhythmia, atrial fibrillation, RA, diabetes type 2, neuropathy, congestive heart failure, hypertension, asthma, pneumonia, hypothyroidism, came to the hospital after having severe respiratory distress, retirement called because saturation was in the 80s. The patient was found by EMS, having copious amount of clear secretions coming from the mouth. The patient was unstable, decision was to intubate the patient. Symptoms are severe , no clear triggers, no alleviating factors. REVIEW OF SYSTEMS: Unable to obtain, the patient is intubated and sedated. PAST MEDICAL HISTORY: Reported in the HPI. PAST SURGICAL HISTORY: Positive for bilateral rotator cuff. PAST SURGICAL HISTORY: Thyroidectomy, left ankle, tibia, appendectomy, C- section x2, hysterectomy, bilateral breast tumors removed, esophageal tumor removed. PSYCHIATRIC HISTORY: No previous psychiatric history. SOCIAL HISTORY: No alcohol, no drugs. Lives in a retirement. Quit smoking 20 years ago. FAMILY HISTORY: Positive for pulmonary embolism. KNOWN ALLERGIES: To LACTOSE, NSAIDs. MEDICATIONS: On record, furosemide, Levemir, levothyroxine, folic acid, Coreg, Plaquenil, cefdinir, Aramis, Phenergan, ferrous sulfate, atorvastatin, Protonix, Asmanex, Ultram, prednisone, Exelon, Zoloft, lisinopril, Eliquis, Zofran, clonidine, amlodipine. PHYSICAL EXAMINATION: VITAL SIGNS: On presentation, blood pressure 162/47, heart rate 59, respiratory rate was 20, oxygen saturation was 100 on the vent. GENERAL APPEARANCE: The patient was alert , in no any acute distress during my examination. HEENT: Eyes: Normal conjunctivae. Moist oral mucosa, anicteric. NECK: No JVD. The patient is intubated. RESPIRATORY: Bilateral air entry. No rales, no wheezing. Symmetric expansion. CARDIOVASCULAR: Normal rate, regular rhythm. No murmurs, no gallop. EXTREMITIES: No edema. ABDOMEN: Soft, normal bowel sounds. MUSCULOSKELETAL: Baseline range of motion and strength. No tenderness. Peripheral pulses are present. Capillary refill seems to be intact. SKIN: Warm and intact. No pallor, no rash, no redness. NEUROLOGIC: Baseline sensorium. No evidence of any new focal weakness. Baseline speech. Cranial nerve seems to be intact. PSYCHIATRIC: The patient is in a good mood. No anxiety. Oriented, optimal judgment. DIAGNOSTIC DATA: EKG shows atrial fibrillation with a rate of 71. QT corrected 502. No evidence of any acute ischemic event. CT chest angio showed no pulmonary embolism. There is no pleural effusion and there is bibasilar atelectasis change or scarring versus bibasilar pneumonitis. Chest x-ray showed appropriate ET tube and NG tube placement. LABORATORY DATA: Reviewed. White count 8.6, hemoglobin 8.8, MCV 94.5, platelet count 275,000. Blood gas pH 7.4, pCO2 of 41, pO2 of 236; this was done on mechanical ventilation at the rate of 12, inspired oxygen 70, volume 500 , pressure support of 10. Chemistry: Sodium 139, potassium 3.8, chloride 104, carbon dioxide 24, anion gap 15, BUN 21, creatinine 1.5, GFR 38, glucose 224. Lactic acid 0.5, calcium 9.3, total bilirubin 0.4, AST 17, ALT 7, alkaline phosphatase 89. Troponin 0.024. Beta-natriuretic peptide 292. Serum total protein 6.2, albumin 2.8, globulin 3.4, albumin globulin ratio 0.8. TSH 1.7. UA was done, white count was greater than 50 too numerous to count. ASSESSMENT AND PLAN: The patient will be placed in the hospital with the following medical problems: 1. History of urinary tract infection. The patient has positive UA, the patient on broad spectrum antibiotics. We will follow cultures. We will adjust treatment as needed. 2. Acute respiratory failure, clear etiology, could be secondary to sepsis. Patient was intubated due to persistent saturation in the 80s, acute respiratory distress. Pulmonary has been consulted for further recommendations. 3. Chronic kidney disease, creatinine 1.5. Same management as before. We will monitor, adjust treatment as needed. 4. Uncontrolled diabetes with hyperglycemia, glucose 224, likely triggered by underlying infection plus acute physical distress. Reconcile home medications, sliding scale for optimal control. 5. Chronic normocytic anemia, can be related to underlying RA. Reconcile home medications. No need for any acute intervention at this time. 6. Deep vein thrombosis prophylaxis. Critical care time spent more than 35 minutes of bedside assessment, coordination of care, review and elaboration of records. ADALID
[2018-06-16] MEDS: Piperacillin/Tazobactam 3.375 GM in Sodium Chloride 0.9% 100 ML IVPB SCH ×3 (08:28→20:02)
[2018-06-16] MEDS ORDERED: Diabetic Tussin 200 MG/10 ML UDCUP PO PRN (08:36)
[2018-06-16] MEDS ORDERED: hydrALAZINE 20 MG/ML VIAL SLOW IVP PRN (08:36)
[2018-06-16] MEDS ORDERED: Metoclopramide HCl 10 MG/2 ML VIAL IVP PRN (08:36)
[2018-06-16] MEDS ORDERED: Eucerin (Mineral Oil/Petrolatum,White) 30 gm Jar TOP PRN (08:36)
[2018-06-16] MEDS ORDERED: Ondansetron HCl/PF 4 MG/2 ML Vial IVP PRN (08:36)
[2018-06-16] MEDS ORDERED: Artificial Tears 18 DROP/0.9 ML EA EYE PRN (08:36)
[2018-06-16] MEDS ORDERED: Senokot 8.6 MG TAB PO PRN (08:36)
[2018-06-16] MEDS ORDERED: Loperamide HCl 2 MG CAP PO PRN (08:36)
[2018-06-16] MEDS ORDERED: Milk Of Magnesia 30 ML UDCUP PO PRN (08:36)
[2018-06-16] MEDS: Enoxaparin Sodium 40 MG/0.4 ML SYRINGE SC SCH (08:54)
[2018-06-16 08:57] LABS: Actual Bicarbonate (HCO3a) 27.1 mEq/L (22-28); Base Excess (BEa) 1.6 mEq/L (-2.0 to +3.0); CO2 Tension 46.9 mmHg (35.0-45.0); Hemoglobin (Hb) 9.4 g/dL (12.0-16.0); O2 Tension (PaO2) 132.5 mmHg (> 60.0); pH, Arterial 7.38 (7.35-7.45)
[2018-06-16 08:58] LABS: Calcium, Ionized 1.13 mmol/L (1.12-1.30); Carboxyhemoglobin (COHb) 0.8 gm% (0.0-3.0); Potassium - ABG Lab 3.63 mmol/L (3.70-5.30)
[2018-06-16] MEDS: Famotidine/PF 20 mg/2ml Vial SLOW IVP SCH (08:58)
[2018-06-16 09:02] LABS: Puncture Site RR
[2018-06-16 09:03] LABS: ALV-art Gradient 94.075 (0-20)
--- NOTE | 2018-06-16 11:50 | PDOC.PN ---
- Subjective Encounter Start Date: 06/16/18 Encounter Start Time: 09:30 -: old records requested/rev this morning pt is extubated, she is doing ok, - Objective Resuscitation Status: Resuscitation Status FULL:Full Resuscitation Vital Signs & Weight: Vital Signs (12 hours) Temp Pulse Resp BP Pulse Ox 06/16/18 10:05 100 06/16/18 09:41 67 175/71 H 06/16/18 08:00 98.1 F 12 06/16/18 07:57 64 164/70 H 06/16/18 04:00 12 06/16/18 03:31 97.6 F 64 12 100 06/16/18 03:01 64 168/54 H 06/16/18 03:00 98.6 F Weight Weight 216 lb 4.375 oz Most Recent Monitor Data Heart Rate from ECG 65 NIBP 175/74 NIBP BP-Mean 107 Respiration from ECG 12 SpO2 100 I&O: 06/15/18 06/16/18 06/17/18 06:59 06:59 06:59 Intake Total 313 160 Output Total 235 85 Balance 78 75 Result Diagrams: 06/16/18 04:55 06/16/18 04:55 Additional Labs: Accuchecks 06/16/18 04:55 POC Glucose 225 H Radiology Reviewed by me: Yes (chest xray reviewed) EKG Reviewed by me: Yes (nsr) Phys Exam - Physical Examination Constitutional: NAD HEENT: PERRLA, moist MMs, sclera anicteric Neck: no JVD, supple Respiratory: no wheezing, no rales, no rhonchi Cardiovascular: RRR, no significant murmur, no rub Gastrointestinal: soft, non-tender, no distention, positive bowel sounds Musculoskeletal: no edema, pulses present heel ulcer with dressing Neurological: moves all 4 limbs Lymphatic: no nodes Psychiatric: normal affect Skin: no rash, normal turgor Dx/Plan (1) Acute respiratory failure with hypoxia Code(s): J96.01 - ACUTE RESPIRATORY FAILURE WITH HYPOXIA Status: Acute (2) UTI (urinary tract infection) Status: Acute (3) Anemia, normocytic normochromic Code(s): D64.9 - ANEMIA, UNSPECIFIED Status: Chronic (4) Asthma Code(s): J45.909 - UNSPECIFIED ASTHMA, UNCOMPLICATED Status: Chronic Qualifiers: (5) CKD (chronic kidney disease) stage 3, GFR 30-59 ml/min Status: Chronic Comment: (6) Chronic anticoagulation Code(s): Z79.01 - CHCF (CURRENT) USE OF ANTICOAGULANTS Status: Chronic (7) Chronic heel ulcer Code(s): L97.409 - NON-PRS CHRONIC ULCER OF UNSP HEEL AND MIDFOOT W UNSP SEVERT Status: Chronic (8) Diabetic gastroparesis Code(s): E11.43 - TYPE 2 DIABETES W DIABETIC AUTONOMIC (POLY)NEUROPATHY; K31.84 - GASTROPARESIS Status: Chronic (9) Hyperlipidemia Code(s): E78.5 - HYPERLIPIDEMIA, UNSPECIFIED Status: Chronic Qualifiers: (10) Hypertension Code(s): I10 - ESSENTIAL (PRIMARY) HYPERTENSION Status: Chronic Qualifiers: Comment: (11) Hypothyroidism Code(s): E03.9 - HYPOTHYROIDISM, UNSPECIFIED Status: Chronic Qualifiers: Comment: (12) Obesity (BMI 30.0-34.9) Code(s): E66.9 - OBESITY, UNSPECIFIED Status: Chronic (13) Paroxysmal atrial fibrillation Code(s): I48.0 - PAROXYSMAL ATRIAL FIBRILLATION Status: Chronic (14) Physical deconditioning Code(s): R53.81 - OTHER MALAISE Status: Chronic (15) Rheumatoid arteritis Code(s): I00 - RHEUMATIC FEVER WITHOUT HEART INVOLVEMENT Status: Chronic (16) Type II diabetes mellitus Status: Chronic Qualifiers: Comment: - Plan cont current plan of care, continue antibiotics, respiratory therapy * continue vancomycin and zosyn * monitor in ccu after extubation * medication reviewed as below * symptomatic treatment * supportive care, wound care. Review of Systems - Review of Systems ENT: negative: Ear Pain, Ear Discharge, Nose Pain, Nose Discharge, Nose Congestion, Mouth Pain, Mouth Swelling, Throat Pain, Throat Swelling, Other Respiratory: negative: Cough, Dry, Shortness of Breath, Hemoptysis, SOB with Excertion, Pleuritic Pain, Sputum, Wheezing Cardiovascular: negative: chest pain, palpitations, orthopnea, paroxysmal nocturnal dyspnea, edema, light headedness, other Gastrointestinal: negative: Nausea, Vomiting, Abdominal Pain, Diarrhea, Constipation, Melena, Hematochezia, Other Genitourinary: negative: Dysuria, Frequency, Incontinence, Hematuria, Retention , Other Musculoskeletal: negative: Neck Pain, Shoulder Pain, Arm Pain, Back Pain, Hand Pain, Leg Pain, Foot Pain, Other - Medications/Allergies Allergies/Adverse Reactions: Allergies Allergy/AdvReac Type Severity Reaction Status Date / Time aspirin Allergy Intermediate Verified 04/21/18 22:14 NSAIDS (Non-Steroidal Allergy Intermediate Verified 04/21/18 22:14 Anti-Inflamma lactose AdvReac Diarrhea Verified 01/28/18 03:24 Medications: Current Medications Acetaminophen (Tylenol) 650 mg PO Q4H PRN PRN Reason: Headache/Fever or Pain Albuterol/Ipratropium (Duoneb) 3 ml NEB Q4H PRN PRN Reason: Dyspnea Albuterol/Ipratropium (Duoneb) 3 ml NEB [id number] [facility] Artificial Tears (Tears Naturale) 0 drop EA EYE PRN PRN PRN Reason: Dry Eyes Dextrose/Water (Dextrose 50%) 25 gm SLOW IVP PRN PRN PRN Reason: Hypoglycemia Enoxaparin Sodium (Lovenox) 40 mg SC 0900 [facility] Last Admin: 06/16/18 08:54 Dose: 40 mg Famotidine (Pepcid) 20 mg SLOW IVP DAILY [facility] Last Admin: 06/16/18 08:58 Dose: 20 mg Glucagon (Glucagon) 1 mg IM PRN PRN PRN Reason: Hypoglycemia Guaifenesin (Robitussin Sf) 200 mg PO Q4H PRN PRN Reason: Cough Hydralazine HCl (Apresoline) 10 mg SLOW IVP Q4H PRN PRN Reason: Systolic BP > 180 Fentanyl Citrate 2,000 mcg/ (Sodium Chloride) 100 mls @ 0 mls/hr IV INF [facility]; Protocol Stop: 07/15/18 23:54 Dextrose/Water (D5w) 1,000 mls @ 0 mls/hr IV .Q0M PRN PRN Reason: Hypoglycemia Fentanyl Citrate (Fentanyl Bolus) 250 mls @ 0 mls/hr IVPB PRN PRN PRN Reason: Breakthrough pain/agitation Stop: 07/16/18 02:45 Piperacillin Sod/Tazobactam (Sod 3.375 gm/ Sodium Chloride) 100 mls @ 200 mls/ hr IVPB 0200,0800,1400,2000 [facility] Last Admin: 06/16/18 08:28 Dose: 100 mls Vancomycin HCl 1.25 gm/ Sodium (Chloride) 250 mls @ 166.667 mls/hr IVPB Q24HR@ 0500 [facility] Last Admin: 06/16/18 04:28 Dose: 250 mls Insulin Human Lispro (Humalog) 0 units SC .MILD SLIDING SCALE PRN PRN Reason: Mild Correctional Scale Last Admin: 06/16/18 04:59 Dose: 3 unit Levothyroxine Sodium (Synthroid) 125 mcg PO 0600 [facility] Last Admin: 06/16/18 04:50 Dose: 125 mcg Loperamide HCl (Imodium) 2 mg PO PRN PRN PRN Reason: Diarrhea/Loose Stools Lorazepam (Ativan) 2 mg SLOW IVP Q1H PRN PRN Reason: Breakthrough agitation Stop: 07/16/18 02:45 Magnesium Hydroxide (Milk Of Magnesium) 30 ml PO DAILYPRN PRN PRN Reason: Constipation Metoclopramide HCl (Reglan) 5 mg IVP Q4H PRN PRN Reason: Nausea Mineral Oil/White Petrolatum (Eucerin Cream) 0 gm TOP BIDPRN PRN PRN Reason: Dry Skin Miscellaneous Medication (Pharmacy To Dose) 0 each IVPB PRN PRN PRN Reason: VANC/ZOSYN Pharmacy to Dose Morphine Sulfate (Morphine Sulfate) 2 mg SLOW IVP Q1H PRN PRN Reason: BREAKTHROUGH PAIN/AGITATION Stop: 07/16/18 02:45 Discontinue Previous Narcotic Pain Medications And Benzodiazepines 1 each FS .ONE [facility] Stop: 07/16/18 02:45 Ondansetron HCl (Zofran) 4 mg IVP Q6H PRN PRN Reason: Nausea/Vomiting Pantoprazole Sodium (Protonix) 40 mg PO DAILY [facility] Last Admin: 06/16/18 08:29 Dose: 40 mg Propofol (Diprivan) 1,000 mg IV INF PRN; Protocol PRN Reason: TO ACHIEVE GOAL RASS Stop: 07/16/18 02:45 Propofol (Diprivan Bolus) 20 mg IV Q5MIN PRN PRN Reason: BREAKTHROUGH AGITATION Stop: 07/16/18 02:45 Senna (Senokot) 2 tab PO HSPRN PRN PRN Reason: Constipation
[2018-06-16] MEDS ORDERED: Dextrose 5 % And 0.9 % NaCl 1,000 ML IV SCH (19:00)
[2018-06-16] MEDS ORDERED: Acetaminophen 650 MG Suppository PR PRN (21:58)
--- NOTE | 2018-06-16 21:59 | CT ---
CT OF THE BRAIN WITHOUT CONTRAST 06/16/18 COMPARISON: 05/16/18 HISTORY: Change in of level of consciousness. Altered mental status. TECHNIQUE: Multiple contiguous axial images were obtained in a CT of the brain without contrast. FINDINGS: There is scattered hypodensities in the subcortical and periventricular white matter, likely secondar y to small vessel ischemic disease. No large confluent infarction is seen. There is no evidence of hy drocephalus, intracranial hemorrhage, or extra-axial fluid collection. The paranasal sinuses are well aerated. Postsurgical changes are seen in the right mastoid air cells. IMPRESSION: No evidence of acute intracranial abnormality. POS: [facility]
[2018-06-17] MEDS: Piperacillin/Tazobactam 3.375 GM in Sodium Chloride 0.9% 100 ML IVPB SCH ×4 (01:38→21:30)
[2018-06-17] MEDS ORDERED: Furosemide 40 MG/4 ML VIAL SLOW IVP SCH (02:15)
[2018-06-17] MEDS: Vancomycin HCl 1.25 GM in Sodium Chloride 0.9% 250 ML 250 ML IVPB SCH (05:36)
[2018-06-17] MEDS: Levothyroxine Sodium 125 MCG TAB PO SCH ×2 (05:39→06:43)
[2018-06-17] MEDS: HumaLOG 300 UNITS/3 ML VIAL SC PRN (06:04)
[2018-06-17] MEDS: Famotidine/PF 20 mg/2ml Vial SLOW IVP SCH (08:45)
[2018-06-17] MEDS: Enoxaparin Sodium 40 MG/0.4 ML SYRINGE SC SCH (08:46)
--- NOTE | 2018-06-17 10:41 | PDOC.PN ---
- Subjective Encounter Start Date: 06/17/18 Encounter Start Time: 10:00 Patient seen and examined. No new complaints. No overnight events - Objective Resuscitation Status: Resuscitation Status FULL:Full Resuscitation MAR Reviewed: Yes Vital Signs & Weight: Vital Signs (12 hours) Temp Pulse Resp Pulse Ox 06/17/18 07:27 95 06/17/18 07:00 98.6 F 06/17/18 06:50 81 16 99 06/17/18 04:00 99.9 F H 06/17/18 02:10 97 06/17/18 02:09 83 16 97 06/17/18 00:00 100.4 F H Weight Admit Weight 216 lb Weight 216 lb 4.375 oz Most Recent Monitor Data Heart Rate from ECG 80 NIBP 148/45 NIBP BP-Mean 79 Respiration from ECG 16 SpO2 97 I&O: 06/16/18 06/17/18 06/18/18 06:59 06:59 06:59 Intake Total 313 1510.9 490 Output Total 235 582 60 Balance 78 928.9 430 Result Diagrams: 06/16/18 04:55 06/16/18 04:55 Additional Labs: Accuchecks 06/17/18 06/16/18 06/16/18 06:02 21:51 17:53 POC Glucose 181 H 115 H 172 H 06/16/18 13:57 POC Glucose 211 H EKG Reviewed by me: Yes (nsr) Phys Exam - Physical Examination Constitutional: NAD HEENT: PERRLA, moist MMs, sclera anicteric Neck: no JVD, supple Respiratory: no wheezing, no rales, no rhonchi Cardiovascular: RRR, no significant murmur, no rub Gastrointestinal: soft, non-tender, no distention, positive bowel sounds Musculoskeletal: no edema, pulses present right heel ulcer with dressing Neurological: moves all 4 limbs Lymphatic: no nodes Psychiatric: normal affect Skin: no rash, normal turgor Dx/Plan (1) Acute respiratory failure with hypoxia Code(s): J96.01 - ACUTE RESPIRATORY FAILURE WITH HYPOXIA Status: Resolved (2) UTI (urinary tract infection) Status: Acute (3) Anemia, normocytic normochromic Code(s): D64.9 - ANEMIA, UNSPECIFIED Status: Chronic (4) Asthma Code(s): J45.909 - UNSPECIFIED ASTHMA, UNCOMPLICATED Status: Chronic Qualifiers: (5) CKD (chronic kidney disease) stage 3, GFR 30-59 ml/min Status: Chronic Comment: (6) Chronic anticoagulation Code(s): Z79.01 - BAKELITE MOLDER (CURRENT) USE OF ANTICOAGULANTS Status: Chronic (7) Chronic heel ulcer Code(s): L97.409 - NON-PRS CHRONIC ULCER OF UNSP HEEL AND MIDFOOT W UNSP SEVERT Status: Chronic (8) Diabetic gastroparesis Code(s): E11.43 - TYPE 2 DIABETES W DIABETIC AUTONOMIC (POLY)NEUROPATHY; K31.84 - GASTROPARESIS Status: Chronic (9) Hyperlipidemia Code(s): E78.5 - HYPERLIPIDEMIA, UNSPECIFIED Status: Chronic Qualifiers: (10) Hypertension Code(s): I10 - ESSENTIAL (PRIMARY) HYPERTENSION Status: Chronic Qualifiers: Comment: (11) Hypothyroidism Code(s): E03.9 - HYPOTHYROIDISM, UNSPECIFIED Status: Chronic Qualifiers: Comment: (12) Obesity (BMI 30.0-34.9) Code(s): E66.9 - OBESITY, UNSPECIFIED Status: Chronic (13) Paroxysmal atrial fibrillation Code(s): I48.0 - PAROXYSMAL ATRIAL FIBRILLATION Status: Chronic (14) Physical deconditioning Code(s): R53.81 - OTHER MALAISE Status: Chronic (15) Rheumatoid arteritis Code(s): I00 - RHEUMATIC FEVER WITHOUT HEART INVOLVEMENT Status: Chronic (16) Type II diabetes mellitus Status: Chronic Qualifiers: Comment: - Plan cont current plan of care, plan discussed w/ family, continue antibiotics * transfer to medical floor * DC IVF * continue empiric antibiotics for now * expecting discharge back to [facility] in 24-48 hours * medication reviewed as below * symptomatic treatment * discussed with family bedside. Review of Systems - Review of Systems ENT: negative: Ear Pain, Ear Discharge, Nose Pain, Nose Discharge, Nose Congestion, Mouth Pain, Mouth Swelling, Throat Pain, Throat Swelling, Other Respiratory: negative: Cough, Dry, Shortness of Breath, Hemoptysis, SOB with Excertion, Pleuritic Pain, Sputum, Wheezing Cardiovascular: negative: chest pain, palpitations, orthopnea, paroxysmal nocturnal dyspnea, edema, light headedness, other Gastrointestinal: negative: Nausea, Vomiting, Abdominal Pain, Diarrhea, Constipation, Melena, Hematochezia, Other Genitourinary: negative: Dysuria, Frequency, Incontinence, Hematuria, Retention , Other Musculoskeletal: negative: Neck Pain, Shoulder Pain, Arm Pain, Back Pain, Hand Pain, Leg Pain, Foot Pain, Other - Medications/Allergies Allergies/Adverse Reactions: Allergies Allergy/AdvReac Type Severity Reaction Status Date / Time aspirin Allergy Intermediate Verified 04/21/18 22:14 NSAIDS (Non-Steroidal Allergy Intermediate Verified 04/21/18 22:14 Anti-Inflamma lactose AdvReac Diarrhea Verified 01/28/18 03:24 Medications: Current Medications Acetaminophen (Tylenol) 650 mg PO Q4H PRN PRN Reason: Headache/Fever or Pain Acetaminophen (Tylenol) 975 mg [place] Q6H PRN PRN Reason: TEMP > 102 Albuterol/Ipratropium (Duoneb) 3 ml NEB Q4H PRN PRN Reason: Dyspnea Albuterol/Ipratropium (Duoneb) 3 ml NEB [id number] [facility] Last Admin: 06/17/18 06:50 Dose: 3 ml Artificial Tears (Tears Naturale) 0 drop EA EYE PRN PRN PRN Reason: Dry Eyes Clonidine (Catapres) 0.1 mg PO Q4H PRN PRN Reason: Systolic BP > 180 Dextrose/Water (Dextrose 50%) 25 gm SLOW IVP PRN PRN PRN Reason: Hypoglycemia Enoxaparin Sodium (Lovenox) 40 mg SC 0900 [facility] Last Admin: 06/17/18 08:46 Dose: 40 mg Famotidine (Pepcid) 20 mg SLOW IVP DAILY [facility] Last Admin: 06/17/18 08:45 Dose: 20 mg Glucagon (Glucagon) 1 mg IM PRN PRN PRN Reason: Hypoglycemia Guaifenesin (Robitussin Sf) 200 mg PO Q4H PRN PRN Reason: Cough Hydralazine HCl (Apresoline) 10 mg SLOW IVP Q4H PRN PRN Reason: Systolic BP > 180 Dextrose/Water (D5w) 1,000 mls @ 0 mls/hr IV .Q0M PRN PRN Reason: Hypoglycemia Piperacillin Sod/Tazobactam (Sod 3.375 gm/ Sodium Chloride) 100 mls @ 200 mls/ hr IVPB 0200,0800,1400,2000 [facility] Last Admin: 06/17/18 08:04 Dose: 100 mls Vancomycin HCl 1.25 gm/ Sodium (Chloride) 250 mls @ 166.667 mls/hr IVPB Q24HR@ 0500 [facility] Last Admin: 06/17/18 05:36 Dose: 250 mls Insulin Human Lispro (Humalog) 0 units SC .MILD SLIDING SCALE PRN PRN Reason: Mild Correctional Scale Last Admin: 06/17/18 06:04 Dose: 2 unit Levothyroxine Sodium (Synthroid) 125 mcg PO 0600 [facility] Last Admin: 06/17/18 06:43 Dose: 125 mcg Loperamide HCl (Imodium) 2 mg PO PRN PRN PRN Reason: Diarrhea/Loose Stools Magnesium Hydroxide (Milk Of Magnesium) 30 ml PO DAILYPRN PRN PRN Reason: Constipation Metoclopramide HCl (Reglan) 5 mg IVP Q4H PRN PRN Reason: Nausea Mineral Oil/White Petrolatum (Eucerin Cream) 0 gm TOP BIDPRN PRN PRN Reason: Dry Skin Miscellaneous Medication (Pharmacy To Dose) 0 each IVPB PRN PRN PRN Reason: VANC/ZOSYN Pharmacy to Dose Ondansetron HCl (Zofran) 4 mg IVP Q6H PRN PRN Reason: Nausea/Vomiting Pantoprazole Sodium (Protonix) 40 mg PO DAILY [facility] Last Admin: 06/17/18 08:53 Dose: 40 mg Senna (Senokot) 2 tab PO HSPRN PRN PRN Reason: Constipation
--- NOTE | 2018-06-17 15:28 | PRG ---
DATE OF SERVICE: 06/17/2018 SUBJECTIVE: Shaneka has no complaints. She is little slow to respond to questions, but feels like h er asthma was a problem when she got back to the shelter. She is out of the critical care unit now. OBJECTIVE: VITAL SIGNS: Blood pressure 156/68. She is afebrile, heart rate 79, respiratory rate 18. She is no t wheezing. IMPRESSION: Status post intubation for "secretions." I suspect this was just asthma. We will continue with treatment of her asthma, nebulized treatments every 4 hours. I do not really s ee a reason for her to be on vancomycin. She is not on any prednisone, so put her on a low dose of prednisone.
[2018-06-17] MEDS ORDERED: predniSONE 20 MG TAB PO SCH (15:30)
--- NOTE | 2018-06-17 15:44 | PQF ---
CLINICAL DOCUMENTATION IMPROVEMENT CLARIFICATION FORM: ICD-10 Updated PLEASE DO AN ADDENDUM TO THE PROGRESS NOTE WITH ANY DOCUMENTATION UPDATES OR ADDITIONS AND CARRY THROUGH TO DC SUMMARY. THANK YOU. DATE: 06/17/18 ATTN: Dr. Ochoa Please exercise your independent, professional judgment in responding to the clarification form. Clinical indicators are provided on the bottom of this form for your review Please check appropriate box(s): __x I (concur) with the Wound Care findings as stated below. [ ] Pressure Ulcer: (Stage I: Erythema; Stage II: Partial thickness; Stage III : Full thickness; Stage IV: Necrosis to muscle/bone) [ ] Location: Stage (I to IV): ____(Left____Right___Bilateral___N/A___) [ ] Location: Stage (I to IV): ____(Left____Right___Bilateral___N/A___) [ ] No pressure ulcer diagnosis [ ] Deep tissue injury [ ] Other diagnosis [ ] Unable to determine In addition, please specify: Present on Admission (POA): [ x ] Yes [ ] No [ ] Unable to determine For continuity of documentation, please document condition throughout progress notes and discharge summary. Thank You. CLINICAL INDICATORS - SIGNS / SYMPTOMS / LABS WOUND CARE ASSESSMENT 06/16: L GREAT TOE PUNCTURE SITE. UNSTAGABLE R HEEL PRESSURE ULCER. STAGE II RISKS: H&P 06/16: 83 YO. LIVES IN RETIREMENT. ACUTE RESPIRATORY FAILURE. CKD. UNCONTROLLED DIABETES. TREATMENT: ORDER 06/16: WOUND CARE EVAL / TREAT. MULTIPLE PRESSURE ULCERS Thank you, (This form is maintained as a part of the permanent medical record) 2014 [employer] All Rights Reserved Susan Davis RN, BSN [email or web address] Office: [phone] [facility]
[2018-06-18] MEDS: Piperacillin/Tazobactam 3.375 GM in Sodium Chloride 0.9% 100 ML IVPB SCH (02:50)
[2018-06-18 05:41] LABS: Vancomycin, Trough 22.2 ug/mL
[2018-06-18] MEDS: Levothyroxine Sodium 125 MCG TAB PO SCH (06:23)
[2018-06-18] MEDS: Vancomycin HCl 1.25 GM in Sodium Chloride 0.9% 250 ML 250 ML IVPB SCH (06:24)
[2018-06-18] MEDS ORDERED: Sodium Chloride 0.65% Nasal 44 ML BOT EA NARE PRN (06:53)
[2018-06-18] MEDS ORDERED: Mag-Al 1200 mg/1200 mg/30 ML UDCUP PO PRN (06:53)
[2018-06-18] MEDS ORDERED: Chloraseptic Spray 180 ml Bottle PO PRN (06:53)
[2018-06-18] MEDS ORDERED: Loratadine 10 MG TAB PO PRN (06:53)
[2018-06-18] MEDS ORDERED: Ondansetron ODT 4 MG TAB PO PRN (06:53)
[2018-06-18] MEDS: Famotidine 20 MG TAB PO SCH ×2 (08:42→23:11)
[2018-06-18] MEDS: predniSONE 20 MG TAB PO SCH (08:43)
[2018-06-18] MEDS: Enoxaparin Sodium 40 MG/0.4 ML SYRINGE SC SCH (08:48)
[2018-06-18] MEDS ORDERED: Amoxicillin/Potassium Clav 500 MG TAB PO SCH (09:00)
--- NOTE | 2018-06-18 09:12 | PDOC.PN ---
- Subjective Encounter Start Date: 06/18/18 Encounter Start Time: 07:30 pt is confused, no fever, weak - Objective Resuscitation Status: Resuscitation Status FULL:Full Resuscitation MAR Reviewed: Yes Vital Signs & Weight: Vital Signs (12 hours) Temp Pulse Resp BP Pulse Ox 06/18/18 07:15 99.3 F 93 16 177/70 H 100 06/18/18 06:38 93 12 06/18/18 04:19 98.5 F 89 16 162/76 H 97 06/18/18 02:40 100 06/18/18 02:13 88 16 100 06/18/18 00:58 98.2 F 88 16 164/74 H 98 06/17/18 22:25 84 12 Weight Admit Weight 216 lb Weight 216 lb 4.375 oz Most Recent Monitor Data Heart Rate from ECG 80 NIBP 148/45 NIBP BP-Mean 79 Respiration from ECG 16 SpO2 97 I&O: 06/17/18 06/18/18 06/19/18 06:59 06:59 06:59 Intake Total 1510.9 490 Output Total 582 60 Balance 928.9 430 Result Diagrams: 06/16/18 04:55 06/16/18 04:55 Additional Labs: Accuchecks 06/18/18 06/17/18 06/17/18 04:21 20:08 17:10 POC Glucose 247 H 270 H 221 H 06/17/18 11:28 POC Glucose 221 H Phys Exam - Physical Examination Constitutional: NAD HEENT: PERRLA, moist MMs, sclera anicteric Neck: no JVD, supple Respiratory: no wheezing, no rales, no rhonchi Cardiovascular: RRR, no significant murmur, no rub Gastrointestinal: soft, non-tender, no distention, positive bowel sounds gay+ Musculoskeletal: no edema, pulses present Lymphatic: no nodes Skin: no rash, normal turgor Dx/Plan (1) Acute respiratory failure with hypoxia Code(s): J96.01 - ACUTE RESPIRATORY FAILURE WITH HYPOXIA Status: Resolved (2) UTI (urinary tract infection) Status: Acute Comment: MDR klebsiella (3) Anemia, normocytic normochromic Code(s): D64.9 - ANEMIA, UNSPECIFIED Status: Chronic (4) Asthma Code(s): J45.909 - UNSPECIFIED ASTHMA, UNCOMPLICATED Status: Chronic Qualifiers: (5) CKD (chronic kidney disease) stage 3, GFR 30-59 ml/min Status: Chronic Comment: (6) Chronic anticoagulation Code(s): Z79.01 - SURGICAL SERVICES DIRECTOR (CURRENT) USE OF ANTICOAGULANTS Status: Chronic (7) Chronic heel ulcer Code(s): L97.409 - NON-PRS CHRONIC ULCER OF UNSP HEEL AND MIDFOOT W UNSP SEVERT Status: Chronic (8) Diabetic gastroparesis Code(s): E11.43 - TYPE 2 DIABETES W DIABETIC AUTONOMIC (POLY)NEUROPATHY; K31.84 - GASTROPARESIS Status: Chronic (9) Hyperlipidemia Code(s): E78.5 - HYPERLIPIDEMIA, UNSPECIFIED Status: Chronic Qualifiers: (10) Hypertension Code(s): I10 - ESSENTIAL (PRIMARY) HYPERTENSION Status: Chronic Qualifiers: Comment: (11) Hypothyroidism Code(s): E03.9 - HYPOTHYROIDISM, UNSPECIFIED Status: Chronic Qualifiers: Comment: (12) Obesity (BMI 30.0-34.9) Code(s): E66.9 - OBESITY, UNSPECIFIED Status: Chronic (13) Paroxysmal atrial fibrillation Code(s): I48.0 - PAROXYSMAL ATRIAL FIBRILLATION Status: Chronic (14) Physical deconditioning Code(s): R53.81 - OTHER MALAISE Status: Chronic (15) Rheumatoid arteritis Code(s): I00 - RHEUMATIC FEVER WITHOUT HEART INVOLVEMENT Status: Chronic (16) Type II diabetes mellitus Status: Chronic Qualifiers: Comment: - Plan cont current plan of care, continue antibiotics, PT/OT, social work msw * DC Vancomycin and zosyn * start meropenam based on culture result * consult ID for MDR UTI * start PT/OT * wound care * medication reviewed as below * symptomatic treatment. Review of Systems - Review of Systems Other: not reliable with pt due to her level of cognitive status - Medications/Allergies Allergies/Adverse Reactions: Allergies Allergy/AdvReac Type Severity Reaction Status Date / Time aspirin Allergy Intermediate Verified 04/21/18 22:14 NSAIDS (Non-Steroidal Allergy Intermediate Verified 04/21/18 22:14 Anti-Inflamma lactose AdvReac Diarrhea Verified 01/28/18 03:24 Medications: Current Medications Acetaminophen (Tylenol) 650 mg PO Q4H PRN PRN Reason: Headache/Fever or Pain Acetaminophen (Tylenol) 975 mg [place] Q6H PRN PRN Reason: TEMP > 102 Al Hydroxide/Mg Hydroxide (Maalox) 15 ml PO Q4H PRN PRN Reason: Heartburn or Indigestion Albuterol/Ipratropium (Duoneb) 3 ml NEB Q4H PRN PRN Reason: Dyspnea Albuterol/Ipratropium (Duoneb) 3 ml NEB [id number] [facility] Last Admin: 06/18/18 06:38 Dose: 3 ml Artificial Tears (Tears Naturale) 0 drop EA EYE PRN PRN PRN Reason: Dry Eyes Clonidine (Catapres) 0.1 mg PO Q4H PRN PRN Reason: Systolic BP > 180 Dextrose/Water (Dextrose 50%) 25 gm SLOW IVP PRN PRN PRN Reason: Hypoglycemia Enoxaparin Sodium (Lovenox) 40 mg SC 0900 [facility] Last Admin: 06/18/18 08:48 Dose: Not Given Famotidine (Pepcid) 20 mg PO BID [facility] Last Admin: 06/18/18 08:42 Dose: 20 mg Glucagon (Glucagon) 1 mg IM PRN PRN PRN Reason: Hypoglycemia Guaifenesin (Robitussin Sf) 200 mg PO Q4H PRN PRN Reason: Cough Hydralazine HCl (Apresoline) 10 mg SLOW IVP Q4H PRN PRN Reason: Systolic BP > 180 Dextrose/Water (D5w) 1,000 mls @ 0 mls/hr IV .Q0M PRN PRN Reason: Hypoglycemia Meropenem 1 gm/ Sodium (Chloride) 100 mls @ 200 mls/hr IVPB Q8HR [facility] Insulin Human Lispro (Humalog) 0 units SC .MILD SLIDING SCALE PRN PRN Reason: Mild Correctional Scale Last Admin: 06/17/18 06:04 Dose: 2 unit Levothyroxine Sodium (Synthroid) 125 mcg PO 0600 [facility] Last Admin: 06/18/18 06:23 Dose: 125 mcg Loperamide HCl (Imodium) 2 mg PO PRN PRN PRN Reason: Diarrhea/Loose Stools Loratadine (Claritin) 10 mg PO DAILYPRN PRN PRN Reason: Sinus Symptoms Magnesium Hydroxide (Milk Of Magnesium) 30 ml PO DAILYPRN PRN PRN Reason: Constipation Metoclopramide HCl (Reglan) 5 mg IVP Q4H PRN PRN Reason: Nausea Mineral Oil/White Petrolatum (Eucerin Cream) 0 gm TOP BIDPRN PRN PRN Reason: Dry Skin Ondansetron HCl (Zofran) 4 mg IVP Q6H PRN PRN Reason: Nausea/Vomiting Ondansetron HCl (Zofran Odt) 4 mg PO Q6H PRN PRN Reason: Nausea/Vomiting Pantoprazole Sodium (Protonix) 40 mg PO DAILY [facility] Last Admin: 06/18/18 08:43 Dose: 40 mg Phenol (Chloraseptic [place] 180 Ml Bot) 0 ml PO PRN PRN PRN Reason: Sore Throat Prednisone (Prednisone) 40 mg PO QA-[facility] Last Admin: 06/18/18 08:43 Dose: 40 mg Senna (Senokot) 2 tab PO HSPRN PRN PRN Reason: Constipation Sodium Chloride ([place] Nasal [place] 0.65%) 0 ml EA NARE QIDPRN PRN PRN Reason: Nasal Congestion
[2018-06-18] MEDS: HumaLOG 300 UNITS/3 ML VIAL SC PRN (11:33)
[2018-06-18] MEDS ORDERED: Vancomycin HCl 1 GM in Premix Bag 1 BAG IVPB SCH (12:00)
--- NOTE | 2018-06-18 12:08 | PRG ---
DATE OF SERVICE: 06/18/2018 Sara Munroe has no complaints. She is more interactive. She has no recollection of being on the ventilator. PHYSICAL EXAMINATION: VITAL SIGNS: Blood pressure 163/63. She is afebrile, heart rate 87, respiratory rate 16, oximetry i s 100% on room air. LUNGS: Completely clear. CARDIOVASCULAR: Regular rhythm. ABDOMEN: Soft. IMPRESSION: 1. Status post mechanical ventilation for "secretions". This was either asthma or with her diabetic gastroparesis perhaps she regurgitated gastric contents d uring [facility] which led to her intubation. She has had no post-extubation respiratory difficulties and probably it would not be unreasonable for her to go back to the prison. I am not sure that she needs to be on meropenem. 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 It is unclear to me whether or not the Eid is ever removed and i f it is not, then this does not need to be treated. We will continue to follow for her asthma.
[2018-06-18] MEDS ORDERED: Meropenem 1 GM in Sodium Chloride 0.9% 100 ML IVPB SCH (14:00)
[2018-06-18] MEDS: MEROPENEM 1 GM/50 ML 1 GM in Premix Bag 1 BAG IVPB SCH ×2 (14:57→23:11)
[2018-06-18] MEDS ORDERED: Insulin Glargine 10 UNITS in Pre-Filled Syringe 1 EACH SC SCH (17:15)
[2018-06-19] MEDS: cloNIDine 0.1 MG TAB PO PRN ×3 (04:47→13:20)
[2018-06-19] MEDS: Levothyroxine Sodium 125 MCG TAB PO SCH (04:47)
[2018-06-19] MEDS: MEROPENEM 1 GM/50 ML 1 GM in Premix Bag 1 BAG IVPB SCH ×3 (04:47→21:57)
[2018-06-19] MEDS: HumaLOG 300 UNITS/3 ML VIAL SC PRN ×3 (06:43→17:35)
[2018-06-19] MEDS: Enoxaparin Sodium 40 MG/0.4 ML SYRINGE SC SCH (08:57)
[2018-06-19] MEDS: predniSONE 20 MG TAB PO SCH (08:57)
[2018-06-19] MEDS: Famotidine 20 MG TAB PO SCH ×2 (08:58→21:56)
[2018-06-19] MEDS: Insulin Glargine 20 UNITS in Pre-Filled Syringe 1 EACH SC SCH (08:59)
--- NOTE | 2018-06-19 10:17 | PDOC.PN ---
- Subjective Encounter Start Date: 06/19/18 Encounter Start Time: 08:20 Patient seen and examined. No new complaints. No overnight events - Objective Resuscitation Status: Resuscitation Status FULL:Full Resuscitation MAR Reviewed: Yes Vital Signs & Weight: Vital Signs (12 hours) Temp Pulse Resp BP BP Pulse Ox 06/19/18 08:58 201/71 H 06/19/18 07:45 98.0 F 82 18 190/65 H 94 L 06/19/18 06:40 90 16 96 06/19/18 04:47 209/75 H 06/19/18 04:28 98.5 F 88 16 204/72 H 98 06/19/18 02:11 88 12 96 06/19/18 00:33 98.5 F 84 14 180/69 H 97 Weight Admit Weight 216 lb Weight 216 lb 4.375 oz Most Recent Monitor Data Heart Rate from ECG 80 NIBP 148/45 NIBP BP-Mean 79 Respiration from ECG 16 SpO2 97 I&O: 06/18/18 06/19/18 06/20/18 06:59 06:59 06:59 Intake Total 490 Output Total 60 600 Balance 430 -600 Result Diagrams: 06/16/18 04:55 06/16/18 04:55 Additional Labs: Accuchecks 06/19/18 06/18/18 06/18/18 04:32 20:03 16:26 POC Glucose 273 H 296 H 322 H 06/18/18 11:26 POC Glucose 305 H Phys Exam - Physical Examination Constitutional: NAD HEENT: PERRLA, moist MMs, sclera anicteric Neck: no JVD, supple Respiratory: no wheezing, no rales, no rhonchi Cardiovascular: RRR, no significant murmur, no rub Gastrointestinal: soft, non-tender, no distention, positive bowel sounds gay+ Musculoskeletal: no edema, pulses present heel ulcer with dressing Lymphatic: no nodes Psychiatric: normal affect Skin: no rash, normal turgor Dx/Plan (1) Acute respiratory failure with hypoxia Code(s): J96.01 - ACUTE RESPIRATORY FAILURE WITH HYPOXIA Status: Resolved (2) UTI (urinary tract infection) Status: Acute Comment: MDR klebsiella (3) Anemia, normocytic normochromic Code(s): D64.9 - ANEMIA, UNSPECIFIED Status: Chronic (4) Asthma Code(s): J45.909 - UNSPECIFIED ASTHMA, UNCOMPLICATED Status: Chronic Qualifiers: (5) CKD (chronic kidney disease) stage 3, GFR 30-59 ml/min Status: Chronic Comment: (6) Chronic anticoagulation Code(s): Z79.01 - LEAD RELAY TESTER (CURRENT) USE OF ANTICOAGULANTS Status: Chronic (7) Chronic heel ulcer Code(s): L97.409 - NON-PRS CHRONIC ULCER OF UNSP HEEL AND MIDFOOT W UNSP SEVERT Status: Chronic (8) Diabetic gastroparesis Code(s): E11.43 - TYPE 2 DIABETES W DIABETIC AUTONOMIC (POLY)NEUROPATHY; K31.84 - GASTROPARESIS Status: Chronic (9) Hyperlipidemia Code(s): E78.5 - HYPERLIPIDEMIA, UNSPECIFIED Status: Chronic Qualifiers: (10) Hypertension Code(s): I10 - ESSENTIAL (PRIMARY) HYPERTENSION Status: Chronic Qualifiers: Comment: (11) Hypothyroidism Code(s): E03.9 - HYPOTHYROIDISM, UNSPECIFIED Status: Chronic Qualifiers: Comment: (12) Obesity (BMI 30.0-34.9) Code(s): E66.9 - OBESITY, UNSPECIFIED Status: Chronic (13) Paroxysmal atrial fibrillation Code(s): I48.0 - PAROXYSMAL ATRIAL FIBRILLATION Status: Chronic (14) Physical deconditioning Code(s): R53.81 - OTHER MALAISE Status: Chronic (15) Rheumatoid arteritis Code(s): I00 - RHEUMATIC FEVER WITHOUT HEART INVOLVEMENT Status: Chronic (16) Type II diabetes mellitus Status: Chronic Qualifiers: Comment: - Plan cont current plan of care, gay catheter, continue antibiotics, PT/OT, social services designee * ID recommendation pending regarding MDR UTI, may be colonized with chronic gay * medication reviewed as below * symptomatic treatment * monitor and treat high blood sugar and high blood pressure today, ?? may be due to prednisone * will start her home dose of insulin and use prn BP meds * supportive care. Review of Systems - Review of Systems Other: not reliable due to her level of cognitive status and dementia - Medications/Allergies Allergies/Adverse Reactions: Allergies Allergy/AdvReac Type Severity Reaction Status Date / Time aspirin Allergy Intermediate Verified 04/21/18 22:14 NSAIDS (Non-Steroidal Allergy Intermediate Verified 04/21/18 22:14 Anti-Inflamma lactose AdvReac Diarrhea Verified 01/28/18 03:24 Medications: Current Medications Acetaminophen (Tylenol) 650 mg PO Q4H PRN PRN Reason: Headache/Fever or Pain Acetaminophen (Tylenol) 975 mg [place] Q6H PRN PRN Reason: TEMP > 102 Al Hydroxide/Mg Hydroxide (Maalox) 15 ml PO Q4H PRN PRN Reason: Heartburn or Indigestion Albuterol/Ipratropium (Duoneb) 3 ml NEB Q4H PRN PRN Reason: Dyspnea Albuterol/Ipratropium (Duoneb) 3 ml NEB [id number] [facility] Last Admin: 06/19/18 06:40 Dose: 3 ml Artificial Tears (Tears Naturale) 0 drop EA EYE PRN PRN PRN Reason: Dry Eyes Clonidine (Catapres) 0.1 mg PO Q4H PRN PRN Reason: Systolic BP > 180 Last Admin: 06/19/18 08:58 Dose: 0.1 mg Dextrose/Water (Dextrose 50%) 25 gm SLOW IVP PRN PRN PRN Reason: Hypoglycemia Enoxaparin Sodium (Lovenox) 40 mg SC 0900 [facility] Last Admin: 06/19/18 08:57 Dose: 40 mg Famotidine (Pepcid) 20 mg PO BID [facility] Last Admin: 06/19/18 08:58 Dose: 20 mg Glucagon (Glucagon) 1 mg IM PRN PRN PRN Reason: Hypoglycemia Guaifenesin (Robitussin Sf) 200 mg PO Q4H PRN PRN Reason: Cough Hydralazine HCl (Apresoline) 10 mg SLOW IVP Q4H PRN PRN Reason: Systolic BP > 180 Dextrose/Water (D5w) 1,000 mls @ 0 mls/hr IV .Q0M PRN PRN Reason: Hypoglycemia Meropenem 1 gm/ Device 50 mls @ 100 mls/hr IVPB Q8HR [facility] Last Admin: 06/19/18 04:47 Dose: 50 mls Insulin Glargine 20 units/ (Miscellaneous Medication) 0.2 mls @ 0 mls/hr SC DAILY [facility] Last Admin: 06/19/18 08:59 Dose: 0.2 mls Insulin Human Lispro (Humalog) 0 units SC .MODERATE SLIDING SC PRN PRN Reason: Moderate Correctional Scale Levothyroxine Sodium (Synthroid) 125 mcg PO 0600 [facility] Last Admin: 06/19/18 04:47 Dose: 125 mcg Loperamide HCl (Imodium) 2 mg PO PRN PRN PRN Reason: Diarrhea/Loose Stools Loratadine (Claritin) 10 mg PO DAILYPRN PRN PRN Reason: Sinus Symptoms Magnesium Hydroxide (Milk Of Magnesium) 30 ml PO DAILYPRN PRN PRN Reason: Constipation Metoclopramide HCl (Reglan) 5 mg IVP Q4H PRN PRN Reason: Nausea Mineral Oil/White Petrolatum (Eucerin Cream) 0 gm TOP BIDPRN PRN PRN Reason: Dry Skin Ondansetron HCl (Zofran) 4 mg IVP Q6H PRN PRN Reason: Nausea/Vomiting Ondansetron HCl (Zofran Odt) 4 mg PO Q6H PRN PRN Reason: Nausea/Vomiting Pantoprazole Sodium (Protonix) 40 mg PO DAILY [facility] Last Admin: 06/19/18 08:57 Dose: 40 mg Phenol (Chloraseptic [place] 180 Ml Bot) 0 ml PO PRN PRN PRN Reason: Sore Throat Prednisone (Prednisone) 40 mg PO QAM-[facility] Last Admin: 06/19/18 08:57 Dose: 40 mg Senna (Senokot) 2 tab PO HSPRN PRN PRN Reason: Constipation Sodium Chloride ([place] Nasal [place] 0.65%) 0 ml EA NARE QIDPRN PRN PRN Reason: Nasal Congestion Sodium Chloride (Flush - Normal Saline) 10 ml IVF Q12HR [facility] Last Admin: 06/19/18 08:59 Dose: 10 ml Sodium Chloride (Flush - Normal Saline) 10 ml IVF PRN PRN PRN Reason: Saline Flush
--- NOTE | 2018-06-19 10:44 | CON ---
DATE OF CONSULTATION: 06/18/2018 REASON FOR CONSULTATION: Possible infection. HISTORY OF PRESENT ILLNESS: An 83-year-old who is known to us from prior visits. She presented with a history of longstanding rheumatoid arthritis, previously on immunosuppressive medication and still on low-dose corticosteroids as well as type 2 diabetes and stage 3 renal insufficiency with cardiomyopathy with AFib. She had previous chronic ulcers in the feet, probably with some peripheral vascular disease. In April, she was admitted with hypoglycemia and weakness and a previous CT of abdomen showed urinary bladder without catheters. She persisted with recurrent episodes of vomiting with nausea, which led to admission, some diarrhea, episodes of hypoglycemia as well as hypotension. Then, on 05/31, she presented again with nausea, vomiting. The possibility of gastroparesis was raised. She had a gastroenterology evaluation, there was a polypoid mass in the small bowel, specifically in the duodenum. 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 Pretty much the next day after discharge, she was readmitted and I spoke with the nurse at the [facility], basically patient developed profuse vomiting, respiratory insufficiency with hypoxemia and she was intubated in the field by the EMS and brought to the emergency room. PHYSICAL EXAMINATION: VITAL SIGNS: Initial findings included a BP 160/47, heart rate 59, respiratory rate 20. GENERAL: She was alert, intubated. LUNG: Lung expansion was symmetric without crackles or wheezing. HEART: Appeared normal. ABDOMEN: Soft, without tenderness. SKIN: Warm and sore. LABORATORY AND DIAGNOSTIC DATA: Initial findings included a white cell count 8.6, hemoglobin 8.8, platelets 275,000 with 69% neutrophils, pH 7.4, pCO2 41, pO2 236. Sodium 139, creatinine 1.57, glucose 224 with AST 17, ALT 7, alkaline phosphatase 89, albumin 2.8. Urinalysis greater than 50 wbc's. Two sets of blood cultures thus far negative and urine culture with Klebsiella pneumo, which had been previously identified with an ESBL phenotype, greater than 100, 000 CFUs. The patient had a brain CT done this admission with no evidence of acute intracranial abnormality and a chest CT angio, which showed no pulmonary embolism atelectasis at the bases versus early infiltrate. Currently, Ms. Munroe is in the room with a friend. She is awake. She knows her name, but could not tell me where she was and had difficulty in recalling events. She denied any headaches, no visual symptoms, no sore throat, no dyspnea, no abdominal pain, no joint symptoms. PAST MEDICAL HISTORY: Type 2 diabetes; rheumatoid arthritis; hypoglycemia; recurrent vomiting and nausea; duodenal villous adenoma, status post resection and removal; AFib; CHF; deep vein thrombosis; COPD; asthma; hypothyroidism; chronic ulcers in lower extremities; peripheral vascular disease. DISCUSSION: Patient again had episode of vomiting just like in the previous time, that led to her admission. She never had fever and did not have leukocytosis at least on admission. She does have abnormal urinalysis and has been started on treatment for the organism isolated, but I still believe that the reason for admission reside on different underlying problem rather than the invasive urinary tract infection. Tubulovillous adenoma in the small bowel can be associated with malignancy 60% of the time, but she did not have any dysplastic features in the biopsy results. The other possibility is gastroparesis may want to consider a gastric emptying study. Meropenem has been started and I would continue it for the time being, would evaluate her postvoid residual again, but again I do not believe that an invasive UTI is the reason for her recurrent admissions with nausea and vomiting. At this time, in addition, she had some element of aspiration, probably which led to the respiratory decompensation. ADALID
--- NOTE | 2018-06-19 14:53 | PRG ---
DATE OF SERVICE: 06/19/2018 SERVICE: Pulmonary Medicine. INTERVAL HISTORY: The patient remains extraordinarily weak. She has an anemic cough. She suggests she has mild shortness of breath. She does have minimal conversational dyspnea. She breaks up long sentences with breaths, but short sentences can be handled. Otherwise, there has been no interval ch jose to her condition. Nursing reports no overnight events. She is yet to get out of bed today. PHYSICAL EXAMINATION: VITAL SIGNS: Afebrile, pulse 93, blood pressure 178/72, respirations 16, saturation 94% on room air. GENERAL: The patient is awake and alert, in no apparent distress. LUNGS: Decent air entry without prolonged expiratory phase, wheezing, rhonchi or crackles. HEART: Normal rate, regular. ABDOMEN: Soft, nontender, nondistended. Bowel sounds are positive. MUSCULOSKELETAL: No cyanosis or clubbing. There is 1+ pitting in the bilateral upper extremities an d hips. There is no pitting in the legs. GENITOURINARY: No Eid. NEUROLOGIC: Grossly nonfocal. LABORATORY DATA: WBC of 11.9, hemoglobin 9.3, platelets 274,000. Blood sugars ranged from 211-322 Urine culture is growing liu resistant Klebsiella pneumoniae. Blood cultures x2 are unremarkable. ASSESSMENT: 1. Acute hypoxic respiratory failure, resolved. 2. Weakness. 3. Debility, advanced. 4. Urinary tract infection. 5. Severe sepsis, 6. Asthma without current exacerbation. DISCUSSION AND PLAN: Pulmonary Critical Care will continue to follow along. Physical therapy consul tation will be placed.
--- NOTE | 2018-06-19 17:39 | ADD-PRG ---
DATE OF SERVICE: 06/16/2018 Critical care time, 30 minutes. ADALID
[2018-06-20] MEDS: Levothyroxine Sodium 125 MCG TAB PO SCH (06:24)
[2018-06-20] MEDS: MEROPENEM 1 GM/50 ML 1 GM in Premix Bag 1 BAG IVPB SCH ×3 (06:26→21:01)
[2018-06-20] MEDS: cloNIDine 0.1 MG TAB PO PRN (08:24)
[2018-06-20] MEDS: predniSONE 20 MG TAB PO SCH (08:25)
[2018-06-20] MEDS: Insulin Glargine 20 UNITS in Pre-Filled Syringe 1 EACH SC SCH (08:25)
[2018-06-20] MEDS: Famotidine 20 MG TAB PO SCH (08:25)
[2018-06-20] MEDS: Enoxaparin Sodium 40 MG/0.4 ML SYRINGE SC SCH (08:26)
--- NOTE | 2018-06-20 09:54 | PDOC.PN ---
- Subjective Encounter Start Date: 06/20/18 Encounter Start Time: 09:49 Subjective: nsg notes rev, fadia ovn, no new issues. pt states she feels more -: sleepy in the last few days than her usual but otherwise feels ok -: was seen s/p breakfast. no breathing issues/ fevers - Objective Resuscitation Status: Resuscitation Status FULL:Full Resuscitation Vital Signs & Weight: Vital Signs (12 hours) Temp Pulse Resp BP BP Pulse Ox 06/20/18 08:24 201/84 H 06/20/18 08:00 98.2 F 73 18 201/84 H 96 06/20/18 06:24 70 16 93 L 06/20/18 02:08 12 06/20/18 02:05 96 06/19/18 22:21 67 12 95 Weight Admit Weight 216 lb Weight 216 lb 4.375 oz Most Recent Monitor Data Heart Rate from ECG 80 NIBP 148/45 NIBP BP-Mean 79 Respiration from ECG 16 SpO2 97 I&O: 06/19/18 06/20/18 06/21/18 06:59 06:59 06:59 Intake Total 1360 Output Total 600 1800 Balance -600 -440 Result Diagrams: 06/16/18 04:55 06/16/18 04:55 Additional Labs: Accuchecks 06/20/18 06/19/18 06/19/18 04:35 20:36 16:20 POC Glucose 129 H 159 H 235 H 06/19/18 11:28 POC Glucose 211 H Phys Exam - Physical Examination Constitutional: NAD seated in hospital bed HEENT: PERRLA, moist MMs Respiratory: no wheezing, no rales, no rhonchi, clear to auscultation bilateral marginal air mvmt Cardiovascular: RRR, no significant murmur, no rub soft heart tones Gastrointestinal: soft, positive bowel sounds Psychiatric: normal affect Dx/Plan - Plan (1) Acute respiratory failure with hypoxia Code(s): J96.01 - ACUTE RESPIRATORY FAILURE WITH HYPOXIA Status: Resolved ? 2/2 aspiration apprec pulmonary c/s (2) UTI (urinary tract infection) MDR klebsiella IV merrem d4 of IV abx, will need at least 7d for complicated UTI apprec ID c/s (3) Anemia, normocytic normochromic Code(s): D64.9 - ANEMIA, UNSPECIFIED Status: Chronic hemodynamically stable (4) Asthma Code(s): J45.909 - UNSPECIFIED ASTHMA, UNCOMPLICATED Status: Chronic Qualifiers: stable resp status continue nebs prn continue prednisone (5) CKD (chronic kidney disease) stage 3, GFR 30-59 ml/min Status: Chronic continue to monitor I/O Eid draining clear yellow urine (6) Chronic anticoagulation Code(s): Z79.01 - CHAIR PAD MAKER (CURRENT) USE OF ANTICOAGULANTS Status: Chronic hemodynamically stable (7) Chronic heel ulcer Code(s): L97.409 - NON-PRS CHRONIC ULCER OF UNSP HEEL AND MIDFOOT W UNSP SEVERT Status: Chronic apprec wound care c/s d/w wound care nsg (8) Diabetic gastroparesis Code(s): E11.43 - TYPE 2 DIABETES W DIABETIC AUTONOMIC (POLY)NEUROPATHY; K31.84 - GASTROPARESIS Status: Chronic apprec ergonomics consultant c/s re: optimal timing and frequency of meals (9) Hyperlipidemia Code(s): E78.5 - HYPERLIPIDEMIA, UNSPECIFIED Status: Chronic Qualifiers: (10) Hypertension Code(s): I10 - ESSENTIAL (PRIMARY) HYPERTENSION Status: Chronic poorly controlled pt states she uses a clonidine patch at home - will resume with also prn clonidine for hypertension also has prn hydralazine ? higher than usual SBP also related to prednisone use (11) Hypothyroidism Code(s): E03.9 - HYPOTHYROIDISM, UNSPECIFIED Status: Chronic continue home levothyroxine (12) Obesity (BMI 30.0-34.9) Code(s): E66.9 - OBESITY, UNSPECIFIED Status: Chronic (13) Paroxysmal atrial fibrillation Code(s): I48.0 - PAROXYSMAL ATRIAL FIBRILLATION Status: Chronic (14) Physical deconditioning Code(s): R53.81 - OTHER MALAISE Status: Chronic concern for progression over past 2 hospitalizations (15) Rheumatoid arteritis Code(s): I00 - RHEUMATIC FEVER WITHOUT HEART INVOLVEMENT Status: Chronic (16) Type II diabetes mellitus Status: Chronic continue with home regimen - Plan diet: as sandeep, see above activity: encourage - OOB with PT/ OT, to chair TID dvt ppx pt with poor long-term prognosis, apprec palliative consultation d/w pt at bedside and her bedside nsg
[2018-06-20] MEDS ORDERED: cloNIDine 0.1mg/24 Hour PATCH TD SCH (10:30)
[2018-06-20] MEDS: HumaLOG 300 UNITS/3 ML VIAL SC PRN ×3 (13:09→20:54)
--- NOTE | 2018-06-20 15:16 | PRG ---
DATE OF SERVICE: 06/20/2018 SERVICE: Pulmonary Medicine. INTERVAL HISTORY: The patient is doing great from a respiratory standpoint. She has been sleeping m ost of the day. This afternoon, she wakes up and indicates that she feels a little obstructed once a gain. That being said, she has minimal conversational dyspnea. She denies any fevers or chills. Sh chikis does not have a cough and there have been no events overnight. PHYSICAL EXAMINATION: VITAL SIGNS: Afebrile, pulse 76, blood pressure 148/60, respirations 16, saturation 96% on room air. GENERAL: The patient is awake and alert, in no apparent distress. LUNGS: Decent air entry. Crackles are present throughout bilateral lung mcclelland. There is no prolon ged expiratory phase or wheezing appreciated. HEART: Normal rate, regular. ABDOMEN: Soft, nontender, nondistended. Bowel sounds are positive. MUSCULOSKELETAL: No cyanosis or clubbing. There is no pitting in the bilateral lower extremities. NEUROLOGIC: Grossly nonfocal. ASSESSMENT: 1. Acute hypoxic respiratory failure, resolved. 2. Weakness. 3. Debility, advanced. 4. Urinary tract infection. 5. Severe sepsis, resolving. 6. Asthma without current exacerbation. DISCUSSION AND PLAN: I will continue our efforts at mobilizing the patient. Our biggest issue is th e patient's debility and weakness. I will continue supportive care including antibiotics, and nebuli zed medications. We will watch her volume status closely. Home blood pressure medications will be r estarted.
[2018-06-20] MEDS: Carvedilol 25 MG TAB PO SCH (16:52)
[2018-06-21] MEDS: MEROPENEM 1 GM/50 ML 1 GM in Premix Bag 1 BAG IVPB SCH ×3 (06:22→20:54)
[2018-06-21] MEDS: Levothyroxine Sodium 125 MCG TAB PO SCH (06:22)
[2018-06-21] MEDS: HumaLOG 300 UNITS/3 ML VIAL SC PRN ×4 (06:22→20:46)
[2018-06-21] MEDS: Insulin Glargine 20 UNITS in Pre-Filled Syringe 1 EACH SC SCH (08:08)
[2018-06-21] MEDS: predniSONE 20 MG TAB PO SCH (08:08)
[2018-06-21] MEDS: Enoxaparin Sodium 40 MG/0.4 ML SYRINGE SC SCH (08:08)
[2018-06-21] MEDS: Carvedilol 25 MG TAB PO SCH ×2 (08:08→17:16)
[2018-06-21] MEDS: Famotidine 20 MG TAB PO SCH (08:10)
[2018-06-21 09:11] LABS: #Eosinphils 0.1 thou/uL (0.0-0.7); #Lymphocytes 1.5 thou/uL (1.20-3.40); #Monocytes 1.2 thou/uL (0.11-0.59); #Neutrophils 7.8 thou/uL (1.40-6.50); %Basophils 0.1 % (0.0-1.0); %Eosinophils 0.7 % (0.0-10.0); %Monocytes 11.6 % (0.0-10.0); %Neutrophils 73.5 % (42.0-75.0); Mean Corpuscular HGB CONC 31.2 g/dL (32.0-36.0); Mean Corpuscular Hemoglobin 29.7 pg (27.0-31.0); Mean Corpuscular Volume 95.2 fL (78.0-98.0); Mean Platelet Volume 8.7 fL (7.4-10.4); Platelet Count 230 thou/uL (130-400); RBC Distribution Width 14.5 % (11.5-14.5); White Blood Cell (WBC) Count 10.6 thou/uL (4.8-10.8)
[2018-06-21 09:19] LABS: Anion Gap 14 mmol/L (10-20); BUN (Urea Nitrogen) 33 mg/dL (9.8-20.1); Calc. Creatinine Clearance 40 mL/min (70-130); Calcium 8.4 mg/dL (7.8-10.44); Carbon Dioxide 24 mmol/L (23-31); Chloride 104 mmol/L (98-107); Estimated GFR-MDRD 35; Glucose 212 mg/dL (83-110); Potassium 3.6 mmol/L (3.5-5.1); Sodium 138 mmol/L (136-145)
--- NOTE | 2018-06-21 11:08 | PQF ---
CLINICAL DOCUMENTATION IMPROVEMENT CLARIFICATION FORM: ICD-10 Updated PLEASE DO AN ADDENDUM TO THE PROGRESS NOTE WITH ANY DOCUMENTATION UPDATES OR ADDITIONS AND CARRY THROUGH TO DC SUMMARY. THANK YOU. DATE: 06/21/18 ATTN: Dr. Ochoa Please exercise your independent, professional judgment in responding to the clarification form. Clinical indicators are provided on the bottom of this form for your review Please check appropriate box(s) to clarify if the following diagnosis has been ruled in or ruled out: SEVERE SEPSIS [ x ] Ruled in diagnosis [ x] Continue to treat [ ] Resolved [ ] Ruled out diagnosis [ ] Cannot rule out diagnosis [ ] Other diagnosis [ ] Unable to determine In addition, please specify: Present on Admission (POA): [ x ] Yes [ ] No [ ] Unable to determine For continuity of documentation, please document condition throughout progress notes and discharge summary. Thank You. CLINICAL INDICATORS - SIGNS / SYMPTOMS / LABS H&P: ACUTE RESPIRATORY FAILURE, CLEAR ETIOLOGY, COULD BE SECONDARY TO SEPSIS. PT INTUBATED DUE TO PERSISTENT SATURATION IN THE 80s UNCONTROLLED DIABETES WITH GLUCOSE 224, LIKELY TRIGGERED BY UNDERLYING INFECTION PLUS ACUTE PHYSICAL DISTRESS. PN 06/18: UTI. MDR KLEBSIELLA. PULMONOLOGY PN 06/19 - 06/20: SEVERE SEPSIS RISKS: H&P 06/16: 83 YEAR OLD. LIVES IN A [place]. HX OF DM 2, RA, A FIB. ASTHMA, HTN. UTI PN 06/16: UTI, CKD 3, DIABETIC GASTROPARESIS, CHRONIC HEEL ULCER. TREATMENT: PN 06/18: DC VANCOMYCIN & ZOSYN START MEROPENEM BASED ON CULTURE RESULT CONSULT ID Thank you, (This form is maintained as a part of the permanent medical record) 2014 [employer]. All Rights Reserved Susan Davis RN, BSN [email or web address] Office: [phone] [facility], [place]
--- NOTE | 2018-06-21 11:44 | PDOC.PN ---
- Subjective Encounter Start Date: 06/21/18 Encounter Start Time: 09:20 Patient seen and examined. No new complaints. No overnight events - Objective Resuscitation Status: Resuscitation Status FULL:Full Resuscitation MAR Reviewed: Yes Vital Signs & Weight: Vital Signs (12 hours) Temp Pulse Resp BP Pulse Ox 06/21/18 10:24 80 14 06/21/18 08:00 98.4 F 79 20 173/77 H 93 L 06/21/18 06:47 72 12 06/21/18 04:00 98.6 F 06/21/18 02:37 71 12 96 Weight Admit Weight 216 lb Weight 216 lb 4.375 oz Most Recent Monitor Data Heart Rate from ECG 80 NIBP 148/45 NIBP BP-Mean 79 Respiration from ECG 16 SpO2 97 I&O: 06/20/18 06/21/18 06/22/18 06:59 06:59 06:59 Intake Total 1360 1360 480 Output Total 1800 800 Balance -440 560 480 Result Diagrams: 06/21/18 08:41 06/21/18 08:41 Additional Labs: Accuchecks 06/21/18 06/20/18 06/20/18 04:24 20:25 16:29 POC Glucose 228 H 221 H 226 H 06/20/18 11:32 POC Glucose 205 H Phys Exam - Physical Examination Constitutional: NAD HEENT: PERRLA, moist MMs, sclera anicteric Neck: no JVD, supple Respiratory: no wheezing, no rales, no rhonchi Cardiovascular: RRR, no significant murmur, no rub Gastrointestinal: soft, non-tender, no distention, positive bowel sounds Musculoskeletal: no edema, pulses present Neurological: non-focal, normal sensation Lymphatic: no nodes Psychiatric: normal affect Skin: no rash, normal turgor Dx/Plan (1) Acute respiratory failure with hypoxia Code(s): J96.01 - ACUTE RESPIRATORY FAILURE WITH HYPOXIA Status: Resolved (2) UTI (urinary tract infection) Status: Acute Comment: MDR klebsiella (3) Anemia, normocytic normochromic Code(s): D64.9 - ANEMIA, UNSPECIFIED Status: Chronic (4) Asthma Code(s): J45.909 - UNSPECIFIED ASTHMA, UNCOMPLICATED Status: Chronic Qualifiers: (5) CKD (chronic kidney disease) stage 3, GFR 30-59 ml/min Status: Chronic Comment: (6) Chronic anticoagulation Code(s): Z79.01 - RETIREMENT (CURRENT) USE OF ANTICOAGULANTS Status: Chronic (7) Chronic heel ulcer Code(s): L97.409 - NON-PRS CHRONIC ULCER OF UNSP HEEL AND MIDFOOT W UNSP SEVERT Status: Chronic (8) Diabetic gastroparesis Code(s): E11.43 - TYPE 2 DIABETES W DIABETIC AUTONOMIC (POLY)NEUROPATHY; K31.84 - GASTROPARESIS Status: Chronic (9) Hyperlipidemia Code(s): E78.5 - HYPERLIPIDEMIA, UNSPECIFIED Status: Chronic Qualifiers: (10) Hypertension Code(s): I10 - ESSENTIAL (PRIMARY) HYPERTENSION Status: Chronic Qualifiers: Comment: (11) Hypothyroidism Code(s): E03.9 - HYPOTHYROIDISM, UNSPECIFIED Status: Chronic Qualifiers: Comment: (12) Obesity (BMI 30.0-34.9) Code(s): E66.9 - OBESITY, UNSPECIFIED Status: Chronic (13) Paroxysmal atrial fibrillation Code(s): I48.0 - PAROXYSMAL ATRIAL FIBRILLATION Status: Chronic (14) Physical deconditioning Code(s): R53.81 - OTHER MALAISE Status: Chronic (15) Rheumatoid arteritis Code(s): I00 - RHEUMATIC FEVER WITHOUT HEART INVOLVEMENT Status: Chronic (16) Type II diabetes mellitus Status: Chronic Qualifiers: Comment: - Plan cont current plan of care, continue antibiotics * as per dr roblero continue meropenam for now * does not suspect her MDR klebsiella is main problem and may not need to treat on discharge * medication reviewed as below * symptomatic treatment * hopefully will consider discharge today or tomorrow. Review of Systems - Review of Systems Eyes: negative: Pain, Vision Change, Conjunctivae Inflammation, Eyelid Inflammation, Redness, Other ENT: negative: Ear Pain, Ear Discharge, Nose Pain, Nose Discharge, Nose Congestion, Mouth Pain, Mouth Swelling, Throat Pain, Throat Swelling, Other Respiratory: negative: Cough, Dry, Shortness of Breath, Hemoptysis, SOB with Excertion, Pleuritic Pain, Sputum, Wheezing Cardiovascular: negative: chest pain, palpitations, orthopnea, paroxysmal nocturnal dyspnea, edema, light headedness, other Gastrointestinal: negative: Nausea, Vomiting, Abdominal Pain, Diarrhea, Constipation, Melena, Hematochezia, Other Genitourinary: negative: Dysuria, Frequency, Incontinence, Hematuria, Retention , Other Musculoskeletal: negative: Neck Pain, Shoulder Pain, Arm Pain, Back Pain, Hand Pain, Leg Pain, Foot Pain, Other Other: not reliable due to her level of cognitive status - Medications/Allergies Allergies/Adverse Reactions: Allergies Allergy/AdvReac Type Severity Reaction Status Date / Time aspirin Allergy Intermediate Verified 04/21/18 22:14 NSAIDS (Non-Steroidal Allergy Intermediate Verified 04/21/18 22:14 Anti-Inflamma lactose AdvReac Diarrhea Verified 01/28/18 03:24 Medications: Current Medications Acetaminophen (Tylenol) 650 mg PO Q4H PRN PRN Reason: Headache/Fever or Pain Acetaminophen (Tylenol) 975 mg PA Q6H PRN PRN Reason: TEMP > 102 Al Hydroxide/Mg Hydroxide (Maalox) 15 ml PO Q4H PRN PRN Reason: Heartburn or Indigestion Albuterol/Ipratropium (Duoneb) 3 ml NEB Q4H PRN PRN Reason: Dyspnea Last Admin: 06/19/18 18:22 Dose: 3 ml Albuterol/Ipratropium (Duoneb) 3 ml NEB [id number] Last Admin: 06/21/18 10:24 Dose: 3 ml Artificial Tears (Tears Naturale) 0 drop EA EYE PRN PRN PRN Reason: Dry Eyes Carvedilol (Coreg) 25 mg PO BID-WM [facility] Last Admin: 06/21/18 08:08 Dose: 25 mg Clonidine (Catapres) 0.1 mg PO Q4H PRN PRN Reason: Systolic BP > 180 Last Admin: 06/20/18 08:24 Dose: 0.1 mg Clonidine (Damrryhy-Lgt-2 Patch) 0.1 mg TD Q7D [facility] Last Admin: 06/20/18 11:22 Dose: 0.1 mg Dextrose/Water (Dextrose 50%) 25 gm SLOW IVP PRN PRN PRN Reason: Hypoglycemia Enoxaparin Sodium (Lovenox) 40 mg SC 0900 [facility] Last Admin: 06/21/18 08:08 Dose: 40 mg Famotidine (Pepcid) 20 mg PO DAILY [facility] Last Admin: 06/21/18 08:10 Dose: Not Given Glucagon (Glucagon) 1 mg IM PRN PRN PRN Reason: Hypoglycemia Guaifenesin (Robitussin Sf) 200 mg PO Q4H PRN PRN Reason: Cough Hydralazine HCl (Apresoline) 10 mg SLOW IVP Q4H PRN PRN Reason: Systolic BP > 180 Dextrose/Water (D5w) 1,000 mls @ 0 mls/hr IV .Q0M PRN PRN Reason: Hypoglycemia Meropenem 1 gm/ Device 50 mls @ 100 mls/hr IVPB Q8HR [facility] Last Admin: 06/21/18 06:22 Dose: 50 mls Insulin Glargine 20 units/ (Miscellaneous Medication) 0.2 mls @ 0 mls/hr SC DAILY [facility] Last Admin: 06/21/18 08:08 Dose: 0.2 mls Insulin Human Lispro (Humalog) 0 units SC .MODERATE SLIDING SC PRN PRN Reason: Moderate Correctional Scale Last Admin: 06/21/18 06:22 Dose: 4 unit Levothyroxine Sodium (Synthroid) 125 mcg PO 0600 [facility] Last Admin: 06/21/18 06:22 Dose: 125 mcg Loperamide HCl (Imodium) 2 mg PO PRN PRN PRN Reason: Diarrhea/Loose Stools Loratadine (Claritin) 10 mg PO DAILYPRN PRN PRN Reason: Sinus Symptoms Magnesium Hydroxide (Milk Of Magnesium) 30 ml PO DAILYPRN PRN PRN Reason: Constipation Last Admin: 06/21/18 06:22 Dose: 30 ml Metoclopramide HCl (Reglan) 5 mg IVP Q4H PRN PRN Reason: Nausea Mineral Oil/White Petrolatum (Eucerin Cream) 0 gm TOP BIDPRN PRN PRN Reason: Dry Skin Ondansetron HCl (Zofran) 4 mg IVP Q6H PRN PRN Reason: Nausea/Vomiting Ondansetron HCl (Zofran Odt) 4 mg PO Q6H PRN PRN Reason: Nausea/Vomiting Pantoprazole Sodium (Protonix) 40 mg PO DAILY [facility] Last Admin: 06/21/18 08:08 Dose: 40 mg Phenol (Chloraseptic Spur 180 Ml Bot) 0 ml PO PRN PRN PRN Reason: Sore Throat Prednisone (Prednisone) 40 mg PO QAM-[facility] Last Admin: 06/21/18 08:08 Dose: 40 mg Senna (Senokot) 2 tab PO HSPRN PRN PRN Reason: Constipation Sodium Chloride (Mckenzie Nasal Spur 0.65%) 0 ml EA NARE QIDPRN PRN PRN Reason: Nasal Congestion Sodium Chloride (Flush - Normal Saline) 10 ml IVF Q12HR [facility] Last Admin: 06/21/18 08:10 Dose: 10 ml Sodium Chloride (Flush - Normal Saline) 10 ml IVF PRN PRN PRN Reason: Saline Flush
[2018-06-21] MEDS: cloNIDine 0.1 MG TAB PO PRN (20:44)
--- NOTE | 2018-06-21 22:50 | PRG ---
DATE OF SERVICE: 06/21/2018 Ms. Munroe is afebrile, heart rate is 80, respiratory rate 14, oximetry is 93, blood pressure 173/77. Exam is essentially unchanged. White count is 10.6, hemoglobin 8.0, platelets 230. Electrolytes are unremarkable. Creatinine is 1.71, it was 1.57 on admission. IMPRESSION: Status post intubation? for regurgitating gastric contents versus an asthma flare. She was extubated quickly. She has been stable since. She is probably on the intravascularly dry side and needs to be hydrated. I do not really see any clear indication for the broad spectrum antimicrobial therapy. She has a urinary tract infection, but with her issues with frequent Eid placement, unsure if this a clinical issue at this point. Most bladder infections require 1-3 days of antibiotics is adequate. She is certainly with frequent hospitalization and risk for C. diff colitis. ADALID
[2018-06-22] MEDS: cloNIDine 0.1 MG TAB PO PRN ×2 (00:16→05:11)
[2018-06-22] MEDS: Levothyroxine Sodium 125 MCG TAB PO SCH (05:11)
[2018-06-22] MEDS: MEROPENEM 1 GM/50 ML 1 GM in Premix Bag 1 BAG IVPB SCH (05:12)
[2018-06-22 07:33] VITALS: TEMP 98.2
[2018-06-22] MEDS: Enoxaparin Sodium 40 MG/0.4 ML SYRINGE SC SCH (08:04)
[2018-06-22] MEDS: Famotidine 20 MG TAB PO SCH (08:07)
[2018-06-22] MEDS: Carvedilol 25 MG TAB PO SCH (08:08)
[2018-06-22] MEDS: predniSONE 20 MG TAB PO SCH (08:08)
[2018-06-22] MEDS: Insulin Glargine 20 UNITS in Pre-Filled Syringe 1 EACH SC SCH (08:08)
[2018-06-22 09:45] VITALS: BP 175/74
--- NOTE | 2018-06-22 10:53 | DIS ---
DATE OF ADMISSION: 06/16/2018 DATE OF DISCHARGE: 06/22/2018 PRIMARY CARE PHYSICIAN: Concetta Winston M.D. DISCHARGE DISPOSITION: intermediate home. PRIMARY DISCHARGE DIAGNOSES: 1. Acute respiratory failure with hypoxia, required intubation, resolved. 2. Asthma flareup due to poor handling of secretion. 3. Multidrug resistant urinary tract infection, ruled out. 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 PRIMARY PROCEDURE/OPERATION: Endotracheal intubation and mechanical ventilatory support. RADIOLOGICAL INVESTIGATION: CT angio was negative for any PE. Chest x-ray was negative for any acut e infiltration. CT brain negative for any acute intracranial process. SIGNIFICANT LABORATORY DATA: WBC 10.6, hemoglobin 8.0, platelet 230. Sodium 138, potassium 3.6, BUN 33, creatinine 1.71, calcium 8.24. Urinalysis suggestive of UTI, urine culture grew Klebsiella, blo od culture negative. DISCHARGE MEDICATIONS: Tylenol 650 mg p.o. q.6 hourly p.r.n., clonidine patch every week, amlodipine 5 mg daily, Coreg 25 mg p.o. b.i.d., ferrous sulfate 325 mg p.o. daily, Humalog insulin 4 units subc u t.i.d., Plaquenil 200 mg p.o. b.i.d., Levemir 20 units subcu in the morning, Protonix 40 mg p.o. da abril, ranitidine 150 mg p.o. b.i.d., rivastigmine 6 mg p.o. b.i.d., Zoloft 50 mg p.o. at bedtime, DuoN eb q.6 hourly p.r.n., Brovana 15 mcg nebulization b.i.d., Pulmicort nebulization b.i.d., folic acid 1 mg p.o. daily, Synthroid 125 mcg p.o. daily, Asmanex 2 puff inhalation b.i.d. p.r.n. CONTRAINDICATIONS: None. CODE STATUS: FULL CODE. INPATIENT CONSULTANTS: Dr. Smalls was following while in hospital. Dr. Pearce was consulted for MDR U TI. TEST RESULTS PENDING ON DISCHARGE: None. ALLERGIES: ASPIRIN and NSAID. DISCHARGE PLAN: Post hospital, the patient is discharged to halfway home. HOSPITAL COURSE: An 83-year-old female who has physical deconditioning. She is almost functionally quadriplegic and remains in bed. She does have chronic heel ulcer on the left foot. She was dischar ged after several days stay in the hospital for asthma exacerbation and she was discharged to halfway home. Within 24 hours, patient returned back to ER for acute respiratory distress. She req uired intubation in the emergency room. She was admitted to CCU. We suspected mucus plug related ac [place] respiratory failure. Next day, patient was extubated. Patient was subsequently transferred to m edical floor. Her urinalysis was suggestive of UTI. 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 That is why we consulted Dr. Pearce. This patien t has chronic indwelling Eid catheter for her urinary incontinence and bed bound status. Dr. Pearce was thinking that this patient does not have any real invasive UTI, but it is most likely colonizati on and he was not recommending to treat that infection. The patient did not require any further antibiotic therapy upon discharge. She remained stable while in hospital. The patient is up to her baseline level. I have seen and examined the patient at bedside today. All review of system reviewed with her and carlos bledsoe. Patient's vitals are stable. Her physical examination is unchanged. While in hospital, her blood pressure was fluctuating but it was improving and responding to medications. While in [facility], wound care team was following for wound care and patient will need wound care at a halfway home as well. At halfway home, patient will need respiratory therapy. Paperwork for discharge done. Discharge medication reconciliation done. Overall, patient is medical ly stable for discharge and she has continued to be high risk for readmission. Total time spent on discharge day 31 minutes.
--- NOTE | 2018-06-26 17:56 | EKG ---
Test Reason : Blood Pressure : / mmHG Vent. Rate : 071 BPM Atrial Rate : 075 BPM P-R Int : 000 ms QRS Dur : 090 ms QT Int : 462 ms P-R-T Axes : 000 037 041 degrees QTc Int : 502 ms Atrial fibrillation Prolonged QT Abnormal ECG Confirmed by OMAR CURTIS DO ([id number]), magazine editor CARLYN HARDWICK ([id number]) on 06/26/2018 5:56:03 PM Referred By: KIRSTEN Confirmed By:OMAR CURTIS DO
== END 2018-06-22 13:40 | DRG 871 ==
LOC: ERS 23:10 → CCU 06-16 01:00 → T4-B 06-17 10:33
PROVIDERS: ADMIT Hospitalist; ATTEND Hospitalist
PROC: 0BH17EZ Insertion of Endotracheal Airway into Trachea, Via Natural or Artificial Opening (ICD-10-PCS; principal; 2018-06-16)
PROC: 5A1935Z Respiratory Ventilation, Less than 24 Consecutive Hours (ICD-10-PCS; 2018-06-16)
DX: A41.9 Sepsis, unspecified organism (principal); J96.01 Acute respiratory failure with hypoxia; R53.2 Functional quadriplegia; I13.0 Hypertensive heart and chronic kidney disease with heart failure and stage 1 through stage 4 chronic kidney disease, or unspecified chronic kidney disease; L97.409 Non-pressure chronic ulcer of unspecified heel and midfoot with unspecified severity; R65.20 Severe sepsis without septic shock; M06.9 Rheumatoid arthritis, unspecified; I50.9 Heart failure, unspecified; J45.909 Unspecified asthma, uncomplicated; E03.9 Hypothyroidism, unspecified; E11.22 Type 2 diabetes mellitus with diabetic chronic kidney disease; E11.65 Type 2 diabetes mellitus with hyperglycemia; D64.9 Anemia, unspecified; N18.3 Chronic kidney disease, stage 3 (moderate); E11.621 Type 2 diabetes mellitus with foot ulcer; E11.43 Type 2 diabetes mellitus with diabetic autonomic (poly)neuropathy; K31.84 Gastroparesis; I48.0 Paroxysmal atrial fibrillation; E66.9 Obesity, unspecified; Z68.31 Body mass index [BMI] 31.0-31.9, adult; Z74.01 Bed confinement status; Z79.01 Long term (current) use of anticoagulants; Z86.718 Personal history of other venous thrombosis and embolism
CPT/HCPCS: 31500; 36415; 36416; 51702; 70450; 71045; 71275; 80048; 80053; 80202; 81003; 81015; 82553; 82805; 83605; 83880; 84443; 84484; 85025; 87040; 87077; 87086; 87186; 93005; 94003; 94640; 94760; 96365; 96366; 96367; 96374; A4216; G8978-GP-CM; G8978-GP-CN; G8979-GP-CM; G8979-GP-CN; G8980-GP-CM; G8980-GP-CN; G8987-GO-CM; G8988-GO-CM; G8989-GO-CM; J0360; J1650; J1940; J2185; J2543; J2704; J2930; J3010; J3370; J7050; J7506; J7620; S0028

== ENCOUNTER 2018-06-24 08:20 | Emergency (ER) | payer MEDICARE ==
[2018-06-24 09:20] LABS: #Eosinphils 0.2 thou/uL (0.0-0.7); #Lymphocytes 3.3 thou/uL (1.20-3.40); #Monocytes 1.4 thou/uL (0.11-0.59); #Neutrophils 8.8 thou/uL (1.40-6.50); %Basophils 0.2 % (0.0-1.0); %Eosinophils 1.7 % (0.0-10.0); %Monocytes 10.3 % (0.0-10.0); %Neutrophils 63.8 % (42.0-75.0); Hemoglobin 9.7 g/dL (12.0-16.0); Mean Corpuscular HGB CONC 31.1 g/dL (32.0-36.0); Mean Corpuscular Hemoglobin 29.3 pg (27.0-31.0); Mean Corpuscular Volume 94.1 fL (78.0-98.0); Mean Platelet Volume 9.4 fL (7.4-10.4); Platelet Count 259 thou/uL (130-400); RBC Distribution Width 14.5 % (11.5-14.5); Red Blood Cell (RBC) Count 3.31 mill/uL (4.20-5.40); White Blood Cell (WBC) Count 13.8 thou/uL (4.8-10.8)
[2018-06-24] MEDS ORDERED: hydrALAZINE 20 MG/ML VIAL ONE (09:20)
[2018-06-24] MEDS ORDERED: Nitroglycerin 0.4 MG TAB (25 Tab Bottle) ONE (09:20)
[2018-06-24 09:46] LABS: ALT (SGPT) 11 U/L (8-55); AST (SGOT) 16 U/L (5-34); Albumin 3.1 g/dL (3.4-4.8); Alkaline Phosphatase 141 U/L (40-150); Anion Gap 11 mmol/L (10-20); BUN (Urea Nitrogen) 44 mg/dL (9.8-20.1); Bilirubin, Total 0.3 mg/dL (0.2-1.2); Calc. Creatinine Clearance 0 mL/min (70-130); Calcium 8.5 mg/dL (7.8-10.44); Carbon Dioxide 26 mmol/L (23-31); Chloride 104 mmol/L (98-107); Estimated GFR-MDRD 39; Globulin 3.1 g/dL (2.4-3.5); Glucose 242 mg/dL (83-110); Potassium 4.2 mmol/L (3.5-5.1); Protein, Total 6.2 g/dL (6.0-8.3); Sodium 137 mmol/L (136-145)
[2018-06-24 09:50] LABS: CKMB 2.4 ng/mL (0-6.6)
--- NOTE | 2018-06-24 10:09 | RAD ---
PORTABLE CHEST: Date: 06/24/18 HISTORY: Chest pain. COMPARISON: 06/15/18. FINDINGS: Heart size is enlarged. Pulmonary vessels appear prominent centrally. This is probably just baseline change for this patient. There are some increased markings in the lung bases. They are actually sligh tly less prominent than the prior exam. It could be chronic in nature. It could indicate some mild el ement of edema or represent some atelectasis or some early infiltrative change. IMPRESSION: Cardiomegaly with mild central vascular prominence, which is felt to be mainly related to somewhat pr ominent main pulmonary arteries. There are bibasilar lung changes which appear greater in the left ba se, probably more related to atelectasis versus some infiltrate. POS: BEL
[2018-06-24 12:56] LABS: CKMB 1.8 ng/mL (0-6.6); Troponin I 0.021 ng/mL (< 0.028)
== END 2018-06-24 15:44 | disposition home or self-care (01) ==
LOC: ERS 08:20
DX: I11.0 Hypertensive heart disease with heart failure (principal); I50.9 Heart failure, unspecified; R07.9 Chest pain, unspecified; I48.91 Unspecified atrial fibrillation; M06.9 Rheumatoid arthritis, unspecified; J45.909 Unspecified asthma, uncomplicated; J18.9 Pneumonia, unspecified organism; E03.9 Hypothyroidism, unspecified; E11.43 Type 2 diabetes mellitus with diabetic autonomic (poly)neuropathy; K31.84 Gastroparesis; Z87.891 Personal history of nicotine dependence; Z79.4 Long term (current) use of insulin; Z79.899 Other long term (current) drug therapy
CPT/HCPCS: 36415; 71045; 80053; 82553; 83880; 84484; 85025; 93005; 96374; J0360